=== PATIENT | male | born 1945 | race Caucasian/White ===

== ENCOUNTER 2024-05-20 16:01 | Emergency (ER) | payer MEDICARE, SELFPAY ==
[2024-05-20 16:02] VITALS: BP 116/69; PULSE 63; RESP 18; TEMP 36.5; O2SAT 92; BMI 25.0
--- NOTE | 2024-05-20 16:18 | EKG12_ITS ---
Test Reason : CP Blood Pressure : / mmHG Vent. Rate : 062 BPM Atrial Rate : 062 BPM P-R Int : 182 ms QRS Dur : 086 ms QT Int : 418 ms P-R-T Axes : 011 -18 048 degrees QTc Int : 424 ms Normal sinus rhythm Inferior infarct , age undetermined Abnormal ECG Confirmed by TISHA HADDAD, IRINA ([id number]), editor dictionary LOTUS CLEMENT ([id number]) on 05/22/2024 2:27:55 PM Referred By: Confirmed By:KAYLYN GILES MD
--- NOTE | 2024-05-20 16:18 | CT_ITS ---
INDICATION: ams EXAMINATION: CT BRAIN - CT Head or Brain W/O Contrast Injection TECHNIQUE: Multiple axial images were obtained of the head without intravenous contrast. A radiation dose optimization technique was used for this scan. IV Contrast dosage and agent: None. RADIATION DOSAGE (If Supplied By Facility): CTDIvol = ( 44.99 ) mGy, DLP = ( 779.24 ) mGycm COMPARISON: No relevant prior examinations for comparison FINDINGS: HEMISPHERES: 1. The cerebral parenchyma, ventricular system, subarachnoid spaces have normal configuration and density. There is a normal gyral pattern. There is normal valentine/white differentiation. No midline shift.. 2. There are diffuse involutional changes and mild to moderate chronic microvascular deep white matter changes. 3. No intraparenchymal mass or hemorrhage. CEREBELLUM - BRAINSTEM: The cerebellum, brainstem, basilar and suprasellar cisterns have normal configuration. There however is asymmetric area of diminished density in the LEFT sosa suspicious of a area of encephalomalacic and infarct.. No Chiari malformation. PITUITARY: Infundibulum and pituitary have normal configuration. Midline structures appear normal. CSF SPACES: Appropriate for age. No hydrocephalus. Basal cisterns are patent. VESSELS: 1. Mild to moderate vascular calcifications throughout the cavernous carotid vessels. 2. No hyperdense vascular signs noted.. ORBITS AND PARANASAL SINUSES: 1. Normal appearance of the bony orbits. Normal appearance of the globes and retrobulbar soft tissues.. 2. Paranasal sinuses are clear. BONY ELEMENTS: Bony elements of the cranial vault, facial skeleton and skull base have normal appearance. SCALP AND SOFT TISSUES: Normal appearance of the soft tissues of the scalp and the visualized face OTHER: None ASPECTS Score for Acute Strokes: 10 CT/Brain/Head without Contrast IMPRESSION: 1. Diffuse involutional changes and chronic microvascular deep white matter disease. 2. LEFT paramedian pontine hypodensity may represent an area of brainstem infarct of indeterminate age. If corresponding acute symptoms are present, consider evaluation with MRI for further clarification of acuity. 3. No intracranial mass or hemorrhage. 4. No radiographically significant sinus disease.. Electronically Signed: Preston Gunderson MD at 17:50 EDT ,
--- NOTE | 2024-05-20 16:19 | EDS_ITS ---
HPI History of Present Illness Chief Complaint: Weakness Informant: patient and family Narrative Narrative: 79-year-old male who is new to the area and has been getting his care through [facility] presenting to the emergency room with altered mental status. Patient is moving to a new area got up earlier than normal today. He feels tired. Family states that there is been a lot of activity involved in the move. He had a donut for breakfast. He states that he did not have lunch. He was at [facility] getting some items that he needed when coming out of the store he suddenly stopped moving and difficulty in speaking (tried to get him to count to 10 and he said [id number] and then 10). He was noted to be diaphoretic and pale. He had difficulty moving. Patient states that during that episode he was feeling some chest discomfort. Family notes he was incontinent of urine. Patient does carry a history of dementia. 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 Family notes he seems to be angrier over the past couple weeks. [facility] Medical History Kidney disease Diabetes TIA (transient ischemic attack) Hypertension Home Medications ?Medication ?Instructions ?Recorded ?Last Taken ?Type amlodipine 5 mg tablet 5 mg PO DAILY 05/20/24 Unknown History aspirin 81 mg tablet,delayed 81 mg PO DAILY 05/20/24 Unknown History release (Adult Low Dose Aspirin) atorvastatin 80 mg tablet 80 mg PO DAILY 05/20/24 Unknown History calcium carbonate 600 mg-vitamin 1 cap PO DAILY 05/20/24 Unknown History D3 5 mcg (200 unit) capsule (Calcium 600 + D(3)) duloxetine 30 mg capsule,delayed 60 mg PO DAILY 05/20/24 Unknown History release insulin human U-100 NPH-regulr 22 unit subcut BREAKFAST 05/20/24 Unknown History 70-30 mix 100 unit/mL subcutaneous susp (Humulin 70/30 U-100 Insulin) isosorbide mononitrate 30 mg 30 mg PO DAILY 05/20/24 Unknown History tablet,extended release 24 hr losartan 50 mg tablet 50 mg PO DAILY 05/20/24 Unknown History metoprolol tartrate 100 mg tablet 100 mg PO BID 05/20/24 Unknown History mirtazapine 15 mg tablet 15 mg PO QHS 05/20/24 Unknown History solifenacin 10 mg tablet 10 mg PO DAILY 05/20/24 Unknown History tamsulosin 0.4 mg capsule 0.4 mg PO DAILY 05/20/24 Unknown History topiramate 50 mg tablet 50 mg PO QHS 05/20/24 Unknown History vitamin E 268 mg (400 unit) capsule 268 mg PO DAILY 05/20/24 Unknown History Allergy/AdvReac Type Severity Reaction Status Date / Time No Known Allergies Allergy Verified 05/20/24 17:10 Social History household members: family housing: house ROS ROS ED ROS Narrative Fatigue Constitutional Constitutional ED: Denies chills, fever(s) or weight loss Eyes Eyes: Denies change in vision or diplopia ENT ENT ED: Denies ear pain, rhinorrhea or sore throat Cardiovascular Cardiovascular: Reports chest pain; Denies orthopnea, palpitations or racing heartbeat Respiratory/Chest Respiratory/Chest: Denies cough, dyspnea or orthopnea Gastrointestinal Gastrointestinal: Denies abdominal pain, diarrhea, nausea or vomiting Genitourinary Genitourinary ED: Denies dysuria, hematuria or urinary frequency Musculoskeletal Musculoskeletal: Denies arthralgias or myalgias Integumentary Denies abscess or rash Neurologic Neurologic: Denies headache(s) or weakness Psychiatric Psychiatric: Denies anxiety, depression, suicidal ideation or suicidal thoughts Endocrine Endocrinology: Denies polydipsia, polyphagia or polyuria Allergic/Immunologic Allergic/Immunologic ED: Denies mouth swelling, tongue swelling or urticaria EXAM Physical Exam Const Vital Signs: 05/20/24 16:02 05/20/24 16:20 05/20/24 16:25 Temperature 97.7 F L Temperature Source Oral Pulse Rate 63 60 Respiratory Rate 18 12 Blood Pressure 116/69 118/75 Blood Pressure Mean 84 89 Pulse Ox 92 93 96 Oxygen Delivery Method Room Air Nasal Cannula Nasal Cannula Oxygen Flow Rate (L/min) 3 3 05/20/24 17:32 Temperature Temperature Source Pulse Rate 80 Respiratory Rate 18 Blood Pressure 121/64 H Blood Pressure Mean 83 Pulse Ox 91 Oxygen Delivery Method Room Air Oxygen Flow Rate (L/min) Positive well nourished and well developed General Appearance ED: well developed HEENT Reports normocephalic, head/scalp atraumatic and moist mucous membranes Eyes PERRL and EOMs intact bilaterally Neck no lymphadenopathy, supple and no JVD Resp normal respiratory effort and clear to auscultation bilaterally Cardio regular rate, regular rhythm and no murmurs GI normal to inspection, nondistended, normoactive bowel sounds and non-tender Palpation: soft Back/Spine no CVA tenderness and normal ROM Extremity normal to inspection General Extremety ED: Negative for edema General Extremity: Negative for edema Neuro oriented x3 and CN's II-XII intact bilaterally Sensorium / Orientation: alert Motor Exam: strength 5/5 throughout Psych mental status grossly normal Mood & Affect: Negative for depressed or tearful Skin no rashes or lesions noted and no wounds MDM MDM MDM Narrative Medical decision making narrative: Differential diagnosis includes but not limited to vasovagal near syncope dysrhythmia electrolyte disturbance ACS UTI/infection anemia hypotension NOS hypoglycemia intracranial hemorrhage mass Hemoglobin 14.1 with a white count of 7.1 platelet count of 197. BMP with a creatinine 1.86. 2 sets of cardiac enzymes are normal at 8 glucose 238. Urinalysis no acute findings my independent interpretation of the chest x-ray is no acute findings. CT of the brain was obtained. There is a left paramedian pontine hypodensity undetermined age. I do not believe that that fits with the patient's clinical symptoms. His blood sugars remained stable. When he sleeps he has oxygen levels around 89-90%. He has been able to ambulate. I reviewed the above findings with the patient and his daughter. Not seeing any cardiac dysrhythmias. He has been stable here in the department. At this point patient will be discharged home. Should he have return of symptoms would recommend returning to the emergency department. History & Record Review Discussion w/independent historian: Patient and Family Lab Data Attestation: I reviewed the patient's lab results. Labs: Laboratory Results - last 24 hr 05/20/24 05/20/24 05/20/24 16:17 17:17 17:22 WBC 7.1 RBC 4.91 Hgb 14.1 Hct 42.9 MCV 87.4 MCH 28.7 MCHC 32.9 RDW Std Deviation 43.8 RDW Coeff of Vimal 13.8 Plt Count 197 MPV 11.0 Immature Gran % (Auto) 0.300 Neut % (Auto) 42.9 L Lymph % (Auto) 41.3 H [place] % (Auto) 7.2 Eos % (Auto) 7.6 H Baso % (Auto) 0.7 Absolute Neuts (auto) 3.0 Absolute Lymphs (auto) 2.92 Nucleated RBC % 0 Sodium 138 Potassium 3.5 Chloride 111 H Carbon Dioxide 21.0 Anion Gap 6 BUN 10 Creatinine 1.86 H Estim Creat Clear Calc 31.16 Est GFR (MDRD) Af Amer 45 L Est GFR (MDRD) Non-Af 37 L BUN/Creatinine Ratio 5.4 L Glucose 238 H Calcium 9.5 Troponin I High Sens 8 8 Urine Color Yellow Urine Clarity Clear Urine pH 6.5 Ur Specific [place] 1.015 Urine Protein 30 H Urine Glucose (UA) 100 H Urine Ketones Negative Urine Occult Blood Negative Urine Nitrite Negative Urine Bilirubin Negative Urine Urobilinogen Normal Ur Leukocyte Esterase 25 H Urine RBC 0 SEEN Urine WBC 0 SEEN Ur Squamous Epith Cells 0 SEEN Urine Bacteria 0 SEEN Urine Mucus 0 SEEN POC Glucose 05/20/24 18:07 WBC RBC Hgb Hct MCV MCH MCHC RDW Std Deviation RDW Coeff of [place] Plt Count MPV Immature Gran % (Auto) Neut % (Auto) Lymph % (Auto) [place] % (Auto) Eos % (Auto) Baso % (Auto) Absolute Neuts (auto) Absolute Lymphs (auto) Nucleated RBC % Sodium Potassium Chloride Carbon Dioxide Anion Gap BUN Creatinine Estim Creat Clear Calc Est GFR (MDRD) Af Amer Est GFR (MDRD) Non-Af BUN/Creatinine Ratio Glucose Calcium Troponin I High Sens Urine Color Urine Clarity Urine pH Ur Specific [place] Urine Protein Urine Glucose (UA) Urine Ketones Urine Occult Blood Urine Nitrite Urine Bilirubin Urine Urobilinogen Ur Leukocyte Esterase Urine RBC Urine WBC Ur Squamous Epith Cells Urine Bacteria Urine Mucus POC Glucose 244 H Radiography Diagnostic Testing: Clinical Impression(s) from Imaging Studies Brain CT 05/20/24 16:18 IMPRESSION: 1. Diffuse involutional changes and chronic microvascular deep white matter disease. 2. LEFT paramedian pontine hypodensity may represent an area of brainstem infarct of indeterminate age. If corresponding acute symptoms are present, consider evaluation with MRI for further clarification of acuity. 3. No intracranial mass or hemorrhage. 4. No radiographically significant sinus disease.. Electronically Signed: Preston Gunderson MD at 17:50 EDT , Chest X-Ray 05/20/24 16:50 IMPRESSION: 1. No evidence of acute cardiopulmonary process. 2. Mild crowding of bronchovascular markings particularly at LEFT lung bases contributed by shallow inspiration. Electronically Signed: Preston Gunderson MD at 17:27 EDT , EKG Initial EKG: Attestation: I personally reviewed and interpreted this EKG as follows: Comments: Normal sinus rhythm ventricular rate of 62 bpm Discharge Plan Triage Chief Complaint: Weakness ED Provider: Dylan Weaver Dx/Rx/DC Orders Clinical Impression: AMS (altered mental status), Near syncope Instructions: ED ALOC Prescriptions: No Action vitamin E 268 mg (400 unit) capsule 268 mg PO DAILY amlodipine 5 mg tablet 5 mg PO DAILY aspirin [Adult Low Dose Aspirin] 81 mg tablet,delayed release (DR/EC) 81 mg PO DAILY atorvastatin 80 mg tablet 80 mg PO DAILY Calcium 600 + D(3) 600 mg-5 mcg (200 unit) capsule 1 cap PO DAILY duloxetine 30 mg capsule,delayed release(DR/EC) 60 mg PO DAILY Humulin 70/30 U-100 Insulin 100 unit/mL (70-30) suspension 22 unit subcut BREAKFAST Patient Comments: 26 units prior to dinner losartan 50 mg tablet 50 mg PO DAILY metoprolol tartrate 100 mg tablet 100 mg PO BID isosorbide mononitrate 30 mg tablet extended release 24 hr 30 mg PO DAILY tamsulosin 0.4 mg capsule 0.4 mg PO DAILY mirtazapine 15 mg tablet 15 mg PO QHS topiramate 50 mg tablet 50 mg PO QHS solifenacin 10 mg tablet 10 mg PO DAILY Primary Care Provider: Efren Rios Referrals: Efren Rios MD [Primary Care Provider] - As Needed Print Language: Gabonese Disposition Disposition: Home, Self Care
[2024-05-20 16:20] VITALS: O2SAT 93
[2024-05-20] MEDS: 0.9% Normal Saline (1000mL) 1,000 ML 1000 ML IV (16:24)
[2024-05-20 16:25] VITALS: BP 118/75; PULSE 60; RESP 12; O2SAT 96
[2024-05-20 16:37] LABS: Absolute Lymphocyte Count 2.92 X10^3/uL (0.83-4.51); Basophil# 0.05 X10^3/uL; Basophil% 0.7 % (0-1); Eosinophil# 0.54 X10^3/uL; Eosinophils% 7.6 % (0-5); Hematocrit 42.9 % (40-54); Hemoglobin 14.1 g/dL (13.0-16.5); Lymphocyte # 2.92 X10^3/ul (0.83-4.51); Lymphocyte % 41.3 % (19-41); Mean Corp Hgb Conc 32.9 g/dL (32-36); Mean Corpuscular Hgb 28.7 pg (27.0-32.0); Mean Corpuscular Volume 87.4 fL (80-94); Monocyte# 0.51 X10^3/uL; Monocyte% 7.2 % (0-10); NRBC Flagged by Analyzer 0 % (0-5); Neutrophil # 3.03 X10^3/uL (2.7-7.7); Neutrophil % 42.9 % (47-70); Platelet Count 197 K/mm3 (150-450); RBC Distribution Width CV 13.8 % (11.6-14.6); RBC Distribution Width SD 43.8 fl (35.1-43.9); Red Blood Count 4.91 M/mm3 (4.6-6.2); White Blood Count 7.1 K/mm3 (4.4-11.0)
--- NOTE | 2024-05-20 16:50 | RAD_ITS ---
INDICATION: near syncope EXAMINATION/TECHNIQUE: X-RAY - XR Chest 1 View COMPARISON: No previous relevant examinations available for comparison.. FINDINGS: LIFE-SUPPORT AND LINES: 1. None HEART AND VESSELS: The cardiac silhouette, pulmonary vasculature have normal appearance. No evidence of congestive failure. LUNGS AND PLEURAL SPACES: Lungs are clear. No focal infiltrate, consolidation or effusions. No evidence of pneumothorax. There is mild crowding of bronchovascular markings particularly at the LEFT lung base contributed by shallow inspiration. MEDIASTINUM AND HILAR REGIONS: No masses adenopathy noted. No areas of calcification. Visualized upper airway is normal in position. BONY ELEMENTS: No acute bony changes noted. RAD/Chest 1 View (Portable) IMPRESSION: 1. No evidence of acute cardiopulmonary process. 2. Mild crowding of bronchovascular markings particularly at LEFT lung bases contributed by shallow inspiration. Electronically Signed: Preston Gunderson MD at 17:27 EDT ,
[2024-05-20 17:00] LABS: Anion Gap 6 (5-15); BUN 10 mg/dL (7-18); BUN/Creat Ratio 5.4 RATIO (10-20); Calcium,Total 9.5 mg/dL (8.5-10.1); Chloride 111 mmol/L (98-107); Creatinine, Serum 1.86 mg/dL (0.70-1.30); EST Glomerular Filtration Rate 37 mL/min (>60); Est Glom Filt Rate - Afr Amer 45 mL/min (>60); Estimated Creatinine Clearance 31.16 ml/min; Glucose 238 mg/dL (74-106); Potassium 3.5 mmol/L (3.5-5.1); Sodium Level 138 mmol/L (136-145); Troponin-I HS 8 pg/mL (3.0-78.0)
[2024-05-20 17:30] LABS: Bacteria 0 SEEN /hpf (None Seen); Mucous, Urine 0 SEEN /hpf (<or=2+); Red Blood Cells-Urine 0 SEEN /hpf (0-5); Squamous Epithelial Cells - UA 0 SEEN /hpf (0-5); White Blood Cells 0 SEEN /hpf (0-5)
[2024-05-20 17:32] VITALS: BP 121/64; PULSE 80; RESP 18; O2SAT 91
[2024-05-20 17:35] LABS: Color, Urine Yellow (Yellow); Glucose, Dipstick 100 mg/dl (Normal); Ketone-Dipstick Negative (Negative); Leukocyte Esterase-Dipstick 25 /ul (Negative); Nitrite-Dipstick Negative (Negative); Occult Blood-Urine Negative /ul (Negative); Protein-Dipstick 30 mg/dl (Negative); Specific Gravity, Urine 1.015 (1.002-1.030); Urine Bilirubin Dipstick Negative (Negative); Urine Clarity Clear (Clear); Urine Urobilinogen Normal (Normal); Urine pH 6.5 (5.0 - 8.0)
[2024-05-20 17:58] LABS: Troponin-I HS 8 pg/mL (3.0-78.0)
[2024-05-20 18:25] LABS: Bedside Glucose 244 mg/dL (74-106)
[2024-05-20 19:10] VITALS: BP 116/78; PULSE 78; RESP 16; TEMP 36.6; O2SAT 94
[2024-05-20 20:03] LABS: Bedside Glucose 231 mg/dL (74-106)
== END 2024-05-20 19:12 | disposition home or self-care (01) ==
PROVIDERS: Emergency Provider Emergency Medicine; PCP Family Medicine; Visit Provider Emergency Medicine
DX: R55 Syncope and collapse (principal); E11.9 Type 2 diabetes mellitus without complications; R41.82 Altered mental status, unspecified; I10 Essential (primary) hypertension; R53.1 Weakness; R47.9 Unspecified speech disturbances; Z79.82 Long term (current) use of aspirin; Z86.73 Personal history of transient ischemic attack (TIA), and cerebral infarction without residual deficits
CPT/HCPCS: 70450; 71045; 80048; 81001; 82962; 84484; 85025; 93005; 96360; 99283; J7030; A4216

== ENCOUNTER → 2025-04-17 | Outpatient (CLI) | payer MEDICARE, SELFPAY ==
[2025-04-17 14:27] LABS: ALB/GLOB Ratio 1.6 RATIO (0.9-2.4); AST(SGOT) 31 U/L (<=37); Alanine Aminotransfer ALT/SGPT 33 U/L (<=46); Albumin, Serum 3.8 g/dL (3.4-4.8); Alkaline Phosphatase 108 U/L (40-129); Anion Gap 7 (5-15); BUN 11 mg/dL (4-19); BUN/Creat Ratio 6.8 RATIO (10-20); Calcium,Total 9.4 mg/dL (7.6-11.0); Carbon Dioxide 28.8 mmol/L (21.0-32.0); Chloride 103 mmol/L (98-108); Cholesterol 122 mg/dL (<=200); Creatinine, Serum 1.62 mg/dL (0.70-1.20); EST Glomerular Filtration Rate 43 (>60); Globulin 2.4 g/dL (2.2-4.2); Glucose 179 mg/dL (70-99); High Density Lipoprotein 27 mg/dL; Low Density Lipoprotein Calc. 57 mg/dL; Potassium 3.9 mmol/L (3.3-5.1); Protein, Total 6.2 g/dL (5.9-8.4); Sodium Level 139 mmol/L (133-145); Total Bilirubin 0.52 mg/dL (0.00-1.30); Triglycerides 188 mg/dL; Very Low Density Lipoprotein 38 mg/dL (5-40); cholesterol:hdl ratio screen 4.45
--- OUTSIDE RECORDS SUMMARY | 2025-04-17 21:58 | XMS RPT_ITS | CCD ---
Author Organization [facility] Care Team Providers Care Histopath Tech Name Role Phone KESHAWN MARSH Unavailable Unavailable Efren Tidwell Primary Care Provider [phone] Efren Tidwell Primary Care Provider Efren Tidwell MD Primary Care Provider Efren Tidwell MD Primary Care Provider Efren Tidwell MD Primary Care Provider Paola Wheeler MD Unavailable Paola Wheeler MD Unavailable Efren Tidwell MD Primary Care Provider Efren Tidwell MD Primary Care Provider Efren Tidwell MD Primary Care Provider EFREN TIDWELL MD Attending Unavailable EFREN TIDWELL MD Primary Care Unavailable ArmEfren victoria Primary Care Unavailable Dylan Weaver Attending Unavailable Efren Tidwell Primary Care Unavailable Efren Tidwell Referring Unavailable Kelley Weiss Attending Unavailable Paola Wheeler MD Unavailable [phone] SHARRI MOORE Attending Unavailable ARMEFREN VICTORIA Primary Care Unavailable DION GUTIERREZ Attending Unavailable ARMJULIEN, EFREN Primary Care Unavailable CAMILLA GUADARRAMA Attending Unavailable ARMJULIEN, EFREN Primary Care Unavailable EFREN TIDWELL Attending Unavailable ARMJULIEN, EFREN Primary Care Unavailable RACHELL HERRERA Referring Unavailable ARMJULIEN, EFREN Primary Care Unavailable EFREN TIDWELL Attending Unavailable ARMJULIEN, EFREN Primary Care Unavailable RACHELL HERRERA Attending Unavailable RACHELL HERRERA Referring Unavailable ARMAO, EFREN Primary Care Unavailable LYDIA MONIQUE Attending Unavailable LYDIA MONIQUE Referring Unavailable ARMAO, EFREN Primary Care Unavailable DION GUTIERREZ Attending Unavailable DION GUTIERREZ [facility] Unavailable SUSAN MATT Attending Unavailable EFREN TIDWELL Primary Care Unavailable CURT CROWELL Attending Unavailable ERIC CHRISTIAN Referring Unavailable [facility] Primary Care Unavailable ERIC CHRISTIAN Attending Unavailable [facility] Primary Care Unavailable RACHELL HERRERA Attending Unavailable EFREN TIDWELL Referring [facility]available [facility] Primary Care Unavailable ROCHELLE LANDEROS Attending Unavailable [facility] Primary Care Unavailable Diann HADDAD, Dr. Schwartz Primary Care Provider Dr. Efren Tidwell MD Referring Provider Abhishek BUSINESS CONTROL MANAGER-CKelley Attending Provider [phone] Allergies Allergy Classification Reported Allergen(s) Allergy Type Date of Onset Reaction(s) Facility (1 source) OTHER; Translations: [OTHER] Propensity to adverse reactions (disorder) 8 [facility] Other [place] [facility] Medications Current Medications Medication Drug Class(es) Dates Sig (Normalized) Sig (Original) acetaminophen 325 mg oral tablet (20 sources) Start: 01-08-2024 End: 01-18-2024 take 2 tablets by mouth every six hours as needed for pain and fever acetaminophen (Tylenol) 325 MG tablet Take 2 tablets (650 mg) by mouth every 6 hours as needed for mild pain (1-3) or fever (For temp greater than 100.4 F (38 C)) for up to 10 days. 0 01/08/2024 01/18/2024 Active Start: 01-08-2024 End: 01-08-2024 take 1 tablet by mouth every six hours as needed for pain and fever acetaminophen (Tylenol) tablet 650 mg Start: 03-08-2022 End: 03-08-2023 take 1 tablet by mouth four times daily as needed for pain acetaminophen (Tylenol) 500 MG tablet TAKE 1 TABLET BY MOUTH 4 TIMES DAILY NEEDED FOR PAIN 360 tablet 1 03/08/2022 03/08/2023 Active Start: 03-08-2022 acetaminophen (TYLENOL) tablet 1,000 mg Start: 10-24-2020 End: 10-24-2020 acetaminophen (TYLENOL) tabl et 1,000 mg acetaminophen 325 mg / HYDROcodone bitartrate 5 mg oral tablet (1 source) Opioid Agonist Start: 01-05-2021 take 0.5-1 tablets by mouth every twelve hours as needed HYDROcodone-acetaminophen (NORCO) 5-325 MG per tablet TAKE 1/2 TO 1 TABLET BY MOUTH EVERY 12 HOURS NEEDED 0 01/05/2021 Active ALPRAZolam 0.25 mg disintegrating oral tablet (1 source) Benzodiazepine Start: 03-08-2022 ALPRAZolam (NIRAVAM) dissolvable tablet 0.25 mg amoxicillin 875 mg oral tablet (1 source) Penicillin-class Antibacterial Start: 04-17-2020 End: 04-27-2020 take 1 tablet by mouth twice daily amoxicillin (AMOXIL) 875 MG tablet Indications: Acute cystitis without hematuria Take 1 tablet by mouth 2 times daily for 10 days 20 tablet 0 04/17/2020 04/27/2020 Active aspirin 81 mg delayed release oral tablet (20 sources) Platelet Aggregation Inhibitor, Nonsteroidal Anti-inflammatory Drug Start: 01-08-2024 End: 01-08-2025 Aspirin (Adult Low Dose Aspirin) 81 mg tablet,delayed release (DR/EC) Active 81 mg PO DAILY May 20, 2024 12:00am Start: 01-08-2024 End: 01-08-2024 aspirin EC tablet 325 mg atorvastatin 80 mg oral tablet (20 sources) HMG-CoA Reductase Inhibitor Start: 05-20-2024 take 1 tablet by mouth once daily atorvastatin (Lipitor) 80 MG tablet Indications: Mixed hyperlipidemia TAKE 1 TABLET BY MOUTH DAILY 90 tablet 3 10/03/2024 Active Start: 01-08-2024 End: 03-09-2024 take 1 tablet by mouth once daily atorvastatin (Lipitor) 80 MG tablet Indications: Mixed hyperlipidemia Take 1 tablet (80 mg) by mouth daily. 90 tablet 3 02/06/2024 Active Start: 10-28-2023 End: 01-08-2024 take 1 tablet by mouth at bedtime atorvastatin (Lipitor) 40 MG tablet 1 po at hs 90 tablet 3 10/28/2023 01/08/2024 Discontinued (Stop taking at discharge) Start: 09-08-2022 End: 10-26-2023 take 1 tablet by mouth at bedtime atorvastatin (Lipitor) 40 MG tablet 1 po at hs 90 tablet 3 03/08/2023 10/26/2023 Discontinued (Reorder) Start: 06-30-2021 take 1 tablet by chana th once daily atorvastatin (LIPITOR) 40 MG tablet Indications: Pure hypercholesterolemia Take 1 tablet by mouth daily 90 tablet 3 06/30/2021 Active Start: 03-16-2021 take 1 tablet by chana th once daily atorvastatin (LIPITOR) 40 MG tablet Indications: Pure hypercholesterolemia Take 1 tablet by mouth daily 90 tablet 2 03/16/2021 Active Start: 05-29-2020 take 1 tablet by chana th once daily atorvastatin (LIPITOR) 40 MG tablet Indications: Pure hypercholesterolemia Take 1 tablet by mouth daily 90 tablet 2 05/29/2020 Active Start: 03-09-2019 atorvastatin ( LIPITOR) 40 MG tablet Indications: Pure hypercholesterolemia Take 40 mg by mouth 0 03/09/2019 Active azithromycin 250 mg oral tablet (5 sources) Macrolide Antimicrobial Start: 10-26-2024 End: 10-31-2024 azithromycin (Zithromax) 250 MG tablet Indications: Bronchitis Take 2 tabs (500 mg) by mouth today, than 1 tab (250 mg) daily for 4 days. 6 tablet 10/26/2024 10/31/2024 Active benzonatate 200 mg oral capsule (20 sources) Non-narcotic Antitussive Start: 10-26-2024 End: 04-24-2025 take 1 capsule by mouth three times daily as needed for cough benzonatate (Tessalon) 200 MG capsule Indications: Bronchitis Take 1 capsule (200 mg) by mouth 3 times daily as needed for cough. Do not crush or chew. 42 capsule 3 10/26/2024 04/24/2025 Active Blood Glucose Monitoring Suppl KIT (5 sources) Start: 07-14-2021 Blood Glucose Monitoring Suppl KIT Indications: Type 2 diabetes mellitus with diabetic polyneuropathy, without long-term current use of insulin (HCC) Use as directed, One touch ultra 1 kit 0 07/14/2021 Active calcium carbonate 1500 mg / cholecalciferol 200 unt oral capsule (20 sources) Vitamin D Start: 05-20-2024 Calcium Carbonate-Vitamin D3 (Calcium 600 + D(3)) 600 mg-5 mcg (200 unit) capsule Active 1 NMA PO DAILY May 20, 2024 12:00am take 1 tablet by mouth once viraj y calcium carbonate-vitamin D 600-200 MG-UNIT tablet Take 1 tablet by mouth daily. Active calcium carbonat e-vitamin D 600-200 MG-UNIT tablet Take by mouth. Active Calcium Carb-Cho lecalciferol (CALCIUM 600+D3) 600-200 MG-UNIT TABS Take by mouth 0 Active calcium chloride 0.0014 meq/ml / potassium chloride 0.004 meq/ml / sodium chloride 0.103 meq/ml / sodium lactate 0.028 meq/ml injectable solution (2 sources) Start: 03-08-2022 lactated ringers infusion cefadroxil 500 mg oral capsule (11 sources) Cephalosporin Antibacterial Start: 03-08-2022 End: 03-08-2023 take 1 capsule by mouth twice daily cefadroxil (Duricef) 500 MG capsule TAKE 1 CAPSULE BY MOUTH 2 TIMES DAILY FOR 10 DAYS 20 capsule 0 03/08/2022 03/08/2023 Active ciclopirox 80 mg/ml topical solution (3 sources) Start: 02-04-2022 ciclopirox (PENLAC) 8 % solution Indications: Onychomycosis Apply topically nightly to effected nails. 12 mL 2 02/04/2022 Active Continuous Blood Gluc Spout Tender (FREESTYLE NITA 14 DAY READER) AZUL (6 sources) Start: 06-05-2021 Continuous Blood Gluc Spout Tender (FREESTYLE NITA 14 DAY READER) AZUL Indications: Type 2 diabetes mellitus with diabetic polyneuropathy, without long-term current use of insulin (HCC) Use as directed for blood sugar check 1 Device 0 06/05/2021 Active Continuous Blood Gluc Spout Tender (FreeStyle Nita 2 [place]) device (1 source) Start: 11-09-2022 End: 11-09-2022 Continuous Blood Gluc Spout Tender (FreeStyle Nita 2 [place]) device 1 Device Once for 1 dose. 1 each 0 11/09/2022 11/09/2022 Active Continuous Blood Gluc Sensor (FREESTYLE NITA 14 DAY SENSOR) MISC (6 sources) Start: 06-05-2021 Continuous Blood Gluc Sensor (FREESTYLE NITA 14 DAY SENSOR) MISC Indications: Type 2 diabetes mellitus with diabetic polyneuropathy, without long-term current use of insulin (HCC) Use as directed for blood sugar 6 each 3 06/05/2021 Active Continuous Blood Gluc Sensor (FREESTYLE NITA 2 SENSOR) MISC (4 sources) Start: 11-27-2021 Continuous Blood Gluc Sensor (FREESTYLE NITA 2 SENSOR) [facility] 1 device change every 14 days 6 each 3 11/27/2021 Active Continuous Glucose Spout Tender (FreeStyle Nita 3 [place]) device (11 sources) Start: 01-31-2025 Continuous Glucose Spout Tender (FreeStyle Nita 3 [place]) device Indications: Type 2 diabetes mellitus with hyperglycemia, with long-term current use of insulin ([facility]) Check blood sugar 4 times daily 1 each 01/31/2025 Active Continuous Glucose Sensor (FreeStyle Nita 3 Plus Sensor) misc (11 sources) Start: 01-31-2025 Continuous Glucose Sensor (FreeStyle Nita 3 Plus Sensor) [facility] [place] Indications: Type 2 diabetes mellitus with hyperglycemia, with long-term current use of insulin ([facility]) Check blood sugar 4 times daily 6 each 11 01/31/2025 Active diabetic shoes (20 sources) Start: 04-17-2024 diabetic shoes Diabetic Shoes and inserts. 1 each 04/17/2024 Active 1 ml diphenhydrAMINE hydrochloride 50 mg/ml cartridge (1 source) Histamine-1 Receptor Antagonist Start: 03-08-2022 End: 03-08-2022 diphenhydrAMINE (BENADRYL) injection 12.5 mg docosahexaenoic acid 120 mg / eicosapentaenoic acid 180 mg oral capsule (20 sources) take 1 capsule by mouth in the morning fish oil-omega-3 fatty acids 1000 MG capsule Take 1,000 mg by mouth in the morning. 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) Take 1 tablet by mouth daily 90 tablet 0 09/08/2020 Active Start: 04-21-2020 End: 05-21-2020 take 1 tablet by mouth once daily donepezil (ARICEPT) 10 MG tablet 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) Take 1 tablet by mouth daily 30 tablet 6 04/21/2020 Active Start: 04-21-2020 End: 05-21-2020 take 1 tablet by mouth once daily donepezil (ARICEPT) 5 MG tablet 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) Take 1 tablet by mouth daily Take for 30 days then increase to 10 mg daily (see other script) 30 tablet 0 04/21/2020 Active 0.5 ml dulaglutide 1.5 mg/ml auto-injector (13 sources) GLP-1 Receptor Agonist Start: 01-29-2025 Trulicity 0.75 MG/0.5ML 01/29/2025 Active Start: 01-23-2025 End: 01-23-2025 Dulaglutide (Trulicity) 0.75 mg/0.5 mL pen injector Active 0.75 mg SC EVERY WEEK 2 January 23, 2025 4:58pm DULoxetine 30 mg delayed release oral capsule (20 sources) Serotonin and Norepinephrine Reuptake Inhibitor Start: 01-08-2024 End: 01-08-2024 take 60 mg by mouth once daily 60 mg, Oral, Daily, First dose on 01/08/24 at 0900, Do not crush or chew. Start: 10-28-2023 End: 12-10-2024 take 2 capsules by mouth once daily Duloxetine 30 mg capsule,delayed release(DR/EC) Active 60 mg PO DAILY May 20, 2024 12:00am Start: 03-18-2023 End: 10-26-2023 take 2 capsules by mouth in the morning DULoxetine (Cymbalta) [address] capsule TAKE 2 CAPSULES BY MOUTH IN THE MORNING 180 capsule 3 03/18/2023 10/26/2023 Discontinued (Reorder) Start: 09-08-2022 End: 03-08-2023 take 2 capsules by mouth in the morning DULoxetine (Cymbalta) [address] capsule 2 po in AM Strength: 30 mg 180 capsule 3 03/08/2023 Active Start: 06-30-2021 take 2 capsules by m outh in the morning DULoxetine (CYMBALTA) 30 MG extended release capsule Indications: Type 2 diabetes mellitus with diabetic polyneuropathy, with long-term current use of insulin (HCC) 2 po in AM 180 capsule 3 06/30/2021 Active Start: 02-02-2021 take 2 capsules by m outh in the morning DULoxetine (CYMBALTA) 30 MG extended release capsule Indications: Type 2 diabetes mellitus with diabetic polyneuropathy, with long-term current use of insulin (HCC) 2 po in AM 180 capsule 2 02/02/2021 Active Start: 11-23-2019 take 2 capsules by m outh in the morning DULoxetine (CYMBALTA) 30 MG extended release capsule Indications: Type 2 diabetes mellitus with diabetic polyneuropathy, with long-term current use of insulin (HCC) 2 po in AM 180 capsule 2 04/22/2020 Active empagliflozin 25 mg oral tablet (20 sources) Sodium-Glucose Cotransporter 2 Inhibitor Start: 04-17-2024 End: 11-27-2025 take 1 tablet by mouth once daily in the morning Empagliflozin (Jardiance) 25 mg tablet Active 25 mg PO EVERY MORNING October 15, 2024 1:00am Flash Glucose Sensor (Freestyle Nita 2 Sensor) kit (1 source) Start: 10-15-2024 Flash Glucose Sensor (Freestyle Nita 2 Sensor) kit Active 0 .ROUTE October 15, 2024 1:00am As directed fluticasone propionate 0.05 mg/actuat metered dose nasal spray (13 sources) Corticosteroid Start: 10-05-2021 take 2 spray(s) nasal route once daily fluticasone (Flonase) 50 MCG/ACT nasal spray Administer 2 sprays into affected nostril(s) daily. 0 10/05/2021 Active furosemide 20 mg oral tablet (20 sources) Loop Diuretic Start: 10-15-2024 take 1 tablet by mouth every other day Furosemide 20 mg tablet Active 20 mg PO every other day October 15, 2024 1:00am Start: 10-28-2023 End: 07-23-2024 take 1 tablet by mouth every other day furosemide (Lasix) 20 MG tablet TAKE 1 TABLET BY MOUTH EVERY OTHER DAY 50 tablet 3 07/23/2024 Active Start: 03-08-2023 End: 10-26-2023 take 1 tablet by mouth every other day furosemide (Lasix) 20 MG tablet 1 po every other day 45 tablet 3 03/08/2023 10/26/2023 Discontinued (Reorder) Start: 10-24-2020 furosemide (LA SIX) injection 40 mg Start: 10-24-2020 End: 10-29-2020 take 1 tablet by mouth once daily furosemide (LASIX) 20 MG tablet Take 1 tablet by mouth daily for 5 days 5 tablet 0 10/24/2020 Active Start: 06-05-2020 take 1 tablet by chana once daily furosemide (LASIX) 40 MG tablet Indications: Bilateral lower extremity edema , Shortness of breath on exertion Take 1 tablet by mouth daily 7 tablet 0 06/05/2020 Active Start: 02-27-2020 End: 03-24-2021 take 1 tablet by mouth every twelve hours as needed furosemide (LASIX) 20 MG tablet Indications: Bilateral lower extremity edema Take 1 tablet by mouth every 12 hours as needed (lower extremity swelling) 10 tablet 0 02/27/2020 03/24/2021 Active furosemide (Lasi x) 20 MG tablet Take 20 mg by mouth. 0 Active glucagon (rdna) 1 mg injection (20 sources) Antihypoglycemic Agent Start: 10-15-2024 Glucago n 1 mg recon soln Active 1 mg SC Q20M as needed October 15, 2024 1:00am until target blood sugar attained Start: 04-24-2021 End: 04-17-2024 glucagon [address] 1 mL (1 mg) into the shoulder, thigh, or buttocks Once as needed for low blood sugar for up to 4 doses. 1 each 3 04/17/2024 Active glucosamine hydrochloride 1500 mg oral tablet (5 sources) Start: 10-15-2024 take 1 tablet by mouth once daily Glucosamine Hcl 1,500 mg tablet Active 1500 mg PO daily October 15, 2024 1:00am administer with a meal Glucosamine HCl 1500 MG TABS Take by mouth 0 Active Cozanrpjaqz-Zscxbfxte-Yhd C- Mn (Glucosamine 1500 Complex) capsule (20 sources) Glucosamine-Carroll droit-Vit C-Mn (Glucosamine 1500 Complex) capsule 1 capsule 1 (one) time each day. Active take 1 capsule by mo [facility] every twelve hours Xluqrbzwxkx-Dgiqrljtb-Hlu C-Mn (Glucosam ine 1500 Complex) capsule 1 capsule in the morning and 1 capsule in the evening. Active take 1 capsule by [facility] every twelve hours Zcszzwiyrxo-Xsjjifvgd-Kjw C-Mn (Glucosam ine 1500 Complex) capsule 1 capsule in the morning and 1 capsule in the evening. 0 Active hydroCHLOROthiazide 12.5 mg oral capsule (4 sources) Thiazide Diuretic Start: 11-10-2020 take 1 capsule by mouth once daily in the morning hydroCHLOROthiazide (MICROZIDE) 12.5 MG capsule Indications: Lower extremity edema Take 1 capsule by mouth every morning 90 capsule 1 11/10/2020 Active End: 10-04-2023 hydroCHLOROthiazide (Microzi de) 12.5 MG capsule Every 24 hours. 0 10/04/2023 Discontinued (Therapy completed) insulin isophane, human 70 unt/ml / insulin, regular, human 30 unt/ml injectable suspension (20 sources) Insulin Start: 05-20-2024 Insulin Nph An d Regular Human (Humulin 70/30 U-100 Insulin) 100 unit/mL (70-30) suspension Active 22 U SC WITH BREAKFAST May 20, 2024 12:00am Start: 04-17-2024 End: 10-30-2024 insulin NPH-insulin regular (HumuLIN,NovoLIN) (70-30) 100 UNIT/ML injection Indications: Type 2 diabetes mellitus with hyperglycemia, with long-term current use of insulin (HCC) Inject 18 units before breakfast and 28 units before dinner 40 mL 3 10/30/2024 Active Start: 01-16-2024 End: 04-17-2024 insulin NPH-insulin regular (HumuLIN,NovoLIN) (70-30) 100 UNIT/ML injection Indications: Type 2 diabetes mellitus with hyperglycemia, with long-term current use of insulin (HCC) Inject 22 units before breakfast and 26 units before dinner 40 mL 3 01/16/2024 04/17/2024 Discontinued (Reorder) Start: 01-08-2024 End: 01-08-2024 inject 15 [IU] by subcutaneous injection twice daily before mealtime 15 Units, SubCUTAneous, 2 times daily before meals, First dose on 01/08/24 at 0700 Start: 12-15-2023 End: 01-16-2024 insulin NPH-insulin regular (HumuLIN,NovoLIN) (70-30) 100 UNIT/ML injection Indications: Type 2 diabetes mellitus with hyperglycemia, with long-term current use of insulin (HCC) Inject 18 units before breakfast and 22 units before dinner 21 mL 3 12/15/2023 01/16/2024 Discontinued (Reorder) Start: 05-02-2023 End: 05-01-2024 inject 15 [IU] by subcutaneous injection in the morning insulin NPH-insulin regular (HumuLIN,NovoLIN) (70-30) 100 UNIT/ML injection Indications: Type 2 diabetes mellitus with hyperglycemia, with long-term current use of insulin (HCC) Inject 15 Units under the skin in the morning and 15 Units in the evening. Inject before meals. 21 mL 3 05/02/2023 05/01/2024 Active Start: 09-24-2022 End: 09-24-2023 inject 19 [IU] by subcutaneous injection in the morning insulin NPH-insulin regular (NovoLIN) (70-30) 100 UNIT/ML injection Inject 19 Units under the skin in the morning and 19 Units in the evening. Inject before meals. 30 mL 0 09/24/2022 11/09/2022 Discontinued (Therapy completed) insulin lispro 100 unt/ml injectable solution (1 source) Insulin Analog Start: 03-08-2022 insulin lispro (HUMALOG) injection vial 0-20 Units insulin isophane, human 100 unt/ml injectable suspension (15 sources) Start: 11-27-2021 insulin NPH (H UMULIN N;NOVOLIN N) 100 UNIT/ML injection vial Indications: Type 2 diabetes mellitus with diabetic polyneuropathy, with long-term current use of insulin (HCC) Inject 12 Units into the skin 2 times daily (before meals) 30 mL 3 11/27/2021 Active Start: 07-14-2021 insulin NPH (H UMULIN N;NOVOLIN N) 100 UNIT/ML injection vial Indications: Type 2 diabetes mellitus with diabetic polyneuropathy, with long-term current use of insulin (HCC) Inject 10 Units into the skin 2 times daily (before meals) 10 mL 3 07/14/2021 Active Start: 02-02-2021 insulin NPH (H UMULIN N;NOVOLIN N) 100 UNIT/ML injection vial Indications: Type 2 diabetes mellitus with diabetic polyneuropathy, with long-term current use of insulin (HCC) Inject 28 Units into the skin 2 times daily (before meals) 3 vial 3 02/02/2021 Active Start: 05-01-2020 insulin NPH (H UMULIN N;NOVOLIN N) 100 UNIT/ML injection vial Inject 28 Units into the skin 2 times daily (before meals) 3 vial 3 05/01/2020 Active Start: 12-27-2018 End: 10-22-2022 insulin NPH, Isophane, (Humu MILLA N,NovoLIN N) 100 UNIT/ML injection 12 units with breakfast and 15 units with dinner 0 12/27/2018 10/22/2022 Discontinued (Duplicate order) Start: 12-27-2018 insulin NPH (H UMULIN N;NOVOLIN N) 100 UNIT/ML injection vial Inject 28 Units before breakfast and 30 Units before dinner. 0 12/27/2018 Active isopropyl alcohol 0.7 ml/ml medicated pad (5 sources) Start: 11-27-2021 Alcohol Swabs 70 % PADS Check blood sugar twice daily 200 each 3 11/27/2021 Active Start: 07-14-2021 Alcohol Swabs 70 % PADS Indications: Type 2 diabetes mellitus with diabetic polyneuropathy, without long-term current use of insulin (HCC) Check blood sugar twice daily 200 each 3 07/14/2021 Active labetalol (NORMODYNE;TRANDATE) injection 5 mg (1 source) Start: 03-08-2022 labetalol (NORMODYNE;TRANDATE) injection 5 mg lidocaine 0.05 mg/mg medicated patch (7 sources) Antiarrhythmi c, Amide Local Anesthetic Start: 03-01-2025 apply 1 dose transdermal route once daily, then apply 1 dose transdermal route every twelve hours lidocaine (Lidoderm) 5 % patch Indications: Lumbar pain Apply 1 patch topically daily. Remove & discard patch within 12 hours or as directed by . 30 patch 2 03/01/2025 Active Start: 03-08-2022 End: 03-08-2022 lidocaine PF 1 % injection 1 mL losartan potassium 50 mg oral tablet (20 sources) Angiotensin 2 Receptor Huy Start: 10-28-2023 End: 07-23-2024 take 1 tablet by mouth once daily Losartan 50 mg tablet Active 50 mg PO DAILY May 20, 2024 12:00am Start: 07-14-2021 End: 10-26-2023 take 1 tablet by mouth once daily losartan (Cozaar) 50 MG tablet Take 1 tablet (50 mg) by mouth daily. 90 tablet 3 03/08/2023 10/26/2023 Discontinued (Reorder) Start: 04-29-2021 take 1 tablet by chana th once daily losartan (COZAAR) 50 MG tablet Indications: Essential hypertension Take 1 tablet by mouth daily 90 tablet 3 04/29/2021 Active Start: 02-24-2021 take 1 tablet by chana th once daily losartan (COZAAR) 100 MG tablet Indications: Essential hypertension Take 1 tablet by mouth daily 90 tablet 3 02/24/2021 Active Start: 01-23-2020 take 1 tablet by chana th once daily losartan (COZAAR) 100 MG tablet Indications: Essential hypertension Take 1 tablet by mouth daily 90 tablet 2 04/22/2020 Active metFORMIN hydrochloride 1000 mg oral tablet (10 sources) Biguanide Start: 02-02-2021 take 1 tablet by mouth twice daily at mealtime metFORMIN (GLUCOPHAGE) 1000 MG tablet Indications: Type 2 diabetes mellitus with diabetic polyneuropathy, with long-term current use of insulin (HCC) TAKE 1 TABLET BY MOUTH TWICE A DAY WITH MEALS 180 tablet 2 02/02/2021 Active Start: 11-17-2018 take 1 tablet by chana th twice daily at mealtime metFORMIN (GLUCOPHAGE) 1000 MG tablet Indications: Type 2 diabetes mellitus with diabetic polyneuropathy, with long-term current use of insulin (HCC) TAKE 1 TABLET BY MOUTH TWICE A DAY WITH MEALS 0 11/17/2018 Active End: 11-09-2022 metFORMIN (Glucophage) 1000 MG tablet every 12 hours. 0 11/09/2022 Discontinued (Therapy completed) metoprolol tartrate 100 mg oral tablet (20 sources) beta-Adrenergic Huy Start: 04-30-2024 5 mg, IntraVENous, Every 5 min PRN, CTA Coronary Procedure, Starting on 04/30/24 at 1438, For 3 doses, Up to 3, 5mg doses for a total of 15mg for CTA Coronary Test Start: 01-08-2024 End: 01-08-2024 take 100 mg by mouth twice daily 100 mg, Oral, 2 times daily, First dose on 01/08/24 at 0045 Start: 10-28-2023 End: 07-23-2024 take 1 tablet by mouth twice daily Metoprolol Tartrate 100 mg tablet Active 100 mg PO TWICE A DAY May 20, 2024 12:00am Start: 09-08-2022 End: 10-26-2023 take 1 tablet by mouth twice daily metoprolol tartrate (Lopressor) 100 MG tablet 1 po bid 180 tablet 3 03/08/2023 10/26/2023 Discontinued (Reorder) Start: 06-30-2021 take 1 tablet by chana th twice daily metoprolol (LOPRESSOR) 100 MG tablet Indications: Essential hypertension Take 1 tablet by mouth 2 times daily 180 tablet 3 06/30/2021 Active Start: 02-02-2021 take 1 tablet by chana th twice daily metoprolol (LOPRESSOR) 100 MG tablet Indications: Essential hypertension Take 1 tablet by mouth 2 times daily 180 tablet 2 02/02/2021 Active Start: 01-23-2020 take 1 tablet by chana th twice daily metoprolol (LOPRESSOR) 100 MG tablet Indications: Essential hypertension Take 1 tablet by mouth 2 times daily 180 tablet 2 04/22/2020 Active 24 hr mirabegron 50 mg extended release oral tablet (8 sources) beta3-Adrenergic Agonist Start: 01-23-2020 End: 08-18-2020 take 1 tablet by mouth once daily mirabegron (MYRBETRIQ) 50 MG TB24 Indications: Hypertrophy of prostate with urinary obstruction Take 50 mg by mouth daily 90 tablet 3 08/04/2020 Active mirtazapine 15 mg oral tablet (20 sources) Start: 05-20-2024 End: 03-20-2025 take 1 tablet by mouth once daily mirtazapine (Remeron) 15 MG tablet TAKE 1 TABLET BY MOUTH EVERY NIGHT 90 tablet 3 03/20/2025 Active Start: 10-28-2023 End: 01-08-2024 take 1 tablet by mouth once daily mirtazapine (Remeron) 15 MG tablet Take 1 tablet (15 mg) by mouth Nightly. 90 tablet 3 10/28/2023 Active Start: 09-08-2022 End: 10-26-2023 take 1 tablet by mouth once daily mirtazapine (Remeron) 15 MG tablet Take 1 tablet (15 mg) by mouth Nightly. 90 tablet 3 03/08/2023 10/26/2023 Discontinued (Reorder) Start: 06-30-2021 take 1 tablet by chana th once daily mirtazapine (REMERON) 15 MG tablet Indications: Moderate episode of recurrent major depressive disorder (HCC) Take 1 tablet by mouth nightly 90 tablet 3 06/30/2021 Active Start: 06-05-2021 take 1 tablet by chana th once daily mirtazapine (REMERON) 15 MG tablet Indications: Moderate episode of recurrent major depressive disorder (HCC) Take 1 tablet by mouth nightly 90 tablet 1 06/05/2021 Active Start: 02-02-2021 take 1 tablet by chana th once daily mirtazapine (REMERON) 7.5 MG tablet Indications: Moderate episode of recurrent major depressive disorder (HCC) Take 1 tablet by mouth nightly 90 tablet 2 02/02/2021 Active Start: 01-23-2020 take 1 tablet by chana th once daily mirtazapine (REMERON) 7.5 MG tablet Indications: Moderate episode of recurrent major depressive disorder (HCC) Take 1 tablet by mouth nightly 90 tablet 2 04/22/2020 Active End: 11-09-2022 mirtazapine (Remeron) 7.5 MG tablet Every 24 hours. 0 11/09/2022 Discontinued (Duplicate order) Multiple Vitamins-Minerals (THERAGRAN-M PO) (14 sources) Multiple Vitamin s-Minerals (THERAGRAN-M PO) Take by mouth 0 Active Multivitamin tablet (1 source) Start: 10-15-2024 Multivitamin tablet Active 1 {tbl} PO EVERY MORNING October 15, 2024 1:00am lrxszpxydehu-dpxo-slbuiaqf-f olic acid (Theragran-M) tablet (20 sources) multivitamin-iro l-yhdeiunn-ivliy acid (Theragran-M) tablet Every 24 hours. Active multivitamin-iro o-bboeecwr-mrncc acid (Theragran-M) tablet Every 24 hours. 0 Active naproxen 500 mg oral tablet (17 sources) Nonsteroidal Anti-inflammatory Drug Start: 10-27-2020 take 0.5 tablet by mouth twice daily at mealtime naproxen (NAPROSYN) 500 MG tablet Take 0.5 tablets by mouth 2 times daily (with meals) 60 tablet 0 10/27/2020 Active Start: 12-26-2019 take 1 tablet by chana th in the morning naproxen (Naprosyn) 500 MG tablet Take 1 tablet by mouth in the morning and 1 tablet in the evening. Take with meals. 0 12/26/2019 Active Start: 03-09-2019 naproxen (NAPR OSYN) 500 MG tablet Take 250 mg by mouth 2 times daily (with meals) 0 03/09/2019 Active OMEGA-3 FATTY ACIDS PO (14 sources) OMEGA-3 FATTY AC IDS PO Take 1,000 mg by mouth 0 Active omeprazole 40 mg delayed release oral capsule (20 sources) Proton Pump Inhibitor Start: 10-15-2024 take 1 capsule by mouth once daily Omeprazole 40 mg capsule,delayed release(DR/EC) Active 40 mg PO daily October 15, 2024 1:00am Start: 10-28-2023 End: 07-23-2024 take 1 capsule by mouth in the morning omeprazole (PriLOSEC) [address] capsule TAKE 1 CAPSULE BY MOUTH IN THE MORNING 100 capsule 3 07/23/2024 Active Start: 06-30-2021 End: 10-26-2023 take 1 capsule by mouth in the morning omeprazole (PriLOSEC) [address] capsule Take 1 capsule (40 mg) by mouth in the morning. 90 capsule 1 09/08/2022 Active Start: 09-03-2020 take 1 capsule by mo uth twice daily omeprazole (PRILOSEC) 40 MG delayed release capsule Indications: Gastroesophageal reflux disease with esophagitis Take 1 capsule by mouth 2 times daily 180 capsule 3 09/03/2020 Active Start: 06-05-2020 take 1 capsule by mo uth twice daily omeprazole (PRILOSEC) 40 MG delayed release capsule Indications: Gastroesophageal reflux disease with esophagitis Take 1 capsule by mouth 2 times daily 30 capsule 1 06/05/2020 Active Start: 03-09-2019 omeprazole (MA ILOSEC) 40 MG delayed release capsule Indications: Gastroesophageal reflux disease with esophagitis Take 40 mg by mouth 0 03/09/2019 Active 2 ml ondansetron 2 mg/ml injection (1 source) Serotonin-3 Receptor Antagonist Start: 03-08-2022 End: 03-08-2022 ondansetron (ZOFRAN) injection 4 mg microencapsulated potassium chloride 20 meq extended release oral tablet (3 sources) Start: 06-05-2020 take 1 tablet by mouth once daily potassium chloride (KLOR-CON M) 20 MEQ extended release tablet Indications: Bilateral lower extremity edema Take 1 tablet by mouth daily for 5 days Take once a day when using furosemide. 5 tablet 0 06/05/2020 Active Start: 02-27-2020 End: 03-24-2021 take 1 tablet by mouth every twelve hours as needed potassium chloride (KLOR-CON M) 20 MEQ extended release tablet Indications: Bilateral lower extremity edema Take 1 tablet by mouth every 12 hours as needed (when taking furosemide tablet) 10 tablet 0 02/27/2020 03/24/2021 Active Probiotic Product (PROBIOTIC PO) (14 sources) Probiotic Produc t (PROBIOTIC PO) Take by mouth 0 Active Probiotic tablet delayed-rel ease (20 sources) Probiotic tablet delayed-release daily. Active Probiotic tablet delayed-release as directed Active Probiotic tablet delayed-release as directed 0 Active solifenacin succinate 10 mg oral tablet (20 sources) Cholinergic Muscarinic Antagonist Start: 05-20-2024 End: 12-21-2024 take 1 tablet by mouth once daily solifenacin (VESIcare) 10 MG tablet TAKE 1 TABLET BY MOUTH DAILY 100 tablet 2 12/21/2024 Active Start: 03-08-2023 End: 10-28-2023 take 1 tablet by mouth once daily solifenacin (VESIcare) 10 MG tablet TAKE 1 TABLET BY MOUTH DAILY 100 tablet 3 10/28/2023 Active Start: 02-27-2021 End: 02-27-2022 take 1 tablet by mouth once daily solifenacin (VESICARE) 10 MG tablet Indications: Hypertrophy of prostate with urinary obstruction TAKE 1 TABLET BY MOUTH DAILY 90 tablet 3 02/27/2021 Active End: 03-08-2023 solifenacin (VESIcare) 10 MG tablet Every 24 hours. 0 03/08/2023 Discontinued (Reorder) tamsulosin hydrochloride 0.4 mg oral capsule (20 sources) alpha-Adrenergic Huy Start: 02-08-2024 End: 12-27-2024 take 1 capsule by mouth once daily Tamsulosin 0.4 mg capsule Active 0.4 mg PO DAILY May 20, 2024 12:00am Start: 03-08-2023 End: 01-08-2024 take 1 capsule by mouth once daily tamsulosin (Flomax) 0.4 MG 24 hr capsule 1 po qd 90 capsule 3 03/08/2023 Active Start: 08-17-2022 End: 03-08-2023 take 1 capsule by mouth every twenty-four hours tamsulosin (Flomax) 0.4 MG 24 hr capsule TK 1 C PO D 0 08/17/2022 03/08/2023 Discontinued (Reorder) Start: 08-03-2021 take 1 capsule by mo uth once daily tamsulosin (FLOMAX) 0.4 MG capsule Indications: Hypertrophy of prostate with urinary obstruction TAKE 1 CAPSULE BY MOUTH DAILY 90 capsule 3 08/03/2021 Active Start: 05-01-2020 take 1 capsule by mo uth once daily tamsulosin (FLOMAX) 0.4 MG capsule Indications: Hypertrophy of prostate with urinary obstruction Take 1 capsule by mouth daily 90 capsule 3 08/04/2020 Active topiramate 50 mg oral tablet (20 sources) Start: 01-08-2024 End: 01-08-2024 take 50 mg by mouth once daily 50 mg, Oral, Nightly, First dose on 01/08/24 at 0045, Do not crush, chew, or split. Start: 10-28-2023 End: 07-23-2024 take 1 tablet by mouth at bedtime Topiramate 50 mg tablet Active 50 mg PO AT BEDTIME May 20, 2024 12:00am Start: 07-16-2019 End: 10-26-2023 take 1 tablet by mouth once daily topiramate 50 MG tablet Take 1 tablet by mouth Nightly. 90 tablet 1 09/08/2022 Active End: 11-09-2022 topiramate 50 MG tablet Ever y 24 hours. 0 11/09/2022 Discontinued (Duplicate order) triamcinolone acetonide 0.001 mg/mg topical ointment (2 sources) Corticosteroid Start: 06-13-2020 triamcinolone (KENALOG) 0.1 % ointment Indications: Rash and other nonspecific skin eruption Apply topically 2 times daily. Apply thin layer to affected area. avoid face, arm pits and groin 30 g 06/13/2020 Active vitamin e 180 mg oral capsule (20 sources) Start: 05-20-2024 take 1 capsule by mouth once daily Vitamin E 268 mg (400 unit) capsule Active 268 mg PO DAILY May 20, 2024 12:00am take 1 capsule by mo uth once daily Vitamin E 450 MG (1000 UT) capsule Take 1 capsule by mouth daily. Active End: 03-01-2025 alpha tocopherol (Vitamin E) 400 units capsule 1 capsule Every 24 hours. 180 mg 03/01/2025 Discontinued alpha tocopherol (Vitamin E) 400 units capsule 1 capsule Every 24 hours. 0 Active take 1 tablet by chana th in the morning vitamin E 180 MG (400 UNIT) capsule Take 1 tablet by mouth in the morning. 0 Active End: 11-09-2022 take 1 capsule by mouth once daily alpha tocopherol (Vitamin E) 400 units capsule Take 400 Units by mouth daily. 0 11/09/2022 Discontinued (Duplicate order) Completed/Discontinued Medications Medication Drug Class(es) Dates Sig (Normalized) Sig (Original) amLODIPine 5 mg oral tablet (20 sources) Dihydropyridine Calcium Channel Huy Start: 10-04-2023 End: 01-17-2025 take 1 tablet by mouth once daily Amlodipine 5 mg tablet Discontinued 5 mg PO DAILY May 20, 2024 12:00am January 17, 2025 2:24pm Start: 03-18-2023 End: 10-04-2023 take 1 tablet by mouth once daily amLODIPine (Norvasc) 10 MG tablet TAKE 1 TABLET BY MOUTH DAILY 90 tablet 3 03/18/2023 10/04/2023 Discontinued (Dose adjustment) Start: 09-08-2022 End: 03-08-2023 take 1 tablet by mouth once daily amLODIPine (Norvasc) 10 MG tablet 1 po qd Strength: 10 mg 90 tablet 3 03/08/2023 Active Start: 06-30-2021 take 1 tablet by chana th once daily amLODIPine (NORVASC) 10 MG tablet Indications: Essential hypertension 1 po qd 90 tablet 3 06/30/2021 Active Start: 03-02-2021 take 1 tablet by chana th once daily amLODIPine (NORVASC) 10 MG tablet Indications: Essential hypertension 1 po qd 90 tablet 3 03/02/2021 Active Start: 01-01-2019 amLODIPine (NO RVASC) 10 MG tablet Indications: Essential hypertension Take 10 mg by mouth 0 01/01/2019 Active ascorbic acid 500 mg chewable tablet (20 sources) Vitamin C End: 10-04-2023 ascorbic acid (Vitamin C) 50 0 MG chewable tablet Every 24 hours. 0 10/04/2023 Discontinued (Therapy completed) End: 11-09-2022 ascorbic acid (Vitamin C) 50 0 mg chewable tablet Chew 500 mg daily. 0 11/09/2022 Discontinued (Duplicate order) take 1 tablet by chana th once daily vitamin C (ASCORBIC ACID) 500 MG tablet Take 500 mg by mouth daily 0 Active cholecalciferol 9.52 unt/ml / glucose 357 mg/ml oral gel (2 sources) Vitamin D Start: 01-08-2024 End: 01-08-2024 15 g, Oral, As needed, low blood sugar, Starting on 01/08/24 at 0035, If blood glucose less than 50 mg/dL and patient ALERT and NOT NPO, give 2 tubes glucose gel. If blood glucose less than 70 mg/dL and patient ALERT and NOT NPO, give 1 tube glucose gel. Repeat blood glucose in 15 minutes. If blood glucose is less than 70 mg/dL, repeat treatment and recheck blood glucose in 15 minutes x2 and notify provider. Continuous Blood Gluc Sensor (FreeStyle Nita 2 Sensor) [facility] [place] (20 sources) Start: 11-09-2022 End: 04-17-2024 Continuous Blood Gluc Sensor (FreeStyle Nita 2 Sensor) misc 1 Device every 14 (fourteen) days. 9 each 3 11/09/2022 04/17/2024 Discontinued (Reorder) Start: 11-09-2022 Continuous Blo od Gluc Sensor (FreeStyle Nita 2 Sensor) misc 1 Device every 14 (fourteen) days. 9 each 3 11/09/2022 Active Continuous Glucose Sensor (FreeStyle Nita 2 Sensor) [facility] [place] (20 sources) Start: 11-23-2024 End: 01-31-2025 Continuous Glucose Sensor (FreeStyle Nita 2 Sensor) [facility] [place] Indications: Type 2 diabetes mellitus with hyperglycemia, with long-term current use of insulin (HCC) 1 Device every 14 (fourteen) days. 6 each 3 11/23/2024 01/31/2025 Discontinued (Dose adjustment) Start: 11-23-2024 Continuous Glu cose Sensor (FreeStyle Nita 2 Sensor) [facility] [place] Indications: Type 2 diabetes mellitus with hyperglycemia, with long-term current use of insulin (HCC) 1 Device every 14 (fourteen) days. 6 each 3 11/23/2024 Active Start: 09-25-2024 End: 11-22-2024 Continuous Glucose Sensor (F reeStyle Nita 2 Sensor) [facility] [place] Indications: Type 2 diabetes mellitus with hyperglycemia, with long-term current use of insulin (HCC) 1 Device every 14 (fourteen) days. 6 each 5 09/25/2024 11/22/2024 Discontinued (Reorder) Start: 09-25-2024 Continuous Glu cose Sensor (FreeStyle Nita 2 Sensor) [facility] [place] Indications: Type 2 diabetes mellitus with hyperglycemia, with long-term current use of insulin (HCC) 1 Device every 14 (fourteen) days. 6 each 5 09/25/2024 Active Start: 04-17-2024 End: 09-25-2024 Continuous Glucose Sensor (F reeStyle Nita 2 Sensor) misc 1 Device every 14 (fourteen) days. 9 each 3 04/17/2024 09/25/2024 Discontinued (Reorder) Start: 04-17-2024 Continuous Glu cose Sensor (FreeStyle Nita 2 Sensor) misc 1 Device every 14 (fourteen) days. 9 each 3 04/17/2024 Active diclofenac sodium 0.01 mg/mg topical gel (11 sources) Nonsteroidal Anti-inflammatory Drug Start: 11-09-2022 End: 10-04-2023 Diclofenac Sodium (Voltaren) 1 % gel Indications: Acute pain of right knee , History of fall 4 gm to knee twice daily for 10 days, then bid prn pain 100 g 2 11/09/2022 10/04/2023 Discontinued (Therapy completed) 0.4 ml enoxaparin sodium 100 mg/ml prefilled syringe (2 sources) Low Molecular Weight Heparin Start: 01-08-2024 End: 01-08-2024 inject 40 mg by subcutaneous injection every twenty-four hours 40 mg, SubCUTAneous, Every 24 hours scheduled (Daily), First dose on 01/08/24 at 0900, Indication of Use: Prophylaxis-DVT/PE, Indications: Prophylaxis of Venous Thromboembolism ezetimibe 10 mg oral tablet (2 sources) Dietary Cholesterol Absorption Inhibitor Start: 01-08-2024 End: 01-08-2024 take 10 mg by mouth once daily 10 mg, Oral, Nightly, First dose on 01/08/24 at 0045 famotidine 20 mg oral tablet (5 sources) Histamine-2 Receptor Antagonist Start: 03-08-2022 End: 03-08-2022 famotidine (PEPCID) tablet 20 mg Start: 03-07-2020 End: 03-24-2021 take 1 tablet by mouth twice daily famotidine (PEPCID) 20 MG tablet Indications: Gastroesophageal reflux disease with esophagitis without hemorrhage Take 1 tablet by mouth 2 times daily 180 tablet 2 02/02/2021 Active 150 ml glucose 50 mg/ml injection (4 sources) Start: 01-08-2024 End: 01-08-2024 12.5 g, IntraVENous, PRN, lo w blood sugar, Blood glucose less than 70 mg/dL and patient NOT ALERT or NPO., Starting on 01/08/24 at 0035, If patient does not respond within 5 minutes, repeat dose x1. Start D5W at 100 mL/hour until ordering provider can be reached. Repeat blood glucose in 15 minutes. If blood glucose is less than 70 mg/dL, repeat treatment and recheck blood glucose in 15 minutes x2. If using Glucostabilizer, dose as instructed per system. Start: 01-08-2024 End: 01-08-2024 100 mL/hr, IntraVENous, PRN, Blood sugar less than 70mg/dL, Starting on 01/08/24 at 0035, Start infusion following administration of dextrose 50% or glucagon. Insulin Lispro (Humalog) injection 0-12 Units (2 sources) Start: 01-08-2024 End: 01-08-2024 Insulin Lispro (Humalog) injection 0-12 Units insulin, regular, human 100 unt/ml injectable solution (6 sources) Insulin Start: 07-20-2022 End: 11-09-2022 insulin regular (HumuLIN R,NovoLIN R) 100 UNIT/ML injection Inject 4 Units under the skin. 0 07/20/2022 11/09/2022 Discontinued (Therapy completed) Start: 11-27-2021 insulin regula r (HUMULIN R) 100 UNIT/ML injection Inject 4 Units into the skin 3 times daily (before meals) 30 mL 3 11/27/2021 Active iopamidol (Isovue-370) 76 % injection 75 mL (2 sources) Start: 04-30-2024 End: 04-30-2024 take 75 mL intravenously once as needed 75 mL, IntraVENous, IMG once PRN, contrast, Starting on Tue04/30/24 at 1355, For 1 dose 24 hr isosorbide mononitrate 30 mg extended release oral tablet (20 sources) Nitrate Vasodilator Start: 01-08-2024 End: 01-17-2025 take 1 tablet by mouth once daily, then take 1 tablet by mouth every twenty-four hours Isosorbide Mononitrate 30 mg tablet extended release 24 hr Discontinued 30 mg PO DAILY May 20, 2024 12:00am January 17, 2025 2:25pm nitroglycerin 0.4 mg sublingual tablet (2 sources) Nitrate Vasodilator Start: 04-30-2024 End: 04-30-2024 take 0.8 mg under the tongue once 0.8 mg, SubLINGual, Once, On Tue04/30/24 at 1445, For 1 dose, ONCE for CTA Coronary Procedure Start: 04-30-2024 End: 04-30-2024 take 0.8 mg under the tongue once 0.8 mg, SubLINGual, Once, On Tue04/30/24 at 1445, For 1 dose, ONCE for CTA Coronary Procedure ondansetron ODT (Zofran-ODT) disintegrating tablet 4 mg (2 sources) Start: 01-08-2024 End: 01-08-2024 take 1 tablet by mouth every eight hours as needed for nausea and vomiting ondansetron ODT (Zofran-ODT) disintegrating tablet 4 mg pantoprazole 40 mg delayed release oral tablet (2 sources) Proton Pump Inhibitor Start: 01-08-2024 End: 01-08-2024 take 40 mg by mouth once daily before breakfast 40 mg, Oral, Daily before breakfast, First dose on Tue01/08/24 at 0700, Substituted for omeprazole (Prilosec). Do not crush, chew, or split. polyethylene glycol 3350 23205 mg powder for oral solution (2 sources) Osmotic Laxative Start: 01-08-2024 End: 01-08-2024 take 17 g by mouth every twenty-four hours as needed for constipation 17 g, Oral, Daily PRN, constipation, Starting on Tue01/08/24 at 0035, 1st line for treatment of constipation - give scheduled if no bowel movement in past 24 hours. predniSONE 20 mg oral tablet (4 sources) Start: 10-26-2024 End: 10-31-2024 take 2 tablets by mouth once daily at breakfast predniSONE (Deltasone) 20 MG tablet Indications: Bronchitis Take 2 tablets (40 mg) by mouth daily for 5 days. With breakfast 10 tablet 10/26/2024 10/30/2024 Discontinued (Therapy completed) saccharomyces boulardii 250 mg oral capsule (2 sources) End: 10-04-2023 take 1 capsule by mouth every twelve hours saccharomyces boulardii (Florastor) 250 MG capsule 1 capsule in the morning and 1 capsule in the evening. 0 10/04/2023 Discontinued (Therapy completed) 50 ml sodium chloride 9 mg/ml injection (11 sources) Start: 01-07-2024 End: 01-08-2024 sodium chloride 0.9 % bolus 500 mL Start: 03-08-2022 0.9 % sodium c hloride bolus Start: 03-08-2022 0.9 % sodium c hloride infusion Start: 03-08-2022 sodium chlorid e flush 0.9 % injection 5-40 mL traMADol hydrochloride 50 mg oral tablet (1 source) Opioid Agonist Start: 10-24-2020 End: 10-24-2020 traMADol (ULTRAM) tablet 50 mg trospium chloride 20 mg oral tablet (3 sources) Cholinergic Muscarinic Antagonist Start: 01-08-2024 End: 01-08-2024 take 20 mg by mouth once daily 1 hour(s) before mealtime 20 mg, Oral, Daily, First dose on 01/08/24 at 0900, Substituted for oxybutynin (DITROPAN); fesoterodine (TOVIAZ); darifenacin (ENABLEX); solifenacin (VESICARE); tolterodine IR (DETROL); tolterodine ER (DETROL LA). Give one hour before meals. Start: 01-26-2021 take 1 capsule by mo uth once daily trospium (SANCTURA) 60 MG CP24 extended release capsule Take 1 capsule by mouth daily 90 capsule 1 01/26/2021 Active Problems Active Problems Problem Classification Problem Date Documented Date Episodic/Chronic Administrative/socia l admission (7 sources) Caregiver role strain; Translations: [Caregiver stress] Onset: 0 03-24-2020 Aortic; peripheral; and visceral artery aneurysms (20 sources) Ascending aorta dilatation; Translations: [Thoracic aortic ectasia] Onset: 0 07-11-2020 Chronic Chronic kidney disease (20 sources) Chronic kidney disease stage 3B ; Translations: [Stage 3b chronic kidney disease] Onset: 3 Chronic Chronic kidney disease (4 sources) Chronic kidney disease; Translations: [Chronic kidney disease, stage 3b (HCC)] Onset: 3 Coronary atherosclerosis and other heart disease (20 sources) Stable angina; Translations: [Stable angina] Onset: 4 01-08-2024 Chronic Deficiency and other anemia (3 sources) Anemia of chronic renal failure; Translations: [Anemia of chronic renal failure, stage 3b (HCC)] 10-30-2024 Chronic Deficiency and other anemia (2 sources) Anemia in chronic kidney disease; Translations: [Anemia in chronic kidney disease] Onset: 3 Chronic Deficiency and other anemia (1 source) Anemia; Translations: [Anemia, unspecified] 10-04-2023 Episodic Delirium dementia and amnestic and other cognitive disorders (20 sources) Mixed dementia ; Translations: [Vascular dementia without behavioral disturbance] Onset: 0 04-21-2020 Chronic Delirium dementia and amnestic and other cognitive disorders (7 sources) Vascular dementia without behavioral disturbance; Translations: [Vascular dementia without behavioral disturbance] Onset: 0 03-24-2020 Diabetes mellitus with complications (20 sources) Polyneuropathy due to type 2 diabetes mellitus; Translations: [Type 2 diabetes mellitus with diabetic polyneuropathy] Onset: 7 09-24-2022 Chronic Diabetes mellitus without complication (20 sources) Type 2 diabetes mellitus; Translations: [Type 2 diabetes mellitus with diabetic polyneuropathy] Onset: 0 04-18-2020 Chronic Disorders of lipid metabolism (20 sources) Mixed hyperlipidemia; Translations: [Mixed hyperlipidemia] Onset: 0 07-11-2020 Chronic E Codes: Fall (2 sources) Fall; Translations: [Fall] Onset: 4 Essential hypertension (20 sources) Essential hypertension; Translations: [Essential (primary) hypertension] Onset: 0 07-11-2020 Chronic Mood disorders (20 sources) Recurrent major depressive episodes, moderate ; Translations: [Major depressive disorder, recurrent, moderate] Onset: 0 04-21-2020 Chronic Osteoarthritis (2 sources) Osteoarthritis of right knee joint; Translations: [Unilateral primary osteoarthritis, right knee] Chronic Other acquired deformities (1 source) Unspecified acquired deformity of left lower leg; Translations: [Unspecified deformity of ankle and foot, acquired] 10-04-2023 Episodic Other acquired deformities (7 sources) Lumbar spondylolisthesis; Translations: [Spondylolisthesis, lumbar region] 02-05-2025 Episodic Other acquired deformities (2 sources) Spondylolisthesis, lumbar region; Translations: [Spondylolisthesis, lumbar region] Onset: 5 Episodic Other connective tissue disease (1 source) Weakness of face muscles; Translations: [Facial weakness] Episodic Other connective tissue disease (1 source) Recurrent falls ; Translations: [Repeated falls] 07-03-2024 Episodic Other diseases of bladder and urethra (20 sources) Disorder of bladder; Translations: [Overactive bladder] Onset: 9 09-24-2022 Chronic Other diseases of kidney and ureters (20 sources) Hyperparathyroidism due to renal insufficiency; Translations: [Secondary hyperparathyroidism of renal origin] Onset: 3 11-09-2022 Chronic Other ear and sense organ disorders (20 sources) Hearing loss; Translations: [Unspecified hearing loss, unspecified ear] Onset: 4 09-24-2022 Chronic Other ear and sense organ disorders (20 sources) Bilateral sensory hearing loss; Translations: [Sensorineural hearing loss, bilateral] Onset: 5 09-24-2022 Chronic Other ear and sense organ disorders (1 source) Impacted cerumen of bilateral ears; Translations: [Impacted cerumen, bilateral] 02-21-2024 Episodic Other fractures (7 sources) Compression fracture of lumbar spine; Translations: [Wedge compression fracture of first lumbar vertebra, sequela] 02-05-2025 Episodic Other fractures (2 sources) Wedge compression fracture of first lumbar vertebra, sequela; Translations: [Wedge compression fracture of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 chart; , 05/07/2020, 04/22/2020, 04/17/2020, OV 04/15/2020, and so forth. Normal [employer] [facility] 02-07-2025 36 Lvm for pt to call office Message can be released as written Secure line detailed message Normal [facility] 02-06-2025 36 Name of caller: Ruth Contact phone number: [phone] Relationship to Patient: [facility] Healthcare Provider: Dr. Tidwell Practice: [facility] Chief Complaint/Reason for Call: Ruth called after her visit today and stated she will see the patient for PT 2 times a week for 4 weeks. Daughter was asking about advanced directives, can Ruth add social work to plan of care for POA and community resources. Please call for a verbal. Thank you Best time of day caller can be reached: any Patient advised that office/PCP has 24-48 business hours to return their call: No [facility] 37on 02-05-2025 37 We will notify you once we have approval from your insurance. You will then call central scheduling at [phone] to schedule. Please call our office at [phone] once MRI is scheduled to schedule a follow up visit with Dr. Christian for review. Normal [facility] Office Visiton 02-05-2025 Follow-up visit [id number] Camilla Mcdermott 1945 M Date Provider Department Center 02/05/2025 RACHELL OKEEFE [facility] OR None Family History Problem Relation Age of Onset Cancer Mother Other Father Comments: heart murmur Alcohol abuse Father Hearing loss Father Alcohol abuse Son Arthritis Son Depression Son Arthritis Daughter Autoimmune disease Daughter Depression Daughter Diabetes Daughter Hyperlipidemia Daughter Hypertension Daughter Immunodeficiency Daughter Depression Daughter Diabetes Daughter Hearing loss Sister Family Status - Relation Status Age at Mother Father Son Daughter Daughter Sister Level of Service:91935 [place] OFFICE/OUTPATIENT NEW LOW MDM 30 MINUTES Reason for Visit and Comments: Back Pain [12] New Patient [542] Normal [facility] Progress Noteon 02-05-2025 Progress Note [facility] [place] [address] [place] [address] [place] [id number] Dept: [phone] Dept Camilla Mcdermott 1945 [id number] 02/05/2025 Problem List: Lumbar pain Lumbar radiculopathy-left Lumbar degenerative disc disease Lumbar spondylosis L1 compression fracture with vertebroplasty Spondylolisthesis L5-S1 HgbA1C= 11.8 10/30/2024 (M54.50) Lumbar pain (M54.16) Lumbar radiculopathy (M51.362) Degeneration of intervertebral disc of lumbar region with discogenic back pain and lower extremity pain (M47.816) Lumbar spondylosis (S32.010S) Compression fracture of L1 vertebra, sequela (M43.16) Spondylolisthesis of lumbar region Chief Complaint Patient presents with Back Pain New Patient HPI: Camilla is a 79 y.o. male who is here today for evaluation of his lumbar spine. Camilla is referred by Efren Tidwell MD Current symptoms: Pain is located in the left sided low back pain that is radiating into LLE. Numbness tingling: no Weakness: LLE CANDELARIA: no known injury Duration of symptoms/DOI: chronic Symptoms are severely affecting their quality of life. Associated neurologic complaints/Red flags: Gait/balance difficulty: admits to Use of ambulatory aid?: cane Able to walk a city block: No Bowel/bladder incontinence: admits to Urinary retention: No Saddle anesthesia: No Fine motor task difficulty/dropping things/handwriting changes: denies History of cancer: no Aggravating factors: Everything Alleviating Factors: nothing Do your symptoms improve with lying on your back or side: yes Previous Treatment: PT: Yes- Home PT Where: [facility] When: might start tomorrow Completed: yes NSAIDS: aleve Tylenol Spine/joint Injections: No Opioid medications: no Muscle relaxers: no Oral steroids: no Nerve medications (gabapentin/Lyrica): Gabapentin (Neurontin) Pain management: No Chiropractor: no Previous spine surgery: no History of DVT/PE or hypercoagulable state (including history of relative): no Blood thinning medications: no Work Status: Retired Is this a work related injury? No Review of Systems Tobacco Use: Low Risk (01/31/2025) Patient History Smoking Tobacco Use: Never Smokeless Tobacco Use: Never Passive Exposure: Not on file Lab Results Component Value Date HGBA1C 11.8 (H) 10/30/2024 No Known Allergies Current Outpatient Medications Medication Sig Dispense Refill alpha tocopherol (Vitamin E) 400 units capsule 1 capsule Every 24 hours. 180 mg atorvastatin (Lipitor) 80 MG tablet TAKE 1 TABLET BY MOUTH DAILY 90 tablet 3 benzonatate (Tessalon) 200 MG capsule Take 1 capsule (200 mg) by mouth 3 times daily as needed for cough. Do not crush or chew. 42 capsule 3 calcium carbonate-vitamin D 600-200 MG-UNIT tablet Take 1 tablet by mouth daily. Continuous Glucose Spout Tender (FreeStyle Nita 3 [place]) device Check blood sugar 4 times daily 1 each 0 Continuous Glucose Sensor (FreeStyle Nita 3 Plus Sensor) [facility] Check blood sugar 4 times daily 6 each 11 diabetic shoes Diabetic Shoes and inserts. 1 each 0 DULoxetine (Cymbalta) [address] capsule TAKE 2 CAPSULES BY MOUTH IN THE MORNING 200 capsule 3 fish oil-omega-3 fatty acids 1000 MG capsule Take 1,000 mg by mouth in the morning. furosemide (Lasix) 20 MG tablet TAKE 1 TABLET BY MOUTH EVERY OTHER DAY (Patient taking differently: TAKE 1 TABLET BY MOUTH EVERY OTHER DAY) 50 tablet 3 glucagon 1 MG injection Inject 1 mL (1 mg) into the shoulder, thigh, or buttocks Once as needed for low blood sugar for up to 4 doses. 1 each 3 Glucosamine-Chondroi t-Vit C-Mn (Glucosamine 1500 Complex) capsule 1 capsule 1 (one) time each day. glucose blood test strip 1 each by Other route 2 times daily. 60 each 11 insulin NPH-insulin regular (HumuLIN,NovoLIN) (70-30) 100 UNIT/ML injection Inject 18 units before breakfast and 28 units before dinner 40 mL 3 Lancets (OneTouch Delica Plus [id number]) misc losartan (Cozaar) 50 MG tablet TAKE 1 TABLET BY MOUTH DAILY 100 tablet 3 metoprolol tartrate (Lopressor) 100 MG tablet TAKE 1 TABLET BY MOUTH TWICE DAILY 200 tablet 3 mirtazapine (Remeron) 15 MG tablet Take 1 tablet (15 mg) by mouth Nightly. 100 tablet 3 ncbjsjniowji-alra-gy nerals-folic acid (Theragran-M) tablet Every 24 hours. omeprazole (PriLOSEC) [address] capsule TAKE 1 CAPSULE BY MOUTH IN THE MORNING 100 capsule 3 Probiotic tablet delayed-release daily. solifenacin (VESIcare) 10 MG tablet TAKE 1 TABLET BY MOUTH DAILY 100 tablet 2 tamsulosin (Flomax) 0.4 MG 24 hr capsule TAKE 1 CAPSULE BY MOUTH DAILY 100 capsule 3 topiramate 50 MG tablet TAKE 1 TABLET BY MOUTH EVERY NIGHT 100 tablet 3 Trulicity 0.75 MG/0.5ML No current facility-administere d medications for this visit. 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 (more content not included)... Normal [facility] XR LUMBAR SPINE 4-5 VIEWon 0 02-05-2025 XR LUMBAR SPINE 4-5 VIEW There is no aor tic calcification noted. The bilateral hip joint spaces are observed with mild degenerative changes noted. The bilateral SI joints are also observed with no significant degenerative changes noted. Levoscoliosis noted. There is no loss of lumbar lordosis. There are five non rib-bearing lumbar vertebrae. There is a compression fracture at L1 with cement augmentation. Severe degenerative disc disease. There are moderate spondylitic changes and facet arthropathy noted. There is an anterolisthesis noted at L5-S1 on flexion/extension radiographs. Multiple levels of anterior bone spurring that is bridging. [facility] 36on 02-01-2025 36 Ruth called back in, needs demographic and order refaxed, because she did not hear fro office in time pitched information, please advise [facility] 36on 01-31-2025 36 OV note from today (01/31) faxed to office. [facility] 37on 01-31-2025 37 Schedule with non surgical orthopedics. Follow up with endocrinology. Call if new, persistent or worsening symptoms. Schedule follow up with me in 6 months. Efren Tidwell MD [facility] Office Visiton 01-31-2025 Follow-up visit [id number] Camilla Mcdermott 1945 M Date Provider Department Center 01/31/2025 [id number] TIDWELL [facility] [place] [facility] Family History Problem Relation Age of Onset Cancer Mother Other Father Comments: heart murmur Alcohol abuse Father Hearing loss Father Alcohol abuse Son Arthritis Son Depression Son Arthritis Daughter Autoimmune disease Daughter Depression Daughter Diabetes Daughter Hyperlipidemia Daughter Hypertension Daughter Immunodeficiency Daughter Depression Daughter Diabetes Daughter Hearing loss Sister Family Status - Relation Status Age at Mother Father Son Daughter Daughter Sister Level of Service:75025 [place] OFFICE/OUTPATIENT ESTABLISHED MOD MDM 30 MIN Reason for Visit and Comments: Leg Pain [012291] - left [facility] Progress Noteon 01-31-2025 Progress Note Subjective Patient ID: Camilla Mcdermott is a 79 y.o. male who presents for Leg Pain (left). HPI Hx chronic low back pain and lumbar DDD, patient notes pain radiating from low back down the left leg, chronic. There are no reported falls. Patient has difficulty with ambulation, lives in mobile home with 4 steps into the home and a railing. Patient has just been approved for a wheelchair for use. Hx dementia, no new sx. Lives with daughter. Patient has poor recall. Patient has hx depression, mood is stable, tolerating duloxetine. Hx DM with hyperglycemia, last A1C 11.8, patient follows with an fur joiner in [place], continues insulin and just began Dulaglutide. Continues to eat ad cami. CGM reordered. Hx HTN, BP controlled with metoprolol, losartan and every other day furosemide Patient is hard of hearing. Review of Systems Constitutional: Negative for fatigue. Respiratory: Negative for shortness of breath. Cardiovascular: Negative for chest pain. Gastrointestinal: Negative for abdominal pain. Musculoskeletal: Positive for arthralgias, back pain and gait problem. All other systems reviewed and are negative. Objective Physical Exam Vitals and nursing note reviewed. Constitutional: General: He is not in acute distress. Appearance: Normal appearance. He is normal weight. He is not ill-appearing, toxic-appearing or diaphoretic. Neck: Vascular: No carotid bruit. Cardiovascular: Rate and Rhythm: Normal rate and regular rhythm. Heart sounds: Normal heart sounds. No murmur heard. Pulmonary: Effort: Pulmonary effort is normal. Breath sounds: Normal breath sounds. No wheezing, rhonchi or rales. Musculoskeletal: Lumbar back: No bony tenderness. Decreased range of motion. Neurological: Mental Status: He is alert. Assessment/Plan Diagnoses and all orders for this visit: Chronic left-sided low back pain with left-sided sciatica - [facility] Non-Surgical; Future Mixed Alzheimer's and vascular dementia (HCC) Stable, no new sx Moderate episode of recurrent major depressive disorder (HCC) Stable, no new sx Type 2 diabetes mellitus with hyperglycemia, with long-term current use of insulin (HCC) - Continuous Glucose Sensor (FreeStyle Nita 3 Plus Sensor) misc; Check blood sugar 4 times daily - Continuous Glucose Spout Tender (FreeStyle Nita 3 [place]) device; Check blood sugar 4 times daily Followed by endocrinology Essential hypertension Controlled with current medication Schedule with non surgical orthopedics. Follow up with endocrinology. Call if new, persistent or worsening symptoms. Schedule follow up with me in 6 months. Efren Tidwell MD [facility] 36on 01-22-2025 36 Noted. EFREN TIDWELL [facility] [address] Tidwell 01/29, please address in appt note. [facility] US RETROPERITONEALon 01-22-2 025 US RETROPERITONEAL Patient Name: CAMILLA [facility] 1945 [id number] Exam Date/Time: 01/21/2025 14:15 Procedure: US RETROPERITONEAL Ordering Provider: MONIQUE MICHAEL Reason For Exam: CKD stage 3b Examination: Renal Ultrasound Indication: CKD stage 3b Findings: Multiple static valentine scale and color Doppler sonographic images of the bilateral kidneys are submitted for interpretation. The right kidney measures 10 x 4.9 x 5.4 cm with suspected mild hydronephrosis. Probable 6 mm calculus present in the upper interpolar region of the right kidney.. The left kidney measures 10.6 x 5.2 x 5.7 cm and demonstrates a grossly normal sonographic appearance. The bladder is grossly unremarkable. Prostate is suboptimally assessed and measures approximately 5.9 x 4.8 cm. IMPRESSION: Impression: Suspect mild hydronephrosis of the right kidney and nonobstructing right-sided renal calculus. Report Dictated on Electronically Signed By: Arash Desir MD Electronically Signed Date/Time: 01/22/2025 8:[address] [facility] Retroperitoneumon 025 Impression: Suspect mild hydronephrosis of the right kidney and nonobstructing right-sided renal calculus. Report Dictated on Electronically Signed By: Arash Desir MD Electronically Signed Date/Time: 01/22/2025 8:12 AM EDT [facility] [employer] Patient Name: CAMILLA MCDERMOTT : 1945 [id number] Exam Date/Time: 01/21/2025 14:15 Procedure: US RETROPERITONEAL Ordering Provider: MONIQUE MICHAEL Reason For Exam: CKD stage 3b Examination: Renal Ultrasound Indication: CKD stage 3b Findings: Multiple static valentine scale and color Doppler sonographic images of the bilateral kidneys are submitted for interpretation. The right kidney measures 10 x 4.9 x 5.4 cm with suspected mild hydronephrosis. Probable 6 mm calculus present in the upper interpolar region of the right kidney.. The left kidney measures 10.6 x 5.2 x 5.7 cm and demonstrates a grossly normal sonographic appearance. The bladder is grossly unremarkable. Prostate is suboptimally assessed and measures approximately 5.9 x 4.8 cm. [facility] RADIOLOGY SYSTEM Arash Desir MD - 01/22/2025 Patient Name: CAMILLA MCDERMOTT : 1945 [id number] Exam Date/Time: 01/21/2025 14:15 Procedure: US RETROPERITONEAL Ordering Provider: MONIQUE MICHAEL Reason For Exam: CKD stage 3b Examination: Renal Ultrasound Indication: CKD stage 3b Findings: Multiple static valentine scale and color Doppler sonographic images of the bilateral kidneys are submitted for interpretation. The right kidney measures 10 x 4.9 x 5.4 cm with suspected mild hydronephrosis. Probable 6 mm calculus present in the upper interpolar region of the right kidney.. The left kidney measures 10.6 x 5.2 x 5.7 cm and demonstrates a grossly normal sonographic appearance. The bladder is grossly unremarkable. Prostate is suboptimally assessed and measures approximately 5.9 x 4.8 cm. IMPRESSION: Impression: Suspect mild hydronephrosis of the right kidney and nonobstructing right-sided renal calculus. Report Dictated on Electronically Signed By: Arash Desir MD Electronically Signed Date/Time: 01/22/2025 8:12 AM EDT [facility] RetroperitoneumOrdered By : Arash Desir on 01-22-2025 [employer] Work Phone: Retroperitoneumon 025 Radiology Study observation (narrative) [facility] 36on 01-17-2025 36 Name of caller: Ruth Contact phone number: [phone] Relationship to Patient: [facility] Provider: Dr Tidwell Practice: [facility] Chief Complaint/Reason for Call: Ruth is requesting a new face 2 face that explains why the patient is having weakness and needs PT. If caused by dementia as stated on the order it needs to be added to the last OV notes mentioning in the face 2 face that he has dementia causing his weakness. Thank you Best time of day caller can be reached: any Patient advised that office/PCP has 24-48 business hours to return their call: Yes [facility] Endocrinology Visit Reporton 01-17-2025 Endocrinology Visit Report [facility] [address] [place] [address] OFFICE VISIT Date of Service: 01/17/25 MR#: [id number] Acct: [id number] Name: CAMILLA MCDERMOTT II Rep #: [id number] : 1945 Provider: POONAM grossman Age/Sex: 79/M [place] [facility]: Signed Intake Vital Signs 05/20/24 16:02 01/17/25 14:19 Height 5 ft 8 in 5 ft 8 in Weight: 162 lb 2 oz BMI 24.6 BP 110/66 Blood Pressure Location Rt brachial Position Sitting Pulse 71 Pulse Source Monitor Pulse Oximetry (%) 97 Oxygen Delivery Method room air Intake Visit Reasons: Diabetes Chief Complaint: establish care- diabetes Is patient in pain?: Yes Allergies No Known Allergies Allergy (Verified 05/20/24 17:10) Medications ???Medication ???Instructions ???Recorded ???Confirmed ???Type aspirin 81 mg tablet,delayed 81 mg PO DAILY 05/20/24 10/15/24 H istory release (Adult Low Dose Aspirin) atorvastatin 80 mg tablet 80 mg PO DAILY 05/20/24 10/15/24 H istory calcium 600 mg (as 1 cap PO DAILY 05/20/24 10/15/24 H istory carbonate)-vitamin D3 5 mcg (200 unit) capsule (Calcium 600 + D(3)) duloxetine 30 mg capsule,delayed 60 mg PO DAILY 05/20/24 10/15/24 H istory release insulin human U-100 NPH-regulr 22 unit subcut BREAKFAST 05/20/24 10/15/24 History 70-30 mix 100 unit/mL subcutaneous susp (Humulin 70/30 U-100 Insulin) losartan 50 mg tablet 50 mg PO DAILY 05/20/24 10/15/24 H istory metoprolol tartrate 100 mg tablet 100 mg PO BID 05/20/24 10/15/24 H istory mirtazapine 15 mg tablet 15 mg PO QHS 05/20/24 10/15/24 His tory solifenacin 10 mg tablet 10 mg PO DAILY 07/28/24 12/23/24 H istory tamsulosin 0.4 mg capsule 0.4 mg PO DAILY 05/20/24 10/15/24 History topiramate 50 mg tablet 50 mg PO QHS 05/20/24 10/15/24 His tory vitamin E 268 mg (400 unit) capsule 268 mg PO DAILY 05/20/24 History empagliflozin 25 mg tablet 25 mg PO QAM 10/15/24 10/15/24 His tory (Jardiance) flash glucose sensor (FreeStyle 10/15/24 10/15/24 History Nita 2 Sensor kit) furosemide 20 mg tablet 20 mg PO Q OTHER DAY 10/15/2409/24 History glucagon 1 mg solution for 1 mg subcut Q20M PRN 10/15/2409/24 History injection glucosamine HCl 1,500 mg tablet 1,500 mg PO QDAY 10/15/24 10/15/24 History multivitamin 1 tab PO QAM 10/15/24 10/15/24 His tory omega 1-cmi-ilp-fish oil 300 1 cap PO QDAY 10/15/24 10/15/24 Hi story mg-1,000 mg capsule (Fish Oil) omeprazole 40 mg capsule,delayed 40 mg PO QDAY 10/15/24 10/15/24 Hi story release Have you fallen in the past year?: Yes PFSH Medical History (Updated 01/17/25 @ 18:04 by POONAM Hardy) Dementia Vision problems Skin cancer GERD (gastroesophageal reflux disease) Neuropathy Hyperlipidemia Heart disease Hearing problem Cataract Cancer Bone fracture Back problem Arthritis Kidney disease Diabetes TIA (transient ischemic attack) Hypertension Family History Father Alcoholism Mother Breast cancer Brother Stomach cancer Brain cancer Social History household members: family housing: house Smoking Status: Never smoker alcohol intake: never substance use type: does not use what type of physical activity do you participate in: none HPI HPI Chief Complaint: establish care- diabetes Details: CAMILLA MCDERMOTT, is a 79 M who presents to the office today for evaluation and management of diabetes. Referred by PCP for uncontrolled blood sugars. He is accompanied by daughter to today's appt, he has some degree of dementia and is CH[place]. He was diagnosed with diabetes in 1970's, + family history, complications include neuropathy to bilateral lower extremities, retinopathy, CKD, and TIA. He is currently using CGM; however, he did not bring reader with him to his appt. Currently taking 70/30 20 u breakfast and 30 u supper and Jardiance 25 mg once daily. Occasionally at breakfast time, he does not eat and only takes shot. He will occasionally have blood sugars in 80's prior to supper. He and daughter deny any significant episode of hypoglycemia that has required assistance from others. He was previously on metformin, this was discontinued d/t decline in kidney function. He drinks approximately 4 bottle of of 20 oz regular Pepsi/day. A1C today is 10.4%, improved slightly from 12/03/23 at 11.7%. BP controlled. Currently taking losartan 50 mg once daily, metoprolol 100 mg BID, and furosemide 20 mg qoday along with SGLT-2. He takes a daily statin. He is over due for labs. Denies any acute concerns. ROS Const Constitutional: No fatigue or weight nancy (more content not included)... Normal [facility] 01-15-2025 36 Right faxed 07/03/24 OV note to [facility] Attn Ruth [facility] 36 Message released to patient as written. Lotus Martinez MA Oracle Manager Signed 01/09/2025 Copy Right faxed 10/30/24 OV note to [facility] Attpavan Miranda Patient's further questions if applicable: Ruth states has the orders but needs the face to face addendum with it stating pt has alzheimer's and dementia for physical therapy. Please advise. Were all questions from office addressed or relayed to the patient from encounter: N/A ' [facility] 01-09-2025 36 Right faxed 10/30/24 OV note to [facility] Attn Ruth [facility] 01-08-2025 36 Name of caller: Ruth Contact phone number: [phone] Relationship to Patient: [facility] Provider: Dr Tidwell Practice: [facility] Chief Complaint/Reason for Call: Ruth is requesting face to face notes that mention the patients alhzeimer and dementia faxed to her at fax# [phone]. Thank you Best time of day caller can be reached: any Patient advised that office/PCP has 24-48 business hours to return their call: Yes [facility] 36 I placed another order-- dx given is all we have . Dx: alzheimers, generalized weakness, chronic pain syndrome and impaired gait. [place] [id number] 36 Name of caller: Ruth Contact phone number: [phone] Relationship to Patient: [facility] Provider: Diann Practice: [facility] Chief Complaint/Reason for Call: Ruth needs a written and signed order and diagnoses for this patient to receive physical therapy please fax to number [phone]. Please advise Ruth at [phone]. Best time of day caller can be reached: any Patient advised that office/PCP has 24-48 business hours to return their call: Yes [place] [id number] 36 Rx ordered Efren Tidwell MD [address] 11-26-2024 36 I called the patients daughter nicho to clarify if he needs a refill and where to send it. She stated that he is on a program with [employer] and would like the script sent there for her father. Please advise. [place] [address] Name of caller: Nicho Contact phone number: [phone] Relationship to Patient: family member patient and daughter Provider: Dell Practice: Endo Chief Complaint/Reason for Call: patient is asking about the medication empagliflozin (Jardiance) 25 MG Patient will need it before Tuesday . Please call daughter back to advise Best time of day caller can be reached: PM Patient advised that office/PCP has 24-48 business hours to return their call: Yes [place] [id number] 36 Name of caller: Cami Contact phone number: [phone] Relationship to Patient: Daughter Provider: CHITRA Whittington Practice: Endo Chief Complaint/Reason for Call: Patient will be going out of town 12/01. He will be out of sensors. Patient daughter is requesting a refill be sent to the [facility] pharmacy. Please advise. Best time of day caller can be reached: Any Patient advised that office/PCP has 24-48 business hours to return their call: Yes [facility] 36on 11-09-2024 36 Spoke to patient and they acknowledged understanding Called Patient to schedule appt with Rochelle Tracy . I spoke to his daughter Cami she Stated did not think an appt was necessary at this time . I spoke to her (Cami) earlier in past phone messages and she was concerned about her Father and his medicine , said her father could be experiencing dematia . Now she would like Physical therapy at home for her Father , that is the only concern she has and wanted to ask if that is something that can be ordered as this time . I offered to schedule an appt with you or Dr Tidwell to talk about her Father Camilla but she said not at this time that he is doing better I offered a VV visit as well . She replied no its ok . Carol also said she did not want to speak to the providers in front of her Father due to he gets upset with her . [facility] 36on 11-02-2024 36 Cami called in stating that she missed a call from Diya. I do not see anything in the encounter to release. Please advise and have Diya call Cami again with information if any. [facility] 36 Spoke to patient and they acknowledged understanding Spoke to Patient daughter , gave messages regarding insulin doses , would like to have a VV call with her Father , claims he may be going through dematia episodes , not taking his meds as directed ,concerned Also Physical therapy not able to come to house , please advise scheduled VV call on 11/05/2024 with Rochelle Tracy . [facility] 36 ----- Message from Rochelle Landeros PA-C sent at 10/31/2024 9:51 AM EST ----- Please reach out to patient -- I sent a [employer] message- abnormal labs Follows with endocrine - has appointment 12/24/24. Advised to adjust insulin- increase to 20 units before breakfast and 30 units before dinner. Must monitor glucose 3-4 times daily. If glucose is above 200-- then add 2 units of insulin to regimen. Also- kidney disease with stage 3 disease - due to uncontrolled diabetes. Referring him to supervisor [employer] as well. thanks [facility] 37on 10-30-2024 37 Patient wants to establish with [facility]-[phone], [address], [address], [place] [address] please provide information Personalized Preventative Plan for Camilla Mcdermott - 10/30/2024 Medicare offers a range of preventative health benefits. Some of the tests and screenings are paid in full while others may be subject to a deductible, co-insurance, and / or copay. Some of these benefits include a comprehensive review of your medical history including lifestyle, illnesses that may run in your family, and various assessments and screenings as appropriate. After reviewing your medical record and screening and assessments performed today, your provider may have ordered immunizations, labs, imaging, and / or referrals for you. A list of these orders (if applicable) as well as your Preventative Care list are included within your After Visit Summary for your review. Other Preventative Recommendations: A preventive eye exam by an eyelet punch operator is recommended every 1-2 years to screen for glaucoma, cataracts, macular degeneration, and other eye disorders. A preventive dental visit is recommended every 6 months. Try to get at least 150 minutes of exercise per week or 10,000 steps per day on a pedometer. You need 1200-1500mg of calcium and 3983-8665 international units of vitamin D per day. It is possible to meet your calcium requirement with diet alone, but a vitamin D supplement is usually necessary to meet this goal. When exposed to the sun, use a sunscreen that protects against both UVA and UVB radiation with an SPF of 30 or greater. Reapply every 2-3 hours or after sweating, drying off with a towel, or swimming. Always wear a seat belt when traveling in a car. Always wear a helmet when riding a bicycle or a motorcycle [facility] Office Visiton 10-30-2024 Follow-up visit [id number] Camilla Mcdermott 1945 M Date Provider Department Center 10/30/2024 [id number] BUCKLEY [facility] [place] Family History Problem Relation Age of Onset Cancer Mother Other Father Comments: heart murmur Alcohol abuse Father Hearing loss Father Alcohol abuse Son Arthritis Son Depression Son Arthritis Daughter Autoimmune disease Daughter Depression Daughter Diabetes Daughter Hyperlipidemia Daughter Hypertension Daughter Immunodeficiency Daughter Depression Daughter Diabetes Daughter Hearing loss Sister Family Status - Relation Status Age at Mother Father Son Daughter Daughter Sister Level of Service:G0439 [place] PPPS, SUBSEQ VISIT Reason for Visit and Comments: Medicare Annual Wellness Visit Subsequent [677] Normal [facility] Progress Noteon 10-30-2024 Progress Note [facility] - [address] [facility] [address] Dept: [phone] Dept Chief Complaint: Camilla Mcdermott is an 79 y.o. male here for an annual wellness visit. 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 ~ given information sheet on well visit, preventative care and guidelines for healthy living ~ medications reviewed and refills given if requested or required ~ updated medication list and medical history with patient ~ follow up in 1 year, sooner if needed Note: patient seen for URI last week- given zpak. Never took steroid. Much improved. Relevant Orders Hemoglobin A1c Comprehensive metabolic panel CBC Type 2 diabetes mellitus with hyperglycemia, with long-term current use of insulin (HCC) Relevant Medications insulin NPH-insulin regular (HumuLIN,NovoLIN) (70-30) 100 UNIT/ML injection Generalized weakness - family member states patient is in the process of getting a scooter. Has an appointment for evaluation soon - referral to PT- patient not moving much. Generalized weakness. - in wheelchair for visit and distance walking. No wheelchair at home. Relevant Orders [facility] I have reviewed and reconciled the medication list with the patient today. Current Outpatient Medications Medication Sig Dispense Refill alpha tocopherol (Vitamin E) 400 units capsule 1 capsule Every 24 hours. 180 mg aspirin 81 MG EC tablet Take 1 tablet (81 mg) by mouth daily. atorvastatin (Lipitor) 80 MG tablet TAKE 1 TABLET BY MOUTH DAILY 90 tablet 3 azithromycin (Zithromax) 250 MG tablet Take 2 tabs (500 mg) by mouth today, than 1 tab (250 mg) daily for 4 days. 6 tablet 0 benzonatate (Tessalon) 200 MG capsule Take 1 capsule (200 mg) by mouth 3 times daily as needed for cough. Do not crush or chew. 42 capsule 3 calcium carbonate-vitamin D 600-200 MG-UNIT tablet Take 1 tablet by mouth daily. Continuous Glucose Sensor (FreeStyle Nita 2 Sensor) mis 1 Device every 14 (fourteen) days. 6 each 5 diabetic shoes Diabetic Shoes and inserts. 1 each 0 DULoxetine (Cymbalta) [address] capsule TAKE 2 CAPSULES BY MOUTH IN THE MORNING 180 capsule 0 empagliflozin (Jardiance) 25 MG Take 1 tablet (25 mg) by mouth daily. 90 tablet 3 fish oil-omega-3 fatty acids 1000 MG capsule Take 1,000 mg by mouth in the morning. furosemide (Lasix) 20 MG tablet TAKE 1 TABLET BY MOUTH EVERY OTHER DAY (Patient taking differently: TAKE 1 TABLET BY MOUTH EVERY OTHER DAY) 50 tablet 3 glucagon 1 MG injection Inject 1 mL (1 mg) into the shoulder, thigh, or buttocks Once as needed for low blood sugar for up to 4 doses. 1 each 3 Glucosamine-Chondroi t-Vit C-Mn (Glucosamine 1500 Complex) capsule 1 capsule 1 (one) time each day. glucose blood test strip 1 each by Other route 2 times daily. 60 each 11 Lancets (OneTouch Delica Plus [id number]) misc losartan (Cozaar) 50 MG tablet TAKE 1 TABLET BY MOUTH DAILY 100 tablet 3 metoprolol tartrate (Lopressor) 100 MG tablet TAKE 1 TABLET BY MOUTH TWICE DAILY 200 tablet 3 mirtazapine (Remeron) 15 MG tablet TAKE 1 TABLET BY MOUTH EVERY NIGHT 90 tablet 0 miiveeuohfqs-dlyc-dy nerals-folic acid (Theragran-M) tablet Every 24 hours. omeprazole (PriLOSEC) [address] capsule TAKE 1 CAPSULE BY MOUTH IN THE MORNING 100 capsule 3 Probiotic tablet delayed-release daily. solifenacin (VESIcare) 10 MG tablet TAKE 1 TABLET BY MOUTH DAILY 100 tablet 0 tamsulosin (Flomax) 0.4 MG 24 hr capsule TAKE 1 CAPSULE BY MOUTH DAILY 100 capsule 3 topiramate 50 MG tablet TAKE 1 TABLET BY MOUTH EVERY NIGHT 100 tablet 3 insulin NPH-insulin regular (HumuLIN,NovoLIN) (70-30) 100 UNIT/ML injection Inject 18 units before breakfast and 28 units before dinner 40 mL 3 No current facility-administere d medications for this visit. Also reviewed during this visit: ~ patient is here for his AWV. Follows with PCP Dr Tidwell with last visit 4 months ago. ~ also following with cardiology and endocrine who monitor his labs. Last documented A1c was 11.1 in March with endocrine. The following health maintenance schedule was reviewed with the patient and provided in printed form in the after visit summary: Health Maintenance Topic Date Due RSV Immunization for Adults (1 - 1-dose 75 (more content not included)... [facility] 36on 10-26-2024 36 Noted. EFREN TIDWELL [facility] Progress Noteon 10-26-2024 Progress Note Camilla Mcdermott is a 79 y.o. male who presents today for the following: Chief Complaint Patient presents with Cough Patient was identified and seen today via Telehealth by agreement and consent. I used the following Telehealth technology: Audio and video capabilities. Patient location: Patient Location: Home. This patient encounter is appropriate and reasonable under the circumstances: transportation issues . The patient has been advised of the potential risks and limitations of this mode of treatment (including but not limited to the absence of in-person examination) and has agreed to be treated in a remote fashion in spite of them. Any and all of the patient's/patient's family's questions on this issue have been answered and I have made no promises or guarantees to the patient. The patient has also been advised to contact this office for worsening conditions or problems, and seek emergency medical treatment and/or call 911 if the patient deems either necessary. The patient stated that they are currently in the [facility]. If the patient is a minor, permission has been obtained by the parent or guardian for the patient to receive medical care at this visit. Assessment and Plan: Diagnosis Plan 1. Bronchitis azithromycin (Zithromax) 250 MG tablet predniSONE (Deltasone) 20 MG tablet XR chest 2 views benzonatate (Tessalon) 200 MG capsule New Medications Ordered This Visit Medications azithromycin (Zithromax) 250 MG tablet Sig: Take 2 tabs (500 mg) by mouth today, than 1 tab (250 mg) daily for 4 days. Dispense: 6 tablet Refill: 0 predniSONE (Deltasone) 20 MG tablet Sig: Take 2 tablets (40 mg) by mouth daily for 5 days. With breakfast Dispense: 10 tablet Refill: 0 benzonatate (Tessalon) 200 MG capsule Sig: Take 1 capsule (200 mg) by mouth 3 times daily as needed for cough. Do not crush or chew. Dispense: 42 capsule Refill: 3 Symptoms are uncontrolled. Will treat him for bronchitis with meds per above. Side effect profile reviewed. Of note, his last hemoglobin A1c in March was 11%. Therefore, advised to only start steroids if his cough is debilitating. Should his symptoms fail to improve/worsen, chest x-ray per above which will be faxed to [facility] locally, to rule out pneumonia. All patient questions answered. Pt voiced understanding. Patient agreed with treatment plan. Red flag signs were also reviewed in detail with patient, and they verbalized understanding of seeking immediate medical attention if need arises. HPI: This is a 79-year-old male with a past medical history significant for dementia, CAD, type 2 diabetes, CKD, hypertension, hyperlipidemia, history of TIA, presents today for chief complaint mentioned above. He is very hard of hearing. History is mainly provided by his daughter who is relating the information. Symptoms started 5 days ago. No fevers or chills. He has a dry cough which is debilitating. No shortness of breath. No sinus pressure. He has a sore throat from coughing excessively. No ear pain. No medication allergies. 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, with long-term current use of insulin, unspecified laterality, unspecified retinopathy severity (HCC) Moderate episode of recurrent major depressive disorder (HCC) Impaired gait Mixed Alzheimer's and vascular dementia (HCC) Caregiver stress Vascular dementia without behavioral disturbance (HCC) Financial difficulties Sarkra's palsy Bunion Chronic pain Diabetic polyneuropathy associated with type 2 diabetes mellitus (CMS/HCC) (HCC) Disturbance of skin sensation Hearing loss Lung nodule Neuropathy Oropharyngeal dysphagia Pain in both feet Sciatica associated with disorder of lumbar spine Sensory hearing loss, bilateral Urgency-frequency syndrome Anemia of chronic renal failure Hyperparathyroidism due to renal insufficiency ([facility]) Stage 3a chronic kidney disease (HCC) Acute chest pain Stable angina (HCC) Chest pain, unspecified Past Surgical History: Procedure Laterality Date COLONOSCOPY EYE SURGERY Bilateral cataract FRACTURE SURGERY back LIPOMA RESECTION 03/08/2022 Family History Problem Relation Name Age of Onset Cancer Mother Francie Stander Other ([id number]) Father (more content not included)... [place] [id number] 10-25-2024 36 S: [facility] B: Onset of symptoms/concern 4 days A: Productive cough of green phlegm, denies exposure to Covid and has not tested. Also has nasal congestion and post nasal drip. Taking Nyquil with no relief and also not sleeping well due to cough. Denies constant chest pain, shortness of breath, fever/chills, R: Patient understands care advice. No further needs at this time. Patient instructed to call back with new or worsening symptoms. Reason for Disposition ? Continuous (nonstop) coughing interferes with work or school and no improvement using cough treatment per Care Advice Protocols used: [id number] [facility] 36on 10-03-2024 36 AWV scheduled for 10/30/2024. There aren't any further needs at this time. [facility] 36 Please schedule in office AWV with me. Efren Tidwell MD [facility] 36 Recent Visits Date Type Provider Dept 02/21/24 Office Visit MD Prateek Jimenez 10/04/23 Office Visit MD Prateek Jimenez Showing recent visits within past 365 days and meeting all other requirements Future Appointments Date Type Provider Dept 10/30/24 Appointment Rochelle Landeros PA-C [facility] Showing future appointments within next 90 days and meeting all other requirements Requested Prescriptions Pending Prescriptions Disp Refills solifenacin (VESIcare) 10 MG tablet [Pharmacy Med Name: Solifenacin Succinate 10 MG Oral Tablet] 100 tablet 2 Sig: TAKE 1 TABLET BY MOUTH DAILY Provider: Efren Tidwell MD Overdue for visit: Yes If yes - patient scheduled? Yes Most recent labs completed in chart? N/A Verified pharmacy: yes Verified day(s) supplied: yes Verified refill(s) needed (previous prescription showing no refills in chart): Yes [facility] [address] Gutierrez on 09/14/24 Lipid 12/03/23 [facility] 36on 09-26-2024 36 Already power 10/30/24 [facility] 36 Please schedule patient an in office visit with me. MARIEE after 10/04/24. Efren Tidwell MD [facility] 36 Recent Visits Date Type Provider Dept 02/21/24 Office Visit Efren Tidwell [place] [facility] [place] [place] 10/04/23 Office Visit Efren Tidwell [place] [facility] [address] [address] Showing recent visits within past 365 days and meeting all other requirements Future Appointments Date Type Provider Dept 10/30/24 Appointment Rochelle Landeros PA-C [facility] Showing future appointments within next 90 days and meeting all other requirements Requested Prescriptions Pending Prescriptions Disp Refills mirtazapine (Remeron) 15 MG tablet [Pharmacy Med Name: Mirtazapine 15 MG Oral Tablet] 90 tablet 3 Sig: TAKE 1 TABLET BY MOUTH EVERY NIGHT DULoxetine (Cymbalta) [address] capsule [Pharmacy Med Name: DULoxetine HCl 30 MG Oral Capsule Delayed Release Particles] 180 capsule 3 Sig: TAKE 2 CAPSULES BY MOUTH IN THE MORNING Provider: Efren Tidwell MD Overdue for visit: No If yes - patient scheduled? Yes Most recent labs completed in chart? N/A Verified pharmacy: yes Verified day(s) supplied: yes Verified refill(s) needed (previous prescription showing no refills in chart): Yes [facility] 36on 09-25-2024 36 Sent rx [facility]quest to [facility] 36 Sent rx request to [facility] Office Visiton 09-14-2024 Follow-up visit [id number] Camilla Mcdermott 1945 M Date Provider Department Center 09/14/2024 [id number], WISELADIO [facility] Family History Problem Relation Age of Onset Cancer Mother Other Father Comments: heart murmur Alcohol abuse Father Hearing loss Father Alcohol abuse Son Arthritis Son Depression Son Arthritis Daughter Autoimmune disease Daughter Depression Daughter Diabetes Daughter Hyperlipidemia Daughter Hypertension Daughter Immunodeficiency Daughter Depression Daughter Diabetes Daughter Hearing loss Sister Family Status - Relation Status Age at Mother Father Son Daughter Daughter Sister Level of Service:11904 MA OFFICE/OUTPATIENT ESTABLISHED MOD MDM 30 MIN Reason for Visit and Comments: Coronary Artery Disease [187] Normal [facility] Progress Noteon 09-14-2024 Progress Note [facility] [place] [address] [facility] [address] Dept: [phone] Dept Visit type: Established : 1945 Reason for Visit: Coronary Artery Disease Assessment and Plan CAD: mild, nonobstructive, no angina -continue aspirin 81 mg daily -continue atorvastatin 80 mg daily -continue metoprolol 100 mg bid -stop IMDUR -risk factor control Dilated aorta: mild asymptomatic -BP and risk factor control HTN: elevated BP today/reports that he did not take BP meds today yet, but report intermittent orthostatic symptoms with low diastolic BP. No edema, TTE had hyperdynamic LVEF, avoid dehydration. -instructed to use lasix 20 gm PRN for weight gain >=4 pounds in 1-3 days -continue losartan 50 mg daily Follow up in about 1 year (around 09/14/2025). Subjective HPI Camilla Mcdermott is a 79 year old male presents for follow up. Mr. Mcdermott is known to have mild nonobstructive CAD by coronary CTA, mildly dilated aortic root 4.2 cm, HTN, DM and DL as well as dementia and CKD IIIa, TTE had hyperdynamic LVEF 12/2023 without significant valve disease. Mr. Mcdermott reports no chest pain, no orthopnea or leg edema. He has been losing his balance and intermittently falling, currently he is using wheel chair. Repeat BP 140/90 mmHg. Review of Systems Respiratory: Positive for shortness of breath. Negative for wheezing. Cardiovascular: Negative for chest pain, palpitations and leg swelling. Musculoskeletal: Positive for gait problem. Neurological: Positive for weakness. Negative for dizziness and syncope. No Known Allergies Outpatient Medications Prior to Visit Medication Sig Dispense Refill alpha tocopherol (Vitamin E) 400 units capsule 1 capsule Every 24 hours. 180 mg aspirin 81 MG EC tablet Take 1 tablet (81 mg) by mouth daily. atorvastatin (Lipitor) 80 MG tablet Take 1 tablet (80 mg) by mouth daily. 90 tablet 3 calcium carbonate-vitamin D 600-200 MG-UNIT tablet Take 1 tablet by mouth daily. Continuous Glucose Sensor (FreeStyle Nita 2 Sensor) mis 1 Device every 14 (fourteen) days. 9 each 3 diabetic shoes Diabetic Shoes and inserts. 1 each 0 DULoxetine (Cymbalta) [address] capsule TAKE 2 CAPSULES BY MOUTH IN THE MORNING 180 capsule 3 empagliflozin (Jardiance) 25 MG Take 1 tablet (25 mg) by mouth daily. 90 tablet 3 fish oil-omega-3 fatty acids 1000 MG capsule Take 1,000 mg by mouth in the morning. furosemide (Lasix) 20 MG tablet TAKE 1 TABLET BY MOUTH EVERY OTHER DAY (Patient taking differently: Take 20 mg by mouth Daily as needed. Take 1 tablet as needed for weight gain >= 4 pounds in 1-3 days) 50 tablet 3 glucagon 1 MG injection Inject 1 mL (1 mg) into the shoulder, thigh, or buttocks Once as needed for low blood sugar for up to 4 doses. 1 each 3 Glucosamine-Chondroi t-Vit C-Mn (Glucosamine 1500 Complex) capsule 1 capsule 1 (one) time each day. glucose blood test strip 1 each by Other route 2 times daily. 60 each 11 insulin NPH-insulin regular (HumuLIN,NovoLIN) (70-30) 100 UNIT/ML injection Inject 18 units before breakfast and 28 units before dinner 40 mL 3 Lancets (OneTouch Delica Plus [id number]) misc losartan (Cozaar) 50 MG tablet TAKE 1 TABLET BY MOUTH DAILY 100 tablet 3 metoprolol tartrate (Lopressor) 100 MG tablet TAKE 1 TABLET BY MOUTH TWICE DAILY 200 tablet 3 mirtazapine (Remeron) 15 MG tablet Take 1 tablet (15 mg) by mouth Nightly. 90 tablet 3 yapkaoctghgk-xqcl-wc nerals-folic acid (Theragran-M) tablet Every 24 hours. omeprazole (PriLOSEC) [address] capsule TAKE 1 CAPSULE BY MOUTH IN THE MORNING 100 capsule 3 Probiotic tablet delayed-release daily. solifenacin (VESIcare) 10 MG tablet TAKE 1 TABLET BY MOUTH DAILY 100 tablet 3 tamsulosin (Flomax) 0.4 MG 24 hr capsule TAKE 1 CAPSULE BY MOUTH DAILY 100 capsule 3 topiramate 50 MG tablet TAKE 1 TABLET BY MOUTH EVERY NIGHT 100 tablet 3 isosorbide mononitrate ER (Imdur) 30 MG 24 hr tablet Take 1 tablet (30 mg) by mouth daily. Do not crush or chew. 90 tablet 3 amLODIPine (Norvasc) 5 MG tablet TAKE 1 TABLET BY MOUTH DAILY 100 tablet 3 No facility-administere d medications prior to visit. 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 -02nd hand smoke Substance Use Topics Alcohol use: Not Currently Past Surgical History: Procedure Laterality Date (more content not included)... [place] [id number] 36 Called [facility] and was told this form was taken care of. Thank you! [address] 09-03-2024 36 Name of caller: Pau Contact phone number: [phone] Relationship to Patient: [facility] Provider: Dr Guadarrama Practice: Endocrinology Chief Complaint/Reason for Call: Pau with [facility] called in advising that standard written order they received 08/21/24 they can not accept because Dr Nolan's name was crossed out and Dr Guadarrama's name was put in it's place. States sending another SWO form via fax with Dr Guadarrama's name typed on it to be completed again. Please advise. Best time of day caller can be reached: any Patient advised that office/PCP has 24-48 business hours to return their call: N/A [facility] 36 08-30-2024 [address] 08-24-2024 36 Spoke with daughter. Patient is not feeling well. Scheduled for VV on 08/[address] Guadarrama [facility] 36on 08-23-2024 36 Name of caller: Cami Contact phone number: [phone] Relationship to Patient: Daughter Provider: JEFF Minor CNP Practice: [facility] Chief Complaint/Reason for Call: Cami states Camilla is not feeling well and will be unable to make it to his 08/23/24 1:30 PM follow up and would like a call back to reschedule for an appointment prior to his next visit with Dr. Guadarrama on 12/24/24 if available. Please advise. Best time of day caller can be reached: Any Patient advised that office/PCP has 24-48 business hours to return their call: Yes [address] 08-09-2024 36 Returned carrys call and let her know that he did use reader before, even though it is not on his med list currently ( she just needed to know for medicare guidelines. She understood and got the info that she needed to complete the PA for the pt. [address] 08-08-2024 36 [place] states she has a 24 hour deadline. Name of caller: Alfie Rene Contact phone number: [phone] Relationship to Patient: [facility] Prior Authorization dept. Provider: Michelle Courtney CNP Practice: [facility] Chief Complaint/Reason for Call: Alfie Rene is requesting a return call to see if pt has a neuropsychiatrist Re: freestyle nita 2 sensor, per Medicare guidelines. Anju states if pt does not, she add the code to this PA request. [phone] Best time of day caller can be reached: any Patient advised that office/PCP has 24-48 business hours to return their call: Yes [facility] [id number] [id number] Called [facility] medicare s/w Surjit, explained that we have been dealing with this for over a month. WE need this PA expedited. PA was done over the phone can take up to 24 hrs. Patient can call in 6 hours to check states. Called Gabby (daughter) explained the above, she stated that she will call. [facility] 36on 07-26-2024 36 Name of caller: Cami Contact phone number: [phone] Relationship to Patient: family member patient and daughter Provider: Michelle Whittington Practice: Endocrinology Chief Complaint/Reason for Call: Cami states that the patient's insurance would like to receive a call so they can take verbal information to initiate a PA for the patient's CGM. Cami states that once this is taken care of she would like to receive a Yhat message to confirm. Please advise. Best time of day caller can be reached: any Patient advised that office/PCP has 24-48 business hours to return their call: Yes [facility] 36on 07-23-2024 36 Recent Visits Date Type Provider Dept 02/21/24 Office Visit Efren Tidwell [place] [facility] 10/04/23 Office Visit Efren Tidwell [place] [facility] Showing recent visits within past 365 days and meeting all other requirements Future Appointments Date Type Provider Dept 10/05/24 Appointment Efren Tidwell [place] [facility] Showing future appointments within next 90 days and meeting all other requirements Requested Prescriptions Pending Prescriptions Disp Refills furosemide (Lasix) 20 MG tablet [Pharmacy Med Name: Furosemide 20 MG Oral Tablet] 50 tablet 2 Sig: TAKE 1 TABLET BY MOUTH EVERY OTHER DAY topiramate 50 MG tablet [Pharmacy Med Name: Topiramate 50 MG Oral Tablet] 100 tablet 2 Sig: TAKE 1 TABLET BY MOUTH EVERY NIGHT metoprolol tartrate (Lopressor) 100 MG tablet [Pharmacy Med Name: Metoprolol Tartrate 100 MG Oral Tablet] 200 tablet 2 Sig: TAKE 1 TABLET BY MOUTH TWICE DAILY losartan (Cozaar) 50 MG tablet [Pharmacy Med Name: Losartan Potassium 50 MG Oral Tablet] 100 tablet 2 Sig: TAKE 1 TABLET BY MOUTH DAILY omeprazole (PriLOSEC) [address] capsule [Pharmacy Med Name: Omeprazole 40 MG Oral Capsule Delayed Release] 100 capsule 2 Sig: TAKE 1 CAPSULE BY MOUTH IN THE MORNING amLODIPine (Norvasc) 5 MG tablet [Pharmacy Med Name: amLODIPine Besylate 5 MG Oral Tablet] 100 tablet 2 Sig: TAKE 1 TABLET BY MOUTH DAILY Provider: Efren Tidwell MD Overdue for visit: No If yes - patient scheduled? Yes Most recent labs completed in chart? Yes Verified pharmacy: yes Verified day(s) supplied: yes Verified refill(s) needed (previous prescription showing no refills in chart): Yes [facility] 36on 07-18-2024 36 Name of caller: Cami Contact phone number: [phone] Relationship to Patient: family member patient and daughter Provider: Michelle Whittington Practice: Endocrinology Chief Complaint/Reason for Call: Cami called in regarding Camilla's CGM supplies ordered through [employer] States that [employer] has told her that the CGM and supplies require a prior authorization. Please advise. Best time of day caller can be reached: any Patient advised that office/PCP has 24-48 business hours to return their call: Yes [facility] 36 Name of caller: Cami Contact phone number: [phone] Relationship to Patient: family member daughter Provider: Michelle Whittington Practice: Endocrinology Chief Complaint/Reason for Call: Cami called requesting to speak to Taniya. Stated that patient has gone without medication due to cgm order being canceled. Please call Cami back to advise. Best time of day caller can be reached: Any Patient advised that office/PCP has 24-48 business hours to return their call: N/A [facility] 36on 07-16-2024 36 Patient uses [employer] [facility] 36 Name of Caller: Meir Contact Reason for Call: [employer] is calling back to say, they are no longer filling patients supplies Office Name: gayla [facility] 36on 07-03-2024 36 Noted. EFREN TIDWELL [facility] Progress Noteon 07-03-2024 Progress Note Subjective Patient ID: Camilla Mcdermott is a 79 y.o. male who presents for Fall (Frequent past 6 weeks). Fall Pertinent negatives include no fever. Hx DM with hyperglycemia and peripheral neuropathy. Patient recently moved to [place], living with his daughter in a mobile home. Patient had a change in mental status with unresponsive spell and urinary incontinence 05/20/24, seen in [facility] ER. CT brain with left paramedial pontine density, no acute CVA noted. Patient has hx vascular mixed dementia, there are frequent falls past 6 weeks. No head injury noted. Patient has a walker, he has not been using it. Blood sugars have been in the 250-400 range chronically, began Jardiance 25 mg 10 days ago (prescribed 04/17/24 by endocrinology) and blood sugar 190 today. There is urinary incontinence and patient has difficulty ambulating from his bed to commode. Patient has a urinal, does not use it regularly. Review of Systems Constitutional: Negative for chills and fever. Genitourinary: Positive for frequency. Negative for difficulty urinating and dysuria. All other systems reviewed and are negative. Objective Physical Exam Patient was identified and seen today via Telehealth by agreement and consent. I used the following Telehealth technology: Audio and video capabilities. Patient location: Patient Location: Home. This patient encounter is appropriate and reasonable under the circumstances: patient and family request . The patient has been advised of the potential risks and limitations of this mode of treatment (including but not limited to the absence of in-person examination) and has agreed to be treated in a remote fashion in spite of them. Any and all of the patient's/patient's family's questions on this issue have been answered and I have made no promises or guarantees to the patient. The patient has also been advised to contact this office for worsening conditions or problems, and seek emergency medical treatment and/or call 911 if the patient deems either necessary. The patient stated that they are currently in the [facility]. If the patient is a minor, permission has been obtained by the parent or guardian for the patient to receive medical care at this visit. Patient alert, conversant, mental status is at baseline. Labs, CT report, ER note from 05/20/24 reviewed, in Media. 30 minutes spent this day with chart review, history, exam and follow up plan. 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 Patient will begin using his walker and bedside urinal regularly. Call if new, persistent or worsening symptoms. Efren Tidwell MD [facility] 36on 07-02-2024 36 Name of caller: Cami Contact phone number: [phone] Relationship to Patient: daughter Provider: Efren Tidwell MD Practice: [facility] Chief Complaint/Reason for Call: Daughter calling and her dad was seen at the [facility] 3 weeks ago. Said she thinks he had a stroke but after running tests they couldn't find anything. Says had had urinated himself, loss muscle control, slurred speech. Is battling dementia and was placed on Jardiance a few weeks ago and is not sure if that is contributing. Would like to only have him see Dr Tidwell. And would like to get him in bong. No openings for Dr Tidwell available. Daughter would like pt added to the schedule. Please call daughter and advise Best time of day caller can be reached: any Patient advised that office/PCP has 24-48 business hours to return their call: No Normal [facility] 12 Lead EKGon 05-20-2024 12 Lead EKG [facility] Cardiovascular Services [address] [place] [address] 12 Lead EKG 05/20/24 1611 MR#: [id number] Acct: [id number] Name: CAMILLA MCDERMOTT II Rep #: [id number] : 1945 79 From: Giorgio Sanchez MD Attending Dr: Status: DEP ER Ordering Dr: Dylan Weaver DO Date: 05/20/24 Location: ED Sex: M C Admitted: Test Reason : CP Blood Pressure : / mmHG Vent. Rate : 062 BPM Atrial Rate : 062 BPM P-R Int : 182 ms QRS Dur : 086 ms QT Int : 418 ms P-R-T Axes : 011 -18 048 degrees QTc Int : 424 ms Normal sinus rhythm Inferior infarct , age undetermined Abnormal ECG Confirmed by TISHA HADDAD, IRINA ([id number]), mapping editor LOTUS CLEMENT ([id number]) on 05/22/2024 2:27:55 PM Referred By: Confirmed By:KAYLYN SANCHEZ MD 05/22/24 1427 Date Giorgio Sanchez MD CC: Dr. Dylan Weaver DO; Dr. Efren Tidwell MD Signed Normal [facility] Basic Metabolic Profile (BMP )on 05-20-2024 BUN/CRE 5.4 RATIO Low 10-20 [facility] Comment on above: Order Comment: 'TROP ' Serial specimen #1, #2 or #3: 1 Performed By: #### L 501.4020, L500.2500, L100.0100 #### [facility] [address] [place], [address] CA,Total 9.5 mg/dL Normal 8.5-10.1 [facility] Comment on above: Order Comment: 'TROP ' Serial specimen #1, #2 or #3: 1 Performed By: #### L 501.4020, L500.2500, L100.0100 #### [facility] [address] [place], [address] Chloride [Moles/Vol] 111 mmol/L High 98-107 [facility] Comment on above: Order Comment: 'TROP ' Serial specimen #1, #2 or #3: 1 Performed By: #### L 501.4020, L500.2500, L100.0100 #### [facility] [address] [place], [address] CO2 [Moles/Vol] 21.0 mmol/L Normal 21.0-32.0 [facility] Comment on above: Order Comment: 'TROP ' Serial specimen #1, #2 or #3: 1 Performed By: #### L 501.4020, L500.2500, L100.0100 #### [facility] [address] [place], [address] Creatinine [Mass/Vol] 1.86 mg/dL High 0.70-1.30 [facility] Comment on above: Order Comment: 'TROP ' Serial specimen #1, #2 or #3: 1 Result Comment: The validity of the calculated GFR GFRAA in patients over 70 years has not been determined. Clinical correlation is essential. Performed By: #### L 501.4020, L500.2500, L100.0100 #### [facility] [address] [place], [address] ECRCL 31.16 ml/min Normal [facility] Comment on above: Order Comment: 'TROP ' Serial specimen #1, #2 or #3: 1 Performed By: #### L 501.4020, L500.2500, L100.0100 #### [facility] [address] [place], [address] EST GFR - AA 45 mL/min Low >60 [facility] Comment on above: Order Comment: 'TROP ' Serial specimen #1, #2 or #3: 1 Result Comment: Afri can [place] GFR Calc Performed By: #### L 501.4020, L500.2500, L100.0100 #### [facility] [address] [place], [address] GAP 6 Normal 5-15 [facility] Comment on above: Order Comment: 'TROP ' Serial specimen #1, #2 or #3: 1 Performed By: #### L 501.4020, L500.2500, L100.0100 #### [facility] [address] [place], [address] GFR/1.73 sq M.predicted among non-blacks MDRD (S/P/Bld) [Vol rate/Area] 37 mL/min/{1.73_m2} Low >60 [facility] Comment on above: Order Comment: 'TROP ' Serial specimen #1, #2 or #3: 1 Result Comment: Non- GFR Calc Performed By: #### L 501.4020, L500.2500, L100.0100 #### [facility] [address] [place], [address] Glucose [Mass/Vol] 238 mg/dL High 74-106 [facility] Comment on above: Order Comment: 'TROP ' Serial specimen #1, #2 or #3: 1 Result Comment: Gluc ose result greater than or equal to 200 mg/dL suggests DIABETES MELLITUS per A.D.A. criteria. Performed By: #### L 501.4020, L500.2500, L100.0100 #### [facility] [address] [place], [address] Potassium [Moles/Vol] 3.5 mmol/L Normal 3.5-5.1 [facility] Comment on above: Order Comment: 'TROP ' Serial specimen #1, #2 or #3: 1 Result Comment: Slig ht Hemolysis, Result may be falsely increased. Performed By: #### L 501.4020, L500.2500, L100.0100 #### [facility] [address] [place], [address] Sodium [Moles/Vol] 138 mmol/L Normal 136-145 [facility] Comment on above: Order Comment: 'TROP ' Serial specimen #1, #2 or #3: 1 Performed By: #### L 501.4020, L500.2500, L100.0100 #### [facility] [address] [place], [address] Urea nitrogen [Mass/Vol] 10 mg/dL Normal 7-18 [facility] Comment on above: Order Comment: 'TROP ' Serial specimen #1, #2 or #3: 1 Performed By: #### L 501.4020, L500.2500, L100.0100 #### [facility] [address] [place], [address] Bedside Glucoseon 05-20-2024 FINGERSTICK GLU 231 mg/dL High 74-106 [facility] Comment on above: Result Comment: RODERICK GEMENT OF PATIENT CARE PER NURSING PROTOCOL Performed By: #### L 501.080 ####[facility] [address] [place], [address] FINGERSTICK GLU 244 mg/dL High 74-106 [facility] Comment on above: Result Comment: RODERICK GEMENT OF PATIENT CARE PER NURSING PROTOCOL Performed By: #### L 501.080 #### [facility] [address] [place], [address] Brain/Head without Contrasto n 05-20-2024 Brain/Head without Contrast [facility] Imaging Services [address] [place] [address] Brain/Head without Contrast MR#: [id number] Acct: [id number] Name: CAMILLA MCDERMOTT II Rep #: [id number] : 1945 M 79 From: Jesus Arredondo PCP: Dr. Efren Tidwell MD Status: REG ER Study: Brain/Head without Contrast Date of Exam: 04/24 06/16 Exam# [id number] Ordering Dr: Dylan Weaver DO [id number] INDICATION: ams EXAMINATION: CT BRAIN - CT Head or Brain W/O Contrast Injection TECHNIQUE: Multiple axial images were obtained of the head without intravenous contrast. A radiation dose optimization technique was used for this scan. IV Contrast dosage and agent: None. RADIATION DOSAGE (If Supplied By Facility): CTDIvol = ( 44.99 ) mGy, DLP = ( 779.24 ) mGycm COMPARISON: No relevant prior examinations for comparison ____ FINDINGS: HEMISPHERES: 1. The cerebral parenchyma, ventricular system, subarachnoid spaces have normal configuration and density. There is a normal gyral pattern. There is normal valentine/white differentiation. No midline shift.. 2. There are diffuse involutional changes and mild to moderate chronic microvascular deep white matter changes. 3. No intraparenchymal mass or hemorrhage. CEREBELLUM - BRAINSTEM: The cerebellum, brainstem, basilar and suprasellar cisterns have normal configuration. There however is asymmetric area of diminished density in the LEFT sosa suspicious of a area of encephalomalacic and infarct.. No Chiari malformation. PITUITARY: Infundibulum and pituitary have normal configuration. Midline structures appear normal. CSF SPACES: Appropriate for age. No hydrocephalus. Basal cisterns are patent. VESSELS: 1. Mild to moderate vascular calcifications throughout the cavernous carotid vessels. 2. No hyperdense vascular signs noted.. ORBITS AND PARANASAL SINUSES: 1. Normal appearance of the bony orbits. Normal appearance of the globes and retrobulbar soft tissues.. 2. Paranasal sinuses are clear. BONY ELEMENTS: Bony elements of the cranial vault, facial skeleton and skull base have normal appearance. SCALP AND SOFT TISSUES: Normal appearance of the soft tissues of the scalp and the visualized face OTHER: None ASPECTS Score for Acute Strokes: 10 CT/Brain/Head without Contrast IMPRESSION: 1. Diffuse involutional changes and chronic microvascular deep white matter disease. 2. LEFT paramedian pontine hypodensity may represent an area of brainstem infarct of indeterminate age. If corresponding acute symptoms are present, consider evaluation with MRI for further clarification of acuity. 3. No intracranial mass or hemorrhage. 4. No radiographically significant sinus disease.. Electronically Signed: Jesus Gunderson MD at 17:50 EDT , CC: Dr. Dylan Weaver DO; Dr. Efren Tidwell MD Process Control Manager: Signed Normal [facility] CBC W/Diff, Automatedon - Absolute Lymph 2.92 X10 3/uL Normal 0.83-4.51 [facility] Comment on above: Performed By: #### L 501.4020, L500.2500, L100.0100 #### [facility] [address] [place], [address] Absolute Neut 3.0 X10 3/uL Normal 2.0-7.7 [facility] Comment on above: Performed By: #### L 501.4020, L500.2500, L100.0100 #### [facility] [address] [place], [address] Basophils/100 WBC (Bld) 0.7 % Normal 0-1 [facility] Comment on above: Performed By: #### L 501.4020, L500.2500, L100.0100 #### [facility] [address] [place], [address] Eosinophils/100 WBC (Bld) 7.6 % High 0-5 [facility] Comment on above: Performed By: #### L 501.4020, L500.2500, L100.0100 #### [facility] [address] [place], [address] Erythrocyte distribution width (RBC) [Ratio] 13.8 % Normal 11.6-14.6 [facility] Comment on above: Performed By: #### L 501.4020, L500.2500, L100.0100 #### [facility] [address] [place], [address] Hematocrit (Bld) [Volume fraction] 42.9 % Normal 40-54 [facility] Comment on above: Performed By: #### L 501.4020, L500.2500, L100.0100 #### [facility] [address] [place], [address] Hemoglobin (Bld) [Mass/Vol] 14.1 g/dL Normal 13.0-16.5 [facility] Comment on above: Performed By: #### L 501.4020, L500.2500, L100.0100 #### [facility] [address] [place], [address] IG% 0.300 Normal 0.0-0.9 [facility] Comment on above: Result Comment: IG% - Immature Granulocytes (promyelocytes, myelocytes and metamyelocytes) > 1% indicates that a LEFT SHIFT is Present. Performed By: #### L 501.4020, L500.2500, L100.0100 #### [facility] [address] [place], [address] Lymphocytes/100 WBC (Bld) 41.3 % High 19-41 [facility] Comment on above: Performed By: #### L 501.4020, L500.2500, L100.0100 #### [facility] [address] [place], [address] MCH (RBC) [Entitic mass] 28.7 pg Normal 27.0-32.0 [facility] Comment on above: Performed By: #### L 501.4020, L500.2500, L100.0100 #### [facility] [address] [place], [address] MCHC (RBC) [Mass/Vol] 32.9 g/dL Normal 32-36 [facility] Comment on above: Performed By: #### L 501.4020, L500.2500, L100.0100 #### [facility] [address] [place], [address] MCV (RBC) [Entitic vol] 87.4 fL Normal 80-94 [facility] Comment on above: Performed By: #### L 501.4020, L500.2500, L100.0100 #### [facility] [address] [place], [address] Monocytes/100 WBC (Bld) 7.2 % Normal 0-10 [facility] Comment on above: Performed By: #### L 501.4020, L500.2500, L100.0100 #### [facility] [address] [place], [place], [address] Neutrophils/100 WBC (Bld) 42.9 % Low 47-70 [facility] Comment on above: Performed By: #### L 501.4020, L500.2500, L100.0100 #### [facility] [address] [place], [address] Nucleated RBC (Bld) [#/Vol] 0 10*3/uL Normal 0-5 [facility] Comment on above: Performed By: #### L 501.4020, L500.2500, L100.0100 #### [facility] [address] [place], [address] Platelet mean volume (Bld) [Entitic vol] 11.0 fL Normal 6.2-12.0 [facility] Comment on above: Performed By: #### L 501.4020, L500.2500, L100.0100 #### [facility] [address] [place], [address] Platelets (Bld) [#/Vol] 197 10*3/uL Normal 150-450 [facility] Comment on above: Performed By: #### L 501.4020, L500.2500, L100.0100 #### [facility] [address] [place], [address] RBC (Bld) [#/Vol] 4.91 10*6/uL Normal 4.6-6.2 [facility] Comment on above: Performed By: #### L 501.4020, L500.2500, L100.0100 #### [facility] [address] [place], [address] RDW SD 43.8 fl Normal 35.1-43.9 [facility] Comment on above: Performed By: #### L 501.4020, L500.2500, L100.0100 #### [facility] [address] [place], [address] WBC (Bld) [#/Vol] 7.1 10*3/uL Normal 4.4-11.0 [facility] Comment on above: Performed By: #### L 501.4020, L500.2500, L100.0100 #### [facility] [address] [place], [address] Chest 1 View (Portable)on Chest 1 View (Portable) [facility] Imaging Services [address] [place] [address] Chest 1 View (Portable) MR#: [id number] Acct: [id number] Name: CAMILLA MCDERMOTT II Rep #: [id number] : 1945 M 79 From: Jesus Arredondo PCP: Dr. Efren Tidwell MD Status: REG ER Study: Chest 1 View (Portable) Date of Exam: 05/20/24 Exam# [id number] Ordering Dr: Dylan Weaver DO [id number] INDICATION: near syncope EXAMINATION/TECHNIQU E: X-RAY - XR Chest 1 View COMPARISON: No previous relevant examinations available for comparison.. ____ FINDINGS: LIFE-SUPPORT AND LINES: 1. None HEART AND VESSELS: The cardiac silhouette, pulmonary vasculature have normal appearance. No evidence of congestive failure. LUNGS AND PLEURAL SPACES: Lungs are clear. No focal infiltrate, consolidation or effusions. No evidence of pneumothorax. There is mild crowding of bronchovascular markings particularly at the LEFT lung base contributed by shallow inspiration. MEDIASTINUM AND HILAR REGIONS: No masses adenopathy noted. No areas of calcification. Visualized upper airway is normal in position. BONY ELEMENTS: No acute bony changes noted. RAD/Chest 1 View (Portable) IMPRESSION: 1. No evidence of acute cardiopulmonary process. 2. Mild crowding of bronchovascular markings particularly at LEFT lung bases contributed by shallow inspiration. Electronically Signed: Jesus Gunderson MD at 17:27 EDT , CC: Dr. Dylan Weaver DO; Dr. Efren Tidwell MD Process Control Manager: Signed Normal [facility] Emergency Department Summary on 05-20-2024 Emergency Department Summary [facility] Medical Records Department [address] [place] [address] Emergency Department Summary 05/20/24 MR#: [id number] Acct: [id number] Name: CAMILLA MCDERMOTT II Rep #: [id number] : 1945 79 From: Dylan Weaver DO PCP: Dr. Efren Tidwell MD Status:DEP ER Location: ED HPI History of Present Illness Chief Complaint: Weakness Informant: patient and family Narrative Narrative: 79-year-old male who is new to the area and has been getting his care through [facility] presenting to the emergency room with altered mental status. Patient is moving to a new area got up earlier than normal today. He feels tired. Family states that there is been a lot of activity involved in the move. He had a donut for breakfast. He states that he did not have lunch. He was at [facility] getting some items that he needed when coming out of the store he suddenly stopped moving and difficulty in speaking (tried to get him to count to 10 and he said [phone] and then 10). He was noted to be diaphoretic and pale. He had difficulty moving. Patient states that during that episode he was feeling some chest discomfort. Family notes he was incontinent of urine. Patient does carry a history of dementia. 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 Family notes he seems to be angrier over the past couple weeks. [facility] Medical History Kidney disease Diabetes TIA (transient ischemic attack) Hypertension Home Medications ???Medication ???Instructions ???Recorded ???Last Taken ???Type amlodipine 5 mg tablet 5 mg PO DAILY 05/20/24 Unknown History aspirin 81 mg tablet,delayed 81 mg PO DAILY 05/20/24 Unknown History release (Adult Low Dose Aspirin) atorvastatin 80 mg tablet 80 mg PO DAILY 05/20/24 Unknown History calcium carbonate 600 mg-vitamin 1 cap PO DAILY 05/20/24 Unknown History D3 5 mcg (200 unit) capsule (Calcium 600 + D(3)) duloxetine 30 mg capsule,delayed 60 mg PO DAILY 05/20/24 Unknown History release insulin human U-100 NPH-regulr 22 unit subcut BREAKFAST 05/20/24 Unknown History 70-30 mix 100 unit/mL subcutaneous susp (Humulin 70/30 U-100 Insulin) isosorbide mononitrate 30 mg 30 mg PO DAILY 05/20/24 Unknown History tablet,extended release 24 hr losartan 50 mg tablet 50 mg PO DAILY 05/20/24 Unknown History metoprolol tartrate 100 mg tablet 100 mg PO BID 05/20/24 Unknown History mirtazapine 15 mg tablet 15 mg PO QHS 05/20/24 Unknown History solifenacin 10 mg tablet 10 mg PO DAILY 05/20/24 Unknown History tamsulosin 0.4 mg capsule 0.4 mg PO DAILY 05/20/24 Unknown History topiramate 50 mg tablet 50 mg PO QHS 05/20/24 Unknown History vitamin E 268 mg (400 unit) capsule 268 mg PO DAILY 05/20/24 Unknown History Allergy/AdvReac Type Severity Reaction Status Date / Time No Known Allergies Allergy Verified 05/20/24 17:10 Social History household members: family housing: house ROS ROS ED ROS Narrative Fatigue Constitutional Constitutional ED: Denies chills, fever(s) or weight loss Eyes Eyes: Denies change in vision or diplopia ENT ENT ED: Denies ear pain, rhinorrhea or sore throat Cardiovascular Cardiovascular: Reports chest pain; Denies orthopnea, palpitations or racing heartbeat Respiratory/Chest Respiratory/Chest: Denies cough, dyspnea or orthopnea Gastrointestinal Gastrointestinal: Denies abdominal pain, diarrhea, nausea or vomiting Genitourinary Genitourinary ED: Denies dysuria, hematuria or urinary frequency Musculoskeletal Musculoskeletal: Denies arthralgias or myalgias Integumentary Denies abscess or rash Neurologic Neurologic: Denies headache(s) or weakness Psychiatric Psychiatric: Denies anxiety, depression, suicidal ideation or suicidal thoughts Endocrine Endocrinology: Denies polydipsia, polyphagia or polyuria Allergic/Immunologic Allergic/Immunologic ED: Denies mouth swelling, tongue swelling or urticaria EXAM Physical Exam Const Vital Signs: 05/20/24 16:02 05/20/24 16:20 05/20/24 16:25 Temperature 97.7 F L Temperature Source Oral Pulse Rate 63 60 Respiratory Rate 18 12 Blood Pressure 116/69 118/75 Blood Pressure Mean 84 89 Pulse Ox 92 93 96 Oxygen Delivery Method Room Air Nasal Cannula Nasal Cannula Oxygen Flow Rate (L/min) 3 3 05/20/24 17:32 Temperature Temperature Source Pulse Rate 80 Respiratory Rate 18 Blood Pressure 121/64 H Blood Pressure Mean 83 Pulse Ox 91 Oxygen Delivery Method Room Air Oxygen Flow Rate (L/min) Positive well nourished and well developed General Appearance ED: well developed HEENT Reports normocephalic, head/scalp atraumatic an (more content not included)... Normal [facility] L501.4020on 05-20-2024 TROPONIN-I HS 8 pg/mL Normal 3.0-78.0 [facility] Comment on above: Order Comment: 'TROP ' Serial specimen #1, #2 or #3: 2 Result Comment: Verónica vasquez Note: New Test Units and Gender Specific Reference Ranges. For more information see Policy Stat Procedure [place] High Sensitivity Troponin (TNIH) and attachments. Performed By: #### L 501.4020 #### [facility] [address] [facility] [id number] Order Comment: 'TROP ' Serial specimen #1, #2 or #3: 1 Performed By: #### L 501.4020, L500.2500, L100.0100 #### [facility] [address] [facility] [place], [address] Urinalysis, Completeon 05-20 BACTERIA 0 SEEN Normal None Seen [facility] Comment on above: Order Comment: CLEAN CATCH Performed By: #### L 400.0001 ####[facility] [address] [place], [address] EPI,SQUAMOUS 0 SEEN Normal 0-5 [facility] Comment on above: Order Comment: CLEAN CATCH Performed By: #### L 400.0001 ####[facility] [address] [place], [address] Mucus Ql (Urine sed) 0 SEEN Normal [facility] Comment on above: Order Comment: CLEAN CATCH Performed By: #### L 400.0001 ####[facility] [address] [place], [address] RBC 0 SEEN Normal 0-5 [facility] Comment on above: Order Comment: CLEAN CATCH Performed By: #### L 400.0001 ####[facility] [address] [place], [address] WBC 0 SEEN Normal 0-5 [facility] Comment on above: Order Comment: CLEAN CATCH Performed By: #### L 400.0001 ####[facility] [address] [place], [place], [address] CT CORONARY CTA WITH PROV FF R-CTon 05-02-2024 CT CORONARY CTA WITH PROV FFR-CT [facility] Name[facility] CAMILL[facility] 1945 [id number] Exam Date/Time: 04/30/2024 14:37 Procedure: CT CORONARY CTA WITH PROV FFR-CT Ordering Provider: GUTIERREZ WISSAM Reason For Exam: Chest pain/anginal equiv, high CAD risk, not treadmill candidate --------ADDENDUM #1 -------- Radiologist addendum. Extracardiac read: 4 mm right upper lobe calcified granuloma. Right hilar calcified granulomata. No mediastinal or hilar adenopathy. Thoracic degenerative spondylosis. IMPRESSION: Remote calcified granulomatous disease. Report Dictated on Electronically Signed By: Samantha Mar DO Electronically Signed Date/Time: 05/02/2024 9:29 PM EDT --------ORIGINAL REPORT -------- Coronary CTA Indication: 78 year-old man with chest discomfort. Study performed to evaluate for coronary artery disease. Technique: Computed tomography of the heart and surrounding structures was performed using a [place] multidetector scanner with cardiac gating and dose reduction techniques. Images were reconstructed and analyzed on an advanced post-processing 3D workstation. Sublingual nitroglycerin was administered for coronary dilation and oral metoprolol was taken in advance for heart rate optimization. See nursing notes for additional details of medications given in the CT department. Contrast: 75 mL Total DLP = 795 mGy-cm Study Quality: excellent. Extracardiac Findings: The visualized portions of the chest wall, lungs, and mediastinum are unremarkable. For a complete description of extracardiac structures, please refer to the accompanying radiology addendum. Cardiac Chambers and Valves: The pericardium is unremarkable. The left and right ventricles are normal in size. The left and right atria are normal in size. The left atrial appendage is normal in appearance. The mitral valve is unremarkable by CT appearance. The aortic valve is trileaflet. Great Vessels: The ascending aorta is mildly dilated, the mid ascending aorta measures 3.8 cm in diameter, the sinuses of valsalva are mildly dilated and measure 4.1 cm in diameter. The aortic arch is not included in the present study. The included portions of the descending thoracic aorta are normal in size. There is mild to moderate diffuse non-protruding calcifications in the descending thoracic aorta. Coronary Anatomy: The coronaries have normal origins. There is a pattern of right coronary dominance. Left Main Trunk: This is a large vessel that bifurcates normally into the LAD and LCx. There is no atherosclerotic plaque and no luminal stenosis in the left main trunk. Left Anterior Descending Artery: This is a large vessel that falls short of the apex after providing 2 diagonal branches. There is a partially calcified plaque in the proximal LAD with 30% stenosis. There is a partially calcified plaque in the mid LAD with 20% stenosis. There is mild smooth myocardial bridging in the mid LAD without significant stenosis. Left Circumflex Artery: This is a medium-sized non-dominant vessel that gives rise to 2 obtuse marginal branches. There is no atherosclerotic plaque and no luminal stenosis in the LCx or its branches. Right Coronary Artery: This is a large dominant vessel. It gives rise to a large PDA and several posterior ventricular branches. There is a small calcified plaque in the proximal RCA without significant stenosis and small calcified plaque in the distal RCA without significant stenosis. CONCLUSIONS: 1. Trivial nonobstructive coronary atherosclerosis. 2. The coronary calcium score is 365 (Agatston method). 3. Normal cardiac chambers. CAD-RADS 1 Recommendation: Preventive pharmacotherapy and risk factor modification. Consider non-atherosclerotic causes of symptoms. Dion Gutierrez MD Report Dictated on Electronically Signed By: Dion Gutierrez Electronically Signed Date/Time: 04/30/2024 3:15 PM EDT Patient Name: CAMILLA MCDERMOTT : 1945 Exam Date/Time: 04/30/2024 14:37 Procedure: CT CORONARY CTA WITH PROV FFR-CT Ordering Provider: GUTIERREZ WISSAM Reason For Exam: Chest pain/anginal equiv, high CAD risk, not treadmill candidate Coronary CTA Indication: 78 year-old man with chest discomfort. Study performed to evaluate for coronary artery disease. Technique: Computed tomography of the heart and surrounding structures was performed using a [place] multidetector scanner with cardiac gating and dose reduction techniques. Images were reconstructed and analyzed on an advanced post-processing 3D workstation. Sublingual nitroglycerin was administered for coronary dilation and oral metoprolol was taken in advance for heart rate optimization. See nursing notes for additional details of medications given in the CT department. Contrast: 75 mL Total DLP = 795 mGy-cm Study Quality: excellent. Extracardiac Findings: The visualized portion (more content not included)... Normal [facility] CTA Heart and Coronary arter ies WO and W contrast Kenneth 04-30-2024 Patient Name: CAMILLA MCDERMOTT : 1945 Exam Date/Time: 04/30/2024 14:37 Procedure: CT CORONARY CTA WITH PROV FFR-CT Ordering Provider: GUTIERREZ WISSAM Reason For Exam: Chest pain/anginal equiv, high CAD risk, not treadmill candidate Coronary CTA Indication: 78 year-old man with chest discomfort. Study performed to evaluate for coronary artery disease. Technique: Computed tomography of the heart and surrounding structures was performed using a [place] multidetector scanner with cardiac gating and dose reduction techniques. Images were reconstructed and analyzed on an advanced post-processing 3D workstation. Sublingual nitroglycerin was administered for coronary dilation and oral metoprolol was taken in advance for heart rate optimization. See nursing notes for additional details of medications given in the CT department. Contrast: 75 mL Total DLP = 795 mGy-cm Study Quality: excellent. Extracardiac Findings: The visualized portions of the chest wall, lungs, and mediastinum are unremarkable. For a complete description of extracardiac structures, please refer to the accompanying radiology addendum. Cardiac Chambers and Valves: The pericardium is unremarkable. The left and right ventricles are normal in size. The left and right atria are normal in size. The left atrial appendage is normal in appearance. The mitral valve is unremarkable by CT appearance. The aortic valve is trileaflet. Great Vessels: The ascending aorta is mildly dilated, the mid ascending aorta measures 3.8 cm in diameter, the sinuses of valsalva are mildly dilated and measure 4.1 cm in diameter. The aortic arch is not included in the present study. The included portions of the descending thoracic aorta are normal in size. There is mild to moderate diffuse non-protruding calcifications in the descending thoracic aorta. Coronary Anatomy: The coronaries have normal origins. There is a pattern of right coronary dominance. Left Main Trunk: This is a large vessel that bifurcates normally into the LAD and LCx. There is no atherosclerotic plaque and no luminal stenosis in the left main trunk. Left Anterior Descending Artery: This is a large vessel that falls short of the apex after providing 2 diagonal branches. There is a partially calcified plaque in the proximal LAD with 30% stenosis. There is a partially calcified plaque in the mid LAD with 20% stenosis. There is mild smooth myocardial bridging in the mid LAD without significant stenosis. Left Circumflex Artery: This is a medium-sized non-dominant vessel that gives rise to 2 obtuse marginal branches. There is no atherosclerotic plaque and no luminal stenosis in the LCx or its branches. Right Coronary Artery: This is a large dominant vessel. It gives rise to a large PDA and several posterior ventricular branches. There is a small calcified plaque in the proximal RCA without significant stenosis and small calcified plaque in the distal RCA without significant stenosis. CONCLUSIONS: 1. Trivial nonobstructive coronary atherosclerosis. 2. The coronary calcium score is 365 (Agatston method). 3. Normal cardiac chambers. CAD-RADS 1 Recommendation: Preventive pharmacotherapy and risk factor modification. Consider non-atherosclerotic causes of symptoms. Dion Gutierrez MD Report Dictated on Electronically Signed By: Doin Gutierrez Electronically Signed Date/Time: 04/30/2024 3:15 PM T [facility] RADIOLOGY [facility] Dion Gutierrez MD - 04/30/2024 Patient Name: CAMILLA MCDERMOTT : 1945 Exam Date/Time: 04/30/2024 14:37 Procedure: CT CORONARY CTA WITH PROV FFR-CT Ordering Provider: GUTIERREZ WISSAM Reason For Exam: Chest pain/anginal equiv, high CAD risk, not treadmill candidate Coronary CTA Indication: 78 year-old man with chest discomfort. Study performed to evaluate for coronary artery disease. Technique: Computed tomography of the heart and surrounding structures was performed using a [employer] multidetector scanner with cardiac gating and dose reduction techniques. Images were reconstructed and analyzed on an advanced post-processing 3D workstation. Sublingual nitroglycerin was administered for coronary dilation and oral metoprolol was taken in advance for heart rate optimization. See nursing notes for additional details of medications given in the CT department. Contrast: 75 mL Total DLP = 795 mGy-cm Study Quality: excellent. Extracardiac Findings: The visualized portions of the chest wall, lungs, and mediastinum are unremarkable. For a complete description of extracardiac structures, please refer to the accompanying radiology addendum. Cardiac Chambers and Valves: The pericardium is unremarkable. The left and right ventricles are normal in size. The left and right atria are normal in size. The left atrial appendage is normal in appearance. The mitral valve is unremarkable by CT appearance. The aortic valve is trileaflet. Great Vessels: The ascending aorta is mildly dilated, the mid ascending aorta measures 3.8 cm in diameter, the sinuses of valsalva are mildly dilated and measure 4.1 cm in diameter. The aortic arch is not included in the present study. The included portions of the descending thoracic aorta are normal in size. There is mild to moderate diffuse non-protruding calcifications in the descending thoracic aorta. Coronary Anatomy: The coronaries have normal origins. There is a pattern of right coronary dominance. Left Main Trunk: This is a large vessel that bifurcates normally into the LAD and LCx. There is no atherosclerotic plaque and no luminal stenosis in the left main trunk. Left Anterior Descending Artery: This is a large vessel that falls short of the apex after providing 2 diagonal branches. There is a partially calcified plaque in the proximal LAD with 30% stenosis. There is a partially calcified plaque in the mid LAD with 20% stenosis. There is mild smooth myocardial bridging in the mid LAD without significant stenosis. Left Circumflex Artery: This is a medium-sized non-dominant vessel that gives rise to 2 obtuse marginal branches. There is no atherosclerotic plaque and no luminal stenosis in the LCx or its branches. Right Coronary Artery: This is a large dominant vessel. It gives rise to a large PDA and several posterior ventricular branches. There is a small calcified plaque in the proximal RCA without significant stenosis and small calcified plaque in the distal RCA without significant stenosis. CONCLUSIONS: 1. Trivial nonobstructive coronary atherosclerosis. 2. The coronary calcium score is 365 (Agatston method). 3. Normal cardiac chambers. CAD-RADS 1 Recommendation: Preventive pharmacotherapy and risk factor modification. Consider non-atherosclerotic causes of symptoms. Dion Gutierrez MD Report Dictated on Electronically Signed By: Dion Gutierrez Electronically Signed Date/Time: 04/30/2024 3:15 PM EDT [facility] Radiology Study observation (narrative) [facility] Nursing Noteon 04-30-2024 Nursing Note Patient arrived to CT for CTA of coronary arteries. CT imaging and nitroglycerin administration explained. Patient conveys understanding and agrees to proceed. Baseline HR , BP . 15mg Metoprolol given prior to procedure, per Dr. Gutierrez's orders via secure chat. Nitroglycerin administered per protocol. CT imaging completed. Repeat BP , HR . Denies dizziness or lightheadedness. Patient assisted to sitting position, denies dizziness or lightheadedness. Discharge instructions provided. Patient conveys understanding. 1 bottle of water given. Ambulated from CT with steady gait. Discharged home. Normal [facility] 36on 04-25-2024 36 Faxed 2 chart notes (from last 6 months) to [facility] for diabetic supplies for pt. Normal [facility] 36on 04-20-2024 36 Name of caller: nikole Contact phone number: [phone] Relationship to Patient: [employer] [facility] Provider: Dr. Tidwell Practice: [facility] Chief Complaint/Reason for Call: nikole called in to report they are requesting any and all office notes within last 6 for patient diabetic medical supplies, please advise and fax to [phone] Best time of day caller can be reached: AM Patient advised that office/PCP has 24-48 business hours to return their call: Yes Normal [facility] 36on 04-17-2024 36 Can we see if patient qualifies for [facility] for Jardiance. Please speak with Cami (daughter) [phone] Normal [facility] AMB POC HEMOGLOBIN [id number] d By: Tavon Pace on 04-17-2024 HbA1c (Bld) [Mass fraction] 11.1 % Abnormal - 5.7 % [facility] HbA1c (Bld) [Mass fraction]O rdered By: Tavon Pace on 04-17-2024 Interpretation and review of laboratory results Abnormal [facility] Radiology Study observation (narrative) [facility] Office Visiton 04-17-2024 Follow-up visit [id number] Camilla Mcdermott 1945 M Date Provider Department Center 04/17/2024 [facility] None Family History Problem Relation Age of Onset Cancer Mother Other Father Comments: heart murmur Alcohol abuse Father Hearing loss Father Alcohol abuse Son Arthritis Son Depression Son Arthritis Daughter Autoimmune disease Daughter Depression Daughter Diabetes Daughter Hyperlipidemia Daughter Hypertension Daughter Immunodeficiency Daughter Depression Daughter Diabetes Daughter Hearing loss Sister Family Status - Relation Status Age at Mother Father Son Daughter Daughter Sister Level of Service:29644 [place] OFFICE/OUTPATIENT ESTABLISHED MOD MDM 30 MIN Reason for Visit and Comments: Diabetes [34] Hyperglycemia [599475] Follow-up [136889] Normal [facility] Progress Noteon 04-17-2024 Progress Note [facility] [place] [address] [place] [address] Dept: [phone] Dept Loc: [phone] Visit type: Established patient Reason for Visit: Diabetes, Hyperglycemia, and Follow-up Assessment and Plan 1. Type 2 diabetes mellitus with hyperglycemia, with long-term current use of insulin ([facility]) 2. Hyperlipidemia associated with type 2 diabetes mellitus (HCC) ([facility]) 3. Type 2 diabetes mellitus with both eyes affected by severe nonproliferative retinopathy and macular edema, with long-term current use of insulin ([facility]) 4. Type 2 diabetes mellitus with stage 3b chronic kidney disease, with long-term current use of insulin ([facility]) 5. Type 2 diabetes mellitus with diabetic polyneuropathy, with long-term current use of insulin ([facility]) A1C is Lab Results Component Value Date HGBA1C 11.1 (A) 04/17/2024 Patient will make the following changes to their antihyperglycemic regimen: Adjust Nph to 70/30-18/0/28/0 Jardiance 25 mg po daily at 6 pm since patient sleeps during day and awake at night. Type 2 diabetes mellitus with hyperglycemia, with long-term current use of insulin Diabetes is not stable Goal A1C = 7-5-8.0. Glucose goal range: 150-20 Insulin is necessary for ongoing mgmt. Recommend FSBS to occur 4 times daily, be recorded, and send to office in 3 weeks for review. 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 Type 2 diabetes mellitus with diabetic polyneuropathy, with long-term current use of insulin -stable continue daily foot checks, wear soled shoes Patient would benefit from DM shoes and inserts. Polyneuropathy is significant and may not feel if injury would occur on foot. Health maintenance Foot exam up to date as of 2023 Eye exam up to date as of 09/2024 Microalbumin up to date as of 01/19/24 Pt was counseled that diet and exercise are the foundation of DM treatment. If these 2 areas are not optimized then the pt will likely require more medications or higher doses to achieve control. Pt was asked to limit CHO consumption at each meal. Pt was advised to perform regular regimented brisk aerobic activity (ie walking, biking, swimming, etc) 30 min/d, 5d/wk (total of 150min weekly). Discussed A1C and BG goals Encouraged lifestyle modifications of diet and exercise Encouraged optimal foot care- follow with podiatry if needed Encouraged following with ophthalmology Patient counseled on the importance of taking medication as prescribed Patient counseled on the effects of uncontrolled DM on other organ systems Patient counseled on risk factors assoicated with diabetes Patient counseled on detection and treatment of hypoglycemia Patient instructed to call office if BG >250 or <70 consistently Pt counseled about these recommendations. Pt voiced understanding. These recommendations made based on interpretation of available data (which may include FSBS, A1C, venous sampling, or data from pt recall). Records from outside facility/PCP office to be requested: Scripts sent to pharmacy of pt choice: Yes laboratory Results I REVIEWED: CMP LIPID TESTING URINE MA/CREAT LEVEL EYE EXAM FOOT EXAM radiographic reports reviewed: No I reviewed the radiographic images personally at the time of today's visit: No Pt was advised of the results. No follow-ups on file. Subjective Diabetes Pertinent negatives for diabetes include no chest pain, no fatigue, no polydipsia, no polyphagia, no polyuria and no weakness. Hyperglycemia Pertinent negatives include no abdominal pain, chest pain, chills, fatigue, fever, nausea, rash, vomiting or weakness. PCP is Efren Tidwell MD Referring is pcp Last office visit: 01/16/2024 Daughter [employer] to day DM Onset: about 40 years ago Type of DM: 2 Complications: Cardiovascular -- Yes several TIA's Statin Use -- Yes lipitor 40 Retinopathy -- Yes, injections every 8 weeks [facility] in [facility] from [facility] Nephropathy -- Yes CDK 3b/ CHARLES/ARB Use -- Yes Cozaar Polyneuropathy -- Yes- Foot Exam: pcp (more content not included)... Normal [facility] ECG 12 lead - CLINIC PERFORM EDon 01-27-2024 Sinus Rhythm [facility] Laboratory - Chemistry and C hemistry - challengeon 01-08-2024 Glucose [Mass/Vol] 286 mg/dL High 70 - 100 mg/dL [facility] Glucose [Mass/Vol] 130 mg/dL High 70 - 100 mg/dL [facility] Troponin I.cardiac [Mass/Vol] 0.023 ng/mL [facility] - 0.034 ng/mL [facility] Troponin I.cardiac [Mass/Vol] 0.026 ng/mL [facility] - 0.[facility] ng/mL [facility] Glucose [Mass/Vol] 187 mg/dL High 70 - 100 mg/dL [facility] Natriuretic peptide B [Mass/ Vol]on 01-08-2024 Interpretation and review of laboratory results Normal [facility] Natriuretic peptide B (Bld) [Mass/Vol] 163 pg/mL <20 - 300 [facility] No Panel Informationon 01-07 Interpretation and review of laboratory results Abnormal [facility] Performed by: [facility], [address] [place] [id number] CLIA ID: [id number] [facility] Interpretation and review of laboratory results Abnormal [facility] Performed by: [facility], [address] [place] [id number] CLIA ID: [id number] [facility] P [place] 13 degrees [facility] MA Interval 211 ms [facility] QRS [place] 5 degrees [facility] QRSD Interval 88 ms [facility] h QT Interval 359 ms [facility] QTC Interval 443 ms [facility] T Wave [place] 41 degrees [facility] Sinus rhythm Borderline prolonged MA interval Anterior infarct, old Electronically Signed On 01-08-2024 05:32:17 EDT by Jeff Miramontes MD - 01/08/2024 IMPRESSION: Sinus rhythm Borderline prolonged MA interval Anterior infarct, old Electronically Signed On 01-08-2024 05:32:17 EDT by Jeff See [facility] P [place] 57 degrees [facility] MA Interval 178 ms [facility] QRS [place] 7 degrees [facility] QRSD Interval 89 ms [facility] h QT Interval 330 ms [facility] QTC Interval 436 ms [facility] T Wave [place] 53 degrees [facility] Sinus tachycardia Anterior infarct, old Electronically Signed On 01-08-2024 05:31:35 EDT by Jeff Miramontes MD - 01/08/2024 IMPRESSION: Sinus tachycardia Anterior infarct, old Electronically Signed On 01-08-2024 05:31:35 EDT by Jeff See [facility] Interpretation and review of laboratory results Abnormal [facility] Performed by: Janae Tsang [facility], [address] [place], [place] [id number] CLIA ID: [id number] [facility] Radiology Study observation (narrative) [facility] Radiology Study observation (narrative) [facility] Troponin I.cardiac [Mass/Vol ]on 01-08-2024 Interpretation and review of laboratory results Normal [facility] Patients with high levels of Biotin oral intake (ie >5 mg/day) may have falsely decreased Troponin levels. [facility] Interpretation and review of laboratory results Normal [facility] Patients with high levels of Biotin oral intake (ie >5 mg/day) may have falsely decreased Troponin levels. [facility] US Heart Transthoracicon Ao Root Index 2.26 cm/m2 [facility] h Aortic Root 4.2 cm [facility] Aortic Sinus Valsalva 4.2 cm Sum [facility] Aortic Sinus Valsalva Index 2.26 cm/m2 [facility] AR Max Velocity PISA 3.4 m/s [facility] AR PHT 406.3 ms [facility] Ascending Aorta 3.9 cm [facility] Ascending Aorta Index 2.10 cm/m2 [facility] AV Area by Peak Velocity 2.7 cm2 [facility] AV Area by VTI 3.2 cm2 [facility] AV Mean Gradient 2 mmHg [facility] alth AV Mean Velocity 0.7 m/s [facility] AV Peak Gradient 4 mmHg [facility] alth AV Peak Velocity 1.0 m/s [facility] alth AV Velocity Ratio 1.10 [place] [facility] AV VTI 19.1 cm [facility] ANY/BSA Peak Velocity 1.5 cm2/m2 [facility] ANY/BSA VTI 1.7 cm2/m2 [facility] E/E' Lateral 6.00 [facility] E/E' Ratio (Averaged) 6.43 [facility] E/E' Septal 6.86 [facility] EF BP 66 % 55 - 100 % [facility] Fractional Shortening 2D 34 % 28 - 44 % [facility] Interpretation and review of laboratory results Abnormal [facility] th IVC Diameter 1.2 cm [facility] IVSd 1.5 cm Abnormal 0.6 - 1.0 cm [facility] LA Volume 2C 25 mL 18 - 58 mL [facility] LA Volume 4C 37 mL 18 - 58 mL [facility] LA Volume A/L 32 mL [facility] h LA Volume BP 30 mL 18 - 58 mL [facility] LA Volume Index 2C 13 mL/m2 Abnormal 16 - 34 mL/m2 [facility] LA Volume Index 4C 20 mL/m2 16 - 34 mL/m2 [facility] LA Volume Index A/L 17 mL/m2 16 - 34 mL/m2 [facility] LA Volume Index BP 16 ml/m2 16 - 34 ml/m2 [facility] LV E' Lateral Velocity 8 cm/s [facility] LV E' Septal Velocity 7 cm/s [facility] LV EDV A2C 44 mL [facility] LV EDV A4C 42 mL [facility] LV EDV BP 43 mL Abnormal 67 - 155 mL [facility] LV EDV Index A2C 24 mL/m2 [facility] alth LV EDV Index A4C 23 mL/m2 [facility] alth LV EDV Index BP 23 mL/m2 [facility] lth LV Ejection Fraction A2C 68 % [facility] LV Ejection Fraction A4C 70 % [facility] LV ESV A2C 14 mL [facility] LV ESV A4C 13 mL [facility] LV ESV BP 14 mL Abnormal 22 - 58 mL [facility] LV ESV Index A2C 8 mL/m2 [facility] alth LV ESV Index A4C 7 mL/m2 [facility] LV ESV Index BP 8 mL/m2 [facility] lt LV Mass 2D 111.3 g 88 - 224 g [facility] LV Mass 2D Index 59.8 g/m2 49 - 115 g/m2 [facility] LV RWT Ratio 0.69 [facility] LVIDd 2.9 cm Abnormal 4.2 - 5.9 cm [facility] LVIDd Index 1.56 cm/m2 [facility] LVIDs 1.9 cm [facility] LVIDs Index 1.02 cm/m2 [facility] LVOT Area 2.5 cm2 [facility] LVOT Cardiac Output 4.0 liter/minute [facility] LVOT Diameter 1.8 cm [facility] LVOT Mean Gradient 3 mmHg [facility] LVOT Peak Gradient 4 mmHg [facility] LVOT Peak Velocity 1.1 m/s [facility] LVOT Stroke Volume Index 33.8 mL/m2 [facility] LVOT SV 62.8 ml [facility] LVOT VTI 24.7 cm [facility] LVOT:AV VTI Index 1.29 [place] [facility] LVPWd 1.0 cm 0.6 - 1.0 cm [facility] MV A Velocity 0.68 m/s [facility] MV E Velocity 0.48 m/s [facility] MV E Wave Deceleration Time 323.4 ms [facility] MV E/A 0.71 [facility] Pulmonary Artery EDP 2 mmHg [facility] RV Free Wall Peak S' 12 cm/s [facility] Sinotubular Junction 3.1 cm [facility] TAPSE 0.9 cm Abnormal 1.7 cm [facility] TR Max Velocity 1.95 m/s [facility] lt TR Peak Gradient 15 mmHg [facility] Left Ventricle: Left ventricle size is normal. Normal wall thickness. Normal left ventricular systolic function. EF by 2D Simpsons Biplane is 66%. Normal wall motion. Grade I diastolic dysfunction with normal LAP. Right Ventricle: Right ventricle size is normal. Normal systolic function. Aorta: Normal sized ascending aorta. Dilated sinuses of Valsalva. Sinuses of Valsalva diameter is 4.2 cm. Pericardium: Trivial pericardial effusion present. IVC/SVC: IVC diameter is normal and decreases greater than 50% during inspiration; therefore the estimated right atrial pressure is normal (~3 mmHg). No significant valvular abnormalities. Left Ventricle Left ventricle size is normal. Normal wall thickness. Normal left ventricular systolic function. EF by 2D Simpsons Biplane is 66%. Normal wall motion. Grade I diastolic dysfunction with normal LAP. Right Ventricle Right ventricle size is normal. Normal systolic function. Left Atrium Left atrium is mildly dilated. Right Atrium Right atrium size is normal. IVC/SVC IVC diameter is normal and decreases greater than 50% during inspiration; therefore the estimated right atrial pressure is normal (~3 mmHg). Mitral Valve Mild annular calcification. No regurgitation. No stenosis noted. Tricuspid Valve Valve structure is normal. Trace regurgitation. Aortic Valve Trileaflet. Cusp sclerosis. Trace regurgitation. No stenosis. Pulmonic Valve Valve structure is normal. Mild (1+) regurgitation. Ascending Aorta Normal sized ascending aorta. Dilated sinuses of Valsalva. Sinuses of Valsalva diameter is 4.2 cm. Pericardium Trivial pericardial effusion present. Septum No interatrial shunt visualized on color Doppler. Study Details Image quality: fair. Blood pressure: 148/90 mmHg. No contrast was given. Echo Additional Conclusions No significant valvular abnormalities. CV CPACS [facility] Vital signson 01-08-2024 Heart rate 92 /min bpm [facility] Heart rate 105 /min bpm [facility] Basic metabolic 1998 panelon 01-07-2024 Anion gap [Moles/Vol] 7 mmol/L 3 - 13 mmol/L [facility] Calcium [Mass/Vol] 9.4 mg/dL 8.4 - 10. 4 mg/dL [facility] Chloride [Moles/Vol] 102 mmol/L 98 - 10 7 mmol/L [facility] CO2 [Moles/Vol] 26 mmol/L 22 - 30 mmol/L [facility] Creatinine [Mass/Vol] 1.54 mg/dL High 0.66 - 1.25 mg/dL [facility] GFR/1.73 sq M.predicted MDRD (S/P/Bld) [Vol rate/Area] 45.9 mL/min/{1.73_m2} Low - PINF [facility] Comment on above: Calculation based on the Chronic Kidney Disease Epidemiology Collaboration (CKD-EPI) equation refit without adjustment for race Glucose [Mass/Vol] 314 mg/dL High 70 - 100 mg/dL [facility] Interpretation and review of laboratory results Abnormal [facility] Potassium [Moles/Vol] 3.8 mmol/L 3.5 - 5.1 mmol/L [facility] Sodium [Moles/Vol] 135 mmol/L 135 - 145 mmol/L [facility] Urea nitrogen [Mass/Vol] 9 mg/dL 9 - 20 mg/d L [facility] Slightly Hemolyzed [facility] CBC W Auto Differential pane l (Bld)on 01-07-2024 Basophils (Bld) [#/Vol] 0.1 10*3/uL 0.0 - 0.2 10*3/uL [facility] Basophils/100 WBC (Bld) 0.7 % 0.0 - 2.0 % [facility] Eosinophils (Bld) [#/Vol] 0.2 10*3/uL 0. 0 - 0.5 10*3/uL [facility] Eosinophils/100 WBC (Bld) 2.3 % 0.0 - 6.0 % [facility] Erythrocyte distribution width (RBC) [Ratio] 13.2 % 11.5 - 15.0 % [facility] Hematocrit (Bld) [Volume fraction] 40.3 % 40.0 - 52.0 % [facility] Hemoglobin (Bld) [Mass/Vol] 13.4 g/dL 13.0 - 18.0 g/dL [facility] Immature granulocytes (Bld) [#/Vol] 0.0 10*3/uL NINF - 0.1 10*3/uL [facility] Immature granulocytes/100 WBC (Bld) 0.2 % 0.0 - 2.0 % [facility] Interpretation and review of laboratory results Normal [facility] th Lymphocytes (Bld) [#/Vol] 2.6 10*3/uL 1. 0 - 4.3 10*3/uL [facility] Lymphocytes/100 WBC (Bld) 29.3 % 15 .0 - 45.0 % [facility] MCH (RBC) [Entitic mass] 28.3 pg 26. 0 - 34.0 pg [facility] MCHC (RBC) [Mass/Vol] 33.3 % 30.5 - 36.0 % [facility] MCV (RBC) [Entitic vol] 85.0 fL 77.0 - 99.0 fL [facility] Monocytes (Bld) [#/Vol] 0.5 10*3/uL 0.0 - 0.9 10*3/uL [facility] Monocytes/100 WBC (Bld) 5.8 % 5.0 - 13.0 % [facility] Neutrophils (Bld) [#/Vol] 5.4 10*3/uL 1. 8 - 7.5 10*3/uL [facility] Neutrophils/100 WBC (Bld) 61.7 % 38 .0 - 82.0 % [facility] Nucleated RBC/100 WBC (Bld) [Ratio] 0.0 % [facility] Platelet mean volume (Bld) [Entitic vol] 10.5 fL 9.0 - 12.7 fL [facility] Platelets (Bld) [#/Vol] 173 10*3/uL 140 - 440 10*3/uL [facility] RBC (Bld) [#/Vol] 4.74 10*6/uL 4.40 - 5.9 0 10*6/uL [facility] WBC (Bld) [#/Vol] 8.8 10*3/uL 3.6 - 10.7 10*3/uL [facility] Fibrin D-dimer FEU (PPP) [Ma ss/Vol]on 01-07-2024 Interpretation and review of laboratory results Abnormal [facility] values of <0.50 mg/L FEU can be used in combination with a pre-test probability model (e.g. Well's) to exclude pulmonary embolism (PE) disease, as well as an aid in the diagnosis of deep vein thrombosis (DVT). [facility] - Chemistry and C hemistry - challengeon 01-07-2024 Troponin I.cardiac [Mass/Vol] 0.020 ng/mL NINF - 0.034 ng/mL [facility] Laboratory - Coagulationon 0 01-07-2024 Fibrin D-dimer FEU (PPP) [Mass/Vol] 0.56 mg/L High NINF - 0.50 mg/L [facility] No Panel Informationon 01-06 Radiology Study observation (narrative) [facility] Troponin I.cardiac [Mass/Vol ]on 01-07-2024 Interpretation and review of laboratory results Normal [facility] Slightly Hemolyzed Patients with high levels of Biotin oral intake (ie >5 mg/day) may have falsely decreased Troponin levels. [facility] XR Chest Single viewon 01-06 1. No acute findings. Report Dictated on Electronically Signed By: Tae Allred MD Electronically Signed Date/Time: 01/07/2024 11:31 PM EDT [facility] Patient Name: CAMILLA MCDERMOTT : 1945 Exam Date/Time: 01/07/2024 23:10 Procedure: XR CHEST 1 VIEW Ordering Provider: SEE JAY Reason For Exam: chest pain CHEST PORTABLE CLINICAL INDICATION: chest pain TECHNIQUE: Portable chest x-ray(s). COMPARISON: October,. FINDINGS: Cardiac and mediastinal silhouette within normal limits. Lungs are grossly clear. No significant vascular congestion. No apparent pneumothorax. Degenerative change again noted in the thoracic spine. [facility] Tae Allred MD - 01/07/2024 Patient Name: CAMILLA MCDERMOTT : 1945 Exam Date/Time: 01/07/2024 23:10 Procedure: XR CHEST 1 VIEW Ordering Provider: SEE JAY Reason For Exam: chest pain CHEST PORTABLE CLINICAL INDICATION: chest pain TECHNIQUE: Portable chest x-ray(s). COMPARISON: October,. FINDINGS: Cardiac and mediastinal silhouette within normal limits. Lungs are grossly clear. No significant vascular congestion. No apparent pneumothorax. Degenerative change again noted in the thoracic spine. IMPRESSION: 1. No acute findings. Report Dictated on Electronically Signed By: Tae Allred MD Electronically Signed Date/Time: 01/07/2024 11:31 PM EDT [facility] XR Chest Single viewOrdered By: Tae Allred on 01-07-2024 [employer] Work Phone: CBC panel Auto (Bld)on 10-05 Erythrocyte distribution width (RBC) [Ratio] 13.0 % 11.0 - 15.0 % [facility] Hematocrit (Bld) [Volume fraction] 43.3 % 38.5 - 50.0 % [facility] Hemoglobin (Bld) [Mass/Vol] 14.2 g/dL 13.2 - 17.1 g/dL [facility] MCH (RBC) [Entitic mass] 28.7 pg 27. 0 - 33.0 pg [facility] MCHC (RBC) [Mass/Vol] 32.8 g/dL 32.0 - 36.0 g/dL [facility] MCV (RBC) [Entitic vol] 87.7 fL 80.0 - 100.0 fL [facility] Platelet mean volume (Bld) [Entitic vol] 11.5 fL 7.5 - 12.5 fL [facility] Platelets (Bld) [#/Vol] 189 10*3/uL [facility] RBC (Bld) [#/Vol] 4.94 10*6/uL [facility] WBC (Bld) [#/Vol] 8.3 10*3/uL [facility] Microalbumin/Creatinine rati o panel (U)on 10-05-2023 Albumin DL <= 20 mg/L (U) [Mass/Vol] 1.0 mg/dL See Note: [facility] Comment on above: Reference Range: Reference Range Not established Albumin/Creatinine (U) [Mass ratio] 10 NINF [facility] Comment on above: The ADA defines abnormalities in albumin excretion as follows: Albuminuria Category Result (mcg/mg creatinine) Normal to Mildly increased <30 Moderately increased 30-299 Severely increased > OR = 300 The ADA recommends that at least two of three specimens collected within a 3-6 month period be abnormal before considering a patient to be within a diagnostic category. Creatinine (U) [Mass/Vol] 102 mg/dL 20 - 320 mg/dL [facility] Glucose,Bedsideon 03-08-2022 Glucose [Mass/Vol] 164 mg/dL High 70-100 [facility] Comment on above: Result Comment: Test performed by glucose meter. Results may be 10%-15% lower than serum/plasma values. (CLIA ID [id number]) Performed By: #### B GLU #### [facility] [address] [place] [address] Glucose [Mass/Vol] 176 mg/dL High 70-100 [facility] Comment on above: Result Comment: Test performed by glucose meter. Results may be 10%-15% lower than serum/plasma values. (CLIA ID [id number]) Performed By: #### B GLU #### [facility] [address] [address] OPERATIVE REPORTon 2 Ordered by an unspecified provider. [facility] Op Noteon 03-08-2022 Op Note PATIENT: CAMILLA MCDERMOTT ADMISSION DATE: 03/08/2022 SURGERY DATE: 03/08/2022 DATE OF : 1945 AGE: 76 ADMITTING PHYSICIAN: Day Womack MD ATTENDING PHYSICIAN: Day Womack MD DICTATING PHYSICIAN: Day Womack MD OPERATIVE RECORD Procedure: EXCISION OF SOFT TISSUE MASS, LOWER ABDOMINAL WALL. Preoperative Diagnosis: Soft tissue mass of left lower quadrant abdominal wall. Postoperative Diagnoses: Soft tissue mass of left lower quadrant abdominal wall, probable cystic lesions, size is 4 x 4 cm. Anesthesia: General. Indications: The patient noticed a mass developing over last year to two years. Because of increase in size, shape and pain, he wished it to be removed. He was explained the surgery and the risks of infection, bleeding, hematoma, recurrence, wound dehiscence. Description of Procedure: He was brought to surgery, given general anesthetic. We elliptically excised the mass, carried it down to the fascia, cauterized all bleeding sites and then removed it in toto. We closed the wound with 3-0 Vicryl subcuticular. Sterile dressings were applied. Surgery was tolerated well. cc: Dr. Diann Diaz Job ID: [id number] Day Womack MD DOD:03/08/2022 11:15 A BRYNN/pallavi DOT:03/08/2022 11:43 A Job Number: [id number] Document Number: [id number] cc: Day Womack MD [address] [place] [address] [address] [facility] [address] Normal [facility] POCT Glucoseon 03-08-2022 Glucose [Mass/Vol] 164 mg/dL High 70 - 100 mg/dL [facility] Comment on above: Test performed by ucose meter. Results may be 10%-15% lower than serum/plasma values. (CLIA ID [id number]) Interpretation and review of laboratory results Abnormal [facility] Test Performed by [facility], [address] [place] [address] [facility] Test Performed by [facility], [address] [place] [address] [facility] POCT GlucoseOrdered By: Angel Pearce on 03-08-2022 Glucose [Mass/Vol] 176 mg/dL High 70 - 100 mg/dL [facility] Work Phone: Comment on above: Test performed by gl ucose meter. Results may be 10%-15% lower than serum/plasma values. (CLIA ID [id number]) Interpretation and review of laboratory results Abnormal [facility] Work Phone: [facility] Work Phone: Surgical Pathologyon 022 Surgical Pathology [id number] [facility] PATHOLOGY AND LABORATORY MEDICINE [address] [place] [id number] FINAL SURGICAL PATHOLOGY REPORT NAME: CAMILLA MCDERMOTT : 1945 76 Y M [facility] NO.: [id number] LOCATION: [address] [address] PROCEDURE 03/08/2022 DATE: SURGEON: DAY WOMACK M.D. RECEIVED 03/08/2022 DATE: ATTENDING: DAY OWMACK M.D. REPORT DATE: 03/09/2022 COPIES TO: DIAGNOSIS: SKIN, ABDOMINAL WALL, EXCISION - EPIDERMAL INCLUSION CYST JAW/JAW Signature> TAVON ANG M.D. CLINICAL INFORMATION: Left abdominal wall mass SPECIMEN: SOFT TISSUE, NOS, BIOPSY GROSS DESCRIPTION: Received in formalin labeled soft tissue mass of abdominal wall is an ellipse of skin and subcutaneous tissue that measures 3 x 1.5 x 1 cm. The skin surface is wrinkled pink-colón and free of lesions. The underlying tissue is somewhat indurated and nodular. The specimen is not oriented. Upon transection, cut surfaces demonstrate a smooth-walled cyst filled with whitish-valentine sebaceous-like material. Random sections are submitted in a single cassette. JCK/0RW Disclaimer: The following statement applies to all immunohistochemistry , in situ hybridization, molecular studies, and immunofluorescence testing. The use of one or more reagents in the above tests is regulated as an analyte specific reagent (ASR). These tests were developed and their performance characteristics determined by the clinical laboratories of [facility]. They have not been cleared by the US Food and Drug Administration (FDA). The FDA has determined that such clearance or approval is not necessary. All the above immunostains were performed on paraffin embedded tissue. Appropriate positive and negative controls (where applicable) were run in parallel with the patient's specimen; these controls showed expected staining pattern, with acceptable intensity of staining. Immunohistochemical assays have not been validated on decalcified tissues. Results should be interpreted with caution given the raised possibility of false negativity on decalcified specimens. Professional Performing Location: [address] [address]. DEPARTMENT OF PATHOLOGY AND LABORATORY MEDICINE [place], [place] [address] [email or web address] [facility] Potassiumon 03-01-2022 Potassium [Moles/Vol] 4.3 mmol/L Normal 3.5-5.1 [facility] Comment on above: Performed By: #### K 3 #### [address] [address] Potassium [Moles/Vol] 4.3 mmol/L 3.5 - 5.1 mmol/L [facility] Test Performed by [facility], [address] [place] [id number] [place] [address] LAB [facility] CBC Auto Differentialon 12-24 Absolute Baso # 0.1 10*3/uL 0.0 - 0.2 10*3/uL [facility] Absolute Neut # 3.0 10*3/uL 1.8 - 7.0 10*3/uL [facility] Basophils/100 WBC (Bld) 0.9 % 0.0 - 2.0 % [facility] Eosinophils (Bld) [#/Vol] 0.5 10*3/uL 0. 0 - 0.5 10*3/uL [facility] Eosinophils/100 WBC (Bld) 7.4 % High 1.0 - 6.0 % [facility] Granulocytes/100 WBC (Bld) 43.7 % 40.0 - 80.0 % [facility] Hematocrit (Bld) [Volume fraction] 37.7 % Low 40.0 - 52.0 % [facility] Hemoglobin.gastrointestin al spec 1 Ql (Stl) 12.3 g/dL Low 13.0 - 18.0 g/dL [facility] Interpretation and review of laboratory results Abnormal [facility] Lymphocytes (Bld) [#/Vol] 2.7 10*3/uL 1. 0 - 4.3 10*3/uL [facility] Lymphocytes/100 WBC (Bld) 40.2 % High 20 .0 - 40.0 % [facility] Comment on above: RERAN/RECHECKED MCH (RBC) [Entitic mass] 28.0 pg 26. 0 - 34.0 pg [facility] MCHC (RBC) [Mass/Vol] 32.6 % 32.0 - 36.0 % [facility] MCV (RBC) [Entitic vol] 85.8 fL 80.0 - 98.0 fL [facility] Monocytes (Bld) [#/Vol] 0.5 10*3/uL 0.0 - 0.8 10*3/uL [facility] Monocytes/100 WBC (Bld) 7.8 % 2.0 - 10.0 % [facility] Platelet distribution width (Bld) [Ratio] 14.1 % 11.5 - 14.5 % [facility] Platelet mean volume (Bld) [Entitic vol] 9.0 fL 7.4 - 10.4 fL [facility] Platelets (Bld) [#/Vol] 190 10*3/uL 140 - 440 10*3/uL [facility] RBC (Bld) [#/Vol] 4.39 10*6/uL Low 4.40 - 5.9 0 10*6/uL [facility] WBC (Bld) [#/Vol] 6.8 10*3/uL 3.6 - 10.7 10*3/uL [facility] Test Performed by [facility], [address] [place] [address]. [address] LAB [facility] CT HEAD WO CONTRASTon 2021 Patient Name: CAMILLA MCDERMOTT Computed Tomography ACCESSION EXAM DATE/TIME PROCEDURE ORDERING PROVIDER [id number] 01/21/2022 14:[address] Head or Brain w/o JES YOUSSEF Contrast CPT code 02071 Reason For Exam (CT Head or Brain w/o Contrast) stroke symptoms Report CT HEAD: CLINICAL INDICATION: Stroke symptoms, facial droop TECHNIQUE: Transaxial CT sequence performed through the head with 3 mm reconstruction. Sagittal and Coronal reconstruction images included. COMPARISON: MRI from 04/10/2020 FINDINGS: Ventricles and Extra-axial spaces: Normal in size and morphology for the patient's age. No abnormal extracerebral collection identified. Cerebral and cerebellar parenchyma: No intracranial hemorrhage or definite acute cortical infarct. No mass or edema. Small hypodensity in the left basal ganglia could corresponding to a lacunar infarct on the prior MRI. 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 Brainstem: Hypodensity is present in the left sosa corresponding to an abnormality on the prior MRI, likely representing a remote lacunar infarct. Visualized Paranasal sinuses: Normal. Mastoid air cells: Normal. Visualized Orbits: Normal Calvarium and skull base: Normal IMPRESSION: No intracranial hemorrhage or definite acute cortical infarct. Note that if there is persistent concern for an acute infarct, MRI is a more sensitive means of evaluation. 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 Unchanged hypodensities in the left sosa and basal ganglia related to remote lacunar infarcts. CRITICAL TEST RESULT COMMUNICATION: Notification of these findings was made to Computed Tomography Report JES YOUSSEF via phone call on 01/21/2022 2:58 PM EDT. Report Dictated on --- Final --- Dictating Physician: MD FELTON NICHOLAS Signed Date and Time: 01/21/2022 3:02 pm Signed by: MD FELTON NICHOLAS Transcribed Date and Time: 01/21/2022 3:03 [facility] RAD Hima Felton MD - 01/21/2022 [id number] Tomography ACCESSION EXAM DATE/TIME PROCEDURE ORDERING PROVIDER [id number] 01/21/2022 14:[address] Head or Brain w/o JES YOUSSEF Contrast CPT code 79299 Reason For Exam (CT Head or Brain w/o Contrast) stroke symptoms Report CT HEAD: CLINICAL INDICATION: Stroke symptoms, facial droop TECHNIQUE: Transaxial CT sequence performed through the head with 3 mm reconstruction. Sagittal and Coronal reconstruction images included. COMPARISON: MRI from 04/10/2020 FINDINGS: Ventricles and Extra-axial spaces: Normal in size and morphology for the patient's age. No abnormal extracerebral collection identified. Cerebral and cerebellar parenchyma: No intracranial hemorrhage or definite acute cortical infarct. No mass or edema. Small hypodensity in the left basal ganglia could corresponding to a lacunar infarct on the prior MRI. 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 Brainstem: Hypodensity is present in the left sosa corresponding to an abnormality on the prior MRI, likely representing a remote lacunar infarct. Visualized Paranasal sinuses: Normal. Mastoid air cells: Normal. Visualized Orbits: Normal Calvarium and skull base: Normal IMPRESSION: No intracranial hemorrhage or definite acute cortical infarct. Note that if there is persistent concern for an acute infarct, MRI is a more sensitive means of evaluation. 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 Unchanged hypodensities in the left sosa and basal ganglia related to remote lacunar infarcts. CRITICAL TEST RESULT COMMUNICATION: Notification of these findings was made to Computed Tomography Report JES YOUSSEF via phone call on 01/21/2022 2:58 PM EDT. Report Dictated on --- Final --- Dictating Physician: MD FELTON NICHOLAS Signed Date and Time: 01/21/2022 3:02 pm Signed by: MD FELTON NICHOLAS Transcribed Date and Time: 01/21/2022 3:03 [facility] Work Phone: Radiology Study observation (narrative) [facility] Work Phone: CT HEAD WO CONTRASTOrdered B y: Hima Felton on 01-21-2022 [facility] Work Phone: CT Head or Brain w/o Contras ton 01-21-2022 CT Head or Brain w/o Contrast Patient Name: CAMILLA MCDERMOTT Computed Tomography ACCESSION EXAM DATE/TIME PROCEDURE ORDERING PROVIDER [id number] 01/21/2022 14:[address] Head or Brain w/o MIKAEL, JES Michelle Contrast CPT code 81937 Reason For Exam (CT Head or Brain w/o Contrast) stroke symptoms Report CT HEAD: CLINICAL INDICATION: Stroke symptoms, facial droop TECHNIQUE: Transaxial CT sequence performed through the head with 3 mm reconstruction. Sagittal and Coronal reconstruction images included. COMPARISON: MRI from 04/10/2020 FINDINGS: Ventricles and Extra-axial spaces: Normal in size and morphology for the patient's age. No abnormal extracerebral collection identified. Cerebral and cerebellar parenchyma: No intracranial hemorrhage or definite acute cortical infarct. No mass or edema. Small hypodensity in the left basal ganglia could corresponding to a lacunar infarct on the prior MRI. 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 Brainstem: Hypodensity is present in the left sosa corresponding to an abnormality on the prior MRI, likely representing a remote lacunar infarct. Visualized Paranasal sinuses: Normal. Mastoid air cells: Normal. Visualized Orbits: Normal Calvarium and skull base: Normal IMPRESSION: No intracranial hemorrhage or definite acute cortical infarct. Note that if there is persistent concern for an acute infarct, MRI is a more sensitive means of evaluation. 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 Unchanged hypodensities in the left sosa and basal ganglia related to remote lacunar infarcts. CRITICAL TEST RESULT COMMUNICATION: Notification of these findings was made to Computed Tomography Report JES YOUSSEF via phone call on 01/21/2022 2:58 PM EDT. Report Dictated on Final Dictating Physician: MD FELTON NICHOLAS Signed Date and Time: 01/21/2022 3:02 pm Signed by: MD FELTON NICHOLAS Transcribed Date and Time: 01/21/2022 3:03 Normal [facility] Comp Panel with Mg Reflexon 01-21-2022 Calcium [Mass/Vol] 9.6 mg/dL Normal 8.4-10.4 [facility] Comment on above: Performed By: #### M G3, CMP3M, TROPN, HEMDF #### [facility] [address] [place] [address] ALP [Catalytic activity/Vol] 98 U/L Normal 38-126 [facility] Comment on above: Performed By: #### M G3, CMP3M, TROPN, HEMDF #### [facility] [address] [place] [address] ALT [Catalytic activity/Vol] 49 U/L Normal 0-49 [facility] Comment on above: Result Comment: The ALT test is performed by an updated assay method. Please note that the reference intervals have been changed and are now sex specific. Performed By: #### M G3, CMP3M, TROPN, HEMDF #### [facility] [address] [place] [address] Anion gap [Moles/Vol] 6 mmol/L Normal 3-13 [facility] Comment on above: Performed By: #### M G3, CMP3M, TROPN, HEMDF #### [facility] [address] [place] [address] AST [Catalytic activity/Vol] 59 U/L High 15-46 [facility] Comment on above: Performed By: #### M G3, CMP3M, TROPN, HEMDF #### [facility] [address] [place] [address] Bilirubin [Mass/Vol] 0.4 mg/dL Normal 0.2-1.3 [facility] Comment on above: Performed By: #### M G3, CMP3M, TROPN, HEMDF #### [facility] [address] [place] [address] CO2 [Moles/Vol] 31 mmol/L High 22-30 [facility] Comment on above: Performed By: #### M G3, CMP3M, TROPN, HEMDF #### [facility] [address] [place] [address] Creatinine [Mass/Vol] 1.80 mg/dL High 0.52-1.25 [facility] Comment on above: Performed By: #### M G3, CMP3M, TROPN, HEMDF #### [facility] [address] [place] [address] GFR/1.73 sq M.predicted among blacks MDRD (S/P/Bld) [Vol rate/Area] 41.2 mL/min/{1.73_m2} Abnormal >60 [facility] Comment on above: Performed By: #### M G3, CMP3M, TROPN, HEMDF #### [facility] [address] [place] [address] GFR/1.73 sq M.predicted among non-blacks MDRD (S/P/Bld) [Vol rate/Area] 35.6 mL/min/{1.73_m2} Abnormal >60 [facility] Comment on above: Result Comment: KDIG O guidelines provide the following GFR categories: Stage GFR(ml/min/1.73 m2) Terms G1 >=90 Normal or high G2 60-89 Mildly decreased* G3a 45-59 Mildly to moderately decreased G3b 30-44 Moderately to severely decreased G4 15-29 Severely decreased G5 <15 Kidney failure *Relative to young adult level. In the absence of evidence of kidney damage, neither GFR category G1 nor G2 fulfill the criteria for CKD. The CKD-EPI equation is validated in individuals 18 years of age and older. Currently the best equation for estimating glomerular filtration rate (GFR) from serum creatinine in children is the Bedside Das equation. It is less accurate in patients with extremes of muscle mass, restriction of dietary protein, ingestion of creatine, extra-renal metabolism of creatinine, or treatment with medications that affect renal tubular creatinine secretion. Performed By: #### M G3, CMP3M, TROPN, HEMDF #### [facility] [address] [place] [address] Glucose [Mass/Vol] 133 mg/dL High 70-100 [facility] Comment on above: Performed By: #### M G3, CMP3M, TROPN, HEMDF #### [facility] [address] [place] [address] Protein [Mass/Vol] 6.6 g/dL Normal 6.3-8.2 [facility] Comment on above: Performed By: #### M G3, CMP3M, TROPN, HEMDF #### [facility] [address] [place] [address] Urea nitrogen [Mass/Vol] 16 mg/dL Normal 7-17 [facility] Comment on above: Performed By: #### M G3, CMP3M, TROPN, HEMDF #### [facility] [address] [place] [address] Potassium [Moles/Vol] 3.2 mmol/L Low 3.5-5.1 [facility] Comment on above: Performed By: #### M G3, CMP3M, TROPN, HEMDF #### [facility] [address] [place] [address] Albumin [Mass/Vol] 4.0 g/dL Normal 3.5-5.0 [facility] Comment on above: Performed By: #### M G3, CMP3M, TROPN, HEMDF #### [facility] [address] [place] [address] Chloride [Moles/Vol] 105 mmol/L Normal 98-107 [facility] Comment on above: Performed By: #### M G3, CMP3M, TROPN, HEMDF #### [facility] [address] [place] [address] Sodium [Moles/Vol] 142 mmol/L Normal 135-145 [facility] Comment on above: Performed By: #### M G3, CMP3M, TROPN, HEMDF #### [facility] [address] [place] [address] Comprehensive Metabolic Pane l w/ Reflex to MGon 01-21-2022 Albumin [Mass/Vol] 4.0 g/dL 3.5 - 5.0 g/dL [facility] ALP (Bld) [Catalytic activity/Vol] 98 U/L 38 - 126 U/L [facility] ALT [Catalytic activity/Vol] 49 U/L 0 - 49 U/L [facility] Comment on above: The ALT test is perf ormed by an updated assay method. Please note that the reference intervals have been changed and are now sex specific. Anion gap [Moles/Vol] 6 mmol/L 3 - 13 mmol/L [facility] AST [Catalytic activity/Vol] 59 U/L High 15 - 46 U/L [facility] Bilirubin [Mass/Vol] 0.4 mg/dL 0.2 - 1 .3 mg/dL [facility] Calcium [Mass/Vol] 9.6 mg/dL 8.4 - 10. 4 mg/dL [facility] Chloride [Moles/Vol] 105 mmol/L 98 - 10 7 mmol/L [facility] CO2 [Moles/Vol] 31 mmol/L High 22 - 30 mmol/L [facility] Creatinine [Mass/Vol] 1.8 mg/dL High 0.52 - 1.25 mg/dL [facility] EGFR IF NonAfrican [place] 35.6 mL/min Abnormal >60 [facility] Comment on above: KDIGO guidelines pro vide the following GFR categories: Stage GFR(ml/min/1.73 m2) Terms G1 >=90 Normal or high G2 60-89 Mildly decreased* G3a 45-59 Mildly to moderately decreased G3b 30-44 Moderately to severely decreased G4 15-29 Severely decreased G5 <15 Kidney failure *Relative to young adult level. In the absence of evidence of kidney damage, neither GFR category G1 nor G2 fulfill the criteria for CKD. The CKD-EPI equation is validated in individuals 18 years of age and older. Currently the best equation for estimating glomerular filtration rate (GFR) from serum creatinine in children is the Bedside Das equation. It is less accurate in patients with extremes of muscle mass, restriction of dietary protein, ingestion of creatine, extra-renal metabolism of creatinine, or treatment with medications that affect renal tubular creatinine secretion. Free PSA/Total PSA [Mass fraction] 6.6 g/dL 6.3 - 8.2 g/dL [facility] GFR/1.73 sq M.predicted among blacks MDRD (S/P/Bld) [Vol rate/Area] 41.2 mL/min/{1.73_m2} Abnormal >60 [facility] Glucose [Mass/Vol] 133 mg/dL High 70 - 100 mg/dL [facility] Interpretation and review of laboratory results Abnormal [facility] Potassium [Moles/Vol] 3.2 mmol/L Low 3.5 - 5.1 mmol/L [facility] Sodium [Moles/Vol] 142 mmol/L 135 - 145 mmol/L [facility] Urea nitrogen (BldV) [Mass/Vol] 16 mg/dL 7 - 17 mg/dL [facility] Test Performed by [facility], [address] [place] [address] LAB [facility] EKG 12 Leadon 01-21-2022 [facility] Test Date: 2022-01-21 [facility] 2[facility] Room: Gender: M [employer]: CHINTAN : 1945 Requested By: JES YOUSSEF Order Number: [id number] Reading MD: Jes Youssef Measurements Intervals [place] Rate: 61 P: 54 MA: 212 QRS: 11 QRSD: 92 T: 27 QT: 377 QTc: 380 Interpretive Statements Sinus rhythm Borderline prolonged MA interval Compared to ECG 10/24/2020 21:58:34 No significant changes Electronically Signed On 01-21-2022 14:48:12 EDT by Jes Youssef [facility] CARDIOLOGY Jes Youssef MD - 01/21/2022 [facility] Test Date: 2022-01-21 Pat Name: CAMILLA [facility] Department: 2BED Room: Gender: M [employer] Associate: CHINTAN : 1945 Requested By: JES YOUSSEF Order Number: [id number] Reading MD: Jes Youssef Measurements Intervals [place] Rate: 61 P: 54 MA: 212 QRS: 11 QRSD: 92 T: 27 QT: 377 QTc: 380 Interpretive Statements Sinus rhythm Borderline prolonged MA interval Compared to ECG 10/24/2020 21:58:34 No significant changes Electronically Signed On 01-21-2022 14:48:12 EDT by Jes Youssef [facility] Work Phone: [facility] Work Phone: Glucose,Bedsideon 01-21-2022 Glucose [Mass/Vol] 146 mg/dL High 70-100 [facility] Comment on above: Result Comment: Test performed by glucose meter. Results may be 10%-15% lower than serum/plasma values. (CLIA ID [id number]) Performed By: #### B GLU #### [facility] [address] [place] [place] [address] Hemogram w/ Autodiffon 01-21 Abs Baso Cnt 0.1 10*3/uL Normal 0.0-0.2 [facility] Comment on above: Performed By: #### M G3, CMP3M, TROPN, HEMDF #### [facility] [address] [place] [address] Abs Neutrophile Cnt 3.0 10*3/uL Normal 1.8-7.0 [facility] Comment on above: Performed By: #### M G3, CMP3M, TROPN, HEMDF #### [facility] [address] [place] [address] Basophils/100 WBC (Bld) 0.9 % Normal 0.0-2.0 [facility] Comment on above: Performed By: #### M G3, CMP3M, TROPN, HEMDF #### [facility] [address] [place] [address] Eosinophils (Bld) [#/Vol] 0.5 10*3/uL Normal 0.0-0.5 [facility] Comment on above: Performed By: #### M G3, CMP3M, TROPN, HEMDF #### [facility] [address] [place] [address] Eosinophils/100 WBC (Bld) 7.4 % High 1.0-6.0 [facility] Comment on above: Performed By: #### M G3, CMP3M, TROPN, HEMDF #### [facility] [address] [place] [address] Erythrocyte distribution width (RBC) [Ratio] 14.1 % Normal 11.5-14.5 [facility] Comment on above: Performed By: #### M G3, CMP3M, TROPN, HEMDF #### [facility] [address] [place] [address] Granulocytes/100 WBC (Bld) 43.7 % Normal 40.0-80.0 [facility] Comment on above: Performed By: #### M G3, CMP3M, TROPN, HEMDF #### [facility] [address] [place] [address] Hematocrit (Bld) [Volume fraction] 37.7 % Low 40.0-52.0 [facility] Comment on above: Performed By: #### M G3, CMP3M, TROPN, HEMDF #### [facility] [address] [place] [address] Hemoglobin (Bld) [Mass/Vol] 12.3 g/dL Low 13.0-18.0 [facility] Comment on above: Performed By: #### M G3, CMP3M, TROPN, HEMDF #### [facility] [address] [place] [address] Lymphocytes (Bld) [#/Vol] 2.7 10*3/uL Normal 1.0-4.3 [facility] Comment on above: Performed By: #### M G3, CMP3M, TROPN, HEMDF #### [facility] [address] [place] [address] Lymphocytes/100 WBC (Bld) 40.2 % High 20.0-40.0 [facility] Comment on above: Result Comment: RERA N/RECHECKED Performed By: #### M G3, CMP3M, TROPN, HEMDF #### [facility] [address] [place] [address] MCH (RBC) [Entitic mass] 28.0 pg Normal 26.0-34.0 [facility] Comment on above: Performed By: #### M G3, CMP3M, TROPN, HEMDF #### [facility] [address] [place] [address] MCHC 32.6 % Normal 32.0-36.0 [facility] Comment on above: Performed By: #### M G3, CMP3M, TROPN, HEMDF #### [facility] [address] [place] [address] MCV (RBC) [Entitic vol] 85.8 fL Normal 80.0-98.0 [facility] Comment on above: Performed By: #### M G3, CMP3M, TROPN, HEMDF #### [facility] [address] [place] [address] Monocytes (Bld) [#/Vol] 0.5 10*3/uL Normal 0.0-0.8 [facility] Comment on above: Performed By: #### M G3, CMP3M, TROPN, HEMDF #### [facility] [address] [place] [address] Monocytes/100 WBC (Bld) 7.8 % Normal 2.0-10.0 [facility] Comment on above: Performed By: #### M G3, CMP3M, TROPN, HEMDF #### [facility] [address] [place] [address] Platelet mean volume (Bld) [Entitic vol] 9.0 fL Normal 7.4-10.4 [facility] Comment on above: Performed By: #### M G3, CMP3M, TROPN, HEMDF #### [facility] [address] [place] [address] Platelets (Bld) [#/Vol] 190 10*3/uL Normal 140-440 [facility] Comment on above: Performed By: #### M G3, CMP3M, TROPN, HEMDF #### [facility] [address] [place] [address] RBC (Bld) [#/Vol] 4.39 10*6/uL Low 4.40-5.90 [facility] Comment on above: Performed By: #### M G3, CMP3M, TROPN, HEMDF #### [facility] [address] [place] [address] WBC (Bld) [#/Vol] 6.8 10*3/uL Normal 3.6-10.7 [facility] Comment on above: Performed By: #### M G3, CMP3M, TROPN, HEMDF #### [facility] [address] [place] [address] Magnesiumon 01-21-2022 Magnesium [Mass/Vol] 2.0 mg/dL Normal 1.6-2.3 [facility] Comment on above: Performed By: #### M G3, CMP3M, TROPN, HEMDF #### [facility] [address] [place] [address] Magnesium [Mass/Vol] 2.0 mg/dL 1.6 - 2 .3 mg/dL [facility] Test Performed by [facility], [facility] [address] , [address] LAB [facility] POCT GlucoseOrdered By: Mila Finch on 01-21-2022 Glucose [Mass/Vol] 146 mg/dL High 70 - 100 mg/dL [facility] Work Phone: Comment on above: Test performed by ucose meter. Results may be 10%-15% lower than serum/plasma values. (CLIA ID [id number]) Interpretation and review of laboratory results Abnormal [facility] Work Phone: [facility] Work Phone: POCT Glucoseon 01-21-2022 Test Performed by [facility], [address] LAB Glucose [Mass/Vol] 146 mg/dL [facility] Work Phone: Interpretation and review of laboratory results Normal [facility] Work Phone: [facility] Work Phone: Troponinon 01-21-2022 Troponin I.cardiac [Mass/Vol] ng/mL 0.000 - 0.034 ng/mL [facility] Comment on above: . Test Performed by [facility], [address] , [address] LAB [facility] Troponin Ion 01-21-2022 Troponin I.cardiac [Mass/Vol] ng/mL Normal 0.000-0.034 [facility] Comment on above: Result Comment: . Performed By: #### M G3, CMP3M, TROPN, HEMDF #### [facility] [address] [place] [address] CR Spine Lumbosacral 2 or 3 Viewson 07-22-2021 CR Spine Lumbosacral 2 or 3 Views Patient Name: CAMILLA MCDERMOTT Diagnostic Radiology ACCESSION EXAM DATE/TIME PROCEDURE ORDERING PROVIDER [id number] 07/22/2021 11:25 EDT CR Spine Lumbosacral 2 MD CHRISTIAN BRADLEY or 3 Views MERARI CPT code 53610 Reason For Exam (CR Spine Lumbosacral 2 or 3 Views) Lumbar pain Report LUMBAR SPINE: CLINICAL INDICATION: Back pain. TECHNIQUE: lateral flexion and extension. COMPARISON: 06/08/2021 FINDINGS: The lowest vertebral body is enumerated as L5. There has been vertebroplasty at the L1 level. There is concavity of the superior endplate of L1 without change. No other wedge fracture or compression deformity is noted. There is spurring about the endplates with generalized disc space narrowing. Anterolisthesis is noted at L5-S1 of 0.5 cm. No instability with flexion or extension is identified. No abnormal soft tissue calcifications are noted. IMPRESSION: Anterolisthesis L5-S1 without instability. Compression of the superior endplate at L1 with vertebroplasty without instability as well. Report Dictated on Final Dictated: 07/26/2021 7:27 am Dictating Physician: MD GUILLEN JEFFREY Signed Date and Time: 07/26/2021 7:29 am Signed by: MD MINDY, ADAM Transcribed Date and Time: 07/26/2021 7:27 Normal [facility] OBSOLETEon 06-27-2021 OBSOLETE Refill (FAMPST) CAMILLA MCDERMOTT II ([id number]) 1945 M Date Time Provider Department 06/27/21 JESUS LINDSAY FAMPST During your visit today, we recorded the following information about you: Allergies As of Date: 06/27/2021 (No Known Allergies) Date Reviewed: 10/26/2019 Reviewed by: Christine Oseguera Ma - Fully Assessed Reason for Visit: Refill Request [94] Refill Request [94] Visit Diagnosis:Essential hypertension [I10] Prescriptions as of 06/30/2021 - omeprazole 40 mg capsule TAKE 1 CAPSULE BY MOUTH ONCE DAILY - amLODIPine (NORVASC) 10 mg tablet TAKE 1 TABLET BY MOUTH ONCE DAILY - DULoxetine (CYMBALTA) 30 mg capsule TAKE 2 CAPSULES BY MOUTH IN THE MORNING AND 1 CAPSULE IN THE AFTERNOON - naproxen (NAPROSYN) 500 mg tablet TAKE 1 TABLET BY MOUTH TWICE A DAY WITH MEALS - metFORMIN (GLUCOPHAGE) 1,000 mg tablet TAKE 1 TABLET BY MOUTH TWICE A DAY WITH MEALS - polyethylene glycol 3350 (MIRALAX) 17 gram/dose powder 17 g dissolved in 8 oz water once daily x 7 days then as needed for constipation - lancets (ONETOUCH DELICA PLUS LANCET) 33 gauge misc USE 3 TIMES DAILY DIRECTED, on insulin, E11.9. - blood sugar diagnostic (ONETOUCH ULTRA BLUE TEST STRIP) test strip TEST 3 TIMES DAILY DIRECTED, on insulin, E11.9. - lamoTRIgine (LAMICTAL) 25 mg tablet TAKE 2 TABLETS DAILY - mirabegron (MYRBETRIQ) 50 mg Tb24 Take 1 tablet by mouth once daily. - topiramate (TOPAMAX) 50 mg tablet Take 1 tablet by mouth at bedtime. - metoprolol tartrate, short acting, (LOPRESSOR) 100 mg tablet TAKE 1 TABLET BY MOUTH TWICE A DAY - atorvastatin (LIPITOR) 40 mg tablet TAKE 1 TABLET BY MOUTH ONCE DAILY - losartan (COZAAR) 100 mg tablet Take 1 tablet by mouth once daily. - insulin NPH human (HUMULIN N NPH U-100 INSULIN) injection Inject 28 Units before breakfast and 30 Units before dinner. - glipiZIDE (GLUCOTROL) 5 mg tablet Take 2 tablets by mouth twice daily before meals. - ipratropium bromide (ATROVENT) 42 mcg (0.06 %) nasal spray Use 2 Sprays in the nose three times daily. - L. acidophilus/Bifid. animalis (DAILY PROBIOTIC ORAL) Take 1 tablet by mouth once daily. - glucosamine sulfate (GLUCOSAMINE ORAL) Take 1 tablet by mouth as needed. - Blood-Glucose Meter (seedtag ULTRA2) monitoring kit Use to test glucose as directed. DX: E11.9 - Alpha Lipoic Acid 600 mg cap Take by mouth once daily. - Insulin Colp, Disposable, (BD ULTRAFINE III MINI PEN) 31 gauge x 3/16 ndle USE WITH INSULIN PENS/ BYETTA PENS 3 TIMES DAILY - needle, disp, 31 gauge 31 gauge x 5/16 ndle Use as directed with Lantus - ascorbic acid, vitamin C, (VITAMIN C) 500 mg tablet Take 500 mg by mouth once daily. - calcium carbonate-vitamin D3 600 mg(1,500mg) -800 unit tab Take 1 tablet by mouth twice daily. - Merlin-3 Fatty Acids (FISH OIL) 500 mg cap Take 1,000 mg by mouth once daily. - MV-MN/FA/COQ10/LYCOP URIAH/LUTEIN (THERAGRAN-M PREMIER 50 PLUS ORAL) Take 1 tablet by mouth once daily. - VITAMIN E ACETATE (E-400 ORAL) Take 1 tablet by mouth once daily. - aspirin, enteric coated (ASPIRIN, ENTERIC COATED) 81 mg EC tablet Take 81 mg by mouth once daily. Meds Comments as of 03/29/2018: [id number]-Patient will start nortriptyline when finished with duloxetine on 03-19. Waiting for nortriptyline from [facility] 03/23/2018: Pt has med list in home. 03/29/[address] Clement request use Tylenol as directed for reducing L hip pain-spoke w/Mary Jo RN~med Ok'd no contraindications. 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] 04/28/2004 HEARING LOSS [389] 04/28/2004 Diabetes mellitus [250] 04/28/2004 05/09/2017 SENSORY HEARING LOSS [H90.3] 06/25/2005 Uncontrolled type 2 diabetes with neuropathy (H*01/19/2017 Bunion [M21.619] 01/23/2017 Type 2 diabetes mellitus without complication, *05/09/2017 HTN (hypertension) [I10] 08/11/2017 08/12/2017 Diabetic polyneuropathy associated with type 2 *09/09/2017 Gait difficulty [R26.9] 09/09/2017 Disturbance of skin sensation [R20.9] 09/09/2017 Pain in both feet [M79.671, M79.672] 09/09/2017 Concern about neurological disease without diag*09/09/2017 Mixed hyperlipidemia [E78.2] 10/12/2017 Neuropathy (HCC) [G62.9] 02/13/2018 Stroke syndrome (HCC) [YUP6298] 03/13/2018 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] 03/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 Encounter Status:Closed by LAVERNE HAMMER on 06/30/21 Normal [facility] MRI Spine Lumbar w/o Contras ton 06-26-2021 MRI Spine Lumbar w/o Contrast Patient Name: CAMILLA MCDERMOTT Magnetic Resonance Imaging ACCESSION EXAM DATE/TIME PROCEDURE ORDERING PROVIDER [id number] 06/26/2021 14:49 EDT MRI Spine Lumbar w/o JOVANY MEHTA Contrast CPT code 37699 Reason For Exam (MRI Spine Lumbar w/o Contrast) see diagnosis Report Examination: MRI lumbar spine Clinical Indication: Pain Comparison: Correlation with radiographs June 08, 2021 Findings: Multiplanar multisequence high field strength MRI images were obtained through the lumbar spine without administration of intravenous gadolinium contrast. Five lumbar type vertebra are assumed for purposes of numbering on this examination. Approximately 17 degrees levoscoliosis centered at the L2 vertebral body level. 4 to 5 mm L5-S1 anterolisthesis. L1 Kyphoplasty changes. No evidence of an acute compression fracture deformity on the STIR sequence. Multilevel intervertebral disc space narrowing with reactive vertebral body endplate changes,, including at L2-L3 and L3-L4 as well as L5-S1. Otherwise the spine demonstrates grossly normal signal intensity. The conus terminates at a normal L1 level. No abnormal signal is appreciated within the distal cord. Shortening of the pedicles resulting in relative congenital central canal stenosis with superimposed degenerative change. T12-L1: No disc bulge or disc protrusion. No central spinal canal stenosis. No neural foraminal narrowing. L1-L2: Trace disc bulge and marginal osteophytosis. Bilateral facet arthropathy and ligamentum flavum hypertrophy, right greater than left contributes to mild left and moderate right neural foraminal narrowing. No central canal stenosis. L2-L3: 4-5 mm broad-based disc osteophyte complex extending laterally. Bilateral facet arthropathy and ligamentum flavum hypertrophy contribute to moderate central canal stenosis. Mild right neural foraminal narrowing. No left neural foraminal narrowing. Magnetic Resonance Imaging Report L3-L4: 5-6 mm broad-based disc osteophyte complex extending into the neural foramina. Bilateral facet arthropathy and ligament of flavum hypertrophy contribute to severe central canal stenosis. Moderate bilateral neural foraminal narrowing. L4-L5: Disc osteophyte complex, asymmetric to the left where it measures 5 mm in extends into the neural foramina and abuts the undersurface of the exiting nerve root. Facet arthropathy and ligamentum flavum hypertrophy contribute to moderate to severe central canal stenosis. Moderate-severe left neural foraminal narrowing. No significant right neural foraminal narrowing. L5-S1: 4-5 mm anterolisthesis, uncovering the posterior disc. Superimposed 3 mm disc osteophyte complex. Advanced bilateral facet arthropathy with tiny joint effusions. 6 x 8 mm pericanalicular cyst on the left.. Significant narrowing of the lateral recesses. Moderate to severe central canal stenosis. Severe bilateral neural foraminal narrowing. Impression: Advanced-severe multilevel degenerative change including levoscoliosis and 4-5 mm L5-S1 anterolisthesis. No acute compression deformity. Report Dictated on Final Dictated: 06/28/2021 2:38 pm Dictating Physician: MD CARLIN JASON Signed Date and Time: 06/28/2021 2:46 pm Signed by: MD CARLIN JASON Transcribed Date and Time: 06/28/2021 2:38 Normal [facility] CR Hip w/ Pelvis Bilateral 2 Viewson 06-08-2021 CR Hip w/ Pelvis Bilateral 2 Views Patient Name: CAMILLA MCDERMOTT Diagnostic Radiology ACCESSION EXAM DATE/TIME PROCEDURE ORDERING PROVIDER [id number] 06/08/2021 15:01 EDT CR Hip w/ Pelvis MD DIANN, EFREN Perez Bilateral 2 Views n CPT code 17847 Reason For Exam (CR Hip w/ Pelvis Bilateral 2 Views n) bilateral hip pain Report Indication: Bilateral hip pain. AP view the pelvis and AP and frog-leg views of the right and left hips Moderate joint space narrowing bilaterally. Marginal osteophytes of the acetabular rims and femoral heads bilaterally. Subchondral cyst formation. No acute fracture or dislocation. Mild arthritic changes of the sacroiliac joints noted. There is deformity of the proximal left femur related to a prior fracture. IMPRESSION: Moderate osteoarthritic degenerative changes. No acute bony abnormality. Report Dictated on Final Dictated: 06/08/2021 3:43 pm Dictating Physician: MD DELATORRE LAURA Signed Date and Time: 06/08/2021 3:44 pm Signed by: MD DELATORRE LAURA Transcribed Date and Time: 06/08/2021 3:43 Normal [facility] CR Spine Lumbosacral 4+ View son 06-08-2021 CR Spine Lumbosacral 4+ Views Patient Name: CAMILLA MCDERMOTT Diagnostic Radiology ACCESSION EXAM DATE/TIME PROCEDURE ORDERING PROVIDER [id number] 06/08/2021 15:01 EDT CR Spine Lumbosacral 4+ MD DIANN, EFREN Perez Views CPT code 20195 Reason For Exam (CR Spine Lumbosacral 4+ Views) Low back pain Report CLINICAL INFORMATION: Low back pain. Frontal, bilateral oblique , L5/S1 spot view and lateral views of the lumbar spine were obtained. There are 5 lumbar type vertebrae. Bone density appears decreased. Evidence of prior kyphoplasty of L1. Mild loss of height of L1. Other lumbar vertebral bodies are normal in height. Lateral view shows 4 mm of anterolisthesis of L5 in reference to S1. 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 AP view shows scoliotic curvature, convex to the left. Mild to moderate disc space narrowing at the L2-S1 levels, most pronounced at L3-L4. No fracture is noted. Atherosclerotic calcifications of the abdominal aorta and iliac vessels noted. IMPRESSION: Multilevel degenerative disc, facet and endplate changes. Mild scoliotic curvature. Mild loss of height of L1. Evidence of prior kyphoplasty of L1. No acute bony abnormality. Mild anterolisthesis of L5 in reference to S1. 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 Report Dictated on Final Dictated: 06/08/2021 3:27 pm Dictating Physician: MD DELATORRE LAURA Signed Date and Time: 06/08/2021 3:31 pm Signed by: MD DELATORRE LAURA Transcribed Date and Time: 06/08/2021 3:27 Normal [facility] XR HIP BILATERAL W AP PELVIS (2 VIEWS)Ordered By: Efren Tidwell on 06-08-2021 [id number] ACCESSION EXAM DATE/TIME PROCEDURE ORDERING PROVIDER [id number] 06/08/2021 15:01 EDT CR Hip w/ Pelvis MD DIANN, EFREN Perez Bilateral 2 Views n CPT code 46286 Reason For Exam (CR Hip w/ Pelvis Bilateral 2 Views n) bilateral hip pain Report Indication: Bilateral hip pain. AP view the pelvis and AP and frog-leg views of the right and left hips Moderate joint space narrowing bilaterally. Marginal osteophytes of the acetabular rims and femoral heads bilaterally. Subchondral cyst formation. No acute fracture or dislocation. Mild arthritic changes of the sacroiliac joints noted. There is deformity of the proximal left femur related to a prior fracture. IMPRESSION: Moderate osteoarthritic degenerative changes. No acute bony abnormality. Report Dictated on --- Final --- Dictated: 06/08/2021 3:43 pm Dictating Physician: MD DELATORRE LAURA Signed Date and Time: 06/08/2021 3:44 pm Signed by: MD DELATORRE LAURA Transcribed Date and Time: 06/08/2021 3:43 [facility] Work Phone: [facility] Incoming Radiology Results From [facility] - 06/08/2021 3:45 PM EDT Patient Name: CAMILLA MCDERMOTT Diagnostic Radiology ACCESSION EXAM DATE/TIME PROCEDURE ORDERING PROVIDER [id number] 06/08/2021 15:01 EDT CR Hip w/ Pelvis MD DIANN, EFREN Perez Bilateral 2 Views n CPT code 88383 Reason For Exam (CR Hip w/ Pelvis Bilateral 2 Views n) bilateral hip pain Report Indication: Bilateral hip pain. AP view the pelvis and AP and frog-leg views of the right and left hips Moderate joint space narrowing bilaterally. Marginal osteophytes of the acetabular rims and femoral heads bilaterally. Subchondral cyst formation. No acute fracture or dislocation. Mild arthritic changes of the sacroiliac joints noted. There is deformity of the proximal left femur related to a prior fracture. IMPRESSION: Moderate osteoarthritic degenerative changes. No acute bony abnormality. Report Dictated on --- Final --- Dictated: 06/08/2021 3:43 pm Dictating Physician: MD DELATORRE LAURA Signed Date and Time: 06/08/2021 3:44 pm Signed by: MD DELATORRE LAURA Transcribed Date and Time: 06/08/2021 3:43 [facility] Work Phone: [facility] Work Phone: XR LUMBAR SPINE (MIN 4 VIEWS )Ordered By: Efren Tidwell on 06-08-2021 Patient Name: CAMILLA MCDERMOTT Diagnostic Radiology ACCESSION EXAM DATE/TIME PROCEDURE ORDERING PROVIDER [id number] 06/08/2021 15:01 EDT CR Spine Lumbosacral 4+ MD DIANN, EFREN Taylor CPT code 10701 Reason For Exam (CR Spine Lumbosacral 4+ Views) Low back pain Report CLINICAL INFORMATION: Low back pain. Frontal, bilateral oblique , L5/S1 spot view and lateral views of the lumbar spine were obtained. There are 5 lumbar type vertebrae. Bone density appears decreased. Evidence of prior kyphoplasty of L1. Mild loss of height of L1. Other lumbar vertebral bodies are normal in height. Lateral view shows 4 mm of anterolisthesis of L5 in reference to S1. 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 AP view shows scoliotic curvature, convex to the left. Mild to moderate disc space narrowing at the L2-S1 levels, most pronounced at L3-L4. No fracture is noted. Atherosclerotic calcifications of the abdominal aorta and iliac vessels noted. IMPRESSION: Multilevel degenerative disc, facet and endplate changes. Mild scoliotic curvature. Mild loss of height of L1. Evidence of prior kyphoplasty of L1. No acute bony abnormality. Mild anterolisthesis of L5 in reference to S1. 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 Report Dictated on --- Final --- Dictated: 06/08/2021 3:27 pm Dictating Physician: MD DELATORRE LAURA Signed Date and Time: 06/08/2021 3:31 pm Signed by: MD DELATORRE LAURA Transcribed Date and Time: 06/08/2021 3:27 [facility] Work Phone: [facility] Incoming Radiology Results From [facility] - 06/08/2021 3:32 PM EDT Patient Name: CAMILLA MCDERMOTT Diagnostic Radiology ACCESSION EXAM DATE/TIME PROCEDURE ORDERING PROVIDER [id number] 06/08/2021 15:01 EDT CR Spine Lumbosacral 4+ MD DIANN, EFREN Matos. Views CPT code 23552 Reason For Exam (CR Spine Lumbosacral 4+ Views) Low back pain Report CLINICAL INFORMATION: Low back pain. Frontal, bilateral oblique , L5/S1 spot view and lateral views of the lumbar spine were obtained. There are 5 lumbar type vertebrae. Bone density appears decreased. Evidence of prior kyphoplasty of L1. Mild loss of height of L1. Other lumbar vertebral bodies are normal in height. Lateral view shows 4 mm of anterolisthesis of L5 in reference to S1. 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 AP view shows scoliotic curvature, convex to the left. Mild to moderate disc space narrowing at the L2-S1 levels, most pronounced at L3-L4. No fracture is noted. Atherosclerotic calcifications of the abdominal aorta and iliac vessels noted. IMPRESSION: Multilevel degenerative disc, facet and endplate changes. Mild scoliotic curvature. Mild loss of height of L1. Evidence of prior kyphoplasty of L1. No acute bony abnormality. Mild anterolisthesis of L5 in reference to S1. 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 Report Dictated on --- Final --- Dictated: 06/08/2021 3:27 pm Dictating Physician: MD DELATORRE LAURA Signed Date and Time: 06/08/2021 3:31 pm Signed by: MD DELATORRE LAURA Transcribed Date and Time: 06/08/2021 3:27 [facility] Work Phone: [facility] Work Phone: ED Discharge Educationon ED Discharge Education Diabetes and Endocrinology Hypoglycemia: Care Instructions Your Care Instructions Hypoglycemia means that your blood sugar is low and your body is not getting enough fuel. Some people get low blood sugar from not eating often enough. Some medicines to treat diabetes can cause low blood sugar. People who have had surgery on their stomachs or intestines may get hypoglycemia. Problems with the pancreas, kidneys, or liver also can cause low blood sugar. A snack or drink with sugar in it will raise your blood sugar and should ease your symptoms right away. Your doctor may recommend that you change or stop your medicines until you can get your blood sugar levels under control. In the long run, you may need to change your diet and eating habits so that you get enough fuel for your body throughout the day. Follow-up care is a hollins part of your treatment and safety. Be sure to make and go to all appointments, and call your doctor if you are having problems. It's also a good idea to know your test results and keep a list of the medicines you take. How can you care for yourself at home? ? Know the early signs of low blood sugar. Signs include: ? Nausea. ? Hunger. ? Feeling nervous, irritable, or shaky. ? Cold, clammy skin. ? Sweating (when you're not exercising). ? A fast heartbeat. ? Numbness or tingling in fingertips or lips. ? If you have early signs of low blood sugar, eat or drink a quick-sugar food. Examples are glucose tablets, table sugar, hard candy (such as Life Savers), fruit juice, and regular (not diet) soda. ? Eat small, frequent meals so you don't get too hungry between meals. ? Balance extra exercise with eating more. ? Keep a written record of your low blood sugar episodes, including what and when you last ate. This helps you know what causes your blood sugar to drop. ? Make sure family, friends, and coworkers know the symptoms of low blood sugar and know how to get your sugar level up. ? Wear medical alert jewelry that lists your condition. You can buy this at most drugstores. When should you call for help? Call 911 anytime you think you may need emergency care. For example, call if: ? You passed out (lost consciousness). ? You are confused or cannot think clearly. ? Your blood sugar is very high or very low. Watch closely for changes in your health, and be sure to contact your doctor if: ? Your blood sugar stays outside the level your doctor set for you. ? You have any problems. Where can you learn more? Go to https://[email or web address].net/patientEd Enter R955 in the search box to learn more about Hypoglycemia: Care Instructions. Current as of: June 23, 2020 Content Version: 12.7 ? [employer]. Care instructions adapted under license by your healthcare professional. If you have questions about a medical condition or this instruction, always ask your healthcare professional. [employer] disclaims any warranty or liability for your use of this information. 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 br\ Hypoglycemia - symptomatic ([id number])\. br\\.br\\.br\ \.br\ Visit Date: 04/20/2021 18:09:20 \.br\ Current Date Time: 04/20/2021 20:13:35 \.br\Address: [address] [place] [address] \.br\ \.br\ \.br\Primary Care Provider: \.br\ Name: NO FAMILY PHYSICIAN, 837\.br\ Phone: \.br\ \.br\Emergency Department Care Providers: \.br\ Primary Physician: ELIZABETH MACIEL DO \.br\ \.br\ \.br\\.br\Thank you for choosing [facility] for your emergency care. You are very important to us. Our goal is to demonstrate our high quality medical care, and provide you with a very good patient experience.\.br\\.br \You may receive a survey about our service. Please take the time to complete the survey and return it so we can continue to enhance our service.\.br\\.br\Th ank you again for allowing the [facility] Emergency Department to care for your medical needs. If you have questions about your care or follow up information please contact us at [phone].\.br\\. br\ Follow-Up Instructions\.br\___ \.br\CAMILLA MCDERMOTT has been given these follow-up instructions:\.br\\. br\\.br\With: Address: When: \.br\[facility], Family Practice [address], [address] [place] [address]\.br\ Business (1) Within 3 to 5 days \.br\\.br\\.br\\.br\ \.br\ Patient Education Materials\.br\ __\.br\CAMILLA MCDERMOTT has been given the following patient education materials:\.br\\.br\ Hypoglycemia: Care Instructions\.br\You r Care Instructions\.br\\.b r\Hypoglycemia means that your blood sugar is low and your body is not getting enough fuel. Some people get low blood sugar from not eating often enough. Some medicines to treat diabetes can cause low blood sugar. People who have had surgery on their stomachs or intestines may get hypoglycemia. Problems with the pancreas, kidneys, or liver also can cause low blood sugar.\.br\A snack or drink with sugar in it will raise your blood sugar and should ease your symptoms right away.\.br\Your doctor may recommend that you change or stop your medicines until you can get your blood sugar levels under control. In the long run, you may need to change your diet and eating habits so that you get enough fuel for your body throughout the day.\.br\Follow-up care is a hollins part of your treatment and safety. Be sure to make and go to all appointments, and call your doctor if you are having problems. It's also a good idea to know your test results and keep a list of the medicines you take.\.br\How can you care for yourself at home?\.br\? Know the early signs of low blood sugar. Signs include: \.br\? Nausea.\.br\? Hunger.\.br\? Feeling nervous, irritable, or shaky.\.br\? Cold, clammy skin.\.br\? Sweating (when you're not exercising).\.br\? A fast heartbeat.\.br\? Numbness or tingling in fingertips or lips.\.br\? If you have early signs of low blood sugar, eat or drink a quick-sugar food. Examples are glucose tablets, table sugar, hard candy (such as Life Savers), fruit juice, and regular (not diet) soda.\.br\? Eat small, frequent meals so you don't get too hungry between meals.\.br\? Balance extra exercise with eating more.\.br\? Keep a written record of your low blood sugar episodes, including what and when you last ate. This helps you know what causes your blood sugar to drop.\.br\? Make sure family, friends, and coworkers know the symptoms of low blood sugar and know how to get your sugar level up.\.br\? Wear medical alert jewelry that lists your condition. You can buy this at most [employer].\.br\When should you call for help?\.br\ Call 911 anytime you think you may need emergency care. For example, call if: \.br\ ? You passed out (lost consciousness). \.br\ ? You are confused or cannot think clearly. \.br\ ? Your blood sugar is very high or very low. \.br\Watch closely for changes in your health, and be sure to contact your doctor if:\.br\ ? Your blood sugar stays outside the level your doctor set for you. \.br\ ? You have any problems. \.br\Where can you learn more?\.br\Go to [email or web address]/[email or web address] \Enter R955 in the search box to learn more about Hypoglycemia: Care Instructions.\.br\Cu rrent as of: June 23, 2020 Content Version: 12.7\.br\? [employer]. \.br\Care instructions adapted under license by your healthcare professional. If you have questions about a medical condition or this instruction, always ask your healthcare pr (more content not included)... Normal [facility] ED Physician Reporton 2020 ED Physician Report Patient: CAMILLA MCDERMOTT Age: 75 years Sex: Male : 1945 Associated Diagnoses: Diabetes mellitus with hypoglycemia Author: ELIZABETH MACIEL DO Basic Information Time seen: Date & time 04/20/2021 18:15:00. History source: Patient, daughter, EMS. Arrival mode: Ambulance. History limitation: None, Hard of hearing. History of Present Illness The patient presents with hypoglycemia. The onset was just prior to arrival and 30s blood sugar at home today. Patient took his insulin, but did not eat anything all day.. The course/duration of symptoms is fluctuating in intensity. Prior episodes: rare. Therapy today: Half an amp of D50 per EMS squad. Associated symptoms: denies chest pain, denies abdominal pain, denies nausea and denies vomiting. Review of Systems Constitutional symptoms: No fever, no chills, no sweats, no weakness. Skin symptoms: No abrasions, Eye symptoms: Vision unchanged. ENMT symptoms: No ear pain, no sore throat. Respiratory symptoms: No shortness of breath, no cough. Cardiovascular symptoms: No chest pain, no palpitations. Gastrointestinal symptoms: No abdominal pain, no nausea, no vomiting. Genitourinary symptoms: No dysuria, Musculoskeletal symptoms: Negative except as documented in HPI, No back pain, Hematologic/Lymphati c symptoms: Bleeding tendency negative, Neurologic symptoms No headache, no dizziness, no altered level of consciousness. Additional review of systems information: All other systems reviewed and otherwise negative. Health Status Allergies: Allergic Reactions (Selected) No Known Medication Allergies. Medications: (Selected) Documented Medications Documented DULoxetine: ORAL, 0 Refill(s) amLODIPine: ORAL, DAILY, 0 Refill(s) atorvastatin: ORAL, DAILY, 0 Refill(s) hydrochlorothiazide = HydroDIURIL: ORAL, DAILY, 0 Refill(s) lisinopril: ORAL, DAILY, 0 Refill(s) losartan: ORAL, DAILY, 0 Refill(s) metFORMIN = Glucophage: ORAL, 0 Refill(s) metoprolol: See Instructions, 0 Refill(s) mirtazapine: ORAL, QHS, 0 Refill(s) omeprazole: ORAL, DAILY, 0 Refill(s) topiramate: ORAL, 0 Refill(s). Past Medical/ Family/ Social History Medical history: No active or resolved past medical history items have been selected or recorded.. Surgical history: No active procedure history items have been selected or recorded.. Family history: No family history items have been selected or recorded.. Social history: Alcohol use: Denies, Tobacco use: Denies, Drug use: Denies. Physical Examination Vital Signs Vital Signs 04/20/2021 19:00 EDT Peripheral Pulse Rate 73 bpm NORMAL Respiratory Rate 16 br/min NORMAL Systolic Blood Pressure 128 mmHg NORMAL Diastolic Blood Pressure 65 mmHg NORMAL Mean Arterial Pressure, Cuff 85 mmHg 04/20/2021 18:46 EDT Peripheral Pulse Rate 77 bpm NORMAL Respiratory Rate 16 br/min NORMAL Systolic Blood Pressure 115 mmHg NORMAL Diastolic Blood Pressure 72 mmHg NORMAL Mean Arterial Pressure, Cuff 88 mmHg 04/20/2021 18:30 EDT Heart Rate Monitored 74 bpm NORMAL Peripheral Pulse Rate 76 bpm NORMAL Systolic Blood Pressure 131 mmHg NORMAL Diastolic Blood Pressure 72 mmHg NORMAL Mean Arterial Pressure, Cuff 85 mmHg SpO2 96 % NORMAL 04/20/2021 18:10 EDT Temperature Oral 36.8 degC NORMAL Peripheral Pulse Rate 74 bpm NORMAL Respiratory Rate 16 br/min NORMAL Systolic Blood Pressure 129 mmHg NORMAL Diastolic Blood Pressure 73 mmHg NORMAL SpO2 97 % NORMAL Oxygen Therapy Room air Weight Measured Type of Scale Patient Stated Weight Height/Length Dosing 172.7 cm Patient Stated Weight 77.3 kg . General: Alert, no acute distress, Well developed, well nourished. Skin: Warm, dry, no rash. Head: Normocephalic, atraumatic. Neck: Supple, trachea midline. Eye: Pupils are equal, round and reactive to light, extraocular movements are intact. Ears, nose, mouth and throat: Oral mucosa moist. Cardiovascular: Regular rate and rhythm, No murmur, Normal peripheral perfusion, No edema. Respiratory: Lungs are clear to auscultation, respirations are non-labored, breath sounds are equal. Gastrointestinal: Soft, Nontender, Non distended, Normal bowel sounds. Back: Normal range of motion. Musculoskeletal: Normal ROM, normal strength, no swelling. Psychiatric: Cooperative. Neurological Alert and oriented to person, place, time, and situation, No focal neurological deficit observed, normal sensory observed, normal motor observed, normal speech observed. Medical Decision Making Differential Diagnosis:: Hypoglycemia, insulin dependent diabetes. Differential Diagnosis: Documents reviewed: Emergency department nurses' notes, emergency department records, prior records. Reexamination/ Reevaluation After eating, blood sugar stabilized. Patient looking well. Plan to discharge to home. Instructed to eat a meal when he gets home and to stay on his regular insulin regimen. Impression and Pl (more content not included)... Normal [facility] ED Progress Noteon ED Progress Note 1810 brought in through triage from home for low blood sugar levels. paramedics state that they checked his blood sugar at home and was 38. cloth tearer states that he received half an amp of d50 and they checked his blood sugar and was 310. paramedics state that patient was not oriented. upon arrival, patient alert and oriented x 3. patient very hard of hearing. checked blood sugar in room, 76. dr. maciel aware. perrl. hand grisps and push/pulls strong and equal. no facial droop. no arm drift. 1835 family brought back to bedside. daughter states that she is concerned about patient's right eye and possible tia. dr. maciel made aware. reassessed patient. perrl. hand grisps strong and equal bilaterally. push/pulls strong and equal bilaterally. no arm drift. no facial droop. patient alert and oriented x 3. no slurred speech. patient's right eyelid looks slightly swollen. dr. maciel at bedside speaking with daughter and family members. 1905 report given to elif kent rn. 1906 - Care from Rosangela MITCHELL. Pt resting comfortably in bed eating a snack with no complaints at this time. Pt denies headache, dizziness, CP/'SOB, abd pain, numbness/tingling to extremities, and any other complaints POC glucose completed and results to Dr. Maciel 2000 - IV removed and pt and daughter given and verbalize understanding of discharge instructions with no further questions at this time Normal [facility] POC Glucoseon 04-20-2021 Glucose [Mass/Vol] 109 mg/dL High 72-100 [facility] Comment on above: Performed By: #### 1 [id number] #### [facility] [address] [place] [address] Retail Sales Associate: Adair Huang MD Glucose [Mass/Vol] 76 mg/dL Normal 72-100 [facility] Comment on above: Performed By: #### 1 [id number] #### [facility] [id number] [place] [address] Retail Sales Associate: Adair Huang MD US RETROPERITONEAL LIMITEDOr dered By: Efren Tidwell on 03-04-2021 [id number] ACCESSION EXAM DATE/TIME PROCEDURE ORDERING PROVIDER [id number] 03/04/2021 10:36 EDT US Jaky TIDWELL MD, EFREN Coates CPT code 86988 Reason For Exam (US Retroperitoneal Limited) Chronic kidney disease, stage 3b Report Indication: Chronic kidney disease. Detailed ultrasound of the kidneys was performed. There are no prior studies available for comparison. The right kidney measures 10.5 x 4.4 x 4.5 cm and the left kidney measures 11 x 4 x 4.8 cm. The kidneys are grossly normal in echotexture. There are no cystic or solid masses identified in either kidney. There is no evidence of stone or hydronephrosis. Limited images of the urinary bladder are grossly unremarkable. Prevoid urinary bladder volume was 386 mL. No post void images were performed. Impression: 1. Unremarkable renal ultrasound. Report Dictated on --- Final --- Dictated: 03/04/2021 11:59 am Dictating Physician: DO COHEN ANTHONY Signed Date and Time: 03/04/2021 12:06 pm Signed by: DO COHEN ANTHONY Transcribed Date and Time: 03/04/2021 11:59 [facility] From [facility] - 03/04/2021 12:07 PM EDT Patient Name: [id number] Ultrasound ACCESSION EXAM DATE/TIME PROCEDURE ORDERING PROVIDER [id number] 03/04/2021 10:36 EDT US Retroperitoneal MD DIANN, EFREN Coates CPT code 74976 Reason For Exam (US Retroperitoneal Limited) Chronic kidney disease, stage 3b Report Indication: Chronic kidney disease. Detailed ultrasound of the kidneys was performed. There are no prior studies available for comparison. The right kidney measures 10.5 x 4.4 x 4.5 cm and the left kidney measures 11 x 4 x 4.8 cm. The kidneys are grossly normal in echotexture. There are no cystic or solid masses identified in either kidney. There is no evidence of stone or hydronephrosis. Limited images of the urinary bladder are grossly unremarkable. Prevoid urinary bladder volume was 386 mL. No post void images were performed. Impression: 1. Unremarkable renal ultrasound. Report Dictated on --- Final --- Dictated: 03/04/2021 11:59 am Dictating Physician: DO COHEN ANTHONY Signed Date and Time: 03/04/2021 12:06 pm Signed by: DO COHEN ANTHONY Transcribed Date and Time: 03/04/2021 11:59 [facility] Work Phone: OBSOLETEon 01-12-2021 OBSOLETE Refill (FAMPST) STANDER,CAMILLA Jones II ([id number]) 1945 M Date Time Provider Department 01/12/21 JESUS LINDSAY During your visit today, we recorded the following information about you: Eugenia Ko 01/13/2021 11:16 AM S[address] Not a Dr. Lindsay patient here Allergies As of Date: 01/12/2021 (No Known Allergies) Date Reviewed: 10/26/2019 Reviewed by: Christine Oseguera Ma - Fully Assessed Reason for Visit: Refill Request [94] Prescriptions as of 01/12/2021 Sig: OMEPRAZOLE 40 MG CAPSULE,TUCKER* TAKE 1 CAPSULE BY MOUTH ONCE* AMLODIPINE 10 MG TABLET TAKE 1 TABLET BY MOUTH ONCE D* DULOXETINE 30 MG CAPSULE,TUCKER* TAKE 2 CAPSULES BY MOUTH IN T* NAPROXEN 500 MG TABLET TAKE 1 TABLET BY MOUTH TWICE* METFORMIN 1,000 MG TABLET TAKE 1 TABLET BY MOUTH TWICE* POLYETHYLENE GLYCOL 3350 17 G* 17 g dissolved in 8 oz water * LANCETS 33 GAUGE USE 3 TIMES DAILY DIRECTE* ONETOUCH ULTRA BLUE TEST STRIP TEST 3 TIMES DAILY DIRECT* LAMOTRIGINE 25 MG TABLET TAKE 2 TABLETS DAILY MIRABEGRON ER 50 MG TABLET,EX* Take 1 tablet by mouth once d* METOPROLOL TARTRATE 100 MG TA* TAKE 1 TABLET BY MOUTH TWICE* ATORVASTATIN 40 MG TABLET TAKE 1 TABLET BY MOUTH ONCE D* LOSARTAN 100 MG TABLET Take 1 tablet by mouth once d* INSULIN NPH ISOPHANE U-100 HU* Inject 28 Units before breakf* GLIPIZIDE 5 MG TABLET Take 2 tablets by mouth twice* IPRATROPIUM BROMIDE 42 MCG (0* Use 2 Sprays in the nose thre* DAILY PROBIOTIC ORAL Take 1 tablet by mouth once d* GLUCOSAMINE ORAL Take 1 tablet by mouth as nee* BLOOD-GLUCOSE METER KIT Use to test glucose as direct* ALPHA LIPOIC ACID 600 MG CAPS* Take by mouth once daily. PEN NEEDLE, DIABETIC 31 GAUGE* USE WITH INSULIN PENS/ BYETTA* NEEDLE (DISP) 31 GAUGE X 16 Use as directed with Lantus ASCORBIC ACID (VITAMIN C) 500* Take 500 mg by mouth once daniel* CALCIUM CARBONATE-VITAMIN D3 * Take 1 tablet by mouth twice * OMEGA-3 FATTY ACIDS 500 MG CA* Take 1,000 mg by mouth once d* THERAGRAN-M PREMIER 50 PLUS O* Take 1 tablet by mouth once d* E-400 ORAL Take 1 tablet by mouth once d* ASPIRIN 81 MG TABLET,DELAYED * Take 81 mg by mouth once viraj* Problem List As Of Date 01/12/2021 Noted Resolved Chest pain [786.5] 08/16/1998 07/27/2016 Class: Chronic Essential hypertension [I10] 04/28/2004 HYPERLIPIDEMIA NEC/NOS [E78.5] 04/28/2004 SARKAR'S 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] 04/28/2004 HEARING LOSS [389] 04/28/2004 Diabetes mellitus [250] 04/28/2004 05/09/2017 SENSORY HEARING LOSS [H90.3] 06/25/2005 Uncontrolled type 2 diabetes with neuropathy (H*01/19/2017 Bunion [M21.619] 01/23/2017 Type 2 diabetes mellitus without complication, *05/09/2017 HTN (hypertension) [I10] 08/11/2017 08/12/2017 Diabetic polyneuropathy associated with type 2 *09/09/2017 Gait difficulty [R26.9] 09/09/2017 Disturbance of skin sensation [R20.9] 09/09/2017 Pain in both feet [M79.671, M79.672] 09/09/2017 Concern about neurological disease without diag*09/09/2017 Mixed hyperlipidemia [E78.2] 10/12/2017 Neuropathy (HCC) [G62.9] 02/13/2018 Stroke syndrome (HCC) [FIL5822] 03/13/2018 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 Edema right ankle. Edema right foot. Edema left calf. Edema left ankle. Edema left foot. Preliminary result was reported to Ordering DR. Ghotra, and also Dr. Kelsey Tidwell , by office via fax , on 10/28/2020 , at 02:33 PM. Conclusions 1. There is no evidence of acute deep or superficial venous thrombosis noted in the right lower extremity. 2. There is no evidence of acute deep or superficial venous thrombosis noted in the left lower extremity. History: Risk factors: Lifelong nonsmoker. Study data: Complete lower extremity venous duplex evaluation. Grayscale 2D imaging, color Doppler imaging, and spectral Doppler analysis. Location: Vascular laboratory. Procedure: A vascular evaluation was performed with the patient in the supine position. Images were obtained using a Rockport i700 Aplio vascular ultrasound machine. Venous flow and imaging: + ------+-------+----- + +Location +Overall+Properties + + ------+-------+----- + +R CFV +Patent +Normal phasicity; spontaneous; + + + +normal augmentation; compressible + + ------+-------+----- + +R saphenofemoral junction+Patent +Compressible + + ------+-------+----- + +R profunda femoral +Patent +Normal phasicity; spontaneous; + + + +normal augmentation + + ------+-------+----- + +R FV - prox. +Patent +Compressible + + ------+-------+----- + +R FV - mid +Patent +Normal phasicity; spontaneous; + + + +normal augmentation; compressible + + ------+-------+----- + +R FV - distal +Patent +Compressible + + ------+-------+----- + +R popliteal +Patent +Normal phasicity; spontaneous; + + + +normal augmentation; compressible + + ------+-------+----- + +R gastrocnemius +Patent +Compressible + + ------+-------+----- + +R PTV +Patent +Compressible + + ------+-------+----- + +R peroneal +Patent +Compressible + + ------+-------+----- + +R soleal +Patent +Compressible + + ------+-------+----- + +R GSV +Patent +Compressible + + ------+-------+----- + +R SSV +Patent +Compressible + + ------+-------+----- + +L CFV +Patent +Normal phasicity; spontaneous; + + + +normal augmentation; compressible + + ------+-------+----- + +L saphenofemoral junction+Patent +Compressible + + ------+-------+----- + +L profunda femoral +Patent +Normal phasicity; spontaneous; + + + +normal augmentation + + ------+-------+----- + +L FV - prox. +Patent +Compressible + + ------+-------+----- + +L FV - mid +Patent +Normal phasicity; spontaneous; + + + +normal augmentation; compressible + + ------+-------+----- + +L FV - distal +Patent +Compressible + + ------+-------+----- + +L popliteal +Patent +Normal phasicity; spontaneous; + + + +normal augmentation; compressible + + ------+-------+----- + +L gastrocnemius +Patent +Compressible + + ------+-------+----- + +L PTV +Patent +Compressible + + ------+-------+----- + +L peroneal +Patent +Compressible + + ------+-------+----- + +L soleal +Patent +Compressible + + ------+-------+----- + +L GSV +Patent +Compressible + + ------+-------+----- + +L SSV +Patent +Compressible + + ------+-------+----- + Prepared and electronically signed by Efren Moreno MD 10/28/2020 14:40 [facility] Incoming Cardiology Results From [facility] - 10/28/2020 2:40 PM EST [facility] Lower Extremity Venous Duplex Report Patient Zaraer, : 1945 Study 10/28/2020 Name: Camilla (75yrs) Date: Age: 75 Account: [id number] Gender: M Loc: BP: Ordering Physician: Letitia Ghotra Manager Of Security: Lotus Solo RDMS, RVT Interpreting Physician: Efren Moreno MD Location: [facility] Indications: Edema right calf. Edema right ankle. Edema right foot. Edema left calf. Edema left ankle. Edema left foot. Preliminary result was reported to Ordering DR. Ghotra, and also Dr. Kelsey Tidwell , by office via fax , on 10/28/2020 , at 02:33 PM. Conclusions 1. There is no evidence of acute deep or superficial venous thrombosis noted in the right lower extremity. 2. There is no evidence of acute deep or superficial venous thrombosis noted in the left lower extremity. History: Risk factors: Lifelong nonsmoker. Study data: Complete lower extremity venous duplex evaluation. Grayscale 2D imaging, color Doppler imaging, and spectral Doppler analysis. Location: Vascular laboratory. Procedure: A vascular evaluation was performed with the patient in the supine position. Images were obtained using a Rockport i700 [employer] vascular ultrasound machine. Venous flow and imaging: + ------+-------+----- + +Location +Overall+Properties + + ------+-------+----- + +R CFV +Patent +Normal phasicity; spontaneous; + + + +normal augmentation; compressible + + ------+-------+----- + +R saphenofemoral junction+Patent +Compressible + + ------+-------+----- + +R profunda femoral +Patent +Normal phasicity; spontaneous; + + + +normal augmentation + + ------+-------+----- + +R FV - prox. +Patent +Compressible + + ------+-------+----- + +R FV - mid +Patent +Normal phasicity; spontaneous; + + + +normal augmentation; compressible + + ------+-------+----- + +R FV - distal +Patent +Compressible + + ------+-------+----- + +R popliteal +Patent +Normal phasicity; spontaneous; + + + +normal augmentation; compressible + + ------+-------+----- + +R gastrocnemius +Patent +Compressible + + ------+-------+----- + +R PTV +Patent +Compressible + + ------+-------+----- + +R peroneal +Patent +Compressible + + ------+-------+----- + +R soleal +Patent +Compressible + + ------+-------+----- + +R GSV +Patent +Compressible + + ------+-------+----- + +R SSV +Patent +Compressible + + ------+-------+----- + +L CFV +Patent +Normal phasicity; spontaneous; + + + +normal augmentation; compressible + + ------+-------+----- + +L saphenofemoral junction+Patent +Compressible + + ------+-------+----- + +L profunda femoral +Patent +Normal phasicity; spontaneous; + + + +normal augmentation + + ------+-------+----- + +L FV - prox. +Patent +Compressible + + ------+-------+----- + +L FV - mid +Patent +Normal phasicity; spontaneous; + + + +normal augmentation; compressible + + ------+-------+----- + +L FV - distal +Patent +Compressible + + ------+-------+----- + +L popliteal +Patent +Normal phasicity; spontaneous; + + + +normal augmentation; compressible + + ------+-------+----- + +L gastrocnemius +Patent +Compressible + + ------+-------+----- + +L PTV +Patent +Compressible + + ------+-------+----- + +L peroneal +Patent +Compressible + + ------+-------+----- + +L soleal +Patent +Compressible + + ------+-------+----- + +L GSV +Patent +Compressible + + ------+-------+----- + +L SSV +Patent +Compressible + + ------+-------+----- + Prepared and electronically signed by Efren Moreno MD 10/28/2020 14:40 [facility] [place] Brain Natriuretic Peptideon 10-24-2020 Natriuretic peptide B (Bld) [Mass/Vol] 84 pg/mL 0 - 450 pg/mL [place], [place] Comprehensive Metabolic Pane jazmín 10-24-2020 Albumin [Mass/Vol] 4.1 g/dL 3.5 - 5 g/dL [place], [place] ALP [Catalytic activity/Vol] 96 U/L 38 - 126 U/L [place] ALT [Catalytic activity/Vol] 16 U/L 0 - 49 U/L [place] Comment on above: The ALT test is perf ormed by an updated assay method. Please note that the reference intervals have been changed and are now sex specific. Anion gap [Moles/Vol] 7 mmol/L [place], [place] AST [Catalytic activity/Vol] 30 U/L 15 - 46 U/L [place] Bilirubin Ql (U) 0.4 mg/dL 0.2 - 1.3 mg/dL [place] Calcium [Mass/Vol] 9.2 mg/dL 8.4 - 10. 4 mg/dL [place] Chloride [Moles/Vol] 107 mmol/L 98 - 10 7 mmol/L [place] CO2 [Moles/Vol] 25 mmol/L 22 - 30 mmol/L [place] Creatinine [Mass/Vol] 1.45 mg/dL High 0.52 - 1.25 mg/dL [place] EGFR IF NonAfrican [place] 46.6 mL/min Abnormal >60 [place] Comment on above: KDIGO guidelines pro vide the following GFR categories: Stage GFR(ml/min/1.73 m2) Terms G1 >=90 Normal or high G2 60-89 Mildly decreased* G3a 45-59 Mildly to moderately decreased G3b 30-44 Moderately to severely decreased G4 15-29 Severely decreased G5 <15 Kidney failure *Relative to young adult level. In the absence of evidence of kidney damage, neither GFR category G1 nor G2 fulfill the criteria for CKD. The CKD-EPI equation is validated in individuals 18 years of age and older. Currently the best equation for estimating glomerular filtration rate (GFR) from serum creatinine in children is the Bedside Das equation. It is less accurate in patients with extremes of muscle mass, restriction of dietary protein, ingestion of creatine, extra-renal metabolism of creatinine, or treatment with medications that affect renal tubular creatinine secretion. GFR/1.73 sq M predicted among blacks MDRD (S/P/Bld) [Vol rate/Area] 54.0 mL/min/{1.73_m2} Abnormal >60 [place] Glucose [Mass/Vol] 195 mg/dL High 70 - 100 mg/dL [place] Interpretation and review of laboratory results Abnormal [place], [place] Potassium [Moles/Vol] 3.3 mmol/L Low 3.5 - 5.1 mmol/L [place] Protein [Mass/Vol] 6.4 g/dL 6.3 - 8.2 g/dL [place] Sodium [Moles/Vol] 140 mmol/L 135 - 145 mmol/L [place] Urea nitrogen [Mass/Vol] 10 mg/dL 7 - 20 mg/d L [place] Test Performed by [facility], [address] [place], [place] [address] Hemogram (CBC) w/Auto Diffon 10-24-2020 Absolute Baso # 0.1 10*3/uL 0 - 0.2 10*3/uL [place] Absolute Neut # 3.3 10*3/uL 1.8 - 7 10*3/uL [place] Basophils/100 WBC (Bld) 1.0 % 0 - 2 % [place] Eosinophils (Bld) [#/Vol] 0.4 10*3/uL 0 - 0.5 10*3/uL [place] Eosinophils/100 WBC (Bld) 5.6 % 1 - 6 % [place] Erythrocyte distribution width (RBC) [Ratio] 14.9 % High 11.5 - 14.5 % [place] Granulocytes/100 WBC (Bld) 48.5 % 40 - 80 % [place] Hematocrit (Bld) [Volume fraction] 34.4 % Low 40 - 52 % [place] Hemoglobin (Bld) [Mass/Vol] 11.4 g/dL Low 13 - 18 g/dL [place] Interpretation and review of laboratory results Abnormal [place] Lymphocytes (Bld) [#/Vol] 2.6 10*3/uL 1 - 4.3 10*3/uL [place] Lymphocytes/100 WBC (Bld) 38.3 % 20 - 40 % [place] MCH (RBC) [Entitic mass] 28.5 pg 26 - 34 pg [place] MCHC (RBC) [Mass/Vol] 33.2 % 32 - 36 % [place], [place] MCV (RBC) [Entitic vol] 85.8 fL 80 - 98 fL [place], [place] Monocytes (Bld) [#/Vol] 0.5 10*3/uL 0 - 0.8 10*3/uL [place] Monocytes/100 WBC (Bld) 6.6 % 2 - 10 % [place] Platelet mean volume (Bld) [Entitic vol] 8.5 fL 7.4 - 10.4 fL [place] Platelets (Bld) [#/Vol] 214 10*3/uL 140 - 440 10*3/uL [place] RBC (Bld) [#/Vol] 4.01 10*6/uL Low 4.4 - 5.9 10*6/uL [place] WBC (Bld) [#/Vol] 6.8 10*3/uL 3.6 - 10.7 10*3/uL [place] Test Performed by [facility], [address] , [address] Otheron 10-24-2020 Test Performed by [facility], [address] , [address] TSH without Reflexon 021 TSH Qn 3.067 u[IU]/mL 0.465 - 4.68 u[IU]/mL [place] Test Performed by [facility], [address] , [address] [place] Troponin x1on 10-24-2020 Troponin I.cardiac [Mass/Vol] ng/mL 0 - 0.034 ng/mL [place] Comment on above: . XR ANKLE LEFT (MIN 3 VIEWS)o n 10-24-2020 Patient Name: CAMILLA MCDERMOTT Diagnostic Radiology ACCESSION EXAM DATE/TIME PROCEDURE ORDERING PROVIDER [id number] 10/24/2020 22:27 EST CR Ankle 3+ Views Left LETITIA MILES CPT code 72592 Reason For Exam (CR Ankle 3+ Views Left) left ankle pain, hx neuropathy Report LEFT ANKLE 3 VIEWS CLINICAL INDICATION: left ankle pain, hx neuropathy TECHNIQUE: 3 views of the left ankle. COMPARISON: None. FINDINGS: No acute fracture or dislocation. Ankle mortise maintained. Mild posterior calcaneal spurring. Anterolateral soft tissue edema. IMPRESSION: 1. No acute osseous abnormality. 2. Soft tissue edema. Report Dictated on Workstation: [id number] --- Final --- Dictating Physician: MD ALLRED WENDELL Signed Date and Time: 10/24/2020 10:50 pm Signed by: MD ALLRED WENDELL Transcribed Date and Time: 10/24/2020 10:51 [place] Janae Schwarz Incoming Radiology Results From [facility] - 10/24/2020 10:51 PM EST Patient Name: CAMILLA MCDERMOTT Diagnostic Radiology ACCESSION EXAM DATE/TIME PROCEDURE ORDERING PROVIDER [id number] 10/24/2020 22:27 EST CR Ankle 3+ Views Left Belinda GOVEALETITIA CPT code 00986 Reason For Exam (CR Ankle 3+ Views Left) left ankle pain, hx neuropathy Report LEFT ANKLE 3 VIEWS CLINICAL INDICATION: left ankle pain, hx neuropathy TECHNIQUE: 3 views of the left ankle. COMPARISON: None. FINDINGS: No acute fracture or dislocation. Ankle mortise maintained. Mild posterior calcaneal spurring. Anterolateral soft tissue edema. IMPRESSION: 1. No acute osseous abnormality. 2. Soft tissue edema. Report Dictated on Workstation: [id number] --- Final --- Dictating Physician: MD ALLRED WENDELL Signed Date and Time: 10/24/2020 10:50 pm Signed by: MD ALLRED WENDELL Transcribed Date and Time: 10/24/2020 10:51 [place] XR CHEST PORTABLEon 10-24-19 Patient Name: CAMILLA MCDERMOTT Diagnostic Radiology ACCESSION EXAM DATE/TIME PROCEDURE ORDERING PROVIDER [id number] 10/24/2020 22:27 EST CR Chest Portable 4275 -PARADISELETITIA CPT code 62398 Reason For Exam (CR Chest Portable) SOB Report CHEST PORTABLE CLINICAL INDICATION: SOB TECHNIQUE: Single, portable chest x-ray. COMPARISON: None. FINDINGS: Cardiac and mediastinal silhouette within normal limits. Lungs are grossly clear. No significant vascular congestion. No apparent pleural effusion or pneumothorax. Degenerative change in the thoracic spine. IMPRESSION: 1. No acute findings. Report Dictated on Workstation: [email or web address] --- Final --- Dictating Physician: MD ALLRED WENDELL Signed Date and Time: 10/24/2020 10:48 pm Signed by: MD ALLRED WENDELL Transcribed Date and Time: 10/24/2020 10:49 [place] Incoming Radiology Results From [facility] - 10/24/2020 10:49 PM EST Patient Name: CAMILLA MCDERMOTT Diagnostic Radiology ACCESSION EXAM DATE/TIME PROCEDURE ORDERING PROVIDER [id number] 10/24/2020 22:27 EST CR Chest Portable 4275 -LETITIA GHOTRA CPT code 09952 Reason For Exam (CR Chest Portable) SOB Report CHEST PORTABLE CLINICAL INDICATION: SOB TECHNIQUE: Single, portable chest x-ray. COMPARISON: None. FINDINGS: Cardiac and mediastinal silhouette within normal limits. Lungs are grossly clear. No significant vascular congestion. No apparent pleural effusion or pneumothorax. Degenerative change in the thoracic spine. IMPRESSION: 1. No acute findings. Report Dictated on Workstation: [email or web address] --- Final --- Dictating Physician: MD ALLRED WENDELL Signed Date and Time: 10/24/2020 10:48 pm Signed by: MD ALLRED WENDELL Transcribed Date and Time: 10/24/2020 10:49 [place] SARS CoV 2 RNA(COVID 19), JUAN Rodriguez 09-05-2020 SARS CoV 2 RNA NOT DETECTED Normal NOT DETECTED [facility] Comment on above: Result Comment: A Not Detected (negative) test result for this test means that SARS- CoV-2 RNA was not present in the specimen above the limit of detection. A negative result does not rule out the possibility of COVID-19 and should not be used as the sole basis for treatment or patient management decisions. If COVID-19 is still suspected, based on exposure history together with other clinical findings, re-testing should be considered in consultation with public health authorities. Laboratory test results should always be considered in the context of clinical observations and epidemiological data in making a final diagnosis and patient management decisions. Please review the Fact Sheets and FDA authorized labeling available for health care providers and patients using the following websites: [email or web address]/fact -sheet2 [email or web address]/home/Covid-19/Patients/NAAT / fact-sheet2 This test has been authorized by the FDA under an Emergency Use Authorization (EUA) for use by authorized laboratories. Due to the current public health emergency, [facility] is receiving a high volume of samples from a wide variety of swabs and media for COVID-19 testing. In order to serve patients during this public health crisis, samples from appropriate clinical sources are being tested. Negative test results derived from specimens received in non-commercially manufactured viral collection and transport media, or in media and sample collection kits not yet authorized by FDA for COVID-19 testing should be cautiously evaluated and the patient potentially subjected to extra precautions such as additional clinical monitoring, including collection of an additional specimen. Methodology: Nucleic Acid Amplification Test (NAAT) includes RT-PCR or TMA Additional information about COVID-19 can be found at the [facility] website: [email or web address]. Performed By: #### [id number] #### [facility], [address] [place] [id number] Retail Sales Associate: Dev Billy MD XR CHEST 2V FRONTAL/LATon XR CHEST 2V FRONTAL/LAT Final Report DATE OF EXAM: Jun 20 2020 1:25PM AWX 5291 - XR CHEST 2V FRONTAL/LAT / PROCEDURE REASON: r06.02 Physician Interpretation XR CHEST 2V FRONTAL/LAT INDICATION: r06.02 75 years/Male RESULT: The heart size is normal. Calcified atheromatous changes noted in the thoracic aorta. Bilateral apical pleural thickening. The lung rose are clear of infiltrate. No mediastinal or hilar adenopathy. The costophrenic angles are clear. Degenerative spine changes. Vertebroplasty noted at the thoracoabdominal junction. IMPRESSION: no active cardiopulmonary disease Process Control Manager: PSCPatricia Transcribe Date/Time: Jun 20 2020 5:34P Dictated by : LYDIA JAIME MD This examination was interpreted and the report reviewed and electronically signed by: LYDIA JAIME MD on Jun 20 2020 5:35PM EST Normal [facility] VL LOWER EXTREMITY BILATERAL VENOUS DUPLEXon 06-13-2020 [facility] Lower Extremity Venous Duplex Report Ordering Physician: Thong Moore Manager Of Security: Rabia Martinez RDMS, T Interpreting Physician: Rashawn Nicholson MD Location: [facility] Indications: Bilateral lower extremity edema R60.0 Conclusions 1. There is no evidence of acute deep or superficial venous thrombosis noted in the right lower extremity. 2. There is no evidence of acute deep or superficial venous thrombosis noted in the left lower extremity. History: Shortness of breath x couple months. Bilateral lower extremity edema in feet and ankles x 2 months Risk factors: Patient history of bilateral varicose veins. Patient history of renal disease. Hypertension. Study data: Complete lower extremity venous duplex evaluation. Grayscale 2D imaging, color Doppler imaging, and spectral Doppler analysis. Location: Vascular laboratory. Procedure: A vascular evaluation was performed with the patient in the supine position. Images were obtained using a Flori i700 Aplio vascular ultrasound machine. Findings Systemic veins: Patient on daily 81mg aspirin. Venous flow and imaging: + ------+-------+----- + +Location +Overall+Properties + + ------+-------+----- + +R CFV +Patent +Normal phasicity; spontaneous; + + + +normal augmentation; compressible + + ------+-------+----- + +R saphenofemoral junction+Patent +Compressible + + ------+-------+----- + +R profunda femoral +Patent +Normal phasicity; spontaneous; + + + +normal augmentation + + ------+-------+----- + +R FV - prox. +Patent +Compressible + + ------+-------+----- + +R FV - mid +Patent +Normal phasicity; spontaneous; + + + +normal augmentation; compressible + + ------+-------+----- + +R FV - distal +Patent +Compressible + + ------+-------+----- + +R popliteal +Patent +Normal phasicity; spontaneous; + + + +normal augmentation; compressible + + ------+-------+----- + +R gastrocnemius +Patent +Compressible + + ------+-------+----- + +R PTV +Patent +Compressible + + ------+-------+----- + +R peroneal +Patent +Compressible + + ------+-------+----- + +R soleal +Patent +Compressible + + ------+-------+----- + +R GSV +Patent +Compressible + + ------+-------+----- + +R SSV +Patent +Compressible + + ------+-------+----- + +L CFV +Patent +Normal phasicity; spontaneous; + + + +normal augmentation; compressible + + ------+-------+----- + +L saphenofemoral junction+Patent +Compressible + + ------+-------+----- + +L profunda femoral +Patent +Normal phasicity; spontaneous; + + + +normal augmentation + + ------+-------+----- + +L FV - prox. +Patent +Compressible + + ------+-------+----- + +L FV - mid +Patent +Normal phasicity; spontaneous; + + + +normal augmentation; compressible + + ------+-------+----- + +L FV - distal +Patent +Compressible + + ------+-------+----- + +L popliteal +Patent +Normal phasicity; spontaneous; + + + +normal augmentation; compressible + + ------+-------+----- + +L gastrocnemius +Patent +Compressible + + ------+-------+----- + +L PTV +Patent +Compressible + + ------+-------+----- + +L peroneal +Patent +Compressible + + ------+-------+----- + +L soleal +Patent +Compressible + + ------+-------+----- + +L GSV +Patent +Compressible + + ------+-------+----- + +L SSV +Patent +Compressible + + ------+-------+----- + Prepared and electronically signed by Rashawn Nicholson MD 06/13/2020 14:06 [facility] [place], [place] Janae Schwarz Incoming Cardiology Results From [facility] - 06/13/2020 2:07 PM EDT [facility] Lower Extremity Venous Duplex Report Ordering Physician: Thong Moore Manager Of Security: Rabia Martinez RDMS, RVT Interpreting Physician: Rashawn Nicholson MD Location: [facility] Indications: Bilateral lower extremity edema R60.0 Conclusions 1. There is no evidence of acute deep or superficial venous thrombosis noted in the right lower extremity. 2. There is no evidence of acute deep or superficial venous thrombosis noted in the left lower extremity. History: Shortness of breath x couple months. Bilateral lower extremity edema in feet and ankles x 2 months Risk factors: Patient history of bilateral varicose veins. Patient history of renal disease. Hypertension. Study data: Complete lower extremity venous duplex evaluation. Grayscale 2D imaging, color Doppler imaging, and spectral Doppler analysis. Location: Vascular laboratory. Procedure: A vascular evaluation was performed with the patient in the supine position. Images were obtained using a [place] i700 Ability Dynamicsio vascular ultrasound machine. Findings Systemic veins: Patient on daily 81mg aspirin. Venous flow and imaging: + ------+-------+----- + +Location +Overall+Properties + + ------+-------+----- + +R CFV +Patent +Normal phasicity; spontaneous; + + + +normal augmentation; compressible + + ------+-------+----- + +R saphenofemoral junction+Patent +Compressible + + ------+-------+----- + +R profunda femoral +Patent +Normal phasicity; spontaneous; + + + +normal augmentation + + ------+-------+----- + +R FV - prox. +Patent +Compressible + + ------+-------+----- + +R FV - mid +Patent +Normal phasicity; spontaneous; + + + +normal augmentation; compressible + + ------+-------+----- + +R FV - distal +Patent +Compressible + + ------+-------+----- + +R popliteal +Patent +Normal phasicity; spontaneous; + + + +normal augmentation; compressible + + ------+-------+----- + +R gastrocnemius +Patent +Compressible + + ------+-------+----- + +R PTV +Patent +Compressible + + ------+-------+----- + +R peroneal +Patent +Compressible + + ------+-------+----- + +R soleal +Patent +Compressible + + ------+-------+----- + +R GSV +Patent +Compressible + + ------+-------+----- + +R SSV +Patent +Compressible + + ------+-------+----- + +L CFV +Patent +Normal phasicity; spontaneous; + + + +normal augmentation; compressible + + ------+-------+----- + +L saphenofemoral junction+Patent +Compressible + + ------+-------+----- + +L profunda femoral +Patent +Normal phasicity; spontaneous; + + + +normal augmentation + + ------+-------+----- + +L FV - prox. +Patent +Compressible + + ------+-------+----- + +L FV - mid +Patent +Normal phasicity; spontaneous; + + + +normal augmentation; compressible + + ------+-------+----- + +L FV - distal +Patent +Compressible + + ------+-------+----- + +L popliteal +Patent +Normal phasicity; spontaneous; + + + +normal augmentation; compressible + + ------+-------+----- + +L gastrocnemius +Patent +Compressible + + ------+-------+----- + +L PTV +Patent +Compressible + + ------+-------+----- + +L peroneal +Patent +Compressible + + ------+-------+----- + +L soleal +Patent +Compressible + + ------+-------+----- + +L GSV +Patent +Compressible + + ------+-------+----- + +L SSV +Patent +Compressible + + ------+-------+----- + Prepared and electronically signed by Rashawn Nicholson MD 06/13/2020 14:06 [facility] GEMMA DENIS 09-26-2019 CNPN Telephone (MEPRAD) SHARRONCAMILLA Jones JOSE ([id number]) 1945 M Date Time Provider Department 09/26/19 RUFUS GEE During your visit today, we recorded the following information about you: Rufus Gee MD 09/26/2019 5:30 PM Signed Please call the patient to schedule a CT scan chest in 6 months Thank you Hafsa Canseco 09/27/2019 9:48 AM Signed Patient scheduled to see Dr. Gee on 10/08. Put apt message to schedule CT in 6 months. Allergies As of Date: 09/26/2019 Noted Allergy Reaction Codeine [Other] 08/16/1998 14 - Other: See Comments Comments: 08/11/17: Sometimes makes patient jittery, but patient is not allergic. Patient requested for medication to be removed from allergy list. Darvon [Other] 08/16/1998 14 - Other: See Comments Comments: 08/11/17: Sometimes makes patient jittery, but patient is not allergic. Patient requested for medication to be removed from allergy list. Date Reviewed: 08/22/2019 Reviewed by: Tyree Rose - Fully Assessed Reason for Visit: Orders [681] Visit Diagnosis:Lung nodules [R91.8] Order(s):CT CHEST WO IVCON [[id number]] Order #: [id number]: 1 FUTURE Prescriptions as of 09/26/2019 Sig: DULOXETINE 30 MG CAPSULE,TUCKER* TAKE 2 CAPSULES BY MOUTH IN T* LANCETS 33 GAUGE USE 3 TIMES DAILY DIRECTE* ONETOUCH ULTRA BLUE TEST STRIP TEST 3 TIMES DAILY DIRECT* LAMOTRIGINE 25 MG TABLET TAKE 2 TABLETS DAILY MIRABEGRON ER 50 MG TABLET,EX* Take 1 tablet by mouth once d* TOPIRAMATE 50 MG TABLET Take 1 tablet by mouth at bed* METOPROLOL TARTRATE 100 MG TA* TAKE 1 TABLET BY MOUTH TWICE* TOPIRAMATE 50 MG TABLET Take 1 tablet by mouth daily * Patient not taking: Reported on 08/22/2019 BENZONATATE 100 MG CAPSULE Take 1 capsule by mouth three* Patient not taking: Reported on 05/31/2019 TROSPIUM 20 MG TABLET Take 20 mg by mouth once viraj* NAPROXEN 500 MG TABLET TAKE 1 TABLET BY MOUTH TWICE* ATORVASTATIN 40 MG TABLET TAKE 1 TABLET BY MOUTH ONCE D* OMEPRAZOLE 40 MG CAPSULE,TUCKER* TAKE 1 CAPSULE BY MOUTH ONCE* OXYBUTYNIN CHLORIDE ER 10 MG * Take 1 tablet by mouth once d* Patient not taking: Reported on 05/31/2019 TAMSULOSIN 0.4 MG CAPSULE Take 1 capsule by mouth daily* Patient not taking: Reported on 05/31/2019 AMLODIPINE 10 MG TABLET Take 1 tablet by mouth once d* LOSARTAN 100 MG TABLET Take 1 tablet by mouth once d* INSULIN NPH ISOPHANE U-100 HU* Inject 28 Units before breakf* GLIPIZIDE 5 MG TABLET Take 2 tablets by mouth twice* Patient not taking: Reported on 08/22/2019 IPRATROPIUM BROMIDE 42 MCG (0* Use 2 Sprays in the nose thre* Patient not taking: Reported on 05/31/2019 METFORMIN 1,000 MG TABLET TAKE 1 TABLET BY MOUTH TWICE* DAILY PROBIOTIC ORAL Take 1 tablet by mouth once d* GLUCOSAMINE ORAL Take 1 tablet by mouth as nee* BLOOD-GLUCOSE METER KIT Use to test glucose as direct* ALPHA LIPOIC ACID 600 MG CAPS* Take by mouth once daily. PEN NEEDLE, DIABETIC 31 GAUGE* USE WITH INSULIN PENS/ BYETTA* NEEDLE (DISP) 31 GAUGE X 03/08 Use as directed with Lantus ASCORBIC ACID (VITAMIN C) 500* Take 500 mg by mouth once daniel* CALCIUM CARBONATE-VITAMIN D3 * Take 1 tablet by mouth twice * OMEGA-3 FATTY ACIDS 500 MG CA* Take 1,000 mg by mouth once d* THERAGRAN-M PREMIER 50 PLUS O* Take 1 tablet by mouth once d* E-400 ORAL Take 1 tablet by mouth once d* ASPIRIN 81 MG TABLET,DELAYED * Take 81 mg by mouth once viraj* Problem List As Of Date 09/26/2019 Noted Resolved Chest pain [786.5] 08/16/1998 07/27/2016 Class: Chronic Essential hypertension [I10] 04/28/2004 More... 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 Bunion [M21.619] 01/23/2017 Type 2 diabetes mellitus without complication, *05/09/2017 HTN (hypertension) [I10] 08/11/2017 08/12/2017 Diabetic polyneuropathy associated with type 2 *09/09/2017 Gait difficulty [R26.9] 09/09/2017 Disturbance of skin sensation [R20.9] 09/09/2017 Pain in both feet [M79.671, M79.672] 09/09/2017 Concern about neurological disease without diag*09/09/2017 Mixed hyperlipidemia [E78.2] 10/12/2017 More... Neuropathy (HCC) [G62.9] 02/13/2018 Stroke syndrome (HCC) [GNZ4965] 03/13/2018 More... 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 PATIENT GENDER DATA: Male PATIENT RELEVANT IMPLANT DATA REVIEWED: Not Applicable RADIOLOGY DEPARTMENT: CT; Exam(s) Completed: Chest PERIPHERAL IV DATA: Not applicable SIGNED BY: DARINEL Taylor September 21, 2019 4:10 PM [facility] CT CHEST WO IVCONon 09-21-[address] CHEST WO IVCON * * *Final Report* * * DATE OF EXAM: Sep 21 2019 4:12PM [place] [id number] - CT CHEST WO IVCON / PROCEDURE REASON: R91.8-Lung nodules * * * * Physician Interpretation * * * * EXAMINATION: CHEST CT WITHOUT CONTRAST CLINICAL HISTORY: Lung nodules Technique: Spiral CT acquisition of the chest from the thoracic inlet to the upper abdomen without contrast. MQ: [id number] CT Dose-Length Product: 183 mGy*cm CT Dose Reduction Employed: mAs-kVp adjusted based on patient size-age Comparison: 03/21/2019 RESULT: Limitations: None. Lines, tubes, and devices: None. Lung parenchyma and pleura: There is a pleural-based noncalcified 8 mm nodule RIGHT lung base posteriorly image 146. In retrospect it is unchanged. There is a 2 mm noncalcified nodule in the RIGHT upper lobe anteriorly 99. Calcified nodule noted RIGHT upper lobe anteriorly image 111 Thoracic inlet, heart, and mediastinum: Calcified nodules in the RIGHT hilar region are noted No lymphadenopathy in the axillary, mediastinal, or hilar regions. Small pericardial effusion is again noted. Ascending aorta measures 4.4 cm similar to the previous study descending aorta measures 3.0 cm. This is also similar to the previous study Bones and soft tissues: No destructive bone lesion. Chest wall is unremarkable. Upper abdomen: No abnormality in the imaged upper abdomen. IMPRESSION: 1. There are 2 noncalcified nodules in the RIGHT lung the largest 8 mm are unchanged.Additional follow-up in one year recommended 2. Calcified nodule in the RIGHT lung and calcified RIGHT hilar lymph nodes. Probably due to previous granulomatous disease 3. Small pericardial effusion similar to the previous study Process Control Manager: RENEA Transcribe Date/Time: Sep 21 2019 4:24P Dictated by : IGOR NUNEZ DO This examination was interpreted and the report reviewed and electronically signed by: IGOR NUNEZ DO on Sep 21 2019 4:31PM EST [id number] CN [facility] OBSOLETEon 04-22-2019 OBSOLETE Refill (AKURFL) CAMILLA MCDERMOTT II ([id number]) 1945 M Date Time Provider Department 04/22/19 ROCHELLE STEIN During your visit today, we recorded the following information about you: Allergies As of Date: 04/22/2019 Noted Allergy Reaction Codeine [Other] 08/16/1998 14 - Other: See Comments Comments: 08/11/17: Sometimes makes patient jittery, but patient is not allergic. Patient requested for medication to be removed from allergy list. Darvon [Other] 08/16/1998 14 - Other: See Comments Comments: 08/11/17: Sometimes makes patient jittery, but patient is not allergic. Patient requested for medication to be removed from allergy list. Date Reviewed: 04/19/2019 Reviewed by: Tyree Rose - Fully Assessed Reason for Visit: Refill Request [94] Order(s):MYRBETRIQ 50 mg [id number] 1 TABLET BY MOUTH EVERY DAYDisp: 30 tabletRfl: 11 Prescriptions as of 04/22/2019 Sig: MYRBETRIQ 50 MG TABLET,EXTEND* TAKE 1 TABLET BY MOUTH EVERY * TOPIRAMATE 50 MG TABLET Take 1 tablet by mouth daily * TROSPIUM 20 MG TABLET Take 20 mg by mouth once viraj* DULOXETINE 30 MG CAPSULE,TUCKER* 2 capsules in the morning and* LAMOTRIGINE 25 MG TABLET Initiate Lamictal titration: * NAPROXEN 500 MG TABLET TAKE 1 TABLET BY MOUTH TWICE* ATORVASTATIN 40 MG TABLET TAKE 1 TABLET BY MOUTH ONCE D* OMEPRAZOLE 40 MG CAPSULE,TUCKER* TAKE 1 CAPSULE BY MOUTH ONCE* OXYBUTYNIN CHLORIDE ER 10 MG * Take 1 tablet by mouth once d* TAMSULOSIN 0.4 MG CAPSULE Take 1 capsule by mouth daily* AMLODIPINE 10 MG TABLET Take 1 tablet by mouth once d* METOPROLOL TARTRATE 100 MG TA* Take 1 tablet by mouth twice * INSULIN NPH ISOPHANE U-100 HU* Inject 28 Units before breakf* BLOOD SUGAR DIAGNOSTIC STRIPS USE INSTRUCTED TO TEST 3 T* LANCETS 33 GAUGE USE INSTRUCTED 3 TIMES DA* GLIPIZIDE 5 MG TABLET Take 2 tablets by mouth twice* IPRATROPIUM BROMIDE 42 MCG (0* Use 2 Sprays in the nose thre* METFORMIN 1,000 MG TABLET TAKE 1 TABLET BY MOUTH TWICE* DAILY PROBIOTIC ORAL Take 1 tablet by mouth once d* GLUCOSAMINE ORAL Take 1 tablet by mouth once d* BLOOD-GLUCOSE METER KIT Use to test glucose as direct* ALPHA LIPOIC ACID 600 MG CAPS* Take by mouth once daily. Jovan* PEN NEEDLE, DIABETIC 31 GAUGE* USE WITH INSULIN PENS/ BYETTA* NEEDLE (DISP) 31 GAUGE X 5/16 Use as directed with Lantus ASCORBIC ACID (VITAMIN C) 500* Take 500 mg by mouth once daniel* CALCIUM CARBONATE-VITAMIN D3 * Take 1 tablet by mouth twice * OMEGA-3 FATTY ACIDS 500 MG CA* Take 1,000 mg by mouth once d* THERAGRAN-M PREMIER 50 PLUS O* Take 1 tablet by mouth once d* E-400 ORAL Take 1 tablet by mouth once d* ASPIRIN 81 MG TABLET,DELAYED * Take 81 mg by mouth once viraj* Problem List As Of Date 04/22/2019 Noted Resolved Chest pain [786.5] INVALID FOR*07/27/2016 Class: Chronic Essential hypertension [I10] INVALID FOR* More... HYPERLIPIDEMIA NEC/NOS [E78.5] INVALID FOR* SARKAR'S 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] INVALID FOR* HEARING LOSS [389] INVALID FOR* Diabetes mellitus [250] INVALID FOR*05/09/2017 SENSORY HEARING LOSS [H90.3] INVALID FOR* Uncontrolled type 2 diabetes with neuropathy (H*INVALID FOR* More... Bunion [M21.619] INVALID FOR* Type 2 diabetes mellitus without complication, *INVALID FOR* HTN (hypertension) [I10] INVALID FOR*08/12/2017 Diabetic polyneuropathy associated with type 2 *INVALID FOR* Gait difficulty [R26.9] INVALID FOR* Disturbance of skin sensation [R20.9] INVALID FOR* Pain in both feet [M79.671, M79.672] INVALID FOR* Concern about neurological disease without diag*INVALID FOR* Mixed hyperlipidemia [E78.2] INVALID FOR* More... Neuropathy (HCC) [G62.9] INVALID FOR* Stroke syndrome (HCC) [XYQ5069] INVALID FOR* More... 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 Disc: Reason for discontinue is not on file. Encounter Status:Closed by ROCHELLE STEIN on 04/23/19 [facility] Lauren 04-16-2019 [facility] Office Visit ([place]) ZARACAMILLA DEY II ([id number]) 1945 M Date Time Provider Department 04/16/19 11:15 AM ROCHELLE STEIN During your visit today, we recorded the following information about you: Rochelle Stein PA-C 04/16/2019 12:24 PM Signed ESTABLISHED PATIENT OFFICE VISIT HISTORY OF PRESENT ILLNESS: Camilla Mcdermott II is a 73 year old male, There were no vitals taken for this visit. with a PMH significant for urgency, frequency. Pt has been on myrbetriq, tolerating it well and less urgency, frequency. Pt reports no side effects from the myrbetriq. pvr has improved. . LAB: Creatinine Date Value Ref Range Status 09/26/2018 1.35 (H) 0.73 - 1.22 mg/dL Final PSA Screening (ng/mL) Date Value 12/14/2016 0.97 Glucose, Urine (mg/dL) Date Value 01/21/2017 Negative Bilirubin, Urine (no units) Date Value 01/21/2017 Negative Ketones, Urine (no units) Date Value 01/21/2017 Negative Specific [place], Ur (no units) Date Value 01/21/2017 1.013 Hemoglobin/Blood,Ur ( ) Date Value 01/21/2017 Negative pH, Urine (no units) Date Value 01/21/2017 6.0 Protein, Urine (mg/dL) Date Value 01/21/2017 Negative Nitrites (no units) Date Value 01/21/2017 Negative WBC, Urine (/HPF) Date Value 01/21/2017 0-5 MEDICATIONS: topiramate (TOPAMAX) 50 mg tablet Take 1 tablet by mouth daily at bedtime. mirabegron (MYRBETRIQ) 50 mg Tb24 Take 1 tablet by mouth once daily. trospium (SANCTURA) 20 mg tablet Take 20 mg by mouth once daily. DULoxetine (CYMBALTA) 30 mg capsule 2 capsules in the morning and one capsule in the afternoon lamoTRIgine (LAMICTAL) 25 mg tablet Initiate Lamictal titration: take one 25mg tablet daily at bedtime for 2 weeks then take two 25mg tablets at bedtime and continue naproxen (NAPROSYN) 500 mg tablet TAKE 1 TABLET BY MOUTH TWICE A DAY WITH MEALS atorvastatin (LIPITOR) 40 mg tablet TAKE 1 TABLET BY MOUTH ONCE DAILY Omeprazole 40 mg capsule TAKE 1 CAPSULE BY MOUTH ONCE DAILY oxybutynin ER (DITROPAN XL) 10 mg 24 hr tablet Take 1 tablet by mouth once daily. tamsulosin ER (FLOMAX) 0.4 mg cap Take 1 capsule by mouth daily at bedtime. amLODIPine (NORVASC) 10 mg tablet Take 1 tablet by mouth once daily. metoprolol tartrate, short acting, (LOPRESSOR) 100 mg tablet Take 1 tablet by mouth twice daily. losartan (COZAAR) 100 mg tablet Take 1 tablet by mouth once daily. insulin NPH human (HUMULIN N NPH U-100 INSULIN) injection Inject 28 Units before breakfast and 30 Units before dinner. blood sugar diagnostic (C$ [employer] ULTRA BLUE TEST STRIP) test strip USE INSTRUCTED TO TEST 3 TIMES DAILY lancets (ONE TOUCH DELICA) 33 gauge misc USE INSTRUCTED 3 TIMES DAILY glipiZIDE (GLUCOTROL) 5 mg tablet Take 2 tablets by mouth twice daily before meals. ipratropium bromide (ATROVENT) 42 mcg (0.06 %) nasal spray Use 2 Sprays in the nose three times daily. metFORMIN (GLUCOPHAGE) 1,000 mg tablet TAKE 1 TABLET BY MOUTH TWICE A DAY WITH MEALS L. acidophilus/Bifid. animalis (DAILY PROBIOTIC ORAL) Take 1 tablet by mouth once daily. glucosamine sulfate (GLUCOSAMINE ORAL) Take 1 tablet by mouth once daily. Blood-Glucose Meter (C$ [employer]CH ULTRA2) monitoring kit Use to test glucose as directed. DX: E11.9 Alpha Lipoic Acid 600 mg cap Take by mouth once daily. Taking twice a day Insulin Colp, Disposable, (BD ULTRAFINE III MINI PEN) 31 gauge x 3/16 ndle USE WITH INSULIN PENS/ BYETTA PENS 3 TIMES DAILY needle, disp, 31 gauge 31 gauge x 5/16 ndle Use as directed with Lantus ascorbic acid, vitamin C, (VITAMIN C) 500 mg tablet Take 500 mg by mouth once daily. calcium carbonate-vitamin D3 600 mg(1,500mg) -800 unit tab Take 1 tablet by mouth twice daily. Merlin-3 Fatty Acids (FISH OIL) 500 mg cap Take 1,000 mg by mouth once daily. MV-MN/FA/COQ10/LYCOP URIAH/LUTEIN (THERAGRAN-M PREMIER 50 PLUS ORAL) Take 1 tablet by mouth once daily. VITAMIN E ACETATE (E-400 ORAL) Take 1 tablet by mouth once daily. aspirin, enteric coated (ASPIRIN, ENTERIC COATED) 81 mg EC tablet Take 81 mg by mouth once daily. Review of Systems HISTORIES PAST MEDICAL HISTORY Diagnosis Date - Cataracts, both eyes - Diabetes (HCC) 1984 - Diabetic neuropathy (HCC) - Dyslipidemia - High cholesterol - HTN (hypertension) - Moderate episode of recurrent major depressive disorder ([facility]) 12/13/2018 - Severe non-proliferative diabetic retinopathy (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 FAMILY HISTORY Problem Relation Age of Onset - Breast Cancer Mother Mother at age 62 - breast and brain CA - Glaucoma Mother I think so - Emphysema Father Father at age 78 - Heart disease, renal failure - Cancer Brother brain cancer - Cancer Maternal Grandmother - Glaucoma Maternal Grandmother I think so - Blindness Maternal Uncle - Diabetes Maternal Uncle - Amblyopia Grandchild - Strabismus Grandchild - Cataract No Family History - Detached Retina No Family History - Macular Degen No Family History Social History Tobacco Use - Smoking status: Never Smoker - Smokeless tobacco: Never Used Substance Use Topics - Alcohol use: No Comment: none - Drug use: No PHYSICAL EXAMINATION GENERAL APPEARANCE: Well appearing, alert, in no acute distress, well-hydrated, well nourished. ASSESSMENT/PLAN: 1. 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 Patient requested for medication to be removed from allergy list. Darvon [Other] 08/16/1998 14 - Other: See Comments Comments: 08/11/17: Sometimes makes patient jittery, but patient is not allergic. Patient requested for medication to be removed from allergy list. Date Reviewed: 04/16/2019 Reviewed by: Rochelle Stein - Fully Assessed Reason for Visit: Urinary Retention [228] Primary Visit Diagnosis:Benign prostatic hyperplasia with urinary retention [N40.1, R33.8] Other Visit Diagnosis:Urgency-fr equency syndrome [N32.81] Order(s):US MSR POST-VOID RESID URINE [[id number]] Order #: [id number] UA DIP, URINE (POC) [[id number]] Order #: [id number]. #:[id number] Prescriptions as of 04/16/2019 Sig: TOPIRAMATE 50 MG TABLET Take 1 tablet by mouth daily * MIRABEGRON ER 50 MG TABLET,EX* Take 1 tablet by mouth once d* TROSPIUM 20 MG TABLET Take 20 mg by mouth once viraj* DULOXETINE 30 MG CAPSULE,TUCKER* 2 capsules in the morning and* LAMOTRIGINE 25 MG TABLET Initiate Lamictal titration: * NAPROXEN 500 MG TABLET TAKE 1 TABLET BY MOUTH TWICE* ATORVASTATIN 40 MG TABLET TAKE 1 TABLET BY MOUTH ONCE D* OMEPRAZOLE 40 MG CAPSULE,TUCKER* TAKE 1 CAPSULE BY MOUTH ONCE* OXYBUTYNIN CHLORIDE ER 10 MG * Take 1 tablet by mouth once d* TAMSULOSIN 0.4 MG CAPSULE Take 1 capsule by mouth daily* AMLODIPINE 10 MG TABLET Take 1 tablet by mouth once d* METOPROLOL TARTRATE 100 MG TA* Take 1 tablet by mouth twice * LOSARTAN 100 MG TABLET Take 1 tablet by mouth once d* INSULIN NPH ISOPHANE U-100 HU* Inject 28 Units before breakf* BLOOD SUGAR DIAGNOSTIC STRIPS USE INSTRUCTED TO TEST 3 T* LANCETS 33 GAUGE USE INSTRUCTED 3 TIMES DA* GLIPIZIDE 5 MG TABLET Take 2 tablets by mouth twice* IPRATROPIUM BROMIDE 42 MCG (0* Use 2 Sprays in the nose thre* METFORMIN 1,000 MG TABLET TAKE 1 TABLET BY MOUTH TWICE* DAILY PROBIOTIC ORAL Take 1 tablet by mouth once d* GLUCOSAMINE ORAL Take 1 tablet by mouth once d* BLOOD-GLUCOSE METER KIT Use to test glucose as direct* ALPHA LIPOIC ACID 600 MG CAPS* Take by mouth once daily. Jovan* PEN NEEDLE, DIABETIC 31 GAUGE* USE WITH INSULIN PENS/ BYETTA* NEEDLE (DISP) 31 GAUGE X 5/16 Use as directed with Lantus ASCORBIC ACID (VITAMIN C) 500* Take 500 mg by mouth once daniel* CALCIUM CARBONATE-VITAMIN D3 * Take 1 tablet by mouth twice * OMEGA-3 FATTY ACIDS 500 MG CA* Take 1,000 mg by mouth once d* THERAGRAN-M PREMIER 50 PLUS O* Take 1 tablet by mouth once d* E-400 ORAL Take 1 tablet by mouth once d* ASPIRIN 81 MG TABLET,DELAYED * Take 81 mg by mouth once viraj* Problem List As Of Date 04/16/2019 Noted Resolved Chest pain [786.5] INVALID FOR*07/27/2016 Class: Chronic Essential hypertension [I10] INVALID FOR* More... HYPERLIPIDEMIA NEC/NOS [E78.5] INVALID FOR* SARKAR'S 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] INVALID FOR* HEARING LOSS [389] INVALID FOR* Diabetes mellitus [250] INVALID FOR*05/09/2017 SENSORY HEARING LOSS [H90.3] INVALID FOR* Uncontrolled type 2 diabetes with neuropathy (H*INVALID FOR* More... Bunion [M21.619] INVALID FOR* Type 2 diabetes mellitus without complication, *INVALID FOR* HTN (hypertension) [I10] INVALID FOR*08/12/2017 Diabetic polyneuropathy associated with type 2 *INVALID FOR* Gait difficulty [R26.9] INVALID FOR* Disturbance of skin sensation [R20.9] INVALID FOR* Pain in both feet [M79.671, M79.672] INVALID FOR* Concern about neurological disease without diag*INVALID FOR* Mixed hyperlipidemia [E78.2] INVALID FOR* More... Neuropathy (HCC) [G62.9] INVALID FOR* Stroke syndrome (HCC) [VSB9794] INVALID FOR* More... 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 Follow-up and Disposition History Recorded Encounter Status:Closed by ROCHELLE STEIN on 04/16/19 [facility] PROGRESSon 04-16-2019 PROGRESS HNO ID: [id number] Author: Rochelle Stein Service: ? Author Type: Physician Residential Collections Type: Progress Notes Filed: 04/16/2019 12:24 PM Note Text: ESTABLISHED PATIENT OFFICE VISIT HISTORY OF PRESENT ILLNESS: Camilla Mcdermott II is a 73 year old male, There were no vitals taken for this visit. with a PMH significant for urgency, frequency. Pt has been on myrbetriq, tolerating it well and less urgency, frequency. Pt reports no side effects from the myrbetriq. pvr has improved. . LAB: Creatinine Date Value Ref Range Status 09/26/2018 1.35 (H) 0.73 - 1.22 mg/dL Final PSA Screening (ng/mL) Date Value 12/14/2016 0.97 Glucose, Urine (mg/dL) Date Value 01/21/2017 Negative Bilirubin, Urine (no units) Date Value 01/21/2017 Negative Ketones, Urine (no units) Date Value 01/21/2017 Negative Specific [place], Ur (no units) Date Value 01/21/2017 1.013 Hemoglobin/Blood,Ur ( ) Date Value 01/21/2017 Negative pH, Urine (no units) Date Value 01/21/2017 6.0 Protein, Urine (mg/dL) Date Value 01/21/2017 Negative Nitrites (no units) Date Value 01/21/2017 Negative WBC, Urine (/HPF) Date Value 01/21/2017 0-5 MEDICATIONS: topiramate (TOPAMAX) 50 mg tablet Take 1 tablet by mouth daily at bedtime. mirabegron (MYRBETRIQ) 50 mg Tb24 Take 1 tablet by mouth once daily. trospium (SANCTURA) 20 mg tablet Take 20 mg by mouth once daily. DULoxetine (CYMBALTA) 30 mg capsule 2 capsules in the morning and one capsule in the afternoon lamoTRIgine (LAMICTAL) 25 mg tablet Initiate Lamictal titration: take one 25mg tablet daily at bedtime for 2 weeks then take two 25mg tablets at bedtime and continue naproxen (NAPROSYN) 500 mg tablet TAKE 1 TABLET BY MOUTH TWICE A DAY WITH MEALS atorvastatin (LIPITOR) 40 mg tablet TAKE 1 TABLET BY MOUTH ONCE DAILY Omeprazole 40 mg capsule TAKE 1 CAPSULE BY MOUTH ONCE DAILY oxybutynin ER (DITROPAN XL) 10 mg 24 hr tablet Take 1 tablet by mouth once daily. tamsulosin ER (FLOMAX) 0.4 mg cap Take 1 capsule by mouth daily at bedtime. amLODIPine (NORVASC) 10 mg tablet Take 1 tablet by mouth once daily. metoprolol tartrate, short acting, (LOPRESSOR) 100 mg tablet Take 1 tablet by mouth twice daily. losartan (COZAAR) 100 mg tablet Take 1 tablet by mouth once daily. insulin NPH human (HUMULIN N NPH U-100 INSULIN) injection Inject 28 Units before breakfast and 30 Units before dinner. blood sugar diagnostic (C$ cMoneyTOUCH ULTRA BLUE TEST STRIP) test strip USE INSTRUCTED TO TEST 3 TIMES DAILY lancets (ONE TOUCH DELICA) 33 gauge misc USE INSTRUCTED 3 TIMES DAILY glipiZIDE (GLUCOTROL) 5 mg tablet Take 2 tablets by mouth twice daily before meals. ipratropium bromide (ATROVENT) 42 mcg (0.06 %) nasal spray Use 2 Sprays in the nose three times daily. metFORMIN (GLUCOPHAGE) 1,000 mg tablet TAKE 1 TABLET BY MOUTH TWICE A DAY WITH MEALS L. acidophilus/Bifid. animalis (DAILY PROBIOTIC ORAL) Take 1 tablet by mouth once daily. glucosamine sulfate (GLUCOSAMINE ORAL) Take 1 tablet by mouth once daily. Blood-Glucose Meter (C$ cMoneyTOUCH ULTRA2) monitoring kit Use to test glucose as directed. DX: E11.9 Alpha Lipoic Acid 600 mg cap Take by mouth once daily. Taking twice a day Insulin Colp, Disposable, (BD ULTRAFINE III MINI PEN) 31 gauge x 3/16 ndle USE WITH INSULIN PENS/ BYETTA PENS 3 TIMES DAILY needle, disp, 31 gauge 31 gauge x 5/16 ndle Use as directed with Lantus ascorbic acid, vitamin C, (VITAMIN C) 500 mg tablet Take 500 mg by mouth once daily. calcium carbonate-vitamin D3 600 mg(1,500mg) -800 unit tab Take 1 tablet by mouth twice daily. Merlin-3 Fatty Acids (FISH OIL) 500 mg cap Take 1,000 mg by mouth once daily. MV-MN/FA/COQ10/LYCOP URIAH/LUTEIN (THERAGRAN-M PREMIER 50 PLUS ORAL) Take 1 tablet by mouth once daily. VITAMIN E ACETATE (E-400 ORAL) Take 1 tablet by mouth once daily. aspirin, enteric coated (ASPIRIN, ENTERIC COATED) 81 mg EC tablet Take 81 mg by mouth once daily. Review of Systems HISTORIES PAST MEDICAL HISTORY Diagnosis Date - Cataracts, both eyes - Diabetes (HCC) 1984 - Diabetic neuropathy (HCC) - Dyslipidemia - High cholesterol - HTN (hypertension) - Moderate episode of recurrent major depressive disorder (HCC) 12/13/2018 - Severe non-proliferative diabetic retinopathy (HCC) - Stroke (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 FAMILY HISTORY Problem Relation Age of Onset - Breast Cancer Mother Mother at age 62 - breast and brain CA - Glaucoma Mother I think so - Emphysema Father Father at age 78 - Heart disease, renal failure - Cancer Brother brain cancer - Cancer Maternal Grandmother - Glaucoma Maternal Grandmother I think so - Blindness Maternal Uncle - Diabetes Maternal Uncle - Amblyopia Grandchild - Strabismus Grandchild - Cataract No Family History - Detached Retina No Family History - Macular Degen No Family History Social History Tobacco Use - Smoking status: Never Smoker - Smokeless tobacco: Never Used Substance Use Topics - Alcohol use: No Comment: none - Drug use: No PHYSICAL EXAMINATION GENERAL APPEARANCE: Well appearing, alert, in no acute distress, well-hydrated, well nourished. ASSESSMENT/PLAN: 1. 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 Author Type: Physician Residential Collections Type: Progress Notes Filed: 03/27/2019 8:16 AM Note Text: ESTABLISHED PATIENT OFFICE VISIT HISTORY OF PRESENT ILLNESS: Camilla Mcdermott II is a 73 year old male, Ht 172.7 cm (5' 8) BMI 25.39 kg/m2 with a PMH significant for urgency, frequency. Pt has been on trospium 20mg twice daily for past month, now with elevated pvr. Pt was on tamsulosin and oxybutynin before the trospium, no improvement. Pt .voids urgently during the day and gets up every 2 hours at night to void. Today, pt has burning on voiding and straining to empty, slow stream. LAB: Creatinine Date Value Ref Range Status 09/26/2018 1.35 (H) 0.73 - 1.22 mg/dL Final PSA Screening (ng/mL) Date Value 12/14/2016 0.97 Glucose, Urine (mg/dL) Date Value 01/21/2017 Negative Bilirubin, Urine (no units) Date Value 01/21/2017 Negative Ketones, Urine (no units) Date Value 01/21/2017 Negative Specific [place], Ur (no units) Date Value 01/21/2017 1.013 Hemoglobin/Blood,Ur ( ) Date Value 01/21/2017 Negative pH, Urine (no units) Date Value 01/21/2017 6.0 Protein, Urine (mg/dL) Date Value 01/21/2017 Negative Nitrites (no units) Date Value 01/21/2017 Negative WBC, Urine (/HPF) Date Value 01/21/2017 0-5 MEDICATIONS: mirabegron (MYRBETRIQ) 50 mg Tb24 Take 1 tablet by mouth once daily. sulfamethoxazole-tri methoprim (BACTRIM DS) 800-160 mg per tablet Take 1 tablet by mouth twice daily for 7 days. trospium (SANCTURA) 20 mg tablet Take 20 mg by mouth once daily. DULoxetine (CYMBALTA) 30 mg capsule 2 capsules in the morning and one capsule in the afternoon lamoTRIgine (LAMICTAL) 25 mg tablet Initiate Lamictal titration: take one 25mg tablet daily at bedtime for 2 weeks then take two 25mg tablets at bedtime and continue naproxen (NAPROSYN) 500 mg tablet TAKE 1 TABLET BY MOUTH TWICE A DAY WITH MEALS atorvastatin (LIPITOR) 40 mg tablet TAKE 1 TABLET BY MOUTH ONCE DAILY Omeprazole 40 mg capsule TAKE 1 CAPSULE BY MOUTH ONCE DAILY oxybutynin ER (DITROPAN XL) 10 mg 24 hr tablet Take 1 tablet by mouth once daily. topiramate (TOPAMAX) 50 mg tablet Take 1 tablet by mouth daily at bedtime. tamsulosin ER (FLOMAX) 0.4 mg cap Take 1 capsule by mouth daily at bedtime. amLODIPine (NORVASC) 10 mg tablet Take 1 tablet by mouth once daily. metoprolol tartrate, short acting, (LOPRESSOR) 100 mg tablet Take 1 tablet by mouth twice daily. losartan (COZAAR) 100 mg tablet Take 1 tablet by mouth once daily. insulin NPH human (HUMULIN N NPH U-100 INSULIN) injection Inject 28 Units before breakfast and 30 Units before dinner. blood sugar diagnostic ([employer] ULTRA BLUE TEST STRIP) test strip USE INSTRUCTED TO TEST 3 TIMES DAILY lancets (ONE TOUCH DELICA) 33 gauge misc USE INSTRUCTED 3 TIMES DAILY glipiZIDE (GLUCOTROL) 5 mg tablet Take 2 tablets by mouth twice daily before meals. ipratropium bromide (ATROVENT) 42 mcg (0.06 %) nasal spray Use 2 Sprays in the nose three times daily. metFORMIN (GLUCOPHAGE) 1,000 mg tablet TAKE 1 TABLET BY MOUTH TWICE A DAY WITH MEALS L. acidophilus/Bifid. animalis (DAILY PROBIOTIC ORAL) Take 1 tablet by mouth once daily. glucosamine sulfate (GLUCOSAMINE ORAL) Take 1 tablet by mouth once daily. Blood-Glucose Meter (C$ [employer]MoneyTOUCH ULTRA2) monitoring kit Use to test glucose as directed. DX: E11.9 Alpha Lipoic Acid 600 mg cap Take by mouth once daily. Taking twice a day Insulin Colp, Disposable, (BD ULTRAFINE III MINI PEN) 31 gauge x 3/16 ndle USE WITH INSULIN PENS/ BYETTA PENS 3 TIMES DAILY needle, disp, 31 gauge 31 gauge x 5/16 ndle Use as directed with Lantus ascorbic acid, vitamin C, (VITAMIN C) 500 mg tablet Take 500 mg by mouth once daily. calcium carbonate-vitamin D3 600 mg(1,500mg) -800 unit tab Take 1 tablet by mouth twice daily. Merlin-3 Fatty Acids (FISH OIL) 500 mg cap Take 1,000 mg by mouth once daily. MV-MN/FA/COQ10/LYCOP URIAH/LUTEIN (THERAGRAN-M PREMIER 50 PLUS ORAL) Take 1 tablet by mouth once daily. VITAMIN E ACETATE (E-400 ORAL) Take 1 tablet by mouth once daily. aspirin, enteric coated (ASPIRIN, ENTERIC COATED) 81 mg EC tablet Take 81 mg by mouth once daily. Review of Systems Constitutional: Negative for chills, fatigue and fever. Respiratory: Negative for shortness of breath and wheezing. Gastrointestinal: Negative for abdominal pain, constipation, diarrhea and nausea. Genitourinary: See HPI Neurological: Negative for dizziness, light-headedness and headaches. Psychiatric/Behavior al: Negative for behavioral problems. The patient is not nervous/anxious. HISTORIES PAST MEDICAL HISTORY Diagnosis Date - Cataracts, both eyes - Diabetes (HCC) 1984 - Diabetic neuropathy (HCC) - Dyslipidemia - High cholesterol - HTN (hypertension) - Moderate episode of recurrent major depressive disorder ([facility]) 12/13/2018 - Severe non-proliferative diabetic retinopathy (HCC) - Stroke (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 FAMILY HISTORY Problem Relation Age of Onset - Breast Cancer Mother Mother at age 62 - breast and brain CA - Glaucoma Mother I think so - Emphysema Father Father at age 78 - Heart disease, renal failure - Cancer Brother brain cancer - Cancer Maternal Grandmother - Glaucoma Maternal Grandmother I think so - Blindness Maternal Uncle - Diabetes Maternal Uncle - Amblyopia Grandchild - Strabismus Grandchild - Cataract No Family History - Detached Retina No Family History - Macular Degen No Family History Social History Tobacco Use - Smoking status: Never Smoker - Smokeless tobacco: Never Used Substance Use Topics - Alcohol use: No Comment: none - Drug use: No PHYSICAL EXAMINATION GENERAL APPEARANCE: Well appearing, alert, in no acute distress, well-hydrated, well nourished. ASSESSMENT/PLAN: 1. Urinary tract infection without hematuria, site unspecified - ICD9: 599.0, ICD10: N39.0 (primary diagnosis) acute - US MSR POST-VOID RESID URINE - URINE CULTURE Bactrim 2. 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, ICD10: N32.81 myrbetriq D/c trospium causing elevated pvr Rochelle Stein PA-C [facility] CNOVon 03-26-2019 CNOV Office Visit (AKURFL) CAMILLA MCDERMOTT II ([id number]) 1945 M Date Time Provider Department 03/26/19 11:00 AM ROCHELLE STEIN) JORDEN During your visit today, we recorded the following information about you: Blood pressure Weight Height 134/80 75.8 kg 1.727 m Rochelle Stein PA-C 03/27/2019 8:16 AM Signed ESTABLISHED PATIENT OFFICE VISIT HISTORY OF PRESENT ILLNESS: Camilla Mcdermott II is a 73 year old male, Ht 172.7 cm (5' 8) BMI 25.39 kg/m2 with a PMH significant for urgency, frequency. Pt has been on trospium 20mg twice daily for past month, now with elevated pvr. Pt was on tamsulosin and oxybutynin before the trospium, no improvement. Pt .voids urgently during the day and gets up every 2 hours at night to void. Today, pt has burning on voiding and straining to empty, slow stream. LAB: Creatinine Date Value Ref Range Status 09/26/2018 1.35 (H) 0.73 - 1.22 mg/dL Final PSA Screening (ng/mL) Date Value 12/14/2016 0.97 Glucose, Urine (mg/dL) Date Value 01/21/2017 Negative Bilirubin, Urine (no units) Date Value 01/21/2017 Negative Ketones, Urine (no units) Date Value 01/21/2017 Negative Specific [place], Ur (no units) Date Value 01/21/2017 1.013 Hemoglobin/Blood,Ur ( ) Date Value 01/21/2017 Negative pH, Urine (no units) Date Value 01/21/2017 6.0 Protein, Urine (mg/dL) Date Value 01/21/2017 Negative Nitrites (no units) Date Value 01/21/2017 Negative WBC, Urine (/HPF) Date Value 01/21/2017 0-5 MEDICATIONS: mirabegron (MYRBETRIQ) 50 mg Tb24 Take 1 tablet by mouth once daily. sulfamethoxazole-tri methoprim (BACTRIM DS) 800-160 mg per tablet Take 1 tablet by mouth twice daily for 7 days. trospium (SANCTURA) 20 mg tablet Take 20 mg by mouth once daily. DULoxetine (CYMBALTA) 30 mg capsule 2 capsules in the morning and one capsule in the afternoon lamoTRIgine (LAMICTAL) 25 mg tablet Initiate Lamictal titration: take one 25mg tablet daily at bedtime for 2 weeks then take two 25mg tablets at bedtime and continue naproxen (NAPROSYN) 500 mg tablet TAKE 1 TABLET BY MOUTH TWICE A DAY WITH MEALS atorvastatin (LIPITOR) 40 mg tablet TAKE 1 TABLET BY MOUTH ONCE DAILY Omeprazole 40 mg capsule TAKE 1 CAPSULE BY MOUTH ONCE DAILY oxybutynin ER (DITROPAN XL) 10 mg 24 hr tablet Take 1 tablet by mouth once daily. topiramate (TOPAMAX) 50 mg tablet Take 1 tablet by mouth daily at bedtime. tamsulosin ER (FLOMAX) 0.4 mg cap Take 1 capsule by mouth daily at bedtime. amLODIPine (NORVASC) 10 mg tablet Take 1 tablet by mouth once daily. metoprolol tartrate, short acting, (LOPRESSOR) 100 mg tablet Take 1 tablet by mouth twice daily. losartan (COZAAR) 100 mg tablet Take 1 tablet by mouth once daily. insulin NPH human (HUMULIN N NPH U-100 INSULIN) injection Inject 28 Units before breakfast and 30 Units before dinner. blood sugar diagnostic ([employer] ULTRA BLUE TEST STRIP) test strip USE INSTRUCTED TO TEST 3 TIMES DAILY lancets (ONE TOUCH DELICA) 33 gauge misc USE INSTRUCTED 3 TIMES DAILY glipiZIDE (GLUCOTROL) 5 mg tablet Take 2 tablets by mouth twice daily before meals. ipratropium bromide (ATROVENT) 42 mcg (0.06 %) nasal spray Use 2 Sprays in the nose three times daily. metFORMIN (GLUCOPHAGE) 1,000 mg tablet TAKE 1 TABLET BY MOUTH TWICE A DAY WITH MEALS L. acidophilus/Bifid. animalis (DAILY PROBIOTIC ORAL) Take 1 tablet by mouth once daily. glucosamine sulfate (GLUCOSAMINE ORAL) Take 1 tablet by mouth once daily. Blood-Glucose Meter ([employer] ULTRA2) monitoring kit Use to test glucose as directed. DX: E11.9 Alpha Lipoic Acid 600 mg cap Take by mouth once daily. Taking twice a day Insulin Colp, Disposable, (BD ULTRAFINE III MINI PEN) 31 gauge x 3/16 ndle USE WITH INSULIN PENS/ BYETTA PENS 3 TIMES DAILY needle, disp, 31 gauge 31 gauge x 5/16 ndle Use as directed with Lantus ascorbic acid, vitamin C, (VITAMIN C) 500 mg tablet Take 500 mg by mouth once daily. calcium carbonate-vitamin D3 600 mg(1,500mg) -800 unit tab Take 1 tablet by mouth twice daily. Merlin-3 Fatty Acids (FISH OIL) 500 mg cap Take 1,000 mg by mouth once daily. MV-MN/FA/COQ10/LYCOP URIAH/LUTEIN (THERAGRAN-M PREMIER 50 PLUS ORAL) Take 1 tablet by mouth once daily. VITAMIN E ACETATE (E-400 ORAL) Take 1 tablet by mouth once daily. aspirin, enteric coated (ASPIRIN, ENTERIC COATED) 81 mg EC tablet Take 81 mg by mouth once daily. Review of Systems Constitutional: Negative for chills, fatigue and fever. Respiratory: Negative for shortness of breath and wheezing. Gastrointestinal: Negative for abdominal pain, constipation, diarrhea and nausea. Genitourinary: See HPI Neurological: Negative for dizziness, light-headedness and headaches. Psychiatric/Behavior al: Negative for behavioral problems. The patient is not nervous/anxious. HISTORIES PAST MEDICAL HISTORY Diagnosis Date - Cataracts, both eyes - Diabetes (HCC) 1984 - Diabetic neuropathy (HCC) - Dyslipidemia - High cholesterol - HTN (hypertension) - Moderate episode of recurrent major depressive disorder ([facility]) 12/13/2018 - Severe non-proliferative diabetic retinopathy (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 FAMILY HISTORY Problem Relation Age of Onset - Breast Cancer Mother Mother at age 62 - breast and brain CA - Glaucoma Mother I think so - Emphysema Father Father at age 78 - Heart disease, renal failure - Cancer Brother brain cancer - Cancer Maternal Grandmother - Glaucoma Maternal Grandmother I think so - Blindness Maternal Uncle - Diabetes Maternal Uncle - Amblyopia Grandchild - Strabismus Grandchild - Cataract No Family History - Detached Retina No Family History - Macular Degen No Family History Social History Tobacco Use - Smoking status: Never Smoker - Smokeless tobacco: Never Used Substance Use Topics - Alcohol use: No Comment: none - Drug use: No PHYSICAL EXAMINATION GENERAL APPEARANCE: Well appearing, alert, in no acute distress, well-hydrated, well nourished. ASSESSMENT/PLAN: 1. Urinary tract infection without hematuria, site unspecified - ICD9: 599.0, ICD10: N39.0 (primary diagnosis) acute - US MSR POST-VOID RESID URINE - URINE CULTURE Bactrim 2. 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 Patient requested for medication to be removed from allergy list. Darvon [Other] 08/16/1998 14 - Other: See Comments Comments: 08/11/17: Sometimes makes patient jittery, but patient is not allergic. Patient requested for medication to be removed from allergy list. Date Reviewed: 03/26/2019 Reviewed by: Rochelle Stein - Fully Assessed Reason for Visit: Urinary Incontinence [606] Dysuria [1085] Reason For Visit History Recorded Primary Visit Diagnosis:Urinary tract infection without hematuria, site unspecified [N39.0] Other Visit Diagnosis:Urgency-fr equency syndrome [N32.81] Order(s):US MSR POST-VOID RESID URINE [[id number]] Order #: [id number] UA DIP, URINE (POC) [[id number]] Order #: [id number]. #:[id number] URINE CULTURE [[facility]] Order #: [id number] mirabegron (MYRBETRIQ) 50 mg [id number] 1 tablet by mouth once daily.Disp: 30 tabletRfl: 0 sulfamethoxazole-tri methoprim (BACTRIM DS) 800-160 mg per tabletTake 1 tablet by mouth twice daily for 7 days.Disp: 14 tabletRfl: 0 Prescriptions as of 03/26/2019 Sig: MIRABEGRON ER 50 MG TABLET,EX* Take 1 tablet by mouth once d* SULFAMETHOXAZOLE 800 MG-TRIME* Take 1 tablet by mouth twice * TROSPIUM 20 MG TABLET Take 20 mg by mouth once viraj* DULOXETINE 30 MG CAPSULE,TUCKER* 2 capsules in the morning and* LAMOTRIGINE 25 MG TABLET Initiate Lamictal titration: * NAPROXEN 500 MG TABLET TAKE 1 TABLET BY MOUTH TWICE* ATORVASTATIN 40 MG TABLET TAKE 1 TABLET BY MOUTH ONCE D* OMEPRAZOLE 40 MG CAPSULE,TUCKER* TAKE 1 CAPSULE BY MOUTH ONCE* OXYBUTYNIN CHLORIDE ER 10 MG * Take 1 tablet by mouth once d* TOPIRAMATE 50 MG TABLET Take 1 tablet by mouth daily * TAMSULOSIN 0.4 MG CAPSULE Take 1 capsule by mouth daily* AMLODIPINE 10 MG TABLET Take 1 tablet by mouth once d* METOPROLOL TARTRATE 100 MG TA* Take 1 tablet by mouth twice * LOSARTAN 100 MG TABLET Take 1 tablet by mouth once d* INSULIN NPH ISOPHANE U-100 HU* Inject 28 Units before breakf* BLOOD SUGAR DIAGNOSTIC STRIPS USE INSTRUCTED TO TEST 3 T* LANCETS 33 GAUGE USE INSTRUCTED 3 TIMES DA* GLIPIZIDE 5 MG TABLET Take 2 tablets by mouth twice* IPRATROPIUM BROMIDE 42 MCG (0* Use 2 Sprays in the nose thre* METFORMIN 1,000 MG TABLET TAKE 1 TABLET BY MOUTH TWICE* DAILY PROBIOTIC ORAL Take 1 tablet by mouth once d* GLUCOSAMINE ORAL Take 1 tablet by mouth once d* BLOOD-GLUCOSE METER KIT Use to test glucose as direct* ALPHA LIPOIC ACID 600 MG CAPS* Take by mouth once daily. Jovan* PEN NEEDLE, DIABETIC 31 GAUGE* USE WITH INSULIN PENS/ BYETTA* NEEDLE (DISP) 31 GAUGE X 5/16 Use as directed with Lantus ASCORBIC ACID (VITAMIN C) 500* Take 500 mg by mouth once daniel* CALCIUM CARBONATE-VITAMIN D3 * Take 1 tablet by mouth twice * OMEGA-3 FATTY ACIDS 500 MG CA* Take 1,000 mg by mouth once d* THERAGRAN-M PREMIER 50 PLUS O* Take 1 tablet by mouth once d* E-400 ORAL Take 1 tablet by mouth once d* ASPIRIN 81 MG TABLET,DELAYED * Take 81 mg by mouth once viraj* Medication notes this encounter GLUCOSAMINE ORAL >> Rochelle Steni PA-C 03/27/2019 8:13 AM >> ROCHELLE STEIN TueMar 27, 2019 8:13 AM PEN NEEDLE, DIABETIC 31 GAUGE X 01/06 >> Rochelle Stein PA-C 03/27/2019 8:13 AM >> ROCHELLE STEIN Mar 27, 2019 8:13 AM ASCORBIC ACID (VITAMIN C) 500 MG TABLET >> Rochelle Stein PA-C 03/26/2019 11:16 AM >> ROCHELLE STEIN TueMar 26, 2019 11:16 AM E-400 ORAL >> Rochelle Stein PA-C 03/26/2019 11:16 AM >> ROCHELLE STEIN TueMar 26, 2019 11:16 AM Problem List As Of Date 03/26/2019 Noted Resolved Chest pain [786.5] INVALID FOR*07/27/2016 Class: Chronic Essential hypertension [I10] INVALID FOR* More... HYPERLIPIDEMIA NEC/NOS [E78.5] INVALID FOR* SARKAR'S 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] INVALID FOR* HEARING LOSS [389] INVALID FOR* Diabetes mellitus [250] INVALID FOR*05/09/2017 SENSORY HEARING LOSS [H90.3] INVALID FOR* Uncontrolled type 2 diabetes with neuropathy (H*INVALID FOR* More... Bunion [M21.619] INVALID FOR* Type 2 diabetes mellitus without complication, *INVALID FOR* HTN (hypertension) [I10] INVALID FOR*08/12/2017 Diabetic polyneuropathy associated with type 2 *INVALID FOR* Gait difficulty [R26.9] INVALID FOR* Disturbance of skin sensation [R20.9] INVALID FOR* Pain in both feet [M79.671, M79.672] INVALID FOR* Concern about neurological disease without diag*INVALID FOR* Mixed hyperlipidemia [E78.2] INVALID FOR* More... Neuropathy (HCC) [G62.9] INVALID FOR* Stroke syndrome (HCC) [RXB2332] INVALID FOR* More... Sciatica associated with disorder of lumbar spi*INVALID FOR* Lung nodule; 12/12; 1 cm; RLL; followed by pulmo*INVALID FOR* Moderate episode of recurrent major depressive *INVALID FOR* Oropharyngeal dysphagia; on barium swallow; see*INVALID FOR* 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] INVALID FOR* Prescriptions ordered this encounter Disp Refills Start End MIRABEGRON ER 50 MG TABLET,EXTENDED * 30 t* 0 03/26/2019 04/25/2019 Route: ORAL Sig: Take 1 tablet by mouth once daily. SULFAMETHOXAZOLE 800 MG-TRIMETHOPRIM* 14 t* 0 03/26/2019 04/02/2019 Route: ORAL Sig: Take 1 tablet by mouth twice daily for 7 days. Disposition: Return in about 3 weeks (around 04/16/2019) for pvr check. Follow-up and Disposition History Recorded Encounter Status:Closed by ROCHELLE STEIN on 03/27/19 [facility] ALLIED HEALTHon 03-21-2019 ALLIED HEALTH HNO ID: [id number] Author: DARINEL Hester (Ct) Service: ? Author Type: Clinical [employer] Program Associate Type: Allied Health Filed: 03/21/2019 1:46 PM Note Text: Radiology Service Progress Note PATIENT NAME: Camilla Mcdermott II DATE OF SERVICE: March 21, 2019 TIME: 1:46 PM PATIENT IDENTITY VERIFICATION COMPLETED USING TWO (2) METHODS: Patient confirmed name verbally and ID band matches.. PATIENT GENDER DATA: Male PATIENT RELEVANT IMPLANT DATA REVIEWED: Not Applicable RADIOLOGY DEPARTMENT: CT; Exam(s) Completed: Chest PERIPHERAL IV DATA: Not applicable SIGNED BY: DARINEL Hester March 21, 2019 1:46 PM [facility] CT CHEST WO IVCONon 03-21-[address] CHEST WO IVCON * * *Final Report* * * DATE OF EXAM: Mar 21 2019 1:49PM [place] 0541 - CT CHEST WO IVCON / PROCEDURE REASON: R91.8-Lung nodules * * * * Physician Interpretation * * * * EXAMINATION: CHEST CT WITHOUT CONTRAST CLINICAL HISTORY: Lung nodules Technique: Spiral CT acquisition of the chest from the thoracic inlet to the upper abdomen without contrast. MQ: [id number]_4 CT Dose-Length Product: 235 mGy*cm CT Dose Reduction Employed: mAs-kVp adjusted based on patient size-age Comparison: 11/27/2018 RESULT: Limitations: None. Lines, tubes, and devices: None. Lung parenchyma and pleura: There is a pleural-based noncalcified 8 mm nodule RIGHT lung base posteriorly image 161. In retrospect it is unchanged. There is a 2 mm noncalcified nodule in the RIGHT upper lobe anteriorly 105. Calcified nodule noted RIGHT upper lobe anteriorly image 116 Thoracic inlet, heart, and mediastinum: Calcified nodules in the RIGHT hilar region are noted No lymphadenopathy in the axillary, mediastinal, or hilar regions. Small pericardial effusion is again noted. Ascending aorta measures 4.4 cm similar to the previous study descending aorta measures 3.0 cm. This is also similar to the previous study Bones and soft tissues: No destructive bone lesion. Chest wall is unremarkable. Upper abdomen: No abnormality in the imaged upper abdomen. IMPRESSION: 1. There are 2 noncalcified nodules in the RIGHT lung the largest 8 mm are unchanged.Additional follow-up in one year recommended 2. Calcified nodule in the RIGHT lung and calcified RIGHT hilar lymph nodes. Probably due to previous granulomatous disease 3. Small pericardial effusion similar to the previous study Process Control Manager: RENEA Transcribe Date/Time: Mar 21 2019 4:02P Dictated by : IGOR NUNEZ DO This examination was interpreted and the report reviewed and electronically signed by: IGOR NUNEZ DO on Mar 21 2019 4:25PM EST [id number] [facility] CNTHERAPYon 01-17-2019 CNTHERAPY OT/PT/Speech Visit (SPEMDR) CAMILLA MCDERMOTT II ([id number]) 1945 M Date Time Provider Department 01/17/19 1:30 PM SPEECH MBS [facility] SPEMDR Date Time Provider Department Center 01/17/2019 1:30 PM [id number]*SPEMDR [facility] Reason for Visit: Speech Instrumental Swallow Eval [3660] Speech Discharge [3488] Primary Visit Diagnosis:Dysphagia, oropharyngeal phase [R13.12] Allergies As of Date: 01/17/2019 Noted Allergy Reaction Codeine [Other] 08/16/1998 14 - Other: See Comments Comments: 08/11/17: Sometimes makes patient jittery, but patient is not allergic. Patient requested for medication to be removed from allergy list. Darvon [Other] 08/16/1998 14 - Other: See Comments Comments: 08/11/17: Sometimes makes patient jittery, but patient is not allergic. Patient requested for medication to be removed from allergy list. Date Reviewed: 01/09/2019 Reviewed by: Isac [facility] Hospital[facility] Mokn - Fully Assessed Prescriptions as of 01/17/2019 Sig: TROSPIUM 20 MG TABLET Take 1 tablet by mouth twice * ARIPIPRAZOLE 2 MG TABLET Take 1 tablet by mouth once d* DULOXETINE 30 MG CAPSULE,TUCKER* 2 capsules in the morning and* TOPIRAMATE 50 MG TABLET Take 1 tablet by mouth daily * TAMSULOSIN 0.4 MG CAPSULE Take 1 capsule by mouth daily* AMLODIPINE 10 MG TABLET Take 1 tablet by mouth once d* ATORVASTATIN 40 MG TABLET Take 1 tablet by mouth once d* OMEPRAZOLE 40 MG CAPSULE,TUCKER* Take 1 capsule by mouth once * NAPROXEN 500 MG TABLET Take 1 tablet by mouth twice * METOPROLOL TARTRATE 100 MG TA* Take 1 tablet by mouth twice * LOSARTAN 100 MG TABLET Take 1 tablet by mouth once d* BUDESONIDE 180 MCG/ACTUATION * Inhale 2 Puffs as instructed * INSULIN NPH ISOPHANE U-100 HU* Inject 28 Units before breakf* BLOOD SUGAR DIAGNOSTIC STRIPS USE INSTRUCTED TO TEST 3 T* LANCETS 33 GAUGE USE INSTRUCTED 3 TIMES DA* GLIPIZIDE 5 MG TABLET Take 2 tablets by mouth twice* IPRATROPIUM BROMIDE 42 MCG (0* Use 2 Sprays in the nose thre* METFORMIN 1,000 MG TABLET TAKE 1 TABLET BY MOUTH TWICE* DAILY PROBIOTIC ORAL Take 1 tablet by mouth once d* GLUCOSAMINE ORAL Take 1 tablet by mouth once d* METRONIDAZOLE ORAL Take 1 tablet by mouth every * BLOOD-GLUCOSE METER KIT Use to test glucose as direct* ALPHA LIPOIC ACID 600 MG CAPS* Take by mouth once daily. Jovan* PEN NEEDLE, DIABETIC 31 GAUGE* USE WITH INSULIN PENS/ BYETTA* NEEDLE (DISP) 31 GAUGE X 5/16 Use as directed with Lantus ASCORBIC ACID (VITAMIN C) 500* Take 500 mg by mouth once daniel* CALCIUM CARBONATE-VITAMIN D3 * Take 1 tablet by mouth twice * OMEGA-3 FATTY ACIDS 500 MG CA* Take 1,000 mg by mouth once d* THERAGRAN-M PREMIER 50 PLUS O* Take 1 tablet by mouth once d* E-400 ORAL Take 1 tablet by mouth once d* ASPIRIN 81 MG TABLET,DELAYED * Take 81 mg by mouth once viraj* Progress Notes: Malou Mendoza CCC-MOTION STUDY ANALYST 01/17/2019 3:21 PM Signed Episode Visit Count: Visit count could not be calculated. Make sure you are using a visit which is associated with an episode. Start of Care Date: 01/17/19 Onset Date: 10/24/18 Patient Identified by Name and Date of : Yes [facility] MODIFIED BARIUM SWALLOW PLAN OF CARE: Impression / Recommendation: Based on MBS assessment performed on 01/17/2019, patient presents with min oropharyngeal phase dysphagia as characterized by findings below: - disorganized mastication with solid pieces of bolus un-chewed (edentulous) - intermittent flash penetration on thin liquids presentations; cleared upon completion of swallow - intermittent delayed hyolaryngeal excursion - narrowing within the pharyngeal-esophagea l segment which is inconsistently occurring AND does not appear to be impacting the movement of the bolus at this time - It is reasonable anticipated Patient will be able to tolerate Dysphagia level 3 - Mechanically Advanced with thin liquids without overt clinical sign or symptom of oral and/or pharyngeal difficulties and maintenance of hydration and nutrition Radiological Findings: RESULT: Findings: Moderate spurring along the anterior aspect of the mid and lower thoracic vertebral bodies No evidence of aspiration RECOMMENDATION: Diet Recommendations: Dysphagia Level 3 (Dysphagia Advanced);Thin liquids(MOIST ) Swallowing Precautions Recommendations: - Alternate bites and sips; -Anti-Reflux precautions; -Ensure heightened awareness to completion of the swallow; -Extended time between presentations; -Feed / Eat at a slow rate; -Limit Distractions; -Maintain an upright position 20-30 minutes following all oral intake; -Self-monitoring; -Sit upright 90 degrees for all PO; -Small Bite/Sip; -Use extra moistening agents MOTION STUDY ANALYST Recommendations: Diet;Swallowing Precautions - no further Speech therapy services recommended at this time Recommended Consults: GI(- endoscope schedlued for 01/19/2019 ) Goals for Modified Barium Swallow: created for 01/17/2019 only. The patient and Daughter will be able to demonstrate adequate return of knowledge of today's fluoroscopic assessment and recommendations to maximize overall safety with oral intake. (baseline = no knowledge). GOAL MET Assessment per SANDY Functional Communication Measure and treatment recommendations: Swallowing Level: LEVEL 6: Swallowing is safe, and the individual eats and drinks independently and may rarely require minimal cueing. The individual usually self-cues when difficulty occurs. May need to avoid specific food items (e.g. popcorn and nuts), or require additional time (due to dysphagia). SUBJECTIVE: Camilla Mcdermott II is a 73 year old male seen today for a Modified Barium Swallow (MBS) Study. - accompanied to testing by Daughter - Wendie Reason for Consult: Pt and Daughter indicate chronic cough several years - Pt indicate food gets stuck - Daughter note cough then sneezes - current medication for reflux PMHx: CVA, dementia, hearing deficit OBJECTIVE: MEASURES WITH LEVEL OF FUNCTION: Instrumental Swallow Assessment Type: Modified Barium Swallow Study Modified Barium Swallow Views: Lateral position MBS Consistencies Tested: Thin Barium Liquids;Pudding Thick Barium Liquids;[place] Thick Barium Liquids;Puree With Barium Paste;Soft Solid With Barium Paste;Solid With Barium Paste Oral Phase: Lip Closure: No labial escape/anterior loss of bolus Tongue Control During Bolus Hold: Cohesive bolus between tongue to palatal seal Bolus Preparation/Masticat ion: Disorganized mastication with solid pieces of bolus unchewed Bolus Transport/Lingual Motion: Brisk tongue motion for A-P movement of the bolus Oral Residue: Trace residue lining oral structures Initiation Of Pharyngeal Swallow: Bolus head at vallecular pit Pharyngeal Phase: Soft Palate Elevation: No bolus between soft palate/pharyngeal wall Laryngeal Elevation: Partial superior movement of thyroid cartilage and/or partial approximation of arytenoids to epiglottic petiole Anterior Hyoid Excursion: Partial anterior movement(- intermittent ) Epiglottic Movement: Complete inversion Laryngeal Vestibular Closure/Height of the Swallow: Complete - no air/contrast in laryngeal vestibule Pharyngeal Stripping Wave: Complete Pharyngoesophageal Segment Opening: Partial distension/partial duration with partial obstruction of flow of bolus Tongue Base Retraction: No bolus between tongue base and posterior pharyngeal wall Pharyngeal Residue: Complete pharyngeal clearance Esophageal Clearance In An Upright Position: Complete clearance Penetration: During the swallow Penetration With: Thin Liquids(- intermittent) Penetration/Aspirati on Scale: 2-Material enters the airway, remains above the vocal folds, and is ejected from the airway Education: Education Learning Preferences: Demonstration;Explan ation;Printed Materials;Performanc e Barriers: Hearing Deficit Learning/Educational Needs: Compensatory Strategies;Diet Modification(s);Fami ly Education/Training;P recautions;Rehabilit ation Techniques and Procedures;Safety Education Provided: Yes, see treatment interventions for education provided Education Provided To: Patient;Other: See Comment(Daughter ) Education Mode/Type: Demonstration;Explan ation/Discussion;Lit erature/Printed Materials;Performanc e;Teach Back;Video Response to Education/Teach Back: States/Identifies;Re turn Demonstration TREATMENT: Performed Modified Barium Swallowing Study (75070). Evaluation: Modified Barium Swallow Evaluation (56874) Swallow / Dysphagia (73788): Skilled Intervention: - Provided education related to a typical swallowing mechanism in a compare and contrast manner compared to this patient's current skill set. - Educated and advised patient / caregiver on texture and liquid consistency recommendations; recall via Teach Back - Instructed patient / caregiver on recommended compensatory strategies to maximize safety with oral intake while maintaining nutrition, hydration and medication stability; recall via Teach Back - Demonstrated, instructed, modeled and provided educational handout(s) for dry mouth characteristics/educ ation, texture recommendations, safe swallow precautions - video review AND education regarding findings from today's MBSS study AND suggested plans for treatment were provided to the Patient/Daughter through verbal instructions, images AND demo, recall via Teach Back Education regarding findings from today's Modified Barium Swallowing study (fluoroscopic study) and suggested plans for treatment were provided to the Patient/Daughter through verbal / written instruction, images and/or demonstration. Patient/Daughter was able to demonstrate understanding of education provided this date. Billing: Modified Barium Swallow (68003) and Dysphagia Treatment (63197) Total time: 45 minutes Malou Mendoza CCC-MOTION STUDY ANALYST Letter Text [facility] PROGRESSon 01-17-2019 PROGRESS HNO ID: [id number] Author: Malou (Supervisor Bonding) Reji Service: ? Author Type: Speech Language Pathologist Type: Progress Notes Filed: 01/17/2019 3:21 PM Note Text: Episode Visit Count: Visit count could not be calculated. Make sure you are using a visit which is associated with an episode. Start of Care Date: 01/17/19 Onset Date: 10/24/18 Patient Identified by Name and Date of : Yes [facility] MODIFIED BARIUM SWALLOW PLAN OF CARE: Impression / Recommendation: Based on MBS assessment performed on 01/17/2019, patient presents with min oropharyngeal phase dysphagia as characterized by findings below: - disorganized mastication with solid pieces of bolus un-chewed (edentulous) - intermittent flash penetration on thin liquids presentations; cleared upon completion of swallow - intermittent delayed hyolaryngeal excursion - narrowing within the pharyngeal-esophagea l segment which is inconsistently occurring AND does not appear to be impacting the movement of the bolus at this time - It is reasonable anticipated Patient will be able to tolerate Dysphagia level 3 - Mechanically Advanced with thin liquids without overt clinical sign or symptom of oral and/or pharyngeal difficulties and maintenance of hydration and nutrition Radiological Findings: RESULT: Findings: Moderate spurring along the anterior aspect of the mid and lower thoracic vertebral bodies No evidence of aspiration RECOMMENDATION: Diet Recommendations: Dysphagia Level 3 (Dysphagia Advanced);Thin liquids(MOIST ) Swallowing Precautions Recommendations: - Alternate bites and sips; -Anti-Reflux precautions; -Ensure heightened awareness to completion of the swallow; -Extended time between presentations; -Feed / Eat at a slow rate; -Limit Distractions; -Maintain an upright position 20-30 minutes following all oral intake; -Self-monitoring; -Sit upright 90 degrees for all PO; -Small Bite/Sip; -Use extra moistening agents MOTION STUDY ANALYST Recommendations: Diet;Swallowing Precautions - no further Speech therapy services recommended at this time Recommended Consults: GI(- endoscope schedlued for 01/19/2019 ) Goals for Modified Barium Swallow: created for 01/17/2019 only. The patient and Daughter will be able to demonstrate adequate return of knowledge of today's fluoroscopic assessment and recommendations to maximize overall safety with oral intake. (baseline = no knowledge). GOAL MET Assessment per SANDY Functional Communication Measure and treatment recommendations: Swallowing Level: LEVEL 6: Swallowing is safe, and the individual eats and drinks independently and may rarely require minimal cueing. The individual usually self-cues when difficulty occurs. May need to avoid specific food items (e.g. popcorn and nuts), or require additional time (due to dysphagia). SUBJECTIVE: Camilla Mcdermott II is a 73 year old male seen today for a Modified Barium Swallow (MBS) Study. - accompanied to testing by Daughter - Wendie Reason for Consult: Pt and Daughter indicate chronic cough several years - Pt indicate food gets stuck - Daughter note cough then sneezes - current medication for reflux PMHx: CVA, dementia, hearing deficit OBJECTIVE: MEASURES WITH LEVEL OF FUNCTION: Instrumental Swallow Assessment Type: Modified Barium Swallow Study Modified Barium Swallow Views: Lateral position MBS Consistencies Tested: Thin Barium Liquids;Pudding Thick Barium Liquids;[place] Thick Barium Liquids;Puree With Barium Paste;Soft Solid With Barium Paste;Solid With Barium Paste Oral Phase: Lip Closure: No labial escape/anterior loss of bolus Tongue Control During Bolus Hold: Cohesive bolus between tongue to palatal seal Bolus Preparation/Masticat ion: Disorganized mastication with solid pieces of bolus unchewed Bolus Transport/Lingual Motion: Brisk tongue motion for A-P movement of the bolus Oral Residue: Trace residue lining oral structures Initiation Of Pharyngeal Swallow: Bolus head at vallecular pit Pharyngeal Phase: Soft Palate Elevation: No bolus between soft palate/pharyngeal wall Laryngeal Elevation: Partial superior movement of thyroid cartilage and/or partial approximation of arytenoids to epiglottic petiole Anterior Hyoid Excursion: Partial anterior movement(- intermittent ) Epiglottic Movement: Complete inversion Laryngeal Vestibular Closure/Height of the Swallow: Complete - no air/contrast in laryngeal vestibule Pharyngeal Stripping Wave: Complete Pharyngoesophageal Segment Opening: Partial distension/partial duration with partial obstruction of flow of bolus Tongue Base Retraction: No bolus between tongue base and posterior pharyngeal wall Pharyngeal Residue: Complete pharyngeal clearance Esophageal Clearance In An Upright Position: Complete clearance Penetration: During the swallow Penetration With: Thin Liquids(- intermittent) Penetration/Aspirati on Scale: 2-Material enters the airway, remains above the vocal folds, and is ejected from the airway Education: Education Learning Preferences: Demonstration;Explan ation;Printed Materials;Performanc e Barriers: Hearing Deficit Learning/Educational Needs: Compensatory Strategies;Diet Modification(s);Fami ly Education/Training;P recautions;Rehabilit ation Techniques and Procedures;Safety Education Provided: Yes, see treatment interventions for education provided Education Provided To: Patient;Other: See Comment(Daughter ) Education Mode/Type: Demonstration;Explan ation/Discussion;Lit erature/Printed Materials;Performanc e;Teach Back;Video Response to Education/Teach Back: States/Identifies;Re turn Demonstration TREATMENT: Performed Modified Barium Swallowing Study (09817). Evaluation: Modified Barium Swallow Evaluation (62179) Swallow / Dysphagia (77992): Skilled Intervention: - Provided education related to a typical swallowing mechanism in a compare and contrast manner compared to this patient's current skill set. - Educated and advised patient / caregiver on texture and liquid consistency recommendations; recall via Teach Back - Instructed patient / caregiver on recommended compensatory strategies to maximize safety with oral intake while maintaining nutrition, hydration and medication stability; recall via Teach Back - Demonstrated, instructed, modeled and provided educational handout(s) for dry mouth characteristics/educ ation, texture recommendations, safe swallow precautions - video review AND education regarding findings from today's MBSS study AND suggested plans for treatment were provided to the Patient/Daughter through verbal instructions, images AND demo, recall via Teach Back Education regarding findings from today's Modified Barium Swallowing study (fluoroscopic study) and suggested plans for treatment were provided to the Patient/Daughter through verbal / written instruction, images and/or demonstration. Patient/Daughter was able to demonstrate understanding of education provided this date. Billing: Modified Barium Swallow (40295) and Dysphagia Treatment (50517) Total time: 45 minutes Malou Mendoza CCC-MOTION STUDY ANALYST [facility] XR MOD BARIUM SWALLOW W JUAN ANTONIO Kincaid 01-17-2019 XR MOD BARIUM SWALLOW W SPEECH * * *Final Report* * * DATE OF EXAM: Jan 17 2019 2:08PM MDX 5377 - XR MOD BARIUM SWALLOW W SPEECH / PROCEDURE REASON: T17.908A-Aspiration into airway, initial encounter * * * * Physician Interpretation * * * * Videoesophagus HISTORY: Indication: Aspiration into airway, initial encounter TECHNIQUE: The examination was monitored by the speech pathologist. The patient was given different consistencies of barium and barium-coated foods to swallow. Fluoroscopic Radiation Summary: Plane A, Air Kerma: 3.0 mGy Dose Area Product (DAP): 673.0 mGy*cmS2 Fluoro time: 1:56 min:sec Images obtained: 10 Cineflouroscopy images under fluoroscopic guidance. Images were stored in a permanent archive Images obtained: Multiple spot film images under fluoroscopic guidance. Comparison: NONE. RESULT: Findings: Moderate spurring along the anterior aspect of the mid and lower thoracic vertebral bodies No evidence of aspiration Impression: 1. No evidence of aspiration 2. See Speech and Hearing therapist report for further evaluation Process Control Manager: RENEA Transcribe Date/Time: Jan 17 2019 2:31P Dictated by : IGOR NUNEZ DO This examination was interpreted and the report reviewed and electronically signed by: IGOR NUNEZ DO on Jan 17 2019 2:32PM EST [id number] [facility] PET/CT SKULL-THIGH INITon 12-19-2018 [place] PET/CT SKULL-THIGH INIT * * *Final Report* * * DATE OF EXAM: Dec 19 2018 1:25PM MDP 0060 - NM PET/CT SKULL-THIGH INIT / PROCEDURE REASON: R91.8-Lung nodules * * * * Physician Interpretation * * * * WHOLE (OR REGIONAL) BODY PET-CT SCAN CLINICAL HISTORY: Lymphoma. INDICATION: Initial treatment strategy. TECHNIQUE: PET-CT scan: Approximately 60 minutes following the IV administration of F-18 FDG (9.9 mCi of F-18 FDG), PET and non contrast CT images were acquired from the skull base through proximal thigh. PET images were reconstructed with and without attenuation correction using attenuation coefficients. The blood glucose level before FDG injection is 100 mg/dL CT Radiation dose: Integrated Dose-length product (DLP) for this visit = 256 mGy*cm. CT Dose Reduction Employed: Automatic exposure control used (AED) COMPARISON: FDG PET-CT: None CORRELATION: CT of the chest, 11/27/2018 RESULTS: Head and Neck: No evidence of focal uptake to suggest FDG avid neoplastic process. Subcentimeter cervical lymph nodes with minimal FDG uptake, likely benign. Chest: No evidence of focal uptake to suggest FDG avid neoplastic process. Small right hilar lymph nodes with mild FDG uptake of max SUV 3.2, probably reactive in nature or active granuloma disease. Calcified granuloma is noted in the right hilar, right lung. The right lower lobe nodule demonstrating no significant FDG uptake, probably benign. Follow-up is recommended. Abdomen and Pelvis: No evidence of focal uptake to suggest FDG avid neoplastic process. Colonic diverticulosis. Extremities/Skeleton : No evidence of focal uptake to suggest FDG avid neoplastic process. No significant anatomical abnormality to the limits of low dose noncontrast CT scan. IMPRESSION: 1. HEAD and NECK: No evidence of focal uptake to suggest FDG avid neoplastic process.. 2. CHEST: No evidence of focal uptake to suggest FDG avid neoplastic process. The lung nodule is not FDG avid, probably benign. Follow-up is recommended. 3. ABDOMEN/PELVIS: No evidence of focal uptake to suggest FDG avid neoplastic process.. 4. EXTREMITIES/SKELETON : No evidence of focal uptake to suggest FDG avid neoplastic process.. Process Control Manager: RENEA Transcribe Date/Time: Dec 19 2018 3:18P Dictated by : LENORE VENTURA MD This examination was interpreted and the report reviewed and electronically signed by: LENORE VENTURA MD on Dec 19 2018 3:41PM EST [id number] [facility] PROGRESSon 12-19-2018 PROGRESS HNO ID: [id number] Author: Yolanda Lay [facility] Service: (none) Author Type: (none) Type: Progress Notes Filed: 12/19/2018 12:16 PM Note Text: RADIOLOGY SERVICE PROGRESS NOTE SERVICE DATE: 12/19/2018 SERVICE TIME: 12:15 PM PATIENT IDENTITY VERIFICATION COMPLETED USING TWO (2) METHODS: Patient confirmed name and Date of verbally. PATIENT GENDER DATA: .male ALLERGIES: Reviewed and unchanged MEDICATIONS REVIEWED: Not applicable PATIENT RELEVANT IMPLANT DATA REVIEWED: Not Applicable CREATININE: Creatinine Date Value Ref Range Status 09/26/2018 1.35 (H) 0.73 - 1.22 mg/dL Final 05/24/2018 1.09 0.73 - 1.22 mg/dL Final 08/12/2017 1.03 0.70 - 1.40 mg/dL Final eGFR-All Other Races Date Value Ref Range Status 09/26/2018 52 . Final Comment: eGFR (Estimated GFR) Units of measure: mL/min/1.73 meters squared eGFR is derived from the reexpressed MDRD Study equation using the following parameters: serum creatinine, age, gender and race. The creatinine assay has been calibrated to be traceable to IDMS. An eGFR <60 mL/min/1.73m2 for >3 months is consistent with chronic kidney disease. Refer to KDOQI guidelines for clinical interpretation. In patients with unstable renal function, e.g. those with acute kidney injury, the eGFR may not accurately reflect actual GFR. eGFR- Date Value Ref Range Status 09/26/2018 >60 Final P.O.C.T. RESULTS: N/A December 19, [address] PERFORMED: No IV SITE: Ambulatory: A peripheral IV was started in the Right antecubital site with a Angio cath: 22 gauge. POST EXAM PIV STATUS: Discontinued PROCEDURE TYPE: NM INJECT: PET/CT BODY SCAN. 9.9 mCi F18 FDG. No other medications given.. ADMINISTRATION TIME: 1155 PATIENT DISCHARGED TO: Ambulatory patient, left NM department area. A Diagnostic radioactive procedure has taken place, with no further precautions necessary other than routine body substance precautions. More information regarding radiation safety can be found using this link: [email or web address] SIGNATURE: Yolanda Lay [facility] PATIENT NAME: Camilla Mcdermott II DATE: December 19, 2018 TIME: 12:15 PM PAGER/CONTACT #: Normal [facility] CT CHEST WO IVCONon 11-27-[address] CHEST WO IVCON * * *Final Report* * * DATE OF EXAM: Nov 27 2018 6:59PM [place] 0541 - CT CHEST WO IVCON / PROCEDURE REASON: R06.02-Shortness of breath * * * * Physician Interpretation * * * * EXAMINATION: CHEST CT WITHOUT CONTRAST Indication: Shortness of breath, chronic cough Technique: Spiral CT acquisition of the chest from the thoracic inlet to the upper abdomen without contrast. M: [id number] CT Dose-Length Product: 157 mGy*cm CT Dose Reduction Employed: mAs-kVp adjusted based on patient size-age Comparison: None RESULT: Lines, tubes, and devices: none Lung parenchyma and pleura: 1 cm subpleural nodule is seen in the right lower lobe image 153. No other lung masses are noted. Couple right lung calcified granulomas are noted. No infiltrate, pleural effusion, or pneumothorax. Central airways are grossly patent. Thoracic inlet, heart, and mediastinum: No axillary adenopathy. Calcified mediastinal and right hilar lymph nodes are seen. Atherosclerotic calcifications in the thoracic aorta which is normal in caliber. There are coronary artery calcifications. Heart is normal in size with small sliver of pericardial fluid. Bones and soft tissues: There are degenerative thoracic spine changes. Status post kyphoplasty at L1 where there is a compression deformity. Upper abdomen: Couple punctate stones at the visualized upper pole right kidney IMPRESSION: 1. Solitary 1 cm subpleural nodule right lower lobe is nonspecific. Neoplastic etiology is in the differential. At a minimum, [address] chest follow-up is recommended. ([employer] staff message sent to ordering physician). 2. Granulomatous calcifications. 3. Small sliver of pericardial fluid. 4. Right nephrolithiasis. Process Control Manager: PSCB Transcribe Date/Time: Nov 28 2018 8:44A Dictated by : YOBANY RIBERA MD This examination was interpreted and the report reviewed and electronically signed by: YOBANY RIBERA MD on Nov 28 2018 8:53AM EST [id number] [facility] HEALTH 09-18-2017 ALLIED HEALTH HNO ID: [id number]: Robert Umaña (Tech)Service: RadiologyAuthor Type: TechnicianType: Allied HealthFiled: 09/18/2017 10:35 AMNote Text: Radiology Service Progress NotePATIENT NAME: Camilla Mcdermott IIMRN: [id number] OF SERVICE: September 18, 2017TIME: 10:09 AMPATIENT IDENTITY VERIFICATION COMPLETED USING TWO (2) METHODS: Patientconfirmed name verbally, Date of and Family member confirmed nameverbally.PATIENT GENDER DATA: MalePATIENT RELEVANT IMPLANT DATA REVIEWED: YesRADIOLOGY DEPARTMENT: MR; Exam(s) Completed: Head: Routine Brain+ADNI / VolumesPERIPHERAL IV DATA: Not applicableSIGNED BY: Abhishek CERRATO(R)MRNovember 2016 10:09 AM [facility] MRI 3D POST PROCESSINGon MRI 3D POST PROCESSING * * *Final Report * * *DATE OF EXAM: Sep 18 2017 10:35AM [facility] 0280 - MRI 3D POST PROCESSING / REASON: Other amnesia * * * * Physician Interpretation * * * * MRI BRAIN WO IVCON, MRI 3D POST PROCESSINGHISTORY: Other amnesia, not otherwise specifiedCOMPARISON: Head CT 08/11/2017 for dizziness, unremarkable. Head CT 09/08/2016 for headache and trauma, unremarkable.TECHNIQ UE: Specialized brain MRI without contrast, using the ADNI dementia protocol and 3-D post-processing at an independent workstation under physician supervision using the [employer] software.RESULT:QUAL ITATIVE:Acute Intracranial Process: There is a small focus of restricted diffusion in the right aspect of the genu of the splenium, with concordant T2/FLAIR hyperintensity, no hemorrhage. The size of this focus has a cross-section of about 5-7 mm maximal..Chronic Ischemic Change: There are 2 definitive lacunae, are dominant in the white matter near the left caudate head, anterior external capsule, and in the posterior left lenticular nucleus. There is cortical encephalomalacia and gliosis involving the anterior right temporal lobe, with several small foci of susceptibility effect, could represent a remote traumatic injury. No other abnormality is identified to suggest other traumatic focus. These changes are superimposed on a mild-moderate burden for age of other nonspecific White matter change, possibly representing the sequela of chronic small vessel ischemia.Age related white matter changes ([facility]) rating:White matter lesions: 2Basal ganglia lesions: 1Prior parenchymal hemorrhage and location: 2 small chronic microhemorrhages associated with encephalomalacia of right anterior temporal lobe.Qualitative brain and hippocampal volume: There is mild cortical volume loss in view of the mild enlargement of the cortical sulci. There is mild central white matter volume loss in view of the mild enlargement of the ventricular system. There is mild hippocampal volume loss relative to the parenchymal volume loss elsewhere based on visual inspection. There is only mild volume loss of the midbrain and sosa, with minimal vermian volume loss.Ventricles: Proportionate to mild central volume lossBrain Parenchymal Signal and Morphology: The brain parenchyma is otherwise within normal limits of signal and morphology. There is no evidence of an intracranial mass or extraaxial fluid collection.Other: The paranasal sinuses are grossly clear. Remaining visualized extracranial soft tissues and osseus structures are unremarkable..QUANTI TATIVE:Exam Quality: Adequate for volumetric analysis of hippocampi. There are segmentation error is involving the right anterior temporal lobe in the region of encephalomalacia, and mild segmentation error is involving periventricular white matter signal abnormality.Hippocam pusTotal hippocampal volume (cc): 5.95 Percentile for similar age: 16thLateral ventricular volume (cc): 55.70 Percentile for similar age: 87thInferior lateral vent volume (cc): 4.71 Percentile for similar age: 99thDetailed Hippocampal VolumesLeft Hippocampal (cc): 3.07Left Hippocampal %ICV: 0.20Right Hippocampal (cc): 2.88Right Hippocampal %ICV: 0.18Hippocampal Asymmetry Index: 6.18Quantitative conclusions: Hippocampi: Trend for small volume Lateral Ventricle Volume: Trend for large volume Temporal Horn Volume: High Volume Conclusions: Pattern of volume loss suggest trend towards abnormal hippocampal volume loss, and could support early degenerative disease such as Alzheimer's. Quantitated imaging of other portions of the brain show only mild reduced whole brain volumes, without suspicious pattern.Cortical valentine matter volume:Left Cortical GM (cc): 224.53Left Cortical GM %ICV: 14.35Right Cortical GM (cc): 222.50Right Cortical GM%ICV: 14.22Cortical GM Asymmetry Index: 0.19Concordance between qualitative and quantitative hippocampal volume assessment: Concordant.Change in brain volumes: No previous volumetric study for comparisonMean hippocampal volume loss among normal elderly: 0.7% per year, (-0.3 to 1.7; Soumya 2008; also Gallo 2010).IMPRESSION:1. SMALL ACUTE INFARCTION INVOLVING RIGHT GENU OF THE CORPUS CALLOSUM2. SEVERAL OTHER WHITE MATTER LACUNAE, AND MILD-MODERATE NONSPECIFIC WHITE MATTER CHANGE3. REMOTE ENCEPHALOMALACIA AND GLIOSIS AT ANTERIOR RIGHT TEMPORAL LOBE, WITH 2 FOCI OF SUSCEPTIBILITY EFFECT, MAY REPRESENT REMOTE TRAUMATIC INJURY4. TREND TOWARDS ABNORMAL HIPPOCAMPAL VOLUME LOSS. OTHERWISE UNREMARKABLE BRAIN VOLUMESREFERENCES: White matter lesions0 No lesions (including symmetrical, well-defined caps or bands)1 Focal lesions2 Beginning of confluence3 Diffuse involvement of entire region Basal ganglia lesions0 No lesions1 1 focal lesion ( > 5 mm)2 >1 focal lesion3 Confluent lesionsGallo Gomez et al. The clinical use of structural MRI in Alzheimer disease. Nature Reviews Neurology 6;67 (2010).Soumya et al. Validation of a fully automated 3D hippocampal segmentation method using subjects with Alzheimer's disease mild cognitive impairment, and elderly controls. Neuroimage 43;59 (2008).Oneil et al. A New Rating Scale for Age-Related White Matter Changes Applicable to MRI and CT. Stroke. 32:1318 (2001).* Asymmetry index defined as difference between left and right volumes divided by mean (%). Age-matched reference charts measure total hippocampal volume (% of intracranial volume). See results from the analysis charts for details.Transcriptio nist: PSCB Transcribe Date/Time: Sep 18 2017 10:47ADictated by : KYAW MATA MDThis examination was interpreted and the report reviewed and electronically signed by: KYAW MATA MD on Sep 18 2017 11:33AM [id number] Normal [facility] MRI BRAIN WO IVCONon 017 MRI BRAIN WO IVCON * * *Final Report* * *DATE OF EXAM: Sep 18 2017 10:35AM [facility] 0294 - MRI BRAIN WO IVCON / REASON: Other amnesia * * * * Physician Interpretation * * * * MRI BRAIN WO IVCON, MRI 3D POST PROCESSINGHISTORY: Other amnesia, not otherwise specifiedCOMPARISON: Head CT 08/11/2017 for dizziness, unremarkable. Head CT 09/08/2016 for headache and trauma, unremarkable.TECHNIQ UE: Specialized brain MRI without contrast, using the ADNI dementia protocol and 3-D post-processing at an independent workstation under physician supervision using the [employer] software.RESULT:QUAL ITATIVE:Acute Intracranial Process: There is a small focus of restricted diffusion in the right aspect of the genu of the splenium, with concordant T2/FLAIR hyperintensity, no hemorrhage. The size of this focus has a cross-section of about 5-7 mm maximal..Chronic Ischemic Change: There are 2 definitive lacunae, are dominant in the white matter near the left caudate head, anterior external capsule, and in the posterior left lenticular nucleus. There is cortical encephalomalacia and gliosis involving the anterior right temporal lobe, with several small foci of susceptibility effect, could represent a remote traumatic injury. No other abnormality is identified to suggest other traumatic focus. These changes are superimposed on a mild-moderate burden for age of other nonspecific White matter change, possibly representing the sequela of chronic small vessel ischemia.Age related white matter changes (ARWMC) rating:White matter lesions: 2Basal ganglia lesions: 1Prior parenchymal hemorrhage and location: 2 small chronic microhemorrhages associated with encephalomalacia of right anterior temporal lobe.Qualitative brain and hippocampal volume: There is mild cortical volume loss in view of the mild enlargement of the cortical sulci. There is mild central white matter volume loss in view of the mild enlargement of the ventricular system. There is mild hippocampal volume loss relative to the parenchymal volume loss elsewhere based on visual inspection. There is only mild volume loss of the midbrain and sosa, with minimal vermian volume loss.Ventricles: Proportionate to mild central volume lossBrain Parenchymal Signal and Morphology: The brain parenchyma is otherwise within normal limits of signal and morphology. There is no evidence of an intracranial mass or extraaxial fluid collection.Other: The paranasal sinuses are grossly clear. Remaining visualized extracranial soft tissues and osseus structures are unremarkable..QUANTI TATIVE:Exam Quality: Adequate for volumetric analysis of hippocampi. There are segmentation error is involving the right anterior temporal lobe in the region of encephalomalacia, and mild segmentation error is involving periventricular white matter signal abnormality.[facility] pusTotal hippocampal volume (cc): 5.95 Percentile for similar age: 16thLateral ventricular volume (cc): 55.70 Percentile for similar age: 87thInferior lateral vent volume (cc): 4.71 Percentile for similar age: 99thDetailed Hippocampal VolumesLeft Hippocampal (cc): 3.07Left Hippocampal %ICV: 0.20Right Hippocampal (cc): 2.88Right Hippocampal %ICV: 0.18Hippocampal Asymmetry Index: 6.18Quantitative conclusions: Hippocampi: Trend for small volume Lateral Ventricle Volume: Trend for large volume Temporal Horn Volume: High Volume Conclusions: Pattern of volume loss suggest trend towards abnormal hippocampal volume loss, and could support early degenerative disease such as Alzheimer's. Quantitated imaging of other portions of the brain show only mild reduced whole brain volumes, without suspicious pattern.Cortical valentine matter volume:Left Cortical GM (cc): 224.53Left Cortical GM %ICV: 14.35Right Cortical GM (cc): 222.50Right Cortical GM%ICV: 14.22Cortical GM Asymmetry Index: 0.19Concordance between qualitative and quantitative hippocampal volume assessment: Concordant.Change in brain volumes: No previous volumetric study for comparisonMean hippocampal volume loss among normal elderly: 0.7% per year, (-0.3 to 1.7; Soumya 2008; also Gallo 2010).IMPRESSION:1. SMALL ACUTE INFARCTION INVOLVING RIGHT GENU OF THE CORPUS CALLOSUM2. SEVERAL OTHER WHITE MATTER LACUNAE, AND MILD-MODERATE NONSPECIFIC WHITE MATTER CHANGE3. REMOTE ENCEPHALOMALACIA AND GLIOSIS AT ANTERIOR RIGHT TEMPORAL LOBE, WITH 2 FOCI OF SUSCEPTIBILITY EFFECT, MAY REPRESENT REMOTE TRAUMATIC INJURY4. TREND TOWARDS ABNORMAL HIPPOCAMPAL VOLUME LOSS. OTHERWISE UNREMARKABLE BRAIN VOLUMESREFERENCES: White matter lesions0 No lesions (including symmetrical, well-defined caps or bands)1 Focal lesions2 Beginning of confluence3 Diffuse involvement of entire region Basal ganglia lesions0 No lesions1 1 focal lesion ( > 5 mm)2 >1 focal lesion3 Confluent lesionsGallo Gomez, et al. The clinical use of structural MRI in Alzheimer disease. Nature Reviews Neurology 6;67 (2010).Soumya et al. Validation of a fully automated 3D hippocampal segmentation method using subjects with Alzheimer's disease mild cognitive impairment, and elderly controls. Neuroimage 43;59 (2008).Oneil et al. A New Rating Scale for Age-Related White Matter Changes Applicable to MRI and CT. Stroke. 32:1318 (2001).* Asymmetry index defined as difference between left and right volumes divided by mean (%). Age-matched reference charts measure total hippocampal volume (% of intracranial volume). See results from the analysis charts for details.Transcriptio nist: PSCB Transcribe Date/Time: Sep 18 2017 10:47ADictated by : KYAW MATA MDThis examination was interpreted and the report reviewed and electronically signed by: KAYW MATA MD on Sep 18 2017 11:33AM [id number] Normal [facility] Vital Signs Date Time Vital Sign Value Performing Clinician Facility 03-01-2025 15:15-0400 Diastolic blood pressure 84 mm[Hg] Curt Crowell MD Work Phone: [facility] 03-01-2025 15:15-0400 Heart rate 72 /min Curt Crowell MD Work Phone: [facility] 03-01-2025 15:15-0400 Systolic blood pressure 142 mm[Hg] Curt Crowell MD Work Phone: [facility] 02-20-2025 14:47-0400 Body height 172.7 cm Eric Christian MD Work Phone: [facility] 02-20-2025 14:47-0400 Body mass index (BMI) [Ratio] 24.63 kg/m2 Eric Christian MD Work Phone: [facility] 02-20-2025 14:47-0400 Body weight 73.48 kg Eric Christian MD Work Phone: [facility] 02-05-2025 14:39-0400 Body height 172.7 cm Rachell Eliasheideshiam COMMERCIAL CLEANER - EXCEPTIONAL 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 Work Phone: [facility] 02-05-2025 14:39-0400 Body mass index (BMI) [Ratio] 24.63 kg/m2 Rachell Herrera COMMERCIAL CLEANER - EXCEPTIONAL 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 Work Phone: [facility] 02-05-2025 14:39-0400 Body weight 73.48 kg Rachell Freemangs COMMERCIAL CLEANER - EXCEPTIONAL 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 Work Phone: [facility] 02-05-2025 14:39-0400 Diastolic blood pressure 90 mm[Hg] Rachell Eliasheideshima COMMERCIAL CLEANER - EXCEPTIONAL 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 Work Phone: [facility] 02-05-2025 14:39-0400 Heart rate 72 /min Rachell Eliasheideshima COMMERCIAL CLEANER - EXCEPTIONAL 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 Work Phone: [facility] 02-05-2025 14:39-0400 Systolic blood pressure 144 mm[Hg] Rachell Curtopal COMMERCIAL CLEANER - EXCEPTIONAL 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 Work Phone: [facility] 01-31-2025 14:15-0400 Body height 172.7 cm Efren Tidwell MD Work Phone: [facility] 01-31-2025 14:15-0400 Body mass index (BMI) [Ratio] 24.75 kg/m2 Efren Tidwell MD Work Phone: [facility] 01-31-2025 14:15-0400 Body temperature 97.11 [degF] Efren Tidwell MD Work Phone: [facility] 01-31-2025 14:15-0400 Body weight 73.85 kg Efren Tidwell MD Work Phone: [facility] 01-31-2025 14:15-0400 Diastolic blood pressure 71 mm[Hg] Efren Tidwell MD Work Phone: [facility] 01-31-2025 14:15-0400 Heart rate 64 /min Efren Tidwell MD Work Phone: [facility] 01-31-2025 14:15-0400 SaO2% (BldA) [Mass fraction] 96 % Efren Tidwell MD Work Phone: [facility] 01-31-2025 14:15-0400 Systolic blood pressure 132 mm[Hg] Efren Tidwell MD Work Phone: [facility] 01-17-2025 14:19-0400 Body height 172.[address] Efren Tidwell MD Work Phone: [facility] 01-17-2025 14:19-0400 Body mass index (BMI) [Ratio] 24.6 kg/m2 Dr. Efren Tidwell MD Work Phone: [facility] 01-17-2025 14:19-0400 Body weight 73.[address] Efren Tidwell MD Work Phone: [facility] 01-17-2025 14:19-0400 Diastolic blood pressure 66 mm[Hg] Dr. Efren Tidwell MD Work Phone: [facility] 01-17-2025 14:19-0400 Heart rate 71 /min Dr. Efren Tidwell MD Work Phone: [facility] 01-17-2025 14:19-0400 SaO2% (BldA) [Mass fraction] 97 % Dr. Efren Tidwell MD Work Phone: [facility] 01-17-2025 14:19-0400 Systolic blood pressure 110 mm[Hg] Dr. Efren Tidwell MD Work Phone: [facility] 10-30-2024 08:16-0500 Body height 172.7 cm Rochelle Szalkowski PA-C Work Phone: [facility] 10-30-2024 08:16-0500 Body mass index (BMI) [Ratio] 23.99 kg/m2 Rochelle Szalkowski PA-C Work Phone: [facility] 10-30-2024 08:16-0500 Body temperature 97.81 [degF] Rochelle Szalkowski PA-C Work Phone: [facility] 10-30-2024 08:16-0500 Body weight 71.58 kg Rochelle Szalkowski PA-C Work Phone: [facility] 10-30-2024 08:16-0500 Diastolic blood pressure 78 mm[Hg] Rochelle Szalkowski PA-C Work Phone: [facility] 10-30-2024 08:16-0500 Heart rate 91 /min Rochelle Szalkowski PA-C Work Phone: [facility] 10-30-2024 08:16-0500 SaO2% (BldA) [Mass fraction] 98 % Rochelle Szalkowski PA-C Work Phone: [facility] 10-30-2024 08:16-0500 Systolic blood pressure 130 mm[Hg] Rochelle Szalkowski PA-C Work Phone: [facility] 09-14-2024 09:46-0500 Body height 172.7 cm Dion Gutierrez MD Work Phone: [facility] 09-14-2024 09:46-0500 Body mass index (BMI) [Ratio] 24.63 kg/m2 Dion Gutierrez MD Work Phone: [facility] 09-14-2024 09:46-0500 Body weight 73.48 kg Dion Gutierrez MD Work Phone: [facility] 09-14-2024 09:46-0500 Diastolic blood pressure 94 mm[Hg] Dion Gutierrez MD Work Phone: [facility] 09-14-2024 09:46-0500 Heart rate 80 /min Dion Gutierrez MD Work Phone: [facility] 09-14-2024 09:46-0500 SaO2% (BldA) [Mass fraction] 95 % Dion Gutierrez MD Work Phone: [facility] 09-14-2024 09:46-0500 Systolic blood pressure 140 mm[Hg] Dion Gutierrez MD Work Phone: [facility] 04-30-2024 14:38-0400 Diastolic blood pressure 79 mm[Hg] Dion Gutierrez MD Work Phone: [facility] 04-30-2024 14:38-0400 Heart rate 73 /min Dion Gutierrez MD Work Phone: [facility] 04-30-2024 14:38-0400 Respiratory rate 18 /min Dion Gutierrez MD Work Phone: [facility] 04-30-2024 14:38-0400 SaO2% (BldA) [Mass fraction] 95 % Dion Gutierrez MD Work Phone: [facility] 04-30-2024 14:38-0400 Systolic blood pressure 136 mm[Hg] Dion Gutierrez MD Work Phone: [facility] 04-17-2024 08:16-0400 Body height 172.7 cm Susan Courtney CNP Work Phone: [facility] 04-17-2024 08:16-0400 Body mass index (BMI) [Ratio] 25.54 kg/m2 Susan Matt COMMERCIAL CLEANER - EXCEPTIONAL 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 Work Phone: [facility] 04-17-2024 08:16-0400 Body weight 76.2 kg Susan Matt COMMERCIAL CLEANER - EXCEPTIONAL 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 Work Phone: [facility] 04-17-2024 08:16-0400 Diastolic blood pressure 70 mm[Hg] Susan Matt COMMERCIAL CLEANER - EXCEPTIONAL 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 Work Phone: [facility] 04-17-2024 08:16-0400 Heart rate 75 /min Susan Matt COMMERCIAL CLEANER - EXCEPTIONAL 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 Work Phone: [facility] 04-17-2024 08:16-0400 Systolic blood pressure 134 mm[Hg] Susan Matt COMMERCIAL CLEANER - EXCEPTIONAL 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 Work Phone: [facility] 02-21-2024 14:41-0400 Diastolic blood pressure 70 mm[Hg] Efren Tidwell MD Work Phone: [facility] 02-21-2024 14:41-0400 Systolic blood pressure 158 mm[Hg] Efren Tidwell MD Work Phone: [facility] 02-21-2024 14:01-0400 Body height 172.7 cm Efren Tidwell MD Work Phone: [facility] 02-21-2024 14:01-0400 Body mass index (BMI) [Ratio] 25.16 kg/m2 Efren Tidwell MD Work Phone: [facility] 02-21-2024 14:01-0400 Body temperature 96.8 [degF] Efren Tidwell MD Work Phone: [facility] 02-21-2024 14:01-0400 Body weight 75.07 kg Efren Tidwell MD Work Phone: [facility] 02-21-2024 14:01-0400 Heart rate 72 /min Efren Tidwell MD Work Phone: [facility] 02-21-2024 14:01-0400 SaO2% (BldA) [Mass fraction] 94 % Efren Tidwell MD Work Phone: [facility] 01-27-2024 12:20-0400 Diastolic blood pressure 80 mm[Hg] Dion Gutierrez MD Work Phone: [facility] 01-27-2024 12:20-0400 Heart rate 68 /min Dion Gutierrez MD Work Phone: [facility] 01-27-2024 12:20-0400 SaO2% (BldA) [Mass fraction] 96 % Dion Gutierrez MD Work Phone: [facility] 01-27-2024 12:20-0400 Systolic blood pressure 150 mm[Hg] Dion Gutierrez MD Work Phone: [facility] 01-27-2024 12:08-0400 Body height 172.7 cm Dion Gutierrez MD Work Phone: [facility] 01-27-2024 12:08-0400 Body mass index (BMI) [Ratio] 25.15 kg/m2 Dion Gutierrez MD Work Phone: [facility] 01-27-2024 12:08-0400 Body weight 75.03 kg Dion Gutierrez MD Work Phone: [facility] 01-27-2024 12:08-0400 Respiratory rate 16 /min Dion Gutierrez MD Work Phone: [facility] 01-16-2024 13:07-0400 Body height 172.7 cm Judy Whittington COMMERCIAL CLEANER - EXCEPTIONAL 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 Work Phone: [facility] 01-16-2024 13:07-0400 Body mass index (BMI) [Ratio] 24.78 kg/m2 Judy Whittington COMMERCIAL CLEANER - EXCEPTIONAL 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 Work Phone: [facility] 01-16-2024 13:07-0400 Body weight 73.94 kg Judy Whittington COMMERCIAL CLEANER - EXCEPTIONAL 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 Work Phone: [facility] 01-16-2024 13:07-0400 Diastolic blood pressure 80 mm[Hg] Judy Whittington COMMERCIAL CLEANER - EXCEPTIONAL 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 Work Phone: [facility] 01-16-2024 13:07-0400 Heart rate 70 /min Judy Whittington COMMERCIAL CLEANER - EXCEPTIONAL 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 Work Phone: [facility] 01-16-2024 13:07-0400 Systolic blood pressure 130 mm[Hg] Judy Whittington COMMERCIAL CLEANER - EXCEPTIONAL 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 Work Phone: [facility] 01-08-2024 12:10-0400 Body height 172.7 cm Jeff See MD Work Phone: [facility] 01-08-2024 12:10-0400 Body mass index (BMI) [Ratio] 24.33 kg/m2 Jeff See MD Work Phone: [facility] 01-08-2024 12:10-0400 Body weight 72.58 kg Jeff See MD Work Phone: [facility] 01-08-2024 08:47-0400 Body temperature 97.2 [degF] Jeff See MD Work Phone: [facility] 01-08-2024 08:47-0400 Diastolic blood pressure 76 mm[Hg] Jeff See MD Work Phone: [facility] 01-08-2024 08:47-0400 Heart rate 65 /min Jeff See MD Work Phone: [facility] 01-08-2024 08:47-0400 Respiratory rate 16 /min Jeff See MD Work Phone: [facility] 01-08-2024 08:47-0400 SaO2% (BldA) [Mass fraction] 93 % Jeff See MD Work Phone: [facility] 01-08-2024 08:47-0400 Systolic blood pressure 124 mm[Hg] Jeff See MD Work Phone: [facility] 10-04-2023 16:05-0500 Diastolic blood pressure 62 mm[Hg] Efren Tidwell MD Work Phone: [facility] 10-04-2023 16:05-0500 Systolic blood pressure 106 mm[Hg] Efren Tidwell MD Work Phone: [facility] 10-04-2023 15:56-0500 Body height 172.7 cm Efren Tidwell MD Work Phone: [facility] 10-04-2023 15:56-0500 Body mass index (BMI) [Ratio] 24.33 kg/m2 Efren Tidwell MD Work Phone: [facility] 10-04-2023 15:56-0500 Body temperature 98.01 [degF] Efren Tidwell MD Work Phone: [facility] 10-04-2023 15:56-0500 Body weight 72.58 kg Efren Tidwell MD Work Phone: [facility] 10-04-2023 15:56-0500 Heart rate 95 /min Efren Tidwell MD Work Phone: [facility] 10-04-2023 15:56-0500 SaO2% (BldA) [Mass fraction] 95 % Efren Tidwell MD Work Phone: [facility] 11-11-2022 13:49-0500 Body height 172.7 cm Hiawatha Heindel DO Work Phone: [facility] 11-11-2022 13:49-0500 Body mass index (BMI) [Ratio] 25.39 kg/m2 Hiawatha Heindel DO Work Phone: [facility] 11-11-2022 13:49-0500 Body weight 75.75 kg Hiawatha Heindel DO Work Phone: [facility] 11-11-2022 13:49-0500 Diastolic blood pressure 61 mm[Hg] Hiawatha Heindel DO Work Phone: [facility] 11-11-2022 13:49-0500 Heart rate 70 /min Hiawatha Heindel DO Work Phone: [facility] 11-11-2022 13:49-0500 Systolic blood pressure 99 mm[Hg] Hiawatha Heindel DO Work Phone: [facility] 11-09-2022 13:38-0500 Body height 172.7 cm Judy Whittington COMMERCIAL CLEANER - EXCEPTIONAL 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 Work Phone: [facility] 11-09-2022 13:38-0500 Body mass index (BMI) [Ratio] 25.5 kg/m2 Judy Whittington COMMERCIAL CLEANER - EXCEPTIONAL 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 Work Phone: [facility] 11-09-2022 13:38-0500 Body weight 76.07 kg Judy Whittington COMMERCIAL CLEANER - EXCEPTIONAL 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 Work Phone: [facility] 11-09-2022 13:38-0500 Diastolic blood pressure 61 mm[Hg] Judy Whittington COMMERCIAL CLEANER - EXCEPTIONAL 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 Work Phone: [facility] 11-09-2022 13:38-0500 Heart rate 77 /min Judy Whittington APRN - EXCEPTIONAL 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 Work Phone: [facility] 11-09-2022 13:38-0500 Systolic blood pressure 107 mm[Hg] Judy Whittington COMMERCIAL CLEANER - EXCEPTIONAL 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 Work Phone: [facility] 11-09-2022 09:06-0500 Body height 167.6 cm Efren Tidwell MD Work Phone: [facility] 11-09-2022 09:06-0500 Body mass index (BMI) [Ratio] 26.94 kg/m2 Efren Tidwell MD Work Phone: [facility] 11-09-2022 09:06-0500 Body weight 75.7 kg Efren Tidwell MD Work Phone: [facility] 11-09-2022 09:06-0500 Diastolic blood pressure 60 mm[Hg] Efren Tidwell MD Work Phone: [facility] 11-09-2022 09:06-0500 Heart rate 74 /min Efren Tidwell MD Work Phone: [facility] 11-09-2022 09:06-0500 SaO2% (BldA) [Mass fraction] 94 % Efren Tidwell MD Work Phone: [facility] 11-09-2022 09:06-0500 Systolic blood pressure 112 mm[Hg] Efren Tidwell MD Work Phone: [facility] 03-08-2022 11:32-0400 Body temperature 98.6 [degF] Day Garg MD Work Phone: [facility] 03-08-2022 11:32-0400 Diastolic blood pressure 60 mm[Hg] Day Garg MD Work Phone: [facility] 03-08-2022 11:32-0400 Heart rate 54 /min Day Garg MD Work Phone: [facility] 03-08-2022 11:32-0400 Respiratory rate 14 /min Day Garg MD Work Phone: [facility] 03-08-2022 11:32-0400 SaO2% (BldA) [Mass fraction] 98 % Day Garg MD Work Phone: [facility] 03-08-2022 11:32-0400 Systolic blood pressure 106 mm[Hg] Day Garg MD Work Phone: [facility] 03-08-2022 09:55-0400 Body height 169.5 cm Day Garg MD Work Phone: [facility] 03-08-2022 09:55-0400 Body mass index (BMI) [Ratio] 25.88 kg/m2 Day Garg MD Work Phone: [facility] 03-08-2022 09:55-0400 Body weight 74.39 kg Day Garg MD Work Phone: [facility] 03-01-2022 15:14-0400 Body height 169.5 cm Day Garg MD Work Phone: [facility] 03-01-2022 15:14-0400 Body mass index (BMI) [Ratio] 25.88 kg/m2 Day Garg MD Work Phone: [facility] 03-01-2022 15:14-0400 Body temperature 98.29 [degF] Day Garg MD Work Phone: [facility] 03-01-2022 15:14-0400 Body weight 74.39 kg Day Garg MD Work Phone: [facility] 03-01-2022 15:14-0400 Diastolic blood pressure 62 mm[Hg] Day Garg MD Work Phone: [facility] 03-01-2022 15:14-0400 Heart rate 67 /min Day Garg MD Work Phone: [facility] 03-01-2022 15:14-0400 Respiratory rate 16 /min Day Garg MD Work Phone: [facility] 03-01-2022 15:14-0400 SaO2% (BldA) [Mass fraction] 97 % Day Garg MD Work Phone: [facility] 03-01-2022 15:14-0400 Systolic blood pressure 120 mm[Hg] Day Garg MD Work Phone: [facility] 01-21-2022 15:14-0400 Diastolic blood pressure 65 mm[Hg] Jes Yuossef MD Work Phone: [facility] 01-21-2022 15:14-0400 Heart rate 62 /min Jes Youssef MD Work Phone: [facility] 01-21-2022 15:14-0400 Respiratory rate 14 /min Jes Youssef MD Work Phone: [facility] 01-21-2022 15:14-0400 SaO2% (BldA) [Mass fraction] 96 % Jes Youssef MD Work Phone: [facility] 01-21-2022 15:14-0400 Systolic blood pressure 120 mm[Hg] Jes Youssef MD Work Phone: [facility] 01-21-2022 13:44-0400 Body temperature 97.3 [degF] Jes Youssef MD Work Phone: [facility] 01-21-2022 13:35-0400 Body height 172.7 cm Jes Youssef MD Work Phone: [facility] 01-21-2022 13:35-0400 Body mass index (BMI) [Ratio] 25.09 kg/m2 Jes Youssef MD Work Phone: [facility] 01-21-2022 13:35-0400 Body weight 74.84 kg Jes Youssef MD Work Phone: [facility] 10-24-2020 23:19-0500 BP Diastolic 83 mm[Hg] [facility] [employer] [place] 10-24-2020 23:19-0500 BP Systolic 146 mm[Hg] [facility] [employer] [place] 10-24-2020 23:19-0500 Pulse (Heart Rate) 74 /min [facility] [place] 10-24-2020 23:19-0500 Pulse Oximetry 96 % [facility] [employer] [place] 10-24-2020 23:19-0500 Respiratory Rate 16 /min [facility] [employer] [place] 10-24-2020 21:54-0500 Body Temperature 97.7 [degF] [facility] [place] Encounters Encounter Date Encounter Type Care Provider Facility Start: 04-02-2025 End: 04-05-2025 Refill Judy Whittington COMMERCIAL CLEANER - EXCEPTIONAL 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 Work Phone: [facility] Endocrinology [facility] Comment on above: Type 2 diabetes sy itus with hyperglycemia, with long-term current use of insulin (HCC) Start: 03-27-2025 End: 04-04-2025 Telephone encounter Efren Tidwell MD Work Phone: [facility] Comment on above: Other (Home health r eport ) Start: 03-25-2025 End: 03-27-2025 ambulatory Megan Matos RN [facility] Clinical Communication Start: 03-25-2025 End: 03-27-2025 Patient encounter procedure Megan Matos RN [facility] Clinical Communication Start: 03-20-2025 End: 03-20-2025 Refill Efren Tidwell MD Work Phone: [facility] - [place] Start: 03-01-2025 End: 03-01-2025 Office outpatient new 45 minutes Curt Crowell MD Work Phone: [facility] Pain Management [facility] Comment on above: Spinal stenosis of l umbar region with neurogenic claudication; Lumbar radiculopathy; Lumbar pain Start: 03-01-2025 End: 03-01-2025 ambulatory CURT CROWELL [facility] Start: 02-20-2025 End: 02-20-2025 Office outpatient visit 25 minutes Eric Christian MD Work Phone: [facility] Orthopedics [facility] Comment on above: Lumbar pain; Lumbar radiculopathy; Degeneration of intervertebral disc of lumbar region with discogenic back pain and lower extremity pain Start: 02-20-2025 End: 02-20-2025 ambulatory ERIC CHRISTIAN [facility] Start: 02-11-2025 End: 02-11-2025 Subsequent hospital visit by physician Rachell Courtney CNP Work Phone: [facility] Comment on above: Lumbar pain; Lumbar radiculopathy; Degeneration of intervertebral disc of lumbar region with discogenic back pain and lower extremity pain; Lumbar spondylosis; Compression fracture of L1 vertebra, sequela; Spondylolisthesis of lumbar region Start: 02-11-2025 End: 02-11-2025 ambulatory RACHELL HERRERA [facility] Start: 02-08-2025 End: 02-08-2025 Telephone encounter Barbie Arreguin RN [facility] Line Comment on above: Message to Provider Start: 02-05-2025 End: 02-05-2025 Office outpatient new 30 minutes Rachell Herrera APRN - EXCEPTIONAL 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 Work Phone: [facility] Orthopedics [facility] [place] Comment on above: Lumbar pain (Primary Dx); Lumbar radiculopathy; Degeneration of intervertebral disc of lumbar region with discogenic back pain and lower extremity pain; Lumbar spondylosis; Compression fracture of L1 vertebra, sequela; Spondylolisthesis of lumbar region Start: 02-05-2025 End: 02-05-2025 ambulatory RACHELL HERRERA [facility] Start: 01-31-2025 End: 01-31-2025 Office outpatient visit 25 minutes Efren Tidwell MD Work Phone: [facility] Comment on above: 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 (Primary Dx); Mixed Alzheimer's and vascular dementia (HCC); Moderate episode of recurrent major depressive disorder (HCC); Type 2 diabetes mellitus with hyperglycemia, with long-term current use of insulin (HCC); Essential hypertension Start: 01-31-2025 End: 01-31-2025 ambulatory [facility] Start: 01-21-2025 End: 01-21-2025 Subsequent hospital visit by physician Lydia Monique MD Work Phone: [facility] Comment on above: Chronic kidney disea se, stage 3b (HCC) Start: 01-21-2025 End: 01-21-2025 ambulatory [facility] Start: 01-17-2025 End: 01-17-2025 Patient encounter procedure Kelley Weiss BUSINESS CONTROL MANAGER-C -[facility] Work Phone: Start: 01-17-2025 End: 01-17-2025 [facility] Facility:[facility] Start: 01-17-2025 End: 01-22-2025 Telephone encounter Efren iTdwell MD Work Phone: [facility] Comment on above: Other Start: 01-15-2025 End: 04-16-2025 Transcribe Orders Lydia Monique MD Work Phone: [facility] Scheduling Comment on above: Chronic kidney disea se, stage 3b (HCC) (Primary Dx) Start: 01-07-2025 End: 01-08-2025 Telephone encounter Efren Tidwell MD Work Phone: [facility] Comment on above: Orders; Other (OV No yvonne) Start: 12-31-2024 End: 01-02-2025 Telephone encounter Efren Tidwell MD Work Phone: [facility] Internal Medicine - [place] Start: 12-27-2024 End: 12-27-2024 Refill Efren Tidwell MD Work Phone: [facility] [place] Start: 12-21-2024 End: 12-21-2024 Refill Efren Tidwell MD Work Phone: [facility] [place] Start: 12-07-2024 End: 12-10-2024 Refill Efren Tidwell MD Work Phone: [facility] [place] Start: 11-26-2024 End: 12-08-2024 Telephone encounter Susan Matt COMMERCIAL CLEANER - EXCEPTIONAL 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 Work Phone: [facility] Comment on above: Medication Question Start: 11-22-2024 End: 11-23-2024 Refill Judy Whittington COMMERCIAL CLEANER - EXCEPTIONAL 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 Work Phone: [facility] Comment on above: Type 2 diabetes sy itus with hyperglycemia, with long-term current use of insulin (HCC) Start: 11-10-2024 End: 11-10-2024 Letter encounter Paola Wheeler MD Work Phone: [facility] Start: 11-09-2024 End: 11-09-2024 Orders Only Rochelle Landeros PA-C Work Phone: [facility] Comment on above: Generalized weakness (Primary Dx) Start: 11-08-2024 End: 11-12-2024 ambulatory EFREN TIDWELL MD Facility:[facility] Start: 10-31-2024 End: 10-31-2024 Orders Only Rochelle SAMSC Work Phone: [facility] Comment on above: Stage 3b chronic kid jair disease (HCC) (Primary Dx) Start: 10-30-2024 End: 10-30-2024 ambulatory ROCHELLE LANDEROS [facility] Start: 10-30-2024 End: 10-30-2024 Encounter for general adult medical examination without abnormal findings ROCHELLE LANDEROS [facility] Start: 10-30-2024 End: 10-30-2024 Assay of hemosiderin, quant Rochelle Latham Caridad CAMPA-Carlo Work Phone: [facility] Start: 10-30-2024 End: 10-30-2024 Patient encounter procedure Rochelle R Caridad SHAFFER Work Phone: [facility] [place] Comment on above: Routine general medi philip examination at health care facility (Primary Dx); Stage 3a chronic kidney disease (HCC); Anemia of chronic renal failure, stage 3b (HCC); 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, with long-term current use of insulin, unspecified laterality, unspecified retinopathy severity (HCC); Type 2 diabetes mellitus with hyperglycemia, with long-term current use of insulin (HCC); Generalized weakness Start: 10-26-2024 End: 10-26-2024 Office outpatient new 30 minutes Sharri Moore MD Work Phone: [facility] [place] Comment on above: Bronchitis (Primary Dx) Start: 10-26-2024 End: 10-26-2024 ambulatory SHARRI OSCAR [facility] Start: 10-25-2024 End: 10-26-2024 ambulatory Viola Pearce RN [facility] Clinical Communication Start: 10-25-2024 End: 10-26-2024 Patient encounter procedure Viola Pearce RN [facility] Clinical Communication Start: 09-25-2024 End: 09-25-2024 Refill Susan Matt APRN - EXCEPTIONAL 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 Work Phone: [facility] Endocrinology [facility] Tsang Comment on above: Type 2 diabetes sy itus with hyperglycemia, with long-term current use of insulin (HCC) (Primary Dx) Start: 09-14-2024 End: 09-14-2024 ambulatory DION GUTIERREZ [facility] Start: 09-14-2024 End: 09-14-2024 Office outpatient visit 25 minutes Dion Gutierrez MD Work Phone: [facility] Cardiology [facility] Comment on above: Coronary artery dise ase involving [place] coronary artery of [place] heart without angina pectoris (Primary Dx) Start: 09-03-2024 End: 09-06-2024 Telephone encounter Camilla Guadarrama MD Work Phone: [facility] Comment on above: Other (Status4 Standard Written Order) Start: 08-27-2024 ambulatory CAMILLA GUADARRAMA [facility] Start: 08-23-2024 End: 08-24-2024 Telephone encounter Judy Whittington COMMERCIAL CLEANER - EXCEPTIONAL 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 Work Phone: [facility] Comment on above: Cancelled Appointmen t (Same Day Cancel - 08/23/24 1:30 PM follow up/) Start: 07-23-2024 End: 07-23-2024 Refill Efren Tidwell MD Work Phone: [facility] Comment on above: Essential hypertensi on Start: 07-18-2024 End: 08-15-2024 Telephone encounter Judy Whittington COMMERCIAL CLEANER - EXCEPTIONAL 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 Work Phone: [facility] Comment on above: Orders; Prior Author ization (freestyle nita 2 sensor) Start: 07-03-2024 End: 07-03-2024 Office outpatient visit 25 minutes Efren Tidwell MD Work Phone: [facility] Comment on above: Frequent falls (Prim zain Dx); Abnormal brain CT; Diabetic polyneuropathy associated with type 2 diabetes mellitus (CMS/HCC) (HCC); Mixed Alzheimer's and vascular dementia (HCC); 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 Start: 07-02-2024 End: 07-03-2024 Telephone encounter Efren Tidwell MD Work Phone: [facility] [place] Comment on above: Appointment Request Start: 05-20-2024 End: 05-20-2024 Emergency department patient visit Efren Tidwell Facility:[facility] Start: 04-30-2024 End: 04-30-2024 [facility] Start: 04-30-2024 End: 04-30-2024 Subsequent hospital visit by physician Dion Gutierrez MD Work Phone: [facility] [address] Comment on above: Precordial pain Start: 04-20-2024 End: 05-30-2024 Telephone encounter Efren Tidwell MD Work Phone: [facility] Medicine Comment on above: OTHER Start: 04-17-2024 End: 04-17-2024 Office outpatient visit 25 minutes Susan Matt APRN - EXCEPTIONAL 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 Work Phone: [facility] Endocrinology Comment on above: Type 2 diabetes sy itus with hyperglycemia, with long-term current use of insulin (HCC) (Primary Dx); Hyperlipidemia associated with type 2 diabetes mellitus (HCC) (HCC); Type 2 diabetes mellitus with both eyes affected by severe nonproliferative retinopathy and macular edema, with long-term current use of insulin (HCC); Type 2 diabetes mellitus with stage 3b chronic kidney disease, with long-term current use of insulin (HCC); Type 2 diabetes mellitus with diabetic polyneuropathy, with long-term current use of insulin (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, with long-term current use of insulin, unspecified laterality, unspecified retinopathy severity (HCC) (Primary Dx); Bilateral impacted cerumen; Stage 3a chronic kidney disease (HCC); Mixed Alzheimer's and vascular dementia (HCC); Moderate episode of recurrent major depressive disorder (HCC); Hyperparathyroidism due to renal insufficiency (HCC); Essential hypertension Start: 01-27-2024 End: 01-27-2024 Office outpatient visit 25 minutes Dion Gutierrez MD Work Phone: [facility] Cardiology Comment on above: Precordial pain (Sandy selma Dx); Essential hypertension Start: 01-19-2024 [facility] Start: 01-19-2024 Patient encounter procedure Taisha Maier RN [facility] Clinical Communication Start: 01-16-2024 End: 01-16-2024 Office outpatient visit 25 minutes Judy Jaimee Whittington COMMERCIAL CLEANER - EXCEPTIONAL 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 Work Phone: [facility] Endocrinology Comment on above: Type 2 diabetes sy itus with hyperglycemia, with long-term current use of insulin (HCC) (Primary Dx); Hyperlipidemia associated with type 2 diabetes mellitus (HCC) (HCC); Primary hypertension; Type 2 diabetes mellitus with both eyes affected by severe nonproliferative retinopathy and macular edema, with long-term current use of insulin (HCC); Type 2 diabetes mellitus with stage 3b chronic kidney disease, with long-term current use of insulin (HCC); Type 2 diabetes mellitus with diabetic polyneuropathy, with long-term current use of insulin (CMS/HCC) (HCC) Start: 01-09-2024 Telephone encounter Molly curiel PA-C Work Phone: [facility] Cardiology Start: 01-07-2024 End: 01-08-2024 Emergency department patient visit Jeff See MD Work Phone: [facility] Cardiac Progressive Care Unit PCU 2E Comment on above: Stable angina (Prima ry Dx); Acute chest pain Start: 12-07-2023 Telephone encounter Taniya Coto MA [facility] Endocrinology Start: 10-26-2023 Refill Efren Tidwell MD Work Phone: [facility] Family Medicine Start: 10-26-2023 Refill Efren Tidwell MD Work Phone: [facility] Start: 10-04-2023 End: 10-04-2023 Assay of hemosiderin, quant Efren Tidwell MD Work Phone: [facility] Work Phone: Start: 10-04-2023 End: 10-04-2023 Patient encounter procedure Efren Tidwell MD Work Phone: [facility] Comment on above: Routine general medi philip examination at health care facility (Primary Dx); Type 2 diabetes mellitus with diabetic polyneuropathy, without long-term current use of insulin (CMS/[facility]) ([facility]); Essential hypertension; Mixed Alzheimer's and vascular dementia (HCC); Major depressive disorder, recurrent, moderate ([facility]); Ascending aorta dilatation ([facility]); Hyperparathyroidism due to renal insufficiency (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); Deformity of left foot; Anemia, unspecified type Start: 10-04-2023 Orders Only Efren Tidwell MD Work Phone: [facility] Start: 06-24-2023 Telephone encounter Efren singh MD Work Phone: [facility] Comment on above: Clinical note reques t Start: 06-14-2023 End: 06-14-2023 Office outpatient visit 25 minutes Judy Whittington COMMERCIAL CLEANER - EXCEPTIONAL 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 Work Phone: [facility] Endocrinology Comment on above: Type 2 diabetes sy itus with hyperglycemia, with long-term current use of insulin ([facility]) ([facility]) (Primary Dx); Hyperlipidemia associated with type 2 diabetes mellitus ([facility]); Type 2 diabetes mellitus with stage 3b chronic kidney disease, with long-term current use of insulin ([facility]); Type 2 diabetes mellitus with diabetic polyneuropathy, with long-term current use of insulin ([facility]) ([facility]) Start: 03-08-2023 Refill Efren Tidwell MD Work Phone: [facility] Family Medicine Start: 01-25-2023 Refill Judy eubanks COMMERCIAL CLEANER - EXCEPTIONAL 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 Work Phone: [facility] Endocrinology Comment on above: Type 2 diabetes sy itus with diabetic polyneuropathy, without long-term current use of insulin (CMS/HCC) (HCC) (Primary Dx) Start: 12-08-2022 Refill Efren Tidwell MD Work Phone: [facility] Start: 11-11-2022 End: 11-11-2022 Office outpatient visit 25 minutes Hiawathabrian Orozco Work Phone: [facility] Comment on above: Primary osteoarthrit is of right knee (Primary Dx); Diabetic polyneuropathy associated with type 2 diabetes mellitus (CMS/HCC) (HCC); Stage 3a chronic kidney disease (HCC) Start: 11-09-2022 Letter encounter Paola arellano MD Work Phone: [facility] Start: 11-09-2022 End: 11-09-2022 Office outpatient visit 25 minutes Judy Whittington [facility] Work Phone: [facility] Comment on above: Type 2 diabetes sy itus with hyperglycemia, with long-term current use of insulin (CMS/HCC) (HCC) (Primary Dx); Hyperlipidemia associated with type 2 diabetes mellitus (HCC); Primary hypertension; Type 2 diabetes mellitus with stage 3b chronic kidney disease, with long-term current use of insulin (HCC); Type 2 diabetes mellitus with diabetic polyneuropathy, with long-term current use of insulin (CMS/HCC) (HCC) Start: 11-09-2022 End: 11-09-2022 Subsequent hospital visit by physician Efren Tidwell MD Work Phone: [facility] X-ray Comment on above: Acute pain of right knee; History of fall Start: 11-09-2022 End: 11-09-2022 Office outpatient visit 15 minutes Efren Tidwell MD Work Phone: [facility] Comment on above: Acute pain of right knee (Primary Dx); History of fall Start: 11-08-2022 ambulatory Taisha Casey RN [facility] Clinical Communication Start: 11-08-2022 Patient encounter procedure Taisha Casey RN [facility] Clinical Communication Start: 05-11-2022 Letter encounter Paola arellano MD Work Phone: [facility] Start: 03-08-2022 End: 03-08-2022 Subsequent hospital visit by physician Day Womack MD Work Phone: [facility] General Surgery Comment on above: Arrived Start: 03-01-2022 End: 03-01-2022 Subsequent hospital visit by physician Day Womack MD Work Phone: [facility] Pre-Admit Testing Comment on above: Arrived Start: 02-12-2022 End: 02-12-2022 Subsequent hospital visit by physician [facility]idwell MD [facility] Start: 01-21-2022 End: 01-21-2022 Emergency department patient visit Jes Youssef MD Work Phone: [facility] Comment on above: Facial droop (Primar y Dx) Start: 07-22-2021 End: 07-22-2021 Subsequent hospital visit by physician Eric Christian MD Work Phone: [facility] X-Ray Start: 06-08-2021 End: 06-08-2021 Subsequent hospital visit by physician Efren Tidwell MD Work Phone: [facility] X-Ray Comment on above: Chronic bilateral lo w back pain without sciatica Start: 03-04-2021 End: 03-04-2021 Subsequent hospital visit by physician Efren Tidwell MD Work Phone: [facility] US Comment on above: Stage 3b chronic kid jair disease Start: 12-02-2020 End: 12-02-2020 Subsequent hospital visit by physician Michelle Rios [facility] Start: 10-28-2020 End: 10-28-2020 Subsequent hospital visit by physician Letitia Ghotra Work Phone: [facility] Comment on above: Bilateral lower extr emity edema Start: 10-24-2020 End: 10-24-2020 Emergency department patient visit Letitia Landaverde [place] Work Phone: [facility] ED Comment on above: Bilateral lower extr emity edema (Primary Dx) Start: 06-13-2020 End: 06-13-2020 Subsequent hospital visit by physician Sharri Moore Work Phone: [facility] Comment on above: Bilateral lower extr emity edema Start: 04-21-2020 End: 04-21-2020 Subsequent hospital visit by physician Marisol Chavez [facility] Start: 04-10-2020 End: 04-10-2020 Subsequent hospital visit by physician Michelle Rios Work Phone: [facility] MRI Comment on above: Disorientation Start: 03-24-2020 End: 03-24-2020 Subsequent hospital visit by physician Michelle Rios Work Phone: [facility] Dept Start: 09-18-2017 Ambulatory [facility] Procedures Date Procedure Procedure Detail Performing Clinician Start: 01-21-2025 Us retroperitoneal r eal time w/image complete Lydia Monique MD Work Phone: Start: 04-30-2024 Cta hrt cornry art/b ypass grfts contrst 3d post Dion Gutierrez MD Work Phone: Start: 04-17-2024 Hemoglobin glycosylated a1c Susan Matt COMMERCIAL CLEANER - EXCEPTIONAL 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 Work Phone: Start: 01-27-2024 Ecg routine ecg w/le ast 12 lds w/i&r Dion Gutierrez MD Work Phone: Start: 01-08-2024 Echo tthrc r-t 2d w/ wom-mode compl spec&colr d Kaylene Calderon MD Work Phone: Start: 01-08-2024 Glucose quantitative blood xcpt reagent strip Carlos King MD Work Phone: Start: 01-08-2024 Glucose quantitative blood xcpt reagent strip Carlos King MD Work Phone: Start: 01-08-2024 Assay of troponin quantitative Cornelia Baxter MD Work Phone: Start: 01-08-2024 End: 01-08-2024 Assay of troponin quantitative Cornelia Baxter MD Work Phone: Start: 01-07-2024 Ecg routine ecg w/le ast 12 lds trcg only w/o i&r Kaylene Calderon MD Work Phone: Start: 01-07-2024 Radiologic exam ches t single view Cornelia Baxter MD Work Phone: Start: 01-07-2024 Basic metabolic pane l calcium total Cornelia Baxter MD Work Phone: Start: 01-07-2024 Ecg routine ecg w/le ast 12 lds trcg only w/o i&r Cornelia Baxter MD Work Phone: Start: 10-04-2023 Urine albumin quantitative Judy L Pk COMMERCIAL CLEANER - EXCEPTIONAL 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 Work Phone: Start: 10-04-2023 Blood count complete automated Efren Tidwell MD Work Phone: Start: 03-08-2022 OPERATIVE REPORT Physic kaiden Generic Start: 03-08-2022 Gluc bld gluc mntr d ev cleared fda spec home use Day Womack MD Work Phone: Start: 03-08-2022 Gluc bld gluc mntr d ev cleared fda spec home use Day Womack MD Work Phone: Start: 03-01-2022 Potassium serum plas ma/whole blood Michell W Ameshie COMMERCIAL CLEANER - EXCEPTIONAL 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 Work Phone: Start: 01-21-2022 Ct head/brain w/o co ntrast material Jes Youssef MD Work Phone: Start: 01-21-2022 End: 01-21-2022 Assay of magnesium Jes Youssef MD Work Phone: Start: 01-21-2022 Ecg routine ecg w/le ast 12 lds w/i&r Jes Youssef MD Work Phone: Start: 06-08-2021 End: 06-08-2021 Radex spine lumbosacral minimum 4 views Efren Tidwell MD Work Phone: Start: 03-04-2021 Us retroperitoneal r eal time w/image limited Efren Tidwell MD Work Phone: Start: 02-25-2021 Lipid 1996 panel - S nicanor or Plasma Taisha Casey RN Start: 10-28-2020 Dup-scan xtr veins c omplete bilateral study eLtitia Landaverde [place] Work Phone: Start: 10-24-2020 Radex ankle complete minimum 3 views Letitia Akhil [place] Work Phone: Start: 10-24-2020 Radiologic exam ches t single view Letitia Akhil [place] Work Phone: Start: 10-24-2020 Assay of thyroid sti mulating hormone tsh Letitia Akhil [place] Work Phone: Start: 10-24-2020 Assay of troponin quantitative Letitia Akhil [place] Work Phone: Start: 10-24-2020 Blood count complete auto&auto difrntl wbc Letitia Landaverde [place] Work Phone: Start: 10-24-2020 Comprehensive metabo lic panel Letitia Landaverde [place] Work Phone: Start: 10-24-2020 Natriuretic peptide Sco rossy Akhil [place] Work Phone: Start: 10-24-2020 Ecg routine ecg w/le ast 12 lds w/i&r Letitia Akh[facility] [place] Work Phone: Start: 06-13-2020 Dup-scan xtr veins c omplete bilateral study Sharri Moore Work Phone: Plan of Treatment Date Care Activity Detail Author Start: 10-01-2027 DTaP/Tdap/Td vaccine (2 - Td or Tdap) DTaP/Tdap/Td vaccine (2 - Td or Tdap) [facility] Start: 10-01-2027 DTaP/Tdap/Td vaccine (2 - Td) DTaP/Tdap/Td vaccine (2 - Td) [facility] [place], [place] Start: 10-01-2027 DTaP/Tdap/Td Vaccines (2 - Td or Tdap) DTaP/Tdap/Td Vaccines (2 - Td or Tdap) [facility] Start: 10-01-2027 Tetanus vaccination Tetanus (Td or Tdap) [facility] Start: 10-30-2025 Diabetes: Estimated Glomerular Filtration Rate for Kidney Health Diabetes: Estimated Glomerular Filtration Rate for Kidney Health [facility] Start: 09-27-2025 End: 09-27-2025 Patient encounter procedure 09/27/2025 10:20 AM EST [facility] [facility] [address] [place] [phone] Dion Gutierrez MD [address] [place] [address] [facility] Cardiology [facility] Start: 08-05-2025 End: 08-05-2025 Patient encounter procedure 08/05/2025 2:00 PM EDT Office Visit [facility] Primary Care - [place] [address] [address] [place] [phone] Efren Tidwell MD [address] [place] [phone] [facility] [place] Start: 06-24-2025 Influenza vaccination Influenza Vaccine (Season Ended) [facility] Start: 05-03-2025 End: 05-03-2025 Patient encounter procedure 05/03/2025 12:15 PM EDT Office Visit [facility] Pain Management - [place] [address] [place] [address] Curt Crowell MD [address] [place], [place] [phone] [facility] Management - [place] Start: 04-29-2025 Depression Monitoring Depression Monitoring [facility] Start: 07-03-2025 Depression Monitoring Depression Monitoring [facility] Start: 04-24-2025 Diabetes: Estimated Glomerular Filtration Rate for Kidney Health Diabetes: Estimated Glomerular Filtration Rate for Kidney Health [facility] Start: 03-29-2025 End: 03-29-2025 Admission to same day surgery center 03/29/2025 1:00 PM EDT - 03/29/2025 1:30 PM EDT Surgery [facility] Surgery [place] [address] [place] [phone] Curt Crowell MD [address] [place], [place] [phone] lumbar l5/s1 epidural steroid injection [31660 (CPT )] [facility] [place] Comment on above: lumbar l5/s1 epidural steroid injection [67785 (CPT )] Start: 03-29-2025 End: 03-29-2025 Njx dx/ther sbst intrlmnr lmbr/sac w/img gdn INJECTION, SPINE, INTERLAMINAR, WITH FLUOROSCOPIC GUIDANCE Radiculopathy, lumbar region 03/29/2025 1:00 PM EDT [facility] Start: 03-29-2025 Subsequent hospital visit by physician 03/29/2025 1:00 PM EDT Hospital Encounter [facility] Surgery [place] [address] [place] [phone] Curt Crowell MD [address] [place], [place] [phone] [facility] [place] Start: 02-20-2025 End: 02-20-2025 Patient encounter procedure 02/20/2025 2:45 PM EDT Office Visit [facility] Orthopedics and Sports [facility] [address] [place] [address] Eric Christian MD [address] [facility] [address] [place], [place] [phone] [facility] Orthopedics and Sports [facility] Start: 02-11-2025 End: 02-11-2025 Patient encounter procedure 02/11/2025 3:[address] [facility] MRI [address] [place] [phone] Rachell Herrera APRN - EXCEPTIONAL 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 [address] [facility] [address] [place] [address] [facility] Yap [place] MRI Start: 02-11-2025 Subsequent hospital visit by physician 02/11/2025 3:15 PM EDT Hospital Encounter [facility] [address] [place] [address] Rachell Herrera APRN - EXCEPTIONAL 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 [address] [facility] [address] [place] [phone] [facility] Fracisco Rogersna MRI Start: 02-05-2025 End: 02-05-2025 Patient encounter procedure 02/05/2025 3:00 PM EDT Office Visit [facility] Orthopedics and Sports Medicine - [place] [address] [facility] [address] [place] [phone] Rachell Herrera APRN - EXCEPTIONAL 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 [address] [facility] [address] [place], [place] [phone] [facility] Orthopedics and Sports Medicine - [place] Start: 02-05-2025 End: 02-05-2026 MR Lumbar spine WO contrast MR lumbar spine wo contrast Imaging Routine Lumbar pain Lumbar radiculopathy Degeneration of intervertebral disc of lumbar region with discogenic back pain and lower extremity pain Lumbar spondylosis Compression fracture of L1 vertebra, sequela Spondylolisthesis of lumbar region Expected: 02/05/2025, Expires: 02/05/2026 [facility] Work Phone: Comment on above: Expected: 02/05/2025, Expires: Start: 01-29-2025 End: 01-29-2025 Patient encounter procedure 01/29/2025 9:00 AM EDT Office Visit [facility] [place] - [place] [address] [facility] [facility] [facility] [address] [place] [phone] Efren Tidwell MD [address] [place] [address] [facility] Primary Care - [place] Start: 01-21-2025 End: 01-21-2025 Patient encounter procedure 01/21/2025 2:30 PM EDT Appointment [facility] [address] [place] [phone] Lydia Monique MD [address] [place] [address] [facility] Start: 12-24-2024 End: 12-24-2024 Patient encounter procedure [facility] Endocrinology Start: 12-19-2024 End: 12-19-2024 Patient encounter procedure 12/19/2024 10:20 AM EST Office Visit [facility] [address] [facility] [address] [facility] [address] [place] [phone] Camilla Ayoub MD [address] [facility] [facility] [address] [facility] [address] [place] [address] [facility] Start: 11-03-2024 Medicare Advantage Annual Wellness Visit (AWV) Medicare Advantage Annual Wellness Visit (AWV) [facility] Start: 10-30-2024 End: 10-30-2025 CBC panel - Blood by Automated count CBC Lab Routine Routine general medical examination at [facility] Anemia of chronic renal failure, stage 3b (HCC) Expected: 10/30/2024 (Approximate), Expires: 10/30/2025 [facility] Comment on above: Expected: 10/30/2024 (Approximate), Expi res: 10/30/2025 Start: 10-30-2024 End: 10-30-2025 Comprehensive metabolic 1998 panel - Serum or Plasma Comprehensive metabolic panel Lab Routine Routine general medical examination at [facility] Stage 3a chronic kidney disease (HCC) Anemia of chronic renal failure, stage 3b (HCC) 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, with long-term current use of insulin, unspecified laterality, unspecified retinopathy severity (HCC) Expected: 10/30/2024 (Approximate), Expires: 10/30/2025 [facility] Comment on above: Expected: 10/30/2024 (Approximate), Expi res: 10/30/2025 Start: 10-30-2024 End: 10-30-2025 Hemoglobin A1c measurement Hemoglobin A1c Lab Routine Routine general medical examination at [facility] 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, with long-term current use of insulin, unspecified laterality, unspecified retinopathy severity (HCC) Expected: 10/30/2024 (Approximate), Expires: 10/30/2025 [facility] Work Phone: Comment on above: Expected: 10/30/2024 (Approximate), Expi res: 10/30/2025 Start: 10-30-2024 End: 10-30-2024 Patient encounter procedure 10/30/2024 8:00 AM EST Office Visit [facility] [address] [facility] [address] [place] [address] Rochelle Landeros, PARozC [address] [place] [address] [facility] Start: 10-26-2024 End: 10-26-2025 XR Chest 2 Views XR chest 2 views Imaging Routine Bronchitis Expected: 10/26/2024, Expires: 10/26/2025 [facility] Work Phone: Comment on above: Expected: 10/26/2024, Expires: Start: 10-24-2024 Medicare Advantage Annual Wellness Visit Medicare Advantage Annual Wellness Visit [facility] Start: 10-05-2024 End: 10-05-2024 Patient encounter procedure [facility] Medical [facility] Family Medicine Start: 10-05-2024 End: 10-05-2024 Patient encounter procedure 10/05/2024 9:20 AM EST Office Visit [facility] [address] [place] [address] Camilla Ayoub MD [address] [facility] [address] [place] [address] [facility] Start: 10-04-2024 Diabetes: Urine Albumin-Creatinine Ratio for Kidney Health Diabetes: Urine Albumin-Creatinine Ratio for Kidney Health [facility] Start: 09-14-2024 End: 09-14-2024 Patient encounter procedure 09/14/2024 9:40 AM EST Office Visit [facility] [address] [facility] [address] [facility] [address] [place] [address] Dion Gutierrez MD [address] [place], [place] [phone] [facility] Start: 08-27-2024 End: 08-27-2024 Telemedicine consultation with patient 08/27/2024 11:00 AM EST Telemedicine [facility] [address] [facility] [address] [facility] [address] [place] [address] Camilla Guadarrama MD [address] [place], [place] [phone] [facility] Start: 08-23-2024 End: 08-23-2024 Patient encounter procedure [facility] Endocrinology Start: 08-10-2024 End: 08-10-2024 Patient encounter procedure [facility] Cardiology Start: 08-03-2024 End: 08-03-2024 Patient encounter procedure 08/03/2024 2:00 PM EDT Office Visit [facility] [address] [facility] [address] [facility] [address] [place] [address] Dion Gutierrez MD [address] [place], [place] [phone] [facility] Start: 06-24-2024 COVID-19 Vaccine () COVID-19 Vaccine ( season) [facility] Start: 06-24-2024 Influenza vaccination Influenza Vaccine (#1) [facility] [employer] Start: 04-30-2024 End: 04-30-2024 Patient encounter procedure 04/30/2024 1:40 PM EDT Appointment [facility] [address] [place] [address] Dion Gutierrez MD [address] [place] [address] [facility] [address] Start: 04-17-2024 End: 04-17-2024 Patient encounter procedure 04/17/2024 8:00 AM EDT Office Visit [facility] Endocrinology [address] [place] [address] Susan Matt, COMMERCIAL CLEANER - EXCEPTIONAL 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 [address] [place] [address] [facility] Endocrinology Start: 02-21-2024 End: 02-20-2025 Ear Cerumen Removal Ear Cerumen Removal Procedures Routine Bilateral impacted cerumen Expected: 02/21/2024 (Approximate), Expires: 02/20/2025 [facility]: Comment on above: Expected: 02/21/2024 (Approximate), Expi res: 02/20/2025 Start: 01-27-2024 End: 01-26-2025 Creatinine [Mass/volume] in Serum or Plasma Creatinine, Serum Lab Routine Precordial pain Expected: 01/27/2024 (Approximate), Expires: 01/26/2025 [facility] Comment on above: Expected: 01/27/2024 (Approximate), Expi res: 01/26/2025 Start: 01-27-2024 End: 01-26-2025 CTA Heart and Coronary arteries WO and W contrast IV CTA HEART CORONARY ANGIOGRAM WITH PROV FFR-CT Imaging Routine Precordial pain Expected: 01/27/2024, Expires: 01/26/2025 [employer] Work Phone: Comment on above: Expected: 01/27/2024, Expires: Start: 01-27-2024 End: 01-27-2024 Patient encounter procedure 01/27/2024 12:00 PM EDT Office Visit [employer] [facility] Cardiology [address] [facility] [address] [facility] [address] [place] [address] Dion Gutierrez MD [address] [place] [address] [facility] [employer] [facility] Cardiology Start: 01-16-2024 End: 01-15-2025 Basic metabolic 1998 panel - Serum or Plasma Basic metabolic panel Lab Routine Type 2 diabetes mellitus with hyperglycemia, with long-term current use of insulin (HCC) Expected: 01/16/2024 (Approximate), Expires: 01/15/2025 [employer] Comment on above: Expected: 01/16/2024 (Approximate), Expi res: 01/15/2025 Start: 01-16-2024 End: 01-15-2025 C-Peptide C-Peptide Lab Routine Type 2 diabetes mellitus with hyperglycemia, with long-term current use of insulin (HCC) Expected: 01/16/2024 (Approximate), Expires: 01/15/2025 [employer] Work Phone: Comment on above: Expected: 01/16/2024 (Approximate), Expi res: 01/15/2025 Start: 01-16-2024 End: 01-16-2024 Patient encounter procedure 01/16/2024 1:00 PM EDT [facility] Endocrinology [address] [facility] [address] [place] [address] Judy Whittington, COMMERCIAL CLEANER - EXCEPTIONAL 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 [address] [place] [address] [facility] [employer] [facility] Endocrinology Start: 10-24-2023 Medicare Advantage Annual Wellness Visit Medicare Advantage Annual Wellness Visit [employer] Start: 10-04-2023 End: 10-04-2024 CBC panel - Blood by Automated count CBC Lab Routine Anemia, unspecified type Expected: 10/04/2023 (Approximate), Expires: 10/04/2024 [employer] Work Phone: Comment on above: Expected: 10/04/2023 (Approximate), Expi res: 10/04/2024 Start: 09-27-2023 Glaucoma screening Diabetes: Retinopathy Screening [facility] Start: 09-26-2023 End: 09-26-2023 Patient encounter procedure [facility] Medical [facility] Family Medicine Start: 09-23-2023 Diabetic foot examination Diabetes: Foot Exam [facility] Start: 09-05-2023 Zoster Vaccines (2 of 2) Zoster Vaccines (2 of 2) [facility] Start: 06-24-2023 Influenza vaccination Influenza Vaccine (#1) [facility] Start: 06-14-2023 End: 06-14-2024 Comprehensive metabolic 1998 panel - Serum or Plasma Comprehensive metabolic panel Lab Routine Type 2 diabetes mellitus with hyperglycemia, with long-term current use of insulin (CMS/HCC) (HCC) Expected: 06/14/2023 (Approximate), Expires: 06/14/2024 [facility] [employer] Work Phone: Comment on above: Expected: 06/14/2023 (Approximate), Expi res: 06/14/2024 Start: 06-14-2023 End: 06-14-2024 Hemoglobin A1c/Hemoglobin.total in Blood Hemoglobin A1c Lab Routine Type 2 diabetes mellitus with hyperglycemia, with long-term current use of insulin (CMS/HCC) (HCC) Expected: 06/14/2023 (Approximate), Expires: 06/14/2024 [facility] Comment on above: Expected: 06/14/2023 (Approximate), Expi res: 06/14/2024 Start: 06-14-2023 End: 06-14-2024 Lipid 1996 panel - Serum or Plasma Lipid panel Lab Routine Type 2 diabetes mellitus with hyperglycemia, with long-term current use of insulin (CMS/HCC) (HCC) Hyperlipidemia associated with type 2 diabetes mellitus (HCC) Expected: 06/14/2023 (Approximate), Expires: 06/14/2024 [facility] Comment on above: Expected: 06/14/2023 (Approximate), Expi res: 06/14/2024 Start: 06-14-2023 End: 06-14-2024 Microalbumin/Creatinine panel in random Urine Microalbumin / Creatinine Ratio, urine Lab Routine Type 2 diabetes mellitus with hyperglycemia, with long-term current use of insulin ([facility]) (HCC) Expected: 06/14/2023 (Approximate), Expires: 06/14/2024 [facility] Comment on above: Expected: 06/14/2023 (Approximate), Expi res: 06/14/2024 Start: 04-07-2023 End: 04-07-2023 Patient encounter procedure 04/07/2023 Office Visit Endocrinology Judy Whittington, COMMERCIAL CLEANER - EXCEPTIONAL 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 [address] [facility] [place] [address] [facility] Endocrinology Start: 03-24-2023 Depression Monitoring Depression Monitoring [facility] Start: 03-24-2023 Depresssion Monitoring Depresssion Monitoring [facility] Start: 03-01-2023 Potassium [Moles/volume] in Serum or Plasma Potassium [facility] Start: 02-15-2023 End: 02-15-2023 Patient encounter procedure 02/15/2023 Office Visit Endocrinology Judy Whittington, COMMERCIAL CLEANER - EXCEPTIONAL 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 [address] [place] [address] [facility] Endocrinology Start: 01-21-2023 Creatinine measurement [facility] Start: 01-21-2023 Potassium [Moles/volume] in Serum or Plasma Potassium [facility] Start: 01-21-2023 Potassium monitoring Potassium monitoring [facility] Start: 12-23-2022 End: 12-23-2022 Patient encounter procedure 12/23/2022 Office Visit Sports Medicine Izabella Orozco, [address] [place] [address] [facility] Start: 12-22-2022 Hemoglobin A1c measurement Diabetes: Hemoglobin A1C [facility] Start: 12-14-2022 End: 12-14-2022 Patient encounter procedure 12/14/2022 Office Visit Dermatology Misty Harper PA-C [address] [place] [address] [address] [place] [address] [facility] Start: 11-29-2022 End: 11-29-2022 Patient encounter procedure 11/29/2022 Office Visit Otolaryngology Grayson Zepeda MD [address] [place] [address] [facility] Start: 11-09-2022 End: 11-09-2023 XR Knee - right 4 Views [facility] Work Phone: Comment on above: Expected: 11/09/2022, Expires: 4 Once for 1 Occurrenc es starting 11/09/2022 until 11/09/2022 Start: 11-09-2022 End: 11-09-2022 Patient encounter procedure [facility] Start: 08-06-2022 End: 08-06-2022 Patient encounter procedure 08/06/2022 Office Visit Family Medicine Efren Tidwell MD [address] [phone] [facility] Start: 07-24-2022 Influenza vaccination Influenza Vaccine (#1) [facility] Start: 06-06-2022 Annual Wellness Visit (AWV) Annual Wellness Visit (AWV) [facility] Start: 06-05-2022 Depression Monitoring Depression Monitoring [facility] Start: 03-24-2022 End: 03-24-2022 Patient encounter procedure 03/24/2022 Office Visit Neurosurgery Dada Rodriguez MD [address] [place] [address] [facility] Neurology [facility] Start: 03-08-2022 End: 03-08-2022 Patient encounter procedure 03/08/2022 Appointment General Surgery Day Womack MD [address] [place] [address] [facility] General Surgery Start: 02-25-2022 End: 02-25-2022 Patient encounter procedure 02/25/2022 Office Visit General Surgery Day Womack MD [address], [address] [place] [address] [facility] Start: 02-25-2022 Creatinine measurement Creatinine monitoring [facility] Work Phone: Start: 02-25-2022 Hemoglobin A1c measurement A1C test (Diabetic or Prediabetic) [facility] Work Phone: Start: 02-25-2022 Lipid panel [facility] Start: 02-25-2022 Potassium monitoring Potassium monitoring [facility] Work Phone: Start: 02-25-2022 Screening for malignant neoplasm of colon Colon Cancer Screen FIT/FOBT [facility] Work Phone: Start: 02-19-2022 End: 02-19-2022 Patient encounter procedure 02/19/2022 Office Visit Orthopedic Surgery Valeriy Payne MD [address] [facility] [address] [place] [address] [facility] Orthopedics and Sports Medicine [place] Start: 02-04-2022 End: 02-04-2022 Patient encounter procedure 02/04/2022 Office Visit Family Medicine Efren Tidwell MD [address] [address] [facility] Family Medicine Start: 12-02-2021 Creatinine measurement Creatinine monitoring [employer] [place] Start: 12-02-2021 Potassium monitoring Potassium monitoring [facility] [place], [place] Start: 11-10-2021 Pneumococcal 65+ years Vaccine (2 - PCV) Pneumococcal 65+ years Vaccine (2 - PCV) [facility] Start: 11-10-2021 Pneumococcal vaccination [facility] Start: 11-10-2021 Pneumococcal Vaccine: 65+ Years (3 - PCV) Pneumococcal Vaccine: 65+ Years (3 - PCV) [facility] Start: 10-24-2021 Creatinine measurement Creatinine monitoring [facility], [place] Start: 10-24-2021 Potassium monitoring Potassium monitoring [facility] [place], [place] Start: 10-05-2021 End: 10-05-2021 Patient encounter procedure 10/05/2021 Office Visit Family Medicine Efren Tidwell MD [address] [phone] [facility] Family Medicine Start: 06-24-2021 Influenza vaccination Flu vaccine (#1) [facility] Work Phone: Start: 06-06-2021 Creatinine measurement Creatinine monitoring [facility], [place] Start: 06-06-2021 Potassium monitoring Potassium monitoring [facility] [employer] [place], [place] Start: 05-26-2021 COVID-19 Vaccine (3 - Booster for Moderna series) COVID-19 Vaccine (3 - Booster for Moderna series) [facility] Start: 04-23-2021 Annual wellness visit Annual Wellness Visit (G0438) [facility] Start: 04-15-2021 Diabetic foot examination Diabetic foot exam [facility] [place] Start: 04-15-2021 Diabetic microalbuminuria test Diabetic microalbuminuria test [place], [place] Start: 04-15-2021 HbA1c (Bld) [Mass fraction] A1C test (Diabetic or Prediabetic) [facility] [place] Start: 04-15-2021 Urine screening for protein Diabetes: Urine Protein Screening [facility] Start: 04-11-2021 Creatinine measurement Creatinine monitoring [facility], [place] Start: 04-11-2021 Potassium monitoring Potassium monitoring [facility] [place] Start: 04-07-2021 End: 04-07-2021 Patient encounter procedure 04/07/2021 Office Visit Urology Andres Benedict MD [address] [place] [address] [phone] [facility] Urology [place] Start: 04-02-2021 End: 04-02-2021 Patient encounter procedure 04/02/2021 Office Visit Family Medicine Efren Tidwell MD [address] [place] [phone] [facility] Family Medicine Start: 04-02-2021 Diabetic retinal exam Diabetic retinal exam [place], [place] Start: 02-18-2021 COVID-19 Vaccine (3 - Booster for Moderna series) COVID-19 Vaccine (3 - Booster for Moderna series) [facility] Start: 02-02-2021 End: 02-02-2021 Office Visit 02/02/2021 Office Visit Urology Andres Benedict MD [address] [place] [address] [phone] [facility] Urology [place] Start: 01-26-2021 End: 01-26-2021 Office Visit 01/26/2021 Office Visit Urology Andres Benedict MD [address] [place] [address] [phone] [facility] Urology [place] Start: 01-21-2021 COVID-19 Vaccine (2 - Moderna series) COVID-19 Vaccine (2 - Moderna series) [facility] Start: 12-24-2020 End: 12-24-2020 Immunization 12/24/2020 Immunization Lab [facility] Start: 12-24-2020 COVID-19 Vaccine (2 of 2 - Moderna series) COVID-19 Vaccine (2 of 2 - Moderna series) [place], [place] Start: 12-19-2020 End: 12-19-2020 Office Visit 12/19/2020 Office Visit Family Medicine Efren Tidwell MD [address] [phone] [facility] Family Medicine Start: 12-02-2020 End: 12-02-2020 Office Visit 12/02/2020 Office Visit Geriatric Medicine Michelle Rios MD [address] [place] [address] [phone] [facility] Start: 11-24-2020 Creatinine measurement Creatinine monitoring [place], [place] Start: 11-24-2020 Diabetic microalbuminuria test Diabetic microalbuminuria test [place] Start: 11-24-2020 HbA1c (Bld) [Mass fraction] A1C test (Diabetic or Prediabetic) [place] Start: 11-24-2020 Lipid panel Lipid [place] Start: 11-24-2020 Potassium monitoring Pot[place] Start: 11-10-2020 End: 11-10-2020 Office Visit 11/10/2020 Office Visit Family Medicine Efren Tidwell MD [address] [phone] [facility] Start: 10-25-2020 End: 11-07-2020 VL DUP LOWER EXTREMITY VENOUS BILATERAL VL DUP LOWER EXTREMITY VENOUS BILATERAL Imaging STAT Bilateral lower extremity edema Expected: 10/25/2020, Expires: 11/07/2020 [place] Comment on above: Expected: 10/25/2020, Expires: Start: 10-15-2020 Hemoglobin A1c measurement Hemoglobin A1C [facility] Start: 08-04-2020 End: 08-04-2020 Office Visit 08/04/2020 Office Visit Urology Andres Benedict MD [address] [place] [address] [phone] [facility] [place] Start: 07-15-2020 End: 07-15-2020 Office Visit [facility] Start: 06-24-2020 Influenza vaccination Flu vaccine (#1) [place] Start: 2020 RSV Immunization for Adults (1 - 1-dose 75+ series) RSV Immunization for Adults (1 - 1-dose 75+ series) [facility] Start: 2020 RSV vaccine (adult) (1 - 1-dose 75+ series) RSV vaccine (adult) (1 - 1-dose 75+ series) [facility] Start: 04-21-2020 End: 04-21-2020 Office Visit 04/21/2020 Office Visit Geriatric Medicine Michelle Rios MD [address] [place] [address] [phone] [facility] Start: 04-15-2020 End: 04-15-2020 Office Visit 04/15/2020 Office Visit Family Medicine Efren Tidwell MD [address] [phone] [facility] Medical [facility] Start: 10-31-2019 Annual Wellness Visit (AWV) Annual Wellness Visit (AWV) [place] Start: 2010 Pneumococcal 65+ years Vaccine (1 of 1 - PPSV23) Pneumococcal 65+ years Vaccine (1 of 1 - PPSV23) [place] Start: 2005 Hepatitis B (HBV) Vaccine (optional start 60+ years) Hepatitis B (HBV) Vaccine (optional start 60+ years) [facility] Start: 2005 RSV Immunization aged 60 or older (1 - 1-dose 60+ series) RSV Immunization aged 60 or older (1 - 1-dose 60+ series) [facility] Start: 1995 Screening for malignant neoplasm of colon Colon cancer screen colonoscopy [place] Start: 1995 Shingles (RZV) Vaccine (1 of 2) Shingles (RZV) Vaccine (1 of 2) [facility] Start: 1995 Shingles Vaccine (1 of 2) Shingles Vaccine (1 of 2) [facility] Start: 1995 Zoster Vaccines (1 of 2) Zoster Vaccines (1 of 2) [facility] Start: 1964 Hepatitis A (HAV) Vaccine (optional start 19+ years) Hepatitis A (HAV) Vaccine (optional start 19+ years) [facility] Start: 1964 Zoster Vaccines (1 of 2) Zoster Vaccines (1 of 2) [facility] Start: 1963 Hepatitis C screening Hepatitis C Antibody [facility] Start: 1955 Diabetic foot examination [facility] Start: 1955 Diabetic retinal exam Diabetic retinal exam [facility] Start: 1955 Preventive dental service Diabetes: Dental Exam [facility] Start: 1945 Diabetic retinal eye exam Eye Exam [facility] Start: 1945 Lipid panel Lipid Profile [facility] Start: 1945 Urine screening for protein Microalbumin [facility] Start: 1945 Diabetic foot examination Foot Exam [facility] Start: 1945 Hepatitis B Vaccines (1 of 3 - 3-dose series) Hepatitis B Vaccines (1 of 3 - 3-dose series) [facility] Start: 1945 Hepatitis C screening Hepatitis C screen [facility] Start: 1945 Medicare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 EVERY OTHER DAY (Patient taking differently: TAKE 1 TABLET BY MOUTH EVERY OTHER DAY) 50 tablet 3 glucagon 1 MG injection Inject 1 mL (1 mg) into the shoulder, thigh, or buttocks Once as needed for low blood sugar for up to 4 doses. 1 each 3 Ykdnnpmxaoe-Yidjaxvxe-Kso C-Mn (Glucosamine 1500 Complex) capsule 1 capsule 1 (one) time each day. glucose blood test strip 1 each by Other route 2 times daily. 60 each 11 insulin NPH-insulin regular (HumuLIN,NovoLIN) (70-30) 100 UNIT/ML injection Inject 18 units before breakfast and 28 units before dinner 40 mL 3 Lancets (OneTouch Delica Plus [id number]) misc losartan (Cozaar) 50 MG tablet TAKE 1 TABLET BY MOUTH DAILY 100 tablet 3 metoprolol tartrate (Lopressor) 100 MG tablet TAKE 1 TABLET BY MOUTH TWICE DAILY 200 tablet 3 mirtazapine (Remeron) 15 MG tablet Take 1 tablet (15 mg) by mouth Nightly. 100 tablet 3 svmmtbxlioep-vnhh-daxsiskv-folic acid (Theragran-M) tablet Every 24 hours. omeprazole (PriLOSEC) [address] capsule TAKE 1 CAPSULE BY MOUTH IN THE MORNING 100 capsule 3 Probiotic tablet delayed-release daily. solifenacin (VESIcare) 10 MG tablet TAKE 1 TABLET BY MOUTH DAILY 100 tablet 2 tamsulosin (Flomax) 0.4 MG 24 hr capsule TAKE 1 CAPSULE BY MOUTH DAILY 100 capsule 3 topiramate 50 MG tablet TAKE 1 TABLET BY MOUTH EVERY NIGHT 100 tablet 3 Trulicity 0.75 MG/0.5ML Vitamin E 450 MG (1000 UT) capsule Take 1 capsule by mouth daily. lidocaine (Lidoderm) 5 % patch Apply 1 patch topically daily. Remove & discard patch within 12 hours or as directed by MD. 30 patch 2 No current facility-administered medications for this visit. Review of Systems OBJECTIVE Vitals: 03/01/25 1416 03/01/25 1515 BP: (!) 152/83 (!) 142/84 BP Location: Left arm Left arm Patient Position: Sitting Sitting BP Cuff Size: Large adult Large adult Pulse: 73 72 Physical Exam Constitutional: General: He is not in acute distress. Appearance: He is well-developed. He is not diaphoretic. Eyes: Conjunctiva/sclera: Right eye: Right conjunctiva is not injected. Left eye: Left conjunctiva is not injected. Comments: Pupils not pinpoint Pulmonary: Effort: Pulmonary effort is normal. No respiratory distress. Abdominal: General: There is no distension. Skin: General: Skin is warm. Findings: No bruising, erythema or lesion. Neurological: Mental Status: He is alert. Psychiatric: Mood and Affect: Mood and affect normal. Speech: Speech normal. DETAILED MSK/NEURO: Lumbar Spine/Lower Extremity Inspection: No previous surgical scars noted within the thoracolumbar region. Palpation: Midline Paraspinal - Right Paraspinal - Left Lumbar w/o pain + pain + pain Lower Extremity Motor: HF KE KF PF DF EHL Right 5 5 5 5 5 5 Left 5 5 5 5 5 5 Lower extremity sensation to light touch: L2 L3 L4 L5 S1 Right Intact Intact Intact Intact Intact Left Intact Intact Intact Intact Intact Straight leg raise: Right Negative Left Negative Sacroiliac exam: SIJ TTP Right No Left No IMAGING / OTHER STUDIES: 02/11/25 MRI Lumbar Spine FINDINGS: Counting reference: For this report, L5-S1 is considered the last lumbar-type disc space, and L4-L5 is at the level of the iliac crests. Alignment: Anatomic Conus: Normal position and signal intensity. Vertebral bodies/marrow: Remote fracture involving the L1 vertebral body with marked hypointense signal likely representing vertebroplasty cement is again noted, not significantly changed compared to previous exam. Degenerative marrow signal changes are noted. Canal and foramina: T11-T12: Disc bulging and posterior hypertrophic changes efface the thecal sac with mild flattening of the cord similar in appearance to previous exam. T12-L1: Canal and foramina are patent. L1-L2: Facet hypertrophy and disc bulging is noted. There is mild canal stenosis. Neural foramen appear patent L2-L3: Disc space narrowing with endplate osteophyte formation facet hypertrophy and ligamentum flavum hypertrophy is noted. There is mild to moderate canal stenosis. Neural foramen appear patent L3-L4: Disc space narrowing and endplate osteophyte formation and disc bulging with facet hypertrophy and ligamentum flavum hypertrophy is noted. There is moderate to severe canal stenosis. There is moderate right-sided neural foraminal narrowing and mild left-sided neural foraminal narrowing L4-L5: Disc space narrowing with endplate osteophyte formation and disc bulging as well as facet hypertrophy is noted. There is moderate to severe left-sided neural foraminal narrowing. There is moderate canal stenosis in particular the left lateral recess L5-S1: Anterolisthesis with associated disc bulging and facet hypertrophy is noted. Left-sided synovial cyst is noted projecting into the spinal canal measuring approximately 7 x 4 mm. There is severe bilateral neural foraminal narrowing with flattening the bilateral exiting L5 nerve roots. There is moderate canal stenosis. Visualized sacrum: Unremarkable. Soft tissue structures: Unremarkable. IMPRESSION: 1. Degenerative changes of the lumbar spine as well as degenerative changes of the lower thoracic spine with disc bulging and posterior hypertrophic changes completely effacing the thecal sac at the T11-T12 level with contact and mild flattening of the cord. 2. Flattening of the bilateral exiting L5 nerve roots. Other degenerative changes as described above. --- 06/08/21 XRAY Bilateral Hips Moderate joint space narrowing bilaterally. Marginal osteophytes of the acetabular rims and femoral heads bilaterally. Subchondral cyst formation. No acute fracture or dislocation. Mild arthritic changes of the sacroiliac joints noted. There is deformity of the proximal left femur related to a prior fracture. IMPRESSION: Moderate osteoarthritic degenerative changes. No acute bony abnormality. LABS: 10/30/24 Hgb A1c: 11.8 (but daughter notes significantly better controlled blood sugars over the past couple weeks) ASSESSMENT 1. Spinal stenosis of lumbar region with neurogenic claudication 2. Lumbar radiculopathy 3. Lumbar pain 1) Chronic low back pain (greater than 1 year duration) -- with some radiation primarily down back of left leg, in setting of severe left > right foraminal stenosis at L4-5 and L5-S1 on recent MRI, which does correlate with his symptoms. He very likely has other elements to his pain as well, though... not adequately controlled *Of note, patient does have dementia (though, despite being hard of hearing, he could carry conversation fine today), and is already having numerous falls PLAN Reviewed Dr Christian's note from 02/20/25, as well as MRI lumbar spine and XRAY hips above today. As well as Hgb A1c from 10/30/24 - Recommend continuing cymbalta 60 mg daily and topamax just 50 mg at bedtime for now, and do not recommend adding any other potentially sedating medications at this time - Will trial lidocaine 5% patches for his back, though - Will also set him up for LESI at L5-S1 under fluoro, after thoroughly discussing the procedure itself, as well as its associated risks (including but not limited to bleeding/epidural hematoma, infection/epidural abscess, spinal cord/nerve root injury/paralysis, inadvertent intrathecal injection/spinal headache, weakness, and increased pain), potential benefits, and alternatives. Given his high A1c a few months back, will plan to use lower dose of steroid (40 mg depomedrol), though I explained that this still will likely increase his blood sugars for a few days (reportedly, his sugars have been better managed over the past couple weeks). No follow-ups on file. documented in this encounter [facility] 02-20-2025 History of Presen t illness Narrative Images from the original note were not included. [facility] [place] [address] [place] [address] [place] [id number] Dept: [phone] Dept Camilla Mcdermott 1945 [id number] 02/20/2025 Problem List: Axial lower back pain Lumbar radiculopathy-left greater than right Lumbar degenerative disc disease Lumbar spondylosis L1 compression fracture with vertebroplasty Spondylolisthesis L5-S1 HgbA1C= 11.8 10/30/2024 Severe renal disease (M54.50) Lumbar pain (M54.16) Lumbar radiculopathy (M51.362) Degeneration of intervertebral disc of lumbar region with discogenic back pain and lower extremity pain Chief Complaint Patient presents with Follow-up HPI: Camilla is a 79 y.o. male who is here today for evaluation of his lumbar spine. Current symptoms: Pain is located in the left sided low back pain that is radiating into BLE R>L Numbness tingling: bilateral feet Weakness: BLE Changes since last visit: Has been doing home PT but had a lot of increased pain after the last session Associated neurologic complaints/Red flags: Gait/balance difficulty: admits to Use of ambulatory aid?: cane Able to walk a city block: No Bowel/bladder incontinence: admits to Urinary retention: No Saddle anesthesia: No Fine motor task difficulty/dropping things/handwriting changes: denies History of cancer: no Aggravating factors: Everything Alleviating Factors: nothing Do your symptoms improve with lying on your back or side: yes Previous Treatment: PT: Yes- Home PT Where: [facility] When: might start tomorrow Completed: yes NSAIDS: aleve Tylenol Spine/joint Injections: No Opioid medications: no Muscle relaxers: no Oral steroids: no Nerve medications (gabapentin/Lyrica): Gabapentin (Neurontin) Pain management: No Chiropractor: no Previous spine surgery: no History of DVT/PE or hypercoagulable state (including history of relative): no Blood thinning medications: no Work Status: Retired Is this a work related injury? No Review of Systems Tobacco Use: Low Risk (02/20/2025) Patient History Smoking Tobacco Use: Never Smokeless Tobacco Use: Never Passive Exposure: Not on file Lab Results Component Value Date HGBA1C 11.8 (H) 10/30/2024 No Known Allergies Current Outpatient Medications Medication Sig Dispense Refill alpha tocopherol (Vitamin E) 400 units capsule 1 capsule Every 24 hours. 180 mg atorvastatin (Lipitor) 80 MG tablet TAKE 1 TABLET BY MOUTH DAILY 90 tablet 3 benzonatate (Tessalon) 200 MG capsule Take 1 capsule (200 mg) by mouth 3 times daily as needed for cough. Do not crush or chew. 42 capsule 3 calcium carbonate-vitamin D 600-200 MG-UNIT tablet Take 1 tablet by mouth daily. Continuous Glucose Spout Tender ([employer] Nita 3 [place]) device Check blood sugar 4 times daily 1 each 0 Continuous Glucose Sensor (FreeStyle Nita 3 Plus Sensor) [facility] Check blood sugar 4 times daily 6 each 11 diabetic shoes Diabetic Shoes and inserts. 1 each 0 DULoxetine (Cymbalta) [address] capsule TAKE 2 CAPSULES BY MOUTH IN THE MORNING 200 capsule 3 fish oil-omega-3 fatty acids 1000 MG capsule Take 1,000 mg by mouth in the morning. furosemide (Lasix) 20 MG tablet TAKE 1 TABLET BY MOUTH EVERY OTHER DAY (Patient taking differently: TAKE 1 TABLET BY MOUTH EVERY OTHER DAY) 50 tablet 3 glucagon 1 MG injection Inject 1 mL (1 mg) into the shoulder, thigh, or buttocks Once as needed for low blood sugar for up to 4 doses. 1 each 3 Pvsyeykiprn-Qxfsuznef-Knj C-Mn (Glucosamine 1500 Complex) capsule 1 capsule 1 (one) time each day. glucose blood test strip 1 each by Other route 2 times daily. 60 each 11 insulin NPH-insulin regular (HumuLIN,NovoLIN) (70-30) 100 UNIT/ML injection Inject 18 units before breakfast and 28 units before dinner 40 mL 3 Lancets (OneTouch Delica Plus [id number]) [facility] losartan (Cozaar) 50 MG tablet TAKE 1 TABLET BY MOUTH DAILY 100 tablet 3 metoprolol tartrate (Lopressor) 100 MG tablet TAKE 1 TABLET BY MOUTH TWICE DAILY 200 tablet 3 mirtazapine (Remeron) 15 MG tablet Take 1 tablet (15 mg) by mouth Nightly. 100 tablet 3 woyxozkvsgud-dubg-yhwgyzcq-folic acid (Theragran-M) tablet Every 24 hours. omeprazole (PriLOSEC) [address] capsule TAKE 1 CAPSULE BY MOUTH IN THE MORNING 100 capsule 3 Probiotic tablet delayed-release daily. solifenacin (VESIcare) 10 MG tablet TAKE 1 TABLET BY MOUTH DAILY 100 tablet 2 tamsulosin (Flomax) 0.4 MG 24 hr capsule TAKE 1 CAPSULE BY MOUTH DAILY 100 capsule 3 topiramate 50 MG tablet TAKE 1 TABLET BY MOUTH EVERY NIGHT 100 tablet 3 Trulicity 0.75 MG/0.5ML No current facility-administered medications for this visit. 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) tia's Chronic kidney disease Dementia (HCC) Diabetes mellitus (HCC) GERD (gastroesophageal reflux disease) takes meds, has had for years Hyperlipidemia Hypertension Neuropathy Retinopathy TIA (transient ischemic attack) multiple Visual impairment retanopothy & cataracts removed both eyes Past Surgical History: Procedure Laterality Date COLONOSCOPY EYE SURGERY Bilateral cataract FRACTURE SURGERY back LIPOMA RESECTION 03/08/2022 Social History Socioeconomic History Marital status: Spouse name: Not on file Number of children: Not on file Years of education: Not on file Highest education level: Not on file Occupational History Not on file Tobacco Use Smoking status: Never Smokeless tobacco: Never Tobacco comments: 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 -02nd hand smoke Vaping Use Vaping status: Never Used Substance and Sexual Activity Alcohol use: Not Currently Drug use: Never Comment: caffeine: pop Sexual activity: Not Currently Partners: Female control/protection: Abstinence Other Topics Concern Not on file Social History Narrative Not on file Social Drivers of Health Financial Resource Strain: Low Risk (10/30/2024) Overall Financial Resource Strain (CARDIA) Difficulty of Paying Living Expenses: Not hard at all Food Insecurity: No Food Insecurity (10/30/2024) Hunger Vital Sign Worried About Running Out of Food in the Last Year: Never true Ran Out of Food in the Last Year: Never true Transportation Needs: Unmet Transportation Needs (10/30/2024) PRAPARE - Transportation Lack of Transportation (Medical): Yes Lack of Transportation (Non-Medical): Yes Physical Activity: Inactive (10/30/2024) Exercise Vital Sign Days of Exercise per Week: 0 days Minutes of Exercise per Session: 0 min Stress: No Stress Concern Present (10/30/2024) [employer] - Occupational Stress Questionnaire Feeling of Stress : Not at all Social Connections: Socially Isolated (10/30/2024) Social Connection and Isolation Panel [NHANES] Frequency of Communication with Friends and Family: Never Frequency of Social Gatherings with Friends and Family: Once a week Attends Hoahaoism Services: Never Active Member of Clubs or Organizations: No Attends Club or Organization Meetings: Never Marital Status: Intimate Partner Violence: Not At Risk (09/23/2022) Humiliation, Afraid, Rape, and Kick questionnaire Fear of Current or Ex-Partner: No Emotionally Abused: No Physically Abused: No Sexually Abused: No Housing Stability: Low Risk (10/30/2024) Housing Stability Vital Sign Unable to Pay for Housing in the Last Year: No Number of Times Moved in the Last Year: 1 Homeless in the Last Year: No Family History Problem Relation Name Age of Onset Cancer Mother Francie Mcdermott Other ([id number]) Father Camilla Mcdermott SN heart murmur Alcohol abuse Father Camilla Mcdermott SN Hearing loss Father Camilla Mcdermott SN Alcohol abuse Son Camilla Jones Stander III Arthritis Son Camilla Jones Stander III Depression Son Camilla Jones Stander III Arthritis Daughter Cami Duffy Autoimmune disease Daughter Camimeghana Duffy Depression Daughter Camimeghana Duffy Diabetes Daughter Cami Duffy Hyperlipidemia Daughter Cami Duffy Hypertension Daughter Cami Duffy Immunodeficiency Daughter Cami Duffy Depression Daughter Belle Cooper Diabetes Daughter Belle Cooper Hearing loss Sister Belle Connelly PHYSICAL EXAM Ht 5' 8 (1.727 m) Wt 162 lb (73.5 kg) BMI 24.63 kg/m SPINE/EXTREMITY: General: Patient is in no apparent distress. Gait is antalgic and he is using a cane. He is unable to toe walk or heel walk. He can go up on his toes in a standing position. He is unable to go back on his heels in a standing position. Mild tenderness palpation lumbar spine. Lower Extremity Motor: HF Q TA EHL Peroneals GSC Right 5 5 5 5 5 5 Left 4+ 4 4 4+ 4 4+ Lower extremity sensation to light touch: L2 L3 L4 L5 S1 Right Intact Intact Intact Intact Intact Left Intact Intact Intact Intact Intact Lower extremity reflexes: Patellar Achilles Right absent absent Left absent absent Straight leg raise: Right Negative Left Negative Misc: Clonus Right None Left None Hip exam: Bilateral hip range of motion is full and symmetric without pain. *Brief cervical exam was performed. Strength 5/5 bilaterally. Sensation 5/5 bilaterally. Negative Danna's. IMAGING Lumbar Spine: Date of Exam: 02/05/2025 Views: Lumbar 4V xrays (AP/LAT/FLEX/EXT) Findings: There is no aortic calcification noted. The bilateral hip joint spaces are observed with mild degenerative changes noted. The bilateral SI joints are also observed with no significant degenerative changes noted. Levoscoliosis noted. There is no loss of lumbar lordosis. There are five non rib-bearing lumbar vertebrae. There is a compression fracture at L1 with cement augmentation. Severe degenerative disc disease. There are moderate spondylitic changes and facet arthropathy noted. There is an anterolisthesis noted at L5-S1 on flexion/extension radiographs. Multiple levels of anterior bone spurring that is bridging. Lumbar MRI: Date of exam: 02/11/25 FINDINGS: Counting reference: For this report, L5-S1 is considered the last lumbar-type disc space, and L4-L5 is at the level of the iliac crests. Alignment: Anatomic Conus: Normal position and signal intensity. Vertebral bodies/marrow: Remote fracture involving the L1 vertebral body with marked hypointense signal likely representing vertebroplasty cement is again noted, not significantly changed compared to previous exam. Degenerative marrow signal changes are noted. Canal and foramina: T11-T12: Disc bulging and posterior hypertrophic changes efface the thecal sac with mild flattening of the cord similar in appearance to previous exam. T12-L1: Canal and foramina are patent. L1-L2: Facet hypertrophy and disc bulging is noted. There is mild canal stenosis. Neural foramen appear patent L2-L3: Disc space narrowing with endplate osteophyte formation facet hypertrophy and ligamentum flavum hypertrophy is noted. There is mild to moderate canal stenosis. Neural foramen appear patent L3-L4: Disc space narrowing and endplate osteophyte formation and disc bulging with facet hypertrophy and ligamentum flavum hypertrophy is noted. There is moderate to severe canal stenosis. There is moderate right-sided neural foraminal narrowing and mild left-sided neural foraminal narrowing L4-L5: Disc space narrowing with endplate osteophyte formation and disc bulging as well as facet hypertrophy is noted. There is moderate to severe left-sided neural foraminal narrowing. There is moderate canal stenosis in particular the left lateral recess L5-S1: Anterolisthesis with associated disc bulging and facet hypertrophy is noted. Left-sided synovial cyst is noted projecting into the spinal canal measuring approximately 7 x 4 mm. There is severe bilateral neural foraminal narrowing with flattening the bilateral exiting L5 nerve roots. There is moderate canal stenosis. Visualized sacrum: Unremarkable. Soft tissue structures: Unremarkable. IMPRESSION: 1. Degenerative changes of the lumbar spine as well as degenerative changes of the lower thoracic spine with disc bulging and posterior hypertrophic changes completely effacing the thecal sac at the T11-T12 level with contact and mild flattening of the cord. 2. Flattening of the bilateral exiting L5 nerve roots. Other degenerative changes as described above. All documented radiology studies listed above were individually reviewed, interpreted (agree with radiology report unless noted below) and discussed with the patient during today's office visit. Lumbar MRI reviewed which reveals severe foraminal stenosis from L4-S1 in addition to moderate lateral recess stenosis from L2-S1. NCT/EMG (Copied Impression) Date: none DEXA Date: ASSESSMENT See problem list above. Camilla is a 79 y.o. male presenting with lumbar spinal stenosis and neurogenic claudication in the setting of degenerative scoliosis. IMPRESSION The patient and I thoroughly reviewed the natural history of lumbar spinal stenosis. We discussed how the patient's neurogenic claudication symptoms are related to the significant amount of compression on their nerves in the lumbar spine. This is contributing to their decreased walking distance, pain/numbness/weakness in the legs in addition to back pain and difficulty standing. In the later stages of the disease, it can also affect bowel and bladder function. I reviewed with them the data of the spine patient outcome research trial (SPORT trial). We reviewed how conservative measures in the form of physical therapy, activity modification, oral medication and possible epidural injections are typically performed. If the patient's quality of life is not acceptable after undergoing at least 6 weeks of the above treatments, then surgical intervention is typically recommended. Unfortunately, this patient is not a surgical candidate given his significant renal disease and uncontrolled diabetes. Based on this, I am recommending referral to pain management for consideration of injections. I had a long discussion with Camilla to make sure he had a good understanding of what I think the main issues and diagnoses are that are affecting him today, and reviewed the plan going forward. PLAN: Refer to pain management for injections Electronically signed by Eric Christian MD 02/20/2025 at 3:13 PM Dictated using Opiatalk Version 2.4 Proof read however unrecognized voice recognition errors may have occurred documented in this encounter [facility] 02-08-2025 Telephone encounter Note ALFIE Emanuel from [facility] called to leave message with pt's PCP, Dr. Efren Tidwell. brush hand advised that Dr. Tidwell is with [facility] per entries in pt's chart; , 05/07/2020, 04/22/2020, 04/17/2020, OV 04/15/2020, and so forth. [facility] 02-08-2025 Miscellaneous Notes ALFIE Emanuel from [facility] called to leave message with pt's PCP, Dr. Efren Tidwell. brush hand advised that Dr. Tidwell is with [facility] per entries in pt's chart; , 05/07/2020, 04/22/2020, 04/17/2020, OV 04/15/2020, and so forth. documented in this encounter [facility] 02-07-2025 Telephone encounter Note Lvm for pt to call office Message can be released as written Secure line detailed message [facility] 02-07-2025 Miscellaneous Notes Lvm for pt to call office Message can be released as written Secure line detailed message Ok for social insurance administrator evaluation and recommended therapy. Efren Tidwell MD Name of caller: Ruth Contact phone number: [phone] Relationship to Patient: [facility] Healthcare Provider: Dr. Tidwell Practice: [facility] Chief Complaint/Reason for Call: Ruth called after her visit today and stated she will see the patient for PT 2 times a week for 4 weeks. Daughter was asking about advanced directives, can Ruth add social work to plan of care for POA and community resources. Please call for a verbal. Thank you Best time of day caller can be reached: any Patient advised that office/PCP has 24-48 business hours to return their call: No Re-Right faxed referral to: [facility] [employer] [facility] [place] [address] Ruth called back in, needs demographic and order refaxed, because she did not hear fro office in time pitched information, please advise OV note from today (01/31) faxed to office. Noted. EFREN TIDWELL Patient scheduled with Dr. Tidwell 01/29, please address in appt note. Name of caller: Ruth Contact phone number: [phone] Relationship to Patient: [place] [facility] Provider: Dr Tidwell Practice: [facility] Chief Complaint/Reason for Call: Ruth is requesting a new face 2 face that explains why the patient is having weakness and needs PT. If caused by dementia as stated on the order it needs to be added to the last OV notes mentioning in the face 2 face that he has dementia causing his weakness. Thank you Best time of day caller can be reached: any Patient advised that office/PCP has 24-48 business hours to return their call: Yes documented in this encounter [facility] 02-07-2025 Note Ok for social insurance administrator evaluation and recommended therapy. Efren Tidwell MD [facility] 02-07-2025 Telephone encounter Note Ok for social insurance administrator evaluation and recommended therapy. Efren Tidwell MD [facility] 02-06-2025 Telephone encounter Note Name of caller: Ruth Contact phone number: [phone] Relationship to Patient: [facility] Healthcare Provider: Dr. Tidwell Practice: [facility] Chief Complaint/Reason for Call: Ruth called after her visit today and stated she will see the patient for PT 2 times a week for 4 weeks. Daughter was asking about advanced directives, can Ruth add social work to plan of care for POA and community resources. Please call for a verbal. Thank you Best time of day caller can be reached: any Patient advised that office/PCP has 24-48 business hours to return their call: No [facility] 02-06-2025 Miscellaneous Notes Name of caller: Ruth Contact phone number: [phone] Relationship to Patient: [facility] Healthcare Provider: Dr. Tidwell Practice: [facility] Chief Complaint/Reason for Call: Ruth called after her visit today and stated she will see the patient for PT 2 times a week for 4 weeks. Daughter was asking about advanced directives, can Ruth add social work to plan of care for POA and community resources. Please call for a verbal. Thank you Best time of day caller can be reached: any Patient advised that office/PCP has 24-48 business hours to return their call: No Re-Right faxed referral to: [facility] [employer] [place] [address] Ruth called back in, needs demographic and order refaxed, because she did not hear fro office in time pitched information, please advise OV note from today (01/31) faxed to office. Noted. EFREN TIDWELL Patient scheduled with Dr. Tidwell 01/29, please address in appt note. Name of caller: Ruth Contact phone number: [phone] Relationship to Patient: [place] [facility] Provider: Dr Tidwell Practice: [facility] Chief Complaint/Reason for Call: Ruth is requesting a new face 2 face that explains why the patient is having weakness and needs PT. If caused by dementia as stated on the order it needs to be added to the last OV notes mentioning in the face 2 face that he has dementia causing his weakness. Thank you Best time of day caller can be reached: any Patient advised that office/PCP has 24-48 business hours to return their call: Yes documented in this encounter [facility] 02-05-2025 History of Presen t illness Narrative Images from the original note were not included. [facility] [place] [address] [place] [address] [place] [id number] Dept: [phone] Dept Camilla Mcdermott 1945 [id number] 02/05/2025 Problem List: Lumbar pain Lumbar radiculopathy-left Lumbar degenerative disc disease Lumbar spondylosis L1 compression fracture with vertebroplasty Spondylolisthesis L5-S1 HgbA1C= 11.8 10/30/2024 (M54.50) Lumbar pain (M54.16) Lumbar radiculopathy (M51.362) Degeneration of intervertebral disc of lumbar region with discogenic back pain and lower extremity pain (M47.816) Lumbar spondylosis (S32.010S) Compression fracture of L1 vertebra, sequela (M43.16) Spondylolisthesis of lumbar region Chief Complaint Patient presents with Back Pain New Patient HPI: Camilla is a 79 y.o. male who is here today for evaluation of his lumbar spine. Camilla is referred by Efren Tidwell MD Current symptoms: Pain is located in the left sided low back pain that is radiating into LLE. Numbness tingling: no Weakness: LLE CANDELARIA: no known injury Duration of symptoms/DOI: chronic Symptoms are severely affecting their quality of life. Associated neurologic complaints/Red flags: Gait/balance difficulty: admits to Use of ambulatory aid?: cane Able to walk a city block: No Bowel/bladder incontinence: admits to Urinary retention: No Saddle anesthesia: No Fine motor task difficulty/dropping things/handwriting changes: denies History of cancer: no Aggravating factors: Everything Alleviating Factors: nothing Do your symptoms improve with lying on your back or side: yes Previous Treatment: PT: Yes- Home PT Where: [facility] When: might start tomorrow Completed: yes NSAIDS: aleve Tylenol Spine/joint Injections: No Opioid medications: no Muscle relaxers: no Oral steroids: no Nerve medications (gabapentin/Lyrica): Gabapentin (Neurontin) Pain management: No Chiropractor: no Previous spine surgery: no History of DVT/PE or hypercoagulable state (including history of relative): no Blood thinning medications: no Work Status: Retired Is this a work related injury? No Review of Systems Tobacco Use: Low Risk (01/31/2025) Patient History Smoking Tobacco Use: Never Smokeless Tobacco Use: Never Passive Exposure: Not on file Lab Results Component Value Date HGBA1C 11.8 (H) 10/30/2024 No Known Allergies Current Outpatient Medications Medication Sig Dispense Refill alpha tocopherol (Vitamin E) 400 units capsule 1 capsule Every 24 hours. 180 mg atorvastatin (Lipitor) 80 MG tablet TAKE 1 TABLET BY MOUTH DAILY 90 tablet 3 benzonatate (Tessalon) 200 MG capsule Take 1 capsule (200 mg) by mouth 3 times daily as needed for cough. Do not crush or chew. 42 capsule 3 calcium carbonate-vitamin D 600-200 MG-UNIT tablet Take 1 tablet by mouth daily. Continuous Glucose Spout Tender (FreeStyle Nita 3 [place]) device Check blood sugar 4 times daily 1 each 0 Continuous Glucose Sensor (FreeStyle Nita 3 Plus Sensor) [facility] Check blood sugar 4 times daily 6 each 11 diabetic shoes Diabetic Shoes and inserts. 1 each 0 DULoxetine (Cymbalta) [address] capsule TAKE 2 CAPSULES BY MOUTH IN THE MORNING 200 capsule 3 fish oil-omega-3 fatty acids 1000 MG capsule Take 1,000 mg by mouth in the morning. furosemide (Lasix) 20 MG tablet TAKE 1 TABLET BY MOUTH EVERY OTHER DAY (Patient taking differently: TAKE 1 TABLET BY MOUTH EVERY OTHER DAY) 50 tablet 3 glucagon 1 MG injection Inject 1 mL (1 mg) into the shoulder, thigh, or buttocks Once as needed for low blood sugar for up to 4 doses. 1 each 3 Iqpcywpbxxi-Znvebvqfq-Men C-Mn (Glucosamine 1500 Complex) capsule 1 capsule 1 (one) time each day. glucose blood test strip 1 each by Other route 2 times daily. 60 each 11 insulin NPH-insulin regular (HumuLIN,NovoLIN) (70-30) 100 UNIT/ML injection Inject 18 units before breakfast and 28 units before dinner 40 mL 3 Lancets (OneTouch Delica Plus Ktcito89L) [facility] losartan (Cozaar) 50 MG tablet TAKE 1 TABLET BY MOUTH DAILY 100 tablet 3 metoprolol tartrate (Lopressor) 100 MG tablet TAKE 1 TABLET BY MOUTH TWICE DAILY 200 tablet 3 mirtazapine (Remeron) 15 MG tablet Take 1 tablet (15 mg) by mouth Nightly. 100 tablet 3 acuumqyjrjww-qoxe-rljkijoz-folic acid (Theragran-M) tablet Every 24 hours. omeprazole (PriLOSEC) [address] capsule TAKE 1 CAPSULE BY MOUTH IN THE MORNING 100 capsule 3 Probiotic tablet delayed-release daily. solifenacin (VESIcare) 10 MG tablet TAKE 1 TABLET BY MOUTH DAILY 100 tablet 2 tamsulosin (Flomax) 0.4 MG 24 hr capsule TAKE 1 CAPSULE BY MOUTH DAILY 100 capsule 3 topiramate 50 MG tablet TAKE 1 TABLET BY MOUTH EVERY NIGHT 100 tablet 3 Trulicity 0.75 MG/0.5ML No current facility-administered medications for this visit. 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) tia's Chronic kidney disease Dementia (HCC) Diabetes mellitus (HCC) GERD (gastroesophageal reflux disease) takes meds, has had for years Hyperlipidemia Hypertension Neuropathy Retinopathy TIA (transient ischemic attack) multiple Visual impairment retanopothy & cataracts removed both eyes Past Surgical History: Procedure Laterality Date COLONOSCOPY EYE SURGERY Bilateral cataract FRACTURE SURGERY back LIPOMA RESECTION 03/08/2022 Social History Socioeconomic History Marital status: Spouse name: Not on file Number of children: Not on file Years of education: Not on file Highest education level: Not on file Occupational History Not on file Tobacco Use Smoking status: Never Smokeless tobacco: Never Tobacco comments: 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 -02nd hand smoke Vaping Use Vaping status: Never Used Substance and Sexual Activity Alcohol use: Not Currently Drug use: Never Comment: caffeine: pop Sexual activity: Not Currently Partners: Female control/protection: Abstinence Other Topics Concern Not on file Social History Narrative Not on file Social Drivers of Health Financial Resource Strain: Low Risk (10/30/2024) Overall Financial Resource Strain (CARDIA) Difficulty of Paying Living Expenses: Not hard at all Food Insecurity: No Food Insecurity (10/30/2024) Hunger Vital Sign Worried About Running Out of Food in the Last Year: Never true Ran Out of Food in the Last Year: Never true Transportation Needs: Unmet Transportation Needs (10/30/2024) PRAPARE - Transportation Lack of Transportation (Medical): Yes Lack of Transportation (Non-Medical): Yes Physical Activity: Inactive (10/30/2024) Exercise Vital Sign Days of Exercise per Week: 0 days Minutes of Exercise per Session: 0 min Stress: No Stress Concern Present (10/30/2024) [employer] - Occupational Stress Questionnaire Feeling of Stress : Not at all Social Connections: Socially Isolated (10/30/2024) Social Connection and Isolation Panel [NHANES] Frequency of Communication with Friends and Family: Never Frequency of Social Gatherings with Friends and Family: Once a week Attends Hoahaoism Services: Never Active Member of Clubs or Organizations: No Attends Club or Organization Meetings: Never Marital Status: Intimate Partner Violence: Not At Risk (09/23/2022) Humiliation, Afraid, Rape, and Kick questionnaire Fear of Current or Ex-Partner: No Emotionally Abused: No Physically Abused: No Sexually Abused: No Housing Stability: Low Risk (10/30/2024) Housing Stability Vital Sign Unable to Pay for Housing in the Last Year: No Number of Times Moved in the Last Year: 1 Homeless in the Last Year: No Family History Problem Relation Name Age of Onset Cancer Mother Francie Mcdermott Other ([id number]) Father Camilla Brar Stander SN heart murmur Alcohol abuse Father Camilla Brar Stander SN Hearing loss Father Camilla Brar Stander SN Alcohol abuse Son Camilla Jones Stander III Arthritis Son Camilla Jones Stander III Depression Son Camilla Jones Stander III Arthritis Daughter Cami Hesser Autoimmune disease Daughter Cami Hesser Depression Daughter Cami Hesser Diabetes Daughter Cami Hesser Hyperlipidemia Daughter Cami Hesser Hypertension Daughter Cami Hesser Immunodeficiency Daughter Cami Hesser Depression Daughter Belle Cooper Diabetes Daughter Belle Cooper Hearing loss Sister Belle Connelly PHYSICAL EXAM BP (!) 144/90 Pulse 72 Ht 5' 8 (1.727 m) Wt 162 lb (73.5 kg) BMI 24.63 kg/m SPINE/EXTREMITY: General: Patient is in no apparent distress. Gait is antalgic and he is using a cane. He is unable to toe walk or heel walk. He can go up on his toes in a standing position. He is unable to go back on his heels in a standing position. Mild tenderness palpation lumbar spine. Lower Extremity Motor: HF Q TA EHL Peroneals GSC Right 5 5 5 5 5 5 Left 4+ 4 4 4+ 4 4+ Lower extremity sensation to light touch: L2 L3 L4 L5 S1 Right Intact Intact Intact Intact Intact Left Intact Intact Intact Intact Intact Lower extremity reflexes: Patellar Achilles Right absent absent Left absent absent Straight leg raise: Right Negative Left Negative Misc: Clonus Right None Left None Hip exam: Bilateral hip range of motion is full and symmetric without pain. *Brief cervical exam was performed. Strength 5/5 bilaterally. Sensation 5/5 bilaterally. Negative Danna's. IMAGING Lumbar Spine: Date of Exam: 02/05/2025 Views: Lumbar 4V xrays (AP/LAT/FLEX/EXT) Findings: There is no aortic calcification noted. The bilateral hip joint spaces are observed with mild degenerative changes noted. The bilateral SI joints are also observed with no significant degenerative changes noted. Levoscoliosis noted. There is no loss of lumbar lordosis. There are five non rib-bearing lumbar vertebrae. There is a compression fracture at L1 with cement augmentation. Severe degenerative disc disease. There are moderate spondylitic changes and facet arthropathy noted. There is an anterolisthesis noted at L5-S1 on flexion/extension radiographs. Multiple levels of anterior bone spurring that is bridging. Lumbar MRI: Date of exam: 06/26/2021 Findings: Approximately 17 degrees levoscoliosis centered at the L2 vertebral body level. 4 to 5 mm L5-S1 anterolisthesis. L1 Kyphoplasty changes. No evidence of an acute compression fracture deformity on the STIR sequence. Multilevel intervertebral disc space narrowing with reactive vertebral body endplate changes,, including at L2-L3 and L3-L4 as well as L5-S1. Otherwise the spine demonstrates grossly normal signal intensity. The conus terminates at a normal L1 level. No abnormal signal is appreciated within the distal cord. Shortening of the pedicles resulting in relative congenital central canal stenosis with superimposed degenerative change. T12-L1: No disc bulge or disc protrusion. No central spinal canal stenosis. No neural foraminal narrowing. L1-L2: Trace disc bulge and marginal osteophytosis. Bilateral facet arthropathy and ligamentum flavum hypertrophy, right greater than left contributes to mild left and moderate right neural foraminal narrowing. No central canal stenosis. L2-L3: 4-5 mm broad-based disc osteophyte complex extending laterally. Bilateral facet arthropathy and ligamentum flavum hypertrophy contribute to moderate central canal stenosis. Mild right neural foraminal narrowing. No left neural foraminal narrowing. Magnetic Resonance Imaging Report L3-L4: 5-6 mm broad-based disc osteophyte complex extending into the neural foramina. Bilateral facet arthropathy and ligament of flavum hypertrophy contribute to severe central canal stenosis. Moderate bilateral neural foraminal narrowing. L4-L5: Disc osteophyte complex, asymmetric to the left where it measures 5 mm in extends into the neural foramina and abuts the undersurface of the exiting nerve root. Facet arthropathy and ligamentum flavum hypertrophy contribute to moderate to severe central canal stenosis. Moderate-severe left neural foraminal narrowing. No significant right neural foraminal narrowing. L5-S1: 4-5 mm anterolisthesis, uncovering the posterior disc. Superimposed 3 mm disc osteophyte complex. Advanced bilateral facet arthropathy with tiny joint effusions. 6 x 8 mm pericanalicular cyst on the left.. Significant narrowing of the lateral recesses. Moderate to severe central canal stenosis. Severe bilateral neural foraminal narrowing. Impression: Advanced-severe multilevel degenerative change including levoscoliosis and 4-5 mm L5-S1 anterolisthesis. No acute compression deformity. NCT/EMG (Copied Impression) Date: none DEXA Date: ASSESSMENT See problem list above. Camilla is a 79 y.o. male presenting with lumbar pain, lumbar radiculopathy, left. The patient was last seen in our office on 07/22/2021 for evaluation of his low back pain and bilateral lower extremity radicular symptoms. At that time his plan included to try physical therapy and bilateral L5 TFESI's with pain management. Today, the patient reports having continued low back pain that radiates posteriorly down his left leg to his left foot and into his left heel. He does report having poor balance but brief cervical exam did not have any red flags. He reports that he did not have the injections done with pain management. He denies having any worsening loss of bowel or bladder function, saddle paresthesia, worsening hand dexterity or hand strength issues, or significant symptoms of neurogenic claudication. I had a discussion with Camilla Mcdermott about his symptoms. We independently reviewed his imaging from today which revealed levoscoliosis, L1 compression fracture with cement augmentation, severe degenerative disc disease, moderate lumbar spondylosis, spondylolisthesis L5-S1. His imaging and clinical exam reveals symptoms of lumbar radiculopathy. We reviewed the symptoms of lumbar radiculopathy. We went over the natural history and the treatment of lumbar radiculopathy. This problem is very common. It generally responds to conservative management. The conservative management includes medications, injections, exercise, care support representative, acupuncture, massage therapy, and physical therapy. We also discussed the surgical treatment of lumbar radiculopathy. If the symptoms do not respond to conservative treatment the patient is a candidate for surgical intervention. The decision to proceed with surgery is a quality of life issue. The patient can continue conservative treatment as long as he or she wants. We discussed that a lumbar decompression is better at relieving the leg symptoms as compared to the back pain. The surgery may not affect the back pain at all. The patient seems to understand their diagnosis as well as the treatment options. All questions were answered to the best of my ability. The patient is scheduled to start home physical therapy tomorrow. We are limited as to what we can give him versus pain. He has chronic kidney disease from hesitant to start him on NSAIDs. He has an elevated A1c so I do not want to try steroids. I also do not want to try muscle relaxers as he has a history of dementia. I encouraged him to continue taking Tylenol arthritis as prescribed. I do feel it is reasonable to order a lumbar spine MRI without contrast to evaluate for nerve compression. The patient will follow-up with Dr. Christian for MRI review and to discuss treatment options including injection therapy or possible surgery. IMPRESSION I had a long discussion with Camilla to make sure he had a good understanding of what I think the main issues and diagnoses are that are affecting him today, and reviewed the plan going forward. PLAN: Refer to Physical Therapy: Lumbar/core/hip abductor focus, postural stability/awareness/control Medication(s): None Patient also advised to try OTC tylenol and NSAIDs if not contraindicated Future Imaging: Lumbar MRI WO contrast Follow up once imaging/testing completed with Dr. Christian Electronically signed by JEFF Neely CNP 02/05/2025 at 3:37 PM Dictated using Opiatalk Version 2.4 Proof read however unrecognized voice recognition errors may have occurred documented in this encounter [facility] 02-05-2025 Instructions Ro Pearson MA - 02/05/2025 3:00 PM EDT We will notify you once we have approval from your insurance. You will then call central scheduling at [phone] to schedule. Please call our office at [phone] once MRI is scheduled to schedule a follow up visit with Dr. Christian for review. documented in this encounter [facility] 02-05-2025 Note Re-Right faxed refer ral to: [facility] [employer] [address] [place] [id number] [facility] 02-05-2025 Telephone encounter Note Re-Right faxed referral to: [facility] [employer] [address] [place] [id number] [facility] 02-05-2025 Miscellaneous Notes Re-Right faxed referral to: [facility] [employer] [address] [place] [id number] Ruth called back in, needs demographic and order refaxed, because she did not hear fro office in time pitched information, please advise OV note from today (01/31) faxed to office. Noted. EFREN TIDWELL Patient scheduled with Dr. Tidwell 01/29, please address in appt note. Name of caller: Ruth Contact phone number: [phone] Relationship to Patient: Stephane [facility] Provider: Dr Tidwell Practice: [facility] Chief Complaint/Reason for Call: Ruth is requesting a new face 2 face that explains why the patient is having weakness and needs PT. If caused by dementia as stated on the order it needs to be added to the last OV notes mentioning in the face 2 face that he has dementia causing his weakness. Thank you Best time of day caller can be reached: any Patient advised that office/PCP has 24-48 business hours to return their call: Yes documented in this encounter [facility] 02-01-2025 Telephone encounter Note Ruth called back in, needs demographic and order refaxed, because she did not hear fro office in time pitched information, please advise [facility] 02-01-2025 Miscellaneous Notes Ruth called back in, needs demographic and order refaxed, because she did not hear fro office in time pitched information, please advise OV note from today (01/31) faxed to office. Noted. EFREN TIDWELL Patient scheduled with Dr. Tidwell 01/29, please address in appt note. Name of caller: Ruth Contact phone number: [phone] Relationship to Patient: [facility] Provider: Dr Tidwell Practice: [facility] Chief Complaint/Reason for Call: Ruth is requesting a new face 2 face that explains why the patient is having weakness and needs PT. If caused by dementia as stated on the order it needs to be added to the last OV notes mentioning in the face 2 face that he has dementia causing his weakness. Thank you Best time of day caller can be reached: any Patient advised that office/PCP has 24-48 business hours to return their call: Yes documented in this encounter [facility] 01-31-2025 Telephone encounter Note OV note from today (01/31) faxed to office. [facility] 01-31-2025 Miscellaneous Notes OV note from today (01/31) faxed to office. Noted. EFREN TIDWELL Patient scheduled with Dr. Tidwell 01/29, please address in appt note. Name of caller: Ruth Contact phone number: [phone] Relationship to Patient: [facility] Provider: Dr Tidwell Practice: [facility] Chief Complaint/Reason for Call: Ruth is requesting a new face 2 face that explains why the patient is having weakness and needs PT. If caused by dementia as stated on the order it needs to be added to the last OV notes mentioning in the face 2 face that he has dementia causing his weakness. Thank you Best time of day caller can be reached: any Patient advised that office/PCP has 24-48 business hours to return their call: Yes documented in this encounter [facility] 01-31-2025 History of Presen t illness Narrative Subjective Patient ID: Camilla Mcdermott is a 79 y.o. male who presents for Leg Pain (left). HPI Hx chronic low back pain and lumbar DDD, patient notes pain radiating from low back down the left leg, chronic. There are no reported falls. Patient has difficulty with ambulation, lives in mobile home with 4 steps into the home and a railing. Patient has just been approved for a wheelchair for use. Hx dementia, no new sx. Lives with daughter. Patient has poor recall. Patient has hx depression, mood is stable, tolerating duloxetine. Hx DM with hyperglycemia, last A1C 11.8, patient follows with an fur joiner in [place], continues insulin and just began Dulaglutide. Continues to eat ad cami. CGM reordered. Hx HTN, BP controlled with metoprolol, losartan and every other day furosemide Patient is hard of hearing. Review of Systems Constitutional: Negative for fatigue. Respiratory: Negative for shortness of breath. Cardiovascular: Negative for chest pain. Gastrointestinal: Negative for abdominal pain. Musculoskeletal: Positive for arthralgias, back pain and gait problem. All other systems reviewed and are negative. Objective Physical Exam Vitals and nursing note reviewed. Constitutional: General: He is not in acute distress. Appearance: Normal appearance. He is normal weight. He is not ill-appearing, toxic-appearing or diaphoretic. Neck: Vascular: No carotid bruit. Cardiovascular: Rate and Rhythm: Normal rate and regular rhythm. Heart sounds: Normal heart sounds. No murmur heard. Pulmonary: Effort: Pulmonary effort is normal. Breath sounds: Normal breath sounds. No wheezing, rhonchi or rales. Musculoskeletal: Lumbar back: No bony tenderness. Decreased range of motion. Neurological: Mental Status: He is alert. Assessment/Plan Diagnoses and all orders for this visit: Chronic left-sided low back pain with left-sided sciatica - [facility] Non-Surgical; Future Mixed Alzheimer's and vascular dementia (HCC) Stable, no new sx Moderate episode of recurrent major depressive disorder (HCC) Stable, no new sx Type 2 diabetes mellitus with hyperglycemia, with long-term current use of insulin (HCC) - Continuous Glucose Sensor (FreeStyle Nita 3 Plus Sensor) misc; Check blood sugar 4 times daily - Continuous Glucose Spout Tender (FreeStyle Nita 3 [place]) device; Check blood sugar 4 times daily Followed by endocrinology Essential hypertension Controlled with current medication Schedule with non surgical orthopedics. Follow up with endocrinology. Call if new, persistent or worsening symptoms. Schedule follow up with me in 6 months. Efren Tidwell MD documented in this encounter [facility] 01-31-2025 Instructions Ruth Wallace MA - 01/31/2025 2:20 PM EDT Schedule with non surgical orthopedics. Follow up with endocrinology. Call if new, persistent or worsening symptoms. Schedule follow up with me in 6 months. Efren Tidwell MD documented in this encounter [facility] 01-22-2025 Telephone encounter Note Noted. EFREN TIDWELL [facility] 01-22-2025 Miscellaneous Notes Noted. EFREN TIDWELL Patient scheduled with Dr. Tidwell 01/29, please address in appt note. Name of caller: Ruth Contact phone number: [phone] Relationship to Patient: Stephane [facility] Provider: Dr Tidwell Practice: [facility] Chief Complaint/Reason for Call: Ruth is requesting a new face 2 face that explains why the patient is having weakness and needs PT. If caused by dementia as stated on the order it needs to be added to the last OV notes mentioning in the face 2 face that he has dementia causing his weakness. Thank you Best time of day caller can be reached: any Patient advised that office/PCP has 24-48 business hours to return their call: Yes documented in this encounter [facility] 01-22-2025 Telephone encounter Note Patient scheduled with Dr. Tidwell 01/29, please address in appt note. [facility] 01-17-2025 Evaluation note Diagnosis Onset Date Resolution CKD (chronic kidney disease) chronic January 17, 2025 2:02pm Diabetes chronic January 17 2:02pm Hyperlipidemia chronic December 2:02pm Hypertension chronic January 17, 2025 2:02pm Neuropathy chronic January 17 2:02pm [facility] Work Phone: [phone] [phone] Telephone encounter Note* Telephone Encounter - Estrella Anderson - 01/17/2025 2:59 PM EDT Name of caller: Ruth Contact phone number: [phone] Relationship to Patient: [facility] Provider: Dr Tidwell Practice: [facility] Chief Complaint/Reason for Call: Ruth is requesting a new face 2 face that explains why the patient is having weakness and needs PT. If caused by dementia as stated on the order it needs to be added to the last OV notes mentioning in the face 2 face that he has dementia causing his weakness. Thank you Best time of day caller can be reached: any Patient advised that office/PCP has 24-48 business hours to return their call: Yes [id number] Telephone encounter Note* Telephone Encounter - Lotus Martinez MA - 01/15/2025 1:58 PM EDT Right faxed 07/03/24 OV note to [facility] Attn Ruth [id number] Miscellaneous Notes* Telephone Encounter - Lotus Martinez MA - 01/15/2025 1:58 PM EDT Right faxed 07/03/24 OV note to [facility] Attn Ruth * Telephone Encounter - Asha Bauer - 01/15/2025 10:23 AM EDT Images from the original note were not included. Message released to patient as written. Lotus Martinez MA Oracle Manager Signed 01/09/2025 Copy Right faxed 10/30/24 OV note to [facility] Attn Ruth Patient's further questions if applicable: Ruth states has the orders but needs the face to face addendum with it stating pt has alzheimer's and dementia for physical therapy. Please advise. Were all questions from office addressed or relayed to the patient from encounter: N/A ' * Telephone Encounter - Lotus Martinez MA - 01/09/2025 6:53 AM EDT Right faxed 10/30/24 OV note to [facility] Attn Rtuh * Telephone Encounter - Estrella Anderson - 01/08/2025 3:17 PM EDT Name of caller: Ruth Contact phone number: [phone] Relationship to Patient: [facility] Provider: Dr Tidwell Practice: [facility] Chief Complaint/Reason for Call: Ruth is requesting face to face notes that mention the patients alhzeimer and dementia faxed to her at fax# [phone]. Thank you Best time of day caller can be reached: any Patient advised that office/PCP has 24-48 business hours to return their call: Yes * Telephone Encounter - Rochelle Landeros PA-C - 01/08/2025 11:46 AM EDT I placed another order-- dx given is all we have . Dx: alzheimers, generalized weakness, chronic pain syndrome and impaired gait. * Telephone Encounter - Haily Deluna - 01/07/2025 12:44 PM EDT Name of caller: Ruth Contact phone number: [phone] Relationship to Patient: [facility] Provider: Diann Practice: [facility] Chief Complaint/Reason for Call: Ruth needs a written and signed order and diagnoses for this patient to receive physical therapy please fax to number [phone]. Please advise Ruth at [phone]. Best time of day caller can be reached: any Patient advised that office/PCP has 24-48 business hours to return their call: Yes documented in this [facility]03-25-2025 Telephone encounter Note* Telephone Encounter - Asha Bauer - 01/15/2025 10:23 AM EDT Images from the original note were not included. Message released to patient as written. Lotus Martinez MA Oracle Manager Signed 01/09/2025 Copy Right faxed 10/30/24 OV note to [facility] Attn Ruth Patient's further questions if applicable: Ruth states has the orders but needs the face to face addendum with it stating pt has alzheimer's and dementia for physical therapy. Please advise. Were all questions from office addressed or relayed to the patient from encounter: N/A ' [id number] Telephone encounter Note* Telephone Encounter - Lotus Martinez MA - 01/09/2025 6:53 AM EDT Right faxed 10/30/24 OV note to [facility] Attn Ruth [facility] [id number] Miscellaneous Notes* Telephone Encounter - Lotus Martinez MA - 01/09/2025 6:53 AM EDT Right faxed 10/30/24 OV note to [facility] Attn Ruth * Telephone Encounter - Estrella Anderson - 01/08/2025 3:17 PM EDT Name of caller: Ruth Contact phone number: [phone] Relationship to Patient: [facility] Provider: Dr Tidwell Practice: [facility] Chief Complaint/Reason for Call: Ruth is requesting face to face notes that mention the patients alhzeimer and dementia faxed to her at fax# [phone]. Thank you Best time of day caller can be reached: any Patient advised that office/PCP has 24-48 business hours to return their call: Yes * Telephone Encounter - Rochelle Landeros PA-C - 01/08/2025 11:46 AM EDT I placed another order-- dx given is all we have . Dx: alzheimers, generalized weakness, chronic pain syndrome and impaired gait. * Telephone Encounter - Haily Deluna - 01/07/2025 12:44 PM EDT Name of caller: Ruth Contact phone number: [phone] Relationship to Patient: [facility] Provider: Diann Practice: [facility] Chief Complaint/Reason for Call: Ruth needs a written and signed order and diagnoses for this patient to receive physical therapy please fax to number [phone]. Please advise Ruth at [phone]. Best time of day caller can be reached: any Patient advised that office/PCP has 24-48 business hours to return their call: Yes documented in this [facility]03-18-2025 Telephone encounter Note* Telephone Encounter - Estrella Anderson - 01/08/2025 3:17 PM EDT Name of caller: Ruth Contact phone number: [phone] Relationship to Patient: [facility] Provider: Dr Tidwell Practice: [facility] Chief Complaint/Reason for Call: Ruth is requesting face to face notes that mention the patients alhzeimer and dementia faxed to her at fax# [phone]. Thank you Best time of day caller can be reached: any Patient advised that office/PCP has 24-48 business hours to return their call: Yes [facility] [id number] Miscellaneous Notes* Telephone Encounter - Estrella Anderson - 01/08/2025 3:17 PM EDT Name of caller: Ruth Contact phone number: [phone] Relationship to Patient: [facility] Provider: Dr Tidwell Practice: [facility] Chief Complaint/Reason for Call: Ruth is requesting face to face notes that mention the patients alhzeimer and dementia faxed to her at fax# [phone]. Thank you Best time of day caller can be reached: any Patient advised that office/PCP has 24-48 business hours to return their call: Yes * Telephone Encounter - Rochelle Landeros PA-C - 01/08/2025 11:46 AM EDT I placed another order-- dx given is all we have . Dx: alzheimers, generalized weakness, chronic pain syndrome and impaired gait. * Telephone Encounter - Haily Deluna - 01/07/2025 12:44 PM EDT Name of caller: Ruth Contact phone number: [phone] Relationship to Patient: [facility] Provider: Diann Practice: [facility] Chief Complaint/Reason for Call: Ruth needs a written and signed order and diagnoses for this patient to receive physical therapy please fax to number [phone]. Please advise Ruth at [phone]. Best time of day caller can be reached: any Patient advised that office/PCP has 24-48 business hours to return their call: Yes documented in this encounterSKing[facility] [id number] Telephone encounter Note* Telephone Encounter - Rochelle Landeros PA-C - 01/08/2025 11:46 AM EDT I placed another order-- dx given is all we have . Dx: alzheimers, generalized weakness, chronic pain syndrome and impaired gait. [facility] [id number] Telephone encounter Note* Telephone Encounter - Haily Deluna - 01/07/2025 12:44 PM EDT Name of caller: Ruth Contact phone number: [phone] Relationship to Patient: [facility] Provider: Diann Practice: [facility] Chief Complaint/Reason for Call: Ruth needs a written and signed order and diagnoses for this patient to receive physical therapy please fax to number [phone]. Please advise Ruth at [phone]. Best time of day caller can be reached: any Patient advised that office/PCP has 24-48 business hours to return their call: Yes [facility] [id number] Telephone encounter Note* Telephone Encounter - Efren Tidwell MD - 12/10/2024 9:00 AM EST Rx ordered Efren Tidwell MD [facility] [id number] Miscellaneous Notes* Telephone Encounter - Efren Tidwell MD - 12/10/2024 9:00 AM EST Rx ordered Efren Tidwell MD documented in this encounterSKing[facility] [id number] Telephone encounter Note* Telephone Encounter - Celina Rossi MA - 11/26/2024 2:30 PM EST I called the patients daughter pat to clarify if he needs a refill and where to send it. She statedthat he is on a program with [facility] and would like the script sent there for her father. Pleaseadvise. [place] [id number] Miscellaneous Notes* Telephone Encounter - Celina Rossi MA - 11/26/2024 2:30 PM EST I called the patients daughter pat to clarify if he needs a refill and where to send it. She statedthat he is on a program with [facility] and would like the script sent there for her father. Pleaseadvise. * Telephone Encounter - Linda Fajardo - 11/26/2024 1:58 PM EST Name of caller: Pat Contact phone number: [phone] Relationship to Patient: family member patient and daughter Provider: [facility] Practice: End[facility] Chief Complaint/Reason for Call: patient is asking about the medication empagliflozin (Jardiance) 25 MG Patient will need it before Tuesday . Please call daughter back to advise Best time of day caller can be reached: PM Patient advised that office/PCP has 24-48 business hours to return their call: Yes documented in [facility]02-03-2025 Telephone encounter Note* Telephone Encounter - Linda Fajardo - 11/26/2024 1:58 PM EST Name of caller: Nicho Contact phone number: [phone] Relationship to Patient: family member patient and daughter Provider: [facility] Practice: End[facility] Chief Complaint/Reason for Call: patient is asking about the medication empagliflozin (Jardiance) 25 MG Patient will need it before Tuesday . Please call daughter back to advise Best time of day caller can be reached: PM Patient advised that office/PCP has 24-48 business hours to return their call: Yes [facility] [id number] Telephone encounter Note* Telephone Encounter - Corin Olivo - 11/22/2024 9:29 AM EST Name of caller: Cami Contact phone number: [phone] Relationship to Patient: Daughter Provider: [facility] Practice: Endo Chief Complaint/Reason for Call: Patient will be going out of town 12/01. He will be out of sensors. Patient daughter is requesting a refill be sent to the [facility] pharmacy. Please advise. Best time of day caller can be reached: Any Patient advised that office/PCP has 24-48 business hours to return their call: Yes [facility] [id number] Miscellaneous Notes* Telephone Encounter - Corin Olivo - 11/22/2024 9:29 AM EST Name of caller: Cami Contact phone number: [phone] Relationship to Patient: Daughter Provider: [facility] Practice: Endo Chief Complaint/Reason for Call: Patient will be going out of town 12/01. He will be out of sensors. Patient daughter is requesting a refill be sent to the [facility] pharmacy. Please advise. Best time of day caller can be reached: Any Patient advised that office/PCP has 24-48 business hours to return their call: Yes documented in this [facility]01-17-2025 NoteReferral to home therapy per patient's daughter request She is declining adjustment in meds as directed and declines all offers for appointment to discuss She is also concerned about his dementia. Will referr to geriatric medicine. LOKESH Rios-[facility]01-09-2025 NoteRight faxed referral to: [facility] [address] [place] [id number] [facility]01[facility]2025 NoteReferral Requested. Efren Tidwell MD 11/23/24 Daughter's response noted. Efren Tidwell, [facility]01-07-2025 History of Present illness Narrative* LOKESH Rios-Carlo - 10/30/2024 8:00 AM EST Images from the original note were not included. [facility] - [address] [facility] [address] Dept: [phone] Dept Chief Complaint: Camilla Mcdermott is an 79 y.o. male here for an annual wellness visit. 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 ~ given information sheet on well visit, preventative care and guidelines for healthy living ~ medications reviewed and refills given if requested or required ~ updated medication list and medical history with patient ~ follow up in 1 year, sooner if needed Note: patient seen for URI last week- given zpak. Never took steroid. Much improved. Relevant Orders Hemoglobin A1c Comprehensive metabolic panel CBC Type 2 diabetes mellitus with hyperglycemia, with long-term current use of insulin (HCC) Relevant Medications insulin NPH-insulin regular (HumuLIN,NovoLIN) (70-30) 100 UNIT/ML injection Generalized weakness - family member states patient is in the process of getting a scooter. Has an appointment for evaluation soon - referral to PT- patient not moving much. Generalized weakness. - in wheelchair for visit and distance walking. No wheelchair at home. Relevant Orders [facility] I have reviewed and reconciled the medication list with the patient today. Current Outpatient Medications Medication Sig Dispense Refill alpha tocopherol (Vitamin E) 400 units capsule 1 capsule Every 24 hours. 180 mg aspirin 81 MG EC tablet Take 1 tablet (81 mg) by mouth daily. atorvastatin (Lipitor) 80 MG tablet TAKE 1 TABLET BY MOUTH DAILY 90 tablet 3 azithromycin (Zithromax) 250 MG tablet Take 2 tabs (500 mg) by mouth today, than 1 tab (250 mg) daily for 4 days. 6 tablet 0 benzonatate (Tessalon) 200 MG capsule Take 1 capsule (200 mg) by mouth 3 times daily as needed for cough. Do not crush or chew. 42 capsule 3 calcium carbonate-vitamin D 600-200 MG-UNIT tablet Take 1 tablet by mouth daily. Continuous Glucose Sensor (FreeStyle Nita 2 Sensor) [facility] 1 Device every 14 (fourteen) days. 6 each5 diabetic shoes Diabetic Shoes and inserts. 1 each 0 DULoxetine (Cymbalta) [address] capsule TAKE 2 CAPSULES BY MOUTH IN THE MORNING 180 capsule 0 empagliflozin (Jardiance) 25 MG Take 1 tablet (25 mg) by mouth daily. 90 tablet 3 fish oil-omega-3 fatty acids 1000 MG capsule Take 1,000 mg by mouth in the morning. furosemide (Lasix) 20 MG tablet TAKE 1 TABLET BY MOUTH EVERY OTHER DAY (Patient taking differently:TAKE 1 TABLET BY MOUTH EVERY OTHER DAY) 50 tablet 3 glucagon 1 MG injection Inject 1 mL (1 mg) into the shoulder, thigh, or buttocks Once as needed forlow blood sugar for up to 4 doses. 1 each 3 Qaeuuuagdrk-Gkctpooin-Yox C-Mn (Glucosamine 1500 Complex) capsule 1 capsule 1 (one) time each day. glucose blood test strip 1 each by Other route 2 times daily. 60 each 11 Lancets (OneTouch Delica Plus [id number]) misc losartan (Cozaar) 50 MG tablet TAKE 1 TABLET BY MOUTH DAILY 100 tablet 3 metoprolol tartrate (Lopressor) 100 MG tablet TAKE 1 TABLET BY MOUTH TWICE DAILY 200 tablet 3 mirtazapine (Remeron) 15 MG tablet TAKE 1 TABLET BY MOUTH EVERY NIGHT 90 tablet 0 jcquynarzmex-upqb-whmeflgr-folic acid (Theragran-M) tablet Every 24 hours. omeprazole (PriLOSEC) [address] capsule TAKE 1 CAPSULE BY MOUTH IN THE MORNING 100 capsule 3 Probiotic tablet delayed-release daily. solifenacin (VESIcare) 10 MG tablet TAKE 1 TABLET BY MOUTH DAILY 100 tablet 0 tamsulosin (Flomax) 0.4 MG 24 hr capsule TAKE 1 CAPSULE BY MOUTH DAILY 100 capsule 3 topiramate 50 MG tablet TAKE 1 TABLET BY MOUTH EVERY NIGHT 100 tablet 3 insulin NPH-insulin regular (HumuLIN,NovoLIN) (70-30) 100 UNIT/ML injection Inject 18 units before breakfast and 28 units before dinner 40 mL 3 No current facility-administered medications for this visit. Also reviewed during this visit: ~ patient is here for his AWV. Follows with PCP Dr Tidwell with last visit 4 months ago. ~ also following with cardiology and endocrine who monitor his labs. Last documented A1c was 11.1 in March with endocrine. The following health maintenance schedule was reviewed with the patient and provided in printed form in the after visit summary: Health Maintenance Topic Date Due RSV Immunization for Adults (1 - 1-dose 75+ series) Never done Zoster Vaccines (2 of 2) 09/05/2023 Influenza Vaccine (1) 06/24/2024 Diabetes: Urine Albumin-Creatinine Ratio for Kidney Health 10/04/2024 Diabetes: Estimated Glomerular Filtration Rate for Kidney Health 04/24/2025 Depression Monitoring 04/25/2025 DTaP/Tdap/Td Vaccines (2 - Td or Tdap) 10/01/2027 Medicare Advantage Annual Wellness Visit Completed Pneumococcal Vaccine: 50+ Years Completed Hepatitis C Screening Completed RSV Immunization under 20 Months Aged Out HIB Vaccines Aged Out Hepatitis B Vaccines Aged Out IPV Vaccines Aged Out Hepatitis A Vaccines Aged Out Meningococcal Vaccine Aged Out Rotavirus Vaccines Aged Out HPV Vaccines Aged Out COVID-19 Vaccine Discontinued List of current healthcare providers: Patient Care Team: Efren Tidwell MD as PCP - General Orders Placed This Encounter Procedures Hemoglobin A1c Standing Status: Future Number of Occurrences: 1 Standing Expiration Date: 10/30/2025 Comprehensive metabolic panel Standing Status: Future Number of Occurrences: 1 Standing Expiration Date: 10/30/2025 CBC Standing Status: Future Number of Occurrences: 1 Standing Expiration Date: 10/30/2025 [facility] Standing Status: Future Standing Expiration Date: 10/30/2025 Referral Priority: Routine Referral Type: Therapy Referral Reason: Eval and Treat Requested Specialty: Physical Therapy Number of Visits Requested: 1 Review of Systems Physical Exam Vitals and nursing note reviewed. Constitutional: General: He is not in acute distress. Appearance: Normal appearance. He is not ill-appearing, toxic-appearing or diaphoretic. HENT: Nose: Nose normal. Eyes: Conjunctiva/sclera: Conjunctivae normal. Pupils: Pupils are equal, round, and reactive to light. Cardiovascular: Rate and Rhythm: Normal rate and regular rhythm. Pulses: Normal pulses. Heart sounds: Normal heart sounds. No murmur heard. Pulmonary: Effort: Pulmonary effort is normal. No respiratory distress. Breath sounds: Normal breath sounds. No wheezing or rhonchi. Musculoskeletal: General: Normal range of motion. Right lower leg: No edema. Left lower leg: No edema. Skin: General: Skin is warm and dry. Neurological: General: No focal deficit present. Mental Status: He is alert and oriented to person, place, and time. Psychiatric: Mood and Affect: Mood normal. Behavior: Behavior normal. Objective : BP 130/78 (BP Location: Left arm, Patient Position: Sitting, BP Cuff Size: Adult) Pulse 91 Temp36.6 C (97.8 F) (Temporal) Ht 5' 8 (1.727 m) Wt 157 lb 12.8 oz (71.6 kg) SpO2 98% BMI 23.99 kg/m No results found. Subjective : Health Risk Assessment: General: General In general, how would you say your health is?: Very good In the past 7 days, have you experienced any of the following: New or Increased Pain, New or Increased Fatigue, Loneliness, Social Isolation, Stress or Anger?: (!) Yes Select all that apply: (!) New or Increased Pain Do you get the social and emotional suppport you need?: Yes Interventions: Denies any of the above other than chronic neuropathy Health Habits/Nutrition: Health Habits / Nutrition On average, how many days per week do you engage in moderate to strenous exercise (like a brisk walk)?: (!) 0 days On average, how man minutes do you engage in exercise at this level?: (!) 0 min Have you lost any weight without trying in the past 3 months? : Yes Have you seen the dentist within the past year?: (!) No Interventions: Inadequate physical activity: limited due to neuropathy, uncontrolled diabetes- not watching diet. Monitoring glucose BID- running above 300 , and Dental exam overdue: patient has no teeth Hearing/ Vision: Hearing / Vision Do you or your family notice any trouble with your hearing that hasn't been managed with hearing aids?: (!) Yes Do you have difficulty driving, watching TV, or doing any of your daily activities because of your eyesight?: (!) Yes Have you had an eye exam within the past year?: Yes No results found. Interventions: Hearing concerns: has bilateral hearing aids and Vision concerns: follows with shipping support clerk- cataracts and retinopathy Safety: Safety Do you have a working smoke detector?: Yes Do you have any tripping hazards - loose or unsecured carpets or rugs?: (!) Yes Do you have any tripping hazards - clutter in doorways, halls, or stairs?: (!) Yes Do you have either shower bars, grab bars, non-slip mats or non-slip surfaces in your shower or bathtub? : Yes Do all your stairways have a railing or banister? : Yes Do you fasten your seatbelt when you are in a car?: Yes Interventions: Would like rail in bathroom and scooter- he was in the process for it but needs formal evaluation. ADL: ADL In the past 7 days, did you need help from others to perform any of the following everyday activities: Eating, dressing, grooming,bathing, toileting, or walking / balance? : No In the past 7 days, did you need help from others to take care of any of the following: laundry, housekeeping, banking / finances,shopping, telephone use, food preparation, transportation, or taking medications? : Yes Select all that apply: Transportation, Laundry, Housekeeping, Taking Medications, Telephone Use, Food Preparation Interventions: Patient declines any further evaluation / treatment for this issue Living Will: Living Will Do you have a living will?: Yes Cognitive: Cognitive Screening: Mini-Cog Clock Drawing Test (CDT): (!) 0 Words Recalled: 0 (sunshine) Total Score: 0 Total Score Interpretation: Abnormal Mini-Cog Fall Risk: Fall Risk One or more falls in the last year:: Yes Advised to use a cane or walker to get around safely:: Yes Feels unsteady when walking:: Yes Steadies self on furniture while walking at home:: Yes Worried about falling:: Yes Interventions: Patient declines any further evaluation / treatment for this issue Depression Screening: Over the past 2 weeks, how often have you been bothered by any of the following problems? Little interest or pleasure in doing things: Several days Feeling down, depressed, or hopeless: Several days Patient Health Questionnaire-2 Score: 2 Interventions: Patient declines any further evaluation / treatment for this issue Tobacco Use: Social History Tobacco Use Smoking Status Never Smokeless Tobacco Never Tobacco Comments 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 -02nd hand smoke Alcohol Use: Audit Alcohol Screening Q1: How often do you have a drink containing alcohol?: Never Q2: How many drinks containing alcohol do you have on a typical day when you are drinking?: Patientdoes not drink Q3: How often do you have six or more drinks on one occasion?: Never Audit-C Score: 0 Skip to questions 9-10?: 1 Social Drivers of Health: SDOH risk assessment performed and documented today by members of the health care team. A total time of 15+ minutes was spent obtaining information from the patient and discussing options to address the patient's social risk factors and unmet needs. Social Drivers of Health with Concerns Concerns Present Transportation Needs: Unmet Transportation Needs (10/30/2024) Physical Activity: Inactive (10/30/2024) Social Connections: Socially Isolated (10/30/2024) Rochelle Landeros PA-C documented in this [facility]01-07-2025 Instructions* Patient Instructions* Sanaz Alcala MA - 10/30/2024 8:00 AM EST Patient wants to establish with [facility]-[phone], [address] [place] [address], [address] [place] [address], [place] [address] please provide information Personalized Preventative Plan for Camilla Mcdermott - 10/30/2024 Medicare offers a range of preventative health benefits. Some of the tests and screenings are paid in full while others may be subject to a deductible, co- insurance, and / or copay. Some of these benefits include a comprehensive review of your medical history including lifestyle, illnesses that mayrun in your family, and various assessments and screenings as appropriate. After reviewing your medical record and screening and assessments performed today, your provider may have ordered immunizations, labs, imaging, and / or referrals for you. A list of these orders (if applicable) as well as your Preventative Care list are included within your After Visit Summary for your review. Other Preventative Recommendations: A preventive eye exam by an eyelet punch operator is recommended every 1-2 years to screen for glaucoma, cataracts, macular degeneration, and other eye disorders. A preventive dental visit is recommended every 6 months. Try to get at least 150 minutes of exercise per week or 10,000 steps per day on a pedometer. You need 1200-1500mg of calcium and 2407-5109 international units of vitamin D per day. It is possible to meet your calcium requirement with diet alone, but a vitamin D supplement is usually necessary to meet this goal. When exposed to the sun, use a sunscreen that protects against both UVA and UVB radiation with an SPF of 30 or greater. Reapply every 2-3 hours or after sweating, drying off with a towel, or swimming. Always wear a seat belt when traveling in a car. Always wear a helmet when riding a bicycle or a motorcycle documented in this [facility]01-03-2025 History of Present illness Narrative* Sharri Moore MD - 10/26/2024 1:30 PM EST Camilla Mcdermott is a 79 y.o. male who presents today for the following: Chief Complaint Patient presents with Cough Patient was identified and seen today via Telehealth by agreement and consent. I used the followingTelehealth technology: Audio and video capabilities. Patient location: Patient Location: Home. This patient encounter is appropriate and reasonable under the circumstances: transportation issues .The patient has been advised of the potential risks and limitations of this mode of treatment (inclu ding but not limited to the absence of in-person examination) and has agreed to be treated in a remote fashion in spite of them. Any and all of the patient's/patient's family's questions on this issue have been answered and I have made no promises or guarantees to the patient. The patient has also been advised to contact this office for worsening conditions or problems, and seek emergency medicaltreatment and/or call 911 if the patient deems either necessary. The patient stated that they are currently in the [facility]. If the patient is a minor, permission has been obtained by the parentor guardian for the patient to receive medical care at this visit. Assessment and Plan: Diagnosis Plan 1. Bronchitis azithromycin (Zithromax) 250 MG tablet predniSONE (Deltasone) 20 MG tablet XR chest 2 views benzonatate (Tessalon) 200 MG capsule New Medications Ordered This Visit Medications azithromycin (Zithromax) 250 MG tablet Sig: Take 2 tabs (500 mg) by mouth today, than 1 tab (250 mg) daily for 4 days. Dispense: 6 tablet Refill: 0 predniSONE (Deltasone) 20 MG tablet Sig: Take 2 tablets (40 mg) by mouth daily for 5 days. With breakfast Dispense: 10 tablet Refill: 0 benzonatate (Tessalon) 200 MG capsule Sig: Take 1 capsule (200 mg) by mouth 3 times daily as needed for cough. Do not crush or chew. Dispense: 42 capsule Refill: 3 Symptoms are uncontrolled. Will treat him for bronchitis with meds per above. Side effect profile reviewed. Of note, his last hemoglobin A1c in March was 11%. Therefore, advised to only start steroidsif his cough is debilitating. Should his symptoms fail to improve/worsen, chest x-ray per above which will be faxed to [facility] locally, to rule out pneumonia. All patient questions answered.Pt voiced understanding. Patient agreed with treatment plan. Red flag signs were also reviewed in detail with patient, and they verbalized understanding of seeking immediate medical attention if needarises. HPI: This is a 79-year-old male with a past medical history significant for dementia, CAD, type 2 diabetes, CKD, hypertension, hyperlipidemia, history of TIA, presents today for chief complaint mentioned above. He is very hard of hearing. History is mainly provided by his daughter who is relating the information. Symptoms started 5 days ago. No fevers or chills. He has a dry cough which is debilitating. No shortness of breath. No sinus pressure. He has a sore throat from coughing excessively. No earpain. No medication allergies. 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) tia's Chronic kidney disease Dementia ([facility]) Diabetes mellitus ([facility]) GERD (gastroesophageal reflux disease) takes meds, has had for years Hyperlipidemia Hypertension Neuropathy Retinopathy TIA (transient ischemic attack) multiple Visual impairment retanopothy & cataracts removed both eyes Patient Active Problem List Diagnosis Essential hypertension Mixed hyperlipidemia Shortness of breath Ascending aorta dilatation (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) Moderate episode of recurrent major depressive disorder ([facility]) Impaired gait Mixed Alzheimer's and vascular dementia ([facility]) Caregiver stress Vascular dementia without behavioral disturbance ([facility]) Financial difficulties Sarkar's palsy Bunion Chronic pain Diabetic polyneuropathy associated with type 2 diabetes mellitus (CMS/HCC) (HCC) Disturbance of skin sensation Hearing loss Lung nodule Neuropathy Oropharyngeal dysphagia Pain in both feet Sciatica associated with disorder of lumbar spine Sensory hearing loss, bilateral Urgency-frequency syndrome Anemia of chronic renal failure Hyperparathyroidism due to renal insufficiency (HCC) Stage 3a chronic kidney disease (HCC) Acute chest pain Stable angina (HCC) Chest pain, unspecified Past Surgical History: Procedure Laterality Date COLONOSCOPY EYE SURGERY Bilateral cataract FRACTURE SURGERY back LIPOMA RESECTION 03/08/2022 Family History Problem Relation Name Age of Onset Cancer Mother Francie Mcdermott Other ([id number]) Father Camilla Mcdermott SN heart murmur Alcohol abuse Father Camilla Mcdermott SN Hearing loss Father Camilla Mcdermott SN Alcohol abuse Son Camilla Jones Stander III Arthritis Son Camilla Jones Stander III Depression Son Camilla Jones Stander III Arthritis Daughter Cami Cainer Autoimmune disease Daughter Cami Hesser Depression Daughter Cami Hesser Diabetes Daughter Cami Hesser Hyperlipidemia Daughter Cami Hesser Hypertension Daughter Cami Hesser Immunodeficiency Daughter Cami Hesser Depression Daughter Belle Cooper Diabetes Daughter Belle Cooper Hearing loss Sister Belle Connelly Current Outpatient Medications Medication Sig Dispense Refill alpha tocopherol (Vitamin E) 400 units capsule 1 capsule Every 24 hours. 180 mg aspirin 81 MG EC tablet Take 1 tablet (81 mg) by mouth daily. atorvastatin (Lipitor) 80 MG tablet TAKE 1 TABLET BY MOUTH DAILY 90 tablet 3 azithromycin (Zithromax) 250 MG tablet Take 2 tabs (500 mg) by mouth today, than 1 tab (250 mg) daily for 4 days. 6 tablet 0 benzonatate (Tessalon) 200 MG capsule Take 1 capsule (200 mg) by mouth 3 times daily as needed for cough. Do not crush or chew. 42 capsule 3 calcium carbonate-vitamin D 600-200 MG-UNIT tablet Take 1 tablet by mouth daily. Continuous Glucose Sensor (FreeStyle Nita 2 Sensor) [facility] 1 Device every 14 (fourteen) days. 6 each5 diabetic shoes Diabetic Shoes and inserts. 1 each 0 DULoxetine (Cymbalta) [address] capsule TAKE 2 CAPSULES BY MOUTH IN THE MORNING 180 capsule 0 empagliflozin (Jardiance) 25 MG Take 1 tablet (25 mg) by mouth daily. 90 tablet 3 fish oil-omega-3 fatty acids 1000 MG capsule Take 1,000 mg by mouth in the morning. furosemide (Lasix) 20 MG tablet TAKE 1 TABLET BY MOUTH EVERY OTHER DAY (Patient taking differently:Take 20 mg by mouth Daily as needed. Take 1 tablet as needed for weight gain >= 4 pounds in 1-3 days) 50 tablet 3 glucagon 1 MG injection Inject 1 mL (1 mg) into the shoulder, thigh, or buttocks Once as needed forlow blood sugar for up to 4 doses. 1 each 3 Rsxbgjsohfn-Qwkudlemj-Zpe C-Mn (Glucosamine 1500 Complex) capsule 1 capsule 1 (one) time each day. glucose blood test strip 1 each by Other route 2 times daily. 60 each 11 insulin NPH-insulin regular (HumuLIN,NovoLIN) (70-30) 100 UNIT/ML injection Inject 18 units before breakfast and 28 units before dinner 40 mL 3 Lancets (OneTouchTouch Delica Plus [id number]) misc losartan (Cozaar) 50 MG tablet TAKE 1 TABLET BY MOUTH DAILY 100 tablet 3 metoprolol tartrate (Lopressor) 100 MG tablet TAKE 1 TABLET BY MOUTH TWICE DAILY 200 tablet 3 mirtazapine (Remeron) 15 MG tablet TAKE 1 TABLET BY MOUTH EVERY NIGHT 90 tablet 0 fuawpkdgmgxe-bbtd-atanbeom-folic acid (Theragran-M) tablet Every 24 hours. omeprazole (PriLOSEC) [address] capsule TAKE 1 CAPSULE BY MOUTH IN THE MORNING 100 capsule 3 predniSONE (Deltasone) 20 MG tablet Take 2 tablets (40 mg) by mouth daily for 5 days. With breakfast 10 tablet 0 Probiotic tablet delayed-release daily. solifenacin (VESIcare) 10 MG tablet TAKE 1 TABLET BY MOUTH DAILY 100 tablet 0 tamsulosin (Flomax) 0.4 MG 24 hr capsule TAKE 1 CAPSULE BY MOUTH DAILY 100 capsule 3 topiramate 50 MG tablet TAKE 1 TABLET BY MOUTH EVERY NIGHT 100 tablet 3 No current facility-administered medications for this visit. No Known Allergies ROS: All pertinent positives and negatives per HPI as stated above. PHYSICAL EXAM General : A/O x 3, NAD LUNGS: no respiratory distress, not coughing during visit. States he doesn't feel 'great.' Pertinent Labs: CBC: Lab Results Component Value Date WBC 8.8 01/07/2024 HGB 13.4 01/07/2024 HCT 40.3 01/07/2024 MCV 85.0 01/07/2024 PLT 173 01/07/2024 CMP: Lab Results Component Value Date NA 135 01/07/2024 K 3.8 01/07/2024 CL 102 01/07/2024 CO2 25 01/19/2024 BUN 10 01/19/2024 CREATININE 1.55 (H) 04/24/2024 GLUCOSE 267 (H) 01/19/2024 ALT 19 12/03/2023 AST 18 12/03/2023 ALKPHOS 116 12/03/2023 TSH: Lab Results Component Value Date TSH 3.067 10/24/2020 Lipid Profile: Lab Results Component Value Date TRIG 152 (A) 02/25/2021 HDL 29 (L) 02/25/2021 CHOL 121 02/25/2021 Hemoglobin A1C: No components found for: LABA1C Vitamin D: No components found for: [id number] URINALYSIS: Lab Results Component Value Date APPEARANCE Clear 05/07/2020 COLORU Light-Yellow 05/07/2020 LABSPEC 1.010 05/07/2020 LABPH 7.0 05/07/2020 GLUCOSEU 200 (A) 05/07/2020 UROBILINOGEN Normal 05/07/2020 BILIRUBINUR Negative 05/07/2020 BILIRUBINUR NEG 05/01/2020 OCBU Negative 05/07/2020 [id number] Telephone encounter Note* Telephone Encounter - Efren Tidwell MD - 10/26/2024 9:51 AM EST Noted. [id number] Miscellaneous Notes* Telephone Encounter - Efren Tidwell MD - 10/26/2024 9:51 AM EST Noted. EFREN TIDWELL * Telephone Encounter - Viola Pearce RN - 10/25/2024 2:48 PM EST S: Patients daughter spoke with [facility] nurse regarding cough B: Onset of symptoms/concern 4 days A: Productive cough of green phlegm, denies exposure to Covid and has not tested. Also has nasal congestion and post nasal drip. Taking Nyquil with no relief and also not sleeping well due to cough. Denies constant chest pain, shortness of breath, fever/chills, R: Patient understands care advice. No further needs at this time. Patient instructed to call back with new or worsening symptoms. Reason for Disposition Continuous (nonstop) coughing interferes with work or school and no improvement using cough treatment per Care Advice Protocols used: [id number] documented in this [facility]01-02-2025 Telephone encounter Note* Telephone Encounter - Viola Pearce RN - 10/25/2024 2:48 PM EST S: Patients daughter spoke with [facility] nurse regarding cough B: Onset of symptoms/concern 4 days A: Productive cough of green phlegm, denies exposure to Covid and has not tested. Also has nasal congestion and post nasal drip. Taking Nyquil with no relief and also not sleeping well due to cough. Denies constant chest pain, shortness of breath, fever/chills, R: Patient understands care advice. No further needs at this time. Patient instructed to call back with new or worsening symptoms. Reason for Disposition Continuous (nonstop) coughing interferes with work or school and no improvement using cough treatment per Care Advice Protocols used: [id number] [facility] [id number] Telephone encounter Note* Telephone Encounter - Celina Rossi MA - 09/25/2024 10:09 AM EST Sent rx request to mark duffy [facility] [id number] Miscellaneous Notes* Telephone Encounter - Celina Rossi MA - 09/25/2024 10:09 AM EST Sent rx request to mark duffy documented in this [facility]11-22-2024 History of Present illness Narrative* Dion Gutierrez MD - 09/14/2024 9:40 AM EST Images from the original note were not included. [facility] [place] [address] [facility] [address] Dept: [phone] Dept Visit type: Established : 1945 Reason for Visit: Coronary Artery Disease Assessment and Plan CAD: mild, nonobstructive, no angina -continue aspirin 81 mg daily -continue atorvastatin 80 mg daily -continue metoprolol 100 mg bid -stop IMDUR -risk factor control Dilated aorta: mild asymptomatic -BP and risk factor control HTN: elevated BP today/reports that he did not take BP meds today yet, but report intermittent orthostatic symptoms with low diastolic BP. No edema, TTE had hyperdynamic LVEF, avoid dehydration. -instructed to use lasix 20 gm PRN for weight gain >=4 pounds in 1-3 days -continue losartan 50 mg daily Follow up in about 1 year (around 09/14/2025). Subjective HPI Camilla Mcdermott is a 79 year old male presents for follow up. Mr. Mcdermott is known to have mild nonobstructive CAD by coronary CTA, mildly dilated aortic root 4.2 cm, HTN, DM and DL as well as dementia and CKD IIIa, TTE had hyperdynamic LVEF 12/2023 without significant valve disease. Mr. Mcdermott reports no chest pain, no orthopnea or leg edema. He has been losing his balance and intermittently falling, currently he is using wheel chair. Repeat BP 140/90 mmHg. Review of Systems Respiratory: Positive for shortness of breath. Negative for wheezing. Cardiovascular: Negative for chest pain, palpitations and leg swelling. Musculoskeletal: Positive for gait problem. Neurological: Positive for weakness. Negative for dizziness and syncope. No Known Allergies Outpatient Medications Prior to Visit Medication Sig Dispense Refill alpha tocopherol (Vitamin E) 400 units capsule 1 capsule Every 24 hours. 180 mg aspirin 81 MG EC tablet Take 1 tablet (81 mg) by mouth daily. atorvastatin (Lipitor) 80 MG tablet Take 1 tablet (80 mg) by mouth daily. 90 tablet 3 calcium carbonate-vitamin D 600-200 MG-UNIT tablet Take 1 tablet by mouth daily. Continuous Glucose Sensor (FreeStyle Nita 2 Sensor) [facility] 1 Device every 14 (fourteen) days. 9 each3 diabetic shoes Diabetic Shoes and inserts. 1 each 0 DULoxetine (Cymbalta) [address] capsule TAKE 2 CAPSULES BY MOUTH IN THE MORNING 180 capsule 3 empagliflozin (Jardiance) 25 MG Take 1 tablet (25 mg) by mouth daily. 90 tablet 3 fish oil-omega-3 fatty acids 1000 MG capsule Take 1,000 mg by mouth in the morning. furosemide (Lasix) 20 MG tablet TAKE 1 TABLET BY MOUTH EVERY OTHER DAY (Patient taking differently:Take 20 mg by mouth Daily as needed. Take 1 tablet as needed for weight gain >= 4 pounds in 1-3 days) 50 tablet 3 glucagon 1 MG injection Inject 1 mL (1 mg) into the shoulder, thigh, or buttocks Once as needed forlow blood sugar for up to 4 doses. 1 each 3 Uwstgjbwraa-Gjivocihs-Ahu C-Mn (Glucosamine 1500 Complex) capsule 1 capsule 1 (one) time each day. glucose blood test strip 1 each by Other route 2 times daily. 60 each 11 insulin NPH-insulin regular (HumuLIN,NovoLIN) (70-30) 100 UNIT/ML injection Inject 18 units before breakfast and 28 units before dinner 40 mL 3 Lancets (OneTouch Delica Plus Cgtecc85J) [facility] losartan (Cozaar) 50 MG tablet TAKE 1 TABLET BY MOUTH DAILY 100 tablet 3 metoprolol tartrate (Lopressor) 100 MG tablet TAKE 1 TABLET BY MOUTH TWICE DAILY 200 tablet 3 mirtazapine (Remeron) 15 MG tablet Take 1 tablet (15 mg) by mouth Nightly. 90 tablet 3 chsdgzveatqz-tmws-zdejpjez-folic acid (Theragran-M) tablet Every 24 hours. omeprazole (PriLOSEC) [address] capsule TAKE 1 CAPSULE BY MOUTH IN THE MORNING 100 capsule 3 Probiotic tablet delayed-release daily. solifenacin (VESIcare) 10 MG tablet TAKE 1 TABLET BY MOUTH DAILY 100 tablet 3 tamsulosin (Flomax) 0.4 MG 24 hr capsule TAKE 1 CAPSULE BY MOUTH DAILY 100 capsule 3 topiramate 50 MG tablet TAKE 1 TABLET BY MOUTH EVERY NIGHT 100 tablet 3 isosorbide mononitrate ER (Imdur) 30 MG 24 hr tablet Take 1 tablet (30 mg) by mouth daily. Do not crush or chew. 90 tablet 3 amLODIPine (Norvasc) 5 MG tablet TAKE 1 TABLET BY MOUTH DAILY 100 tablet 3 No facility-administered medications prior to visit. Past Medical History: Diagnosis Date 2019 novel coronavirus disease (COVID-19) 07/2023 Arthritis Cancer (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 Cerebral artery occlusion with cerebral infarction (HCC) tia's Chronic kidney disease Dementia (HCC) Diabetes mellitus (HCC) GERD (gastroesophageal reflux disease) takes meds, has had for years Hyperlipidemia Hypertension Neuropathy Retinopathy TIA (transient ischemic attack) multiple Visual impairment retanopothy & cataracts removed both eyes Social History Tobacco Use Smoking status: Never Smokeless tobacco: Never Tobacco comments: 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 -02nd hand smoke Substance Use Topics Alcohol use: Not Currently Past Surgical History: Procedure Laterality Date COLONOSCOPY EYE SURGERY Bilateral cataract FRACTURE SURGERY back LIPOMA RESECTION 03/08/2022 Family History Problem Relation Name Age of Onset Cancer Mother Francie Mcdermott Other ([id number]) Father Camilla Mcdermott SN heart murmur Alcohol abuse Father Camilla Brar Standedmond SN Hearing loss Father Camilla Mcdermott SN Alcohol abuse Son Camilla Jones Stander III Arthritis Son Camilla Jones Stander III Depression Son Camilla Jones Stander III Arthritis Daughter Cami Hesser Autoimmune disease Daughter Cami Hesser Depression Daughter Cami Hesser Diabetes Daughter Cami Hesser Hyperlipidemia Daughter Cami Hesser Hypertension Daughter Cami Hesser Immunodeficiency Daughter Cami Hesser Depression Daughter Belle Cooper Diabetes Daughter Belle Cooper Hearing loss Sister eBlle Connelly Objective Vitals: 09/14/24 0946 BP: (S) (!) 140/94 BP Location: Left arm Patient Position: Sitting BP Cuff Size: Adult Pulse: 80 SpO2: 95% Weight: 162 lb (73.5 kg) Height: 5' 8 (1.727 m) Physical Exam Constitutional: General: He is not in acute distress. Appearance: He is normal weight. Eyes: Pupils: Pupils are equal, round, and reactive to light. Neck: Vascular: No carotid bruit. Comments: No JVD Cardiovascular: Rate and Rhythm: Normal rate and regular rhythm. Pulses: Normal pulses. Heart sounds: Normal heart sounds. No murmur heard. No friction rub. No gallop. Pulmonary: Effort: Pulmonary effort is normal. No respiratory distress. Breath sounds: Normal breath sounds. No wheezing, rhonchi or rales. Musculoskeletal: General: Normal range of motion. Cervical back: Normal range of motion. Right lower leg: No edema. Left lower leg: No edema. Skin: General: Skin is warm. Neurological: Mental Status: He is alert. Data Reviewed and Summarized EF BP Date Value Ref Range Status 01/08/2024 66 55 - 100 % Final Dion Gutierrez MD documented in this encounterSKing's [facility] [id number] Telephone encounter Note* Telephone Encounter - Catie Mc MA - 09/10/2024 9:24 AM EST Called [facility] [facility] and was told this form was taken care of. Thank you! [facility] [id number] Miscellaneous Notes* Telephone Encounter - Catie Mc MA - 09/10/2024 9:24 AM EST Called [employer] and was told this form was taken care of. Thank you! * Telephone Encounter - Jovany Rangel - 09/03/2024 3:50 PM EST Name of caller: Pau Contact phone number: [phone] Relationship to Patient: [facility] De León Provider: Dr Guadarrama Practice: Endocrinology Chief Complaint/Reason for Call: Pau with [facility] called in advising that standard writtenorder they received 08/21/24 they can not accept because Dr Nolan's name was crossed out and Taryn's name was put in it's place. States sending another SWO form via fax with Dr Guadarrama's name typed on it to be completed again. Please advise. Best time of day caller can be reached: any Patient advised that office/PCP has 24-48 business hours to return their call: N/A documented in this [facility]11-11-2024 Telephone encounter Note* Telephone Encounter - Jovany Verdugo Juan Carlos - 09/03/2024 3:50 PM EST Name of caller: Pau Contact phone number: [phone] Relationship to Patient: Maximus Villegass Provider: Dr Guadarrama Practice: Endocrinology Chief Complaint/Reason for Call: Pau with [facility] called in advising that standard writtenorder they received 08/21/24 they can not accept because Dr Nolan's name was crossed out and Taryn's name was put in it's place. States sending another SWO form via fax with Dr Guadarrama's name typed on it to be completed again. Please advise. Best time of day caller can be reached: any Patient advised that office/PCP has 24-48 business hours to return their call: N/A [facility] [id number] Miscellaneous Notes* Telephone Encounter - Jovany Kartik Rangel - 09/03/2024 3:50 PM EST Name of caller: Pau Contact phone number: [phone] Relationship to Patient: Maximus De León Provider: Dr Guadarrama Practice: Endocrinology Chief Complaint/Reason for Call: Pau tiffanie De León called in advising that standard writtenorder they received 08/21/24 they can not accept because Dr Nolan's name was crossed out and Taryn's name was put in it's place. States sending another SWO form via fax with Dr Guadarrama's name typed on it to be completed again. Please advise. Best time of day caller can be reached: any Patient advised that office/PCP has 24-48 business hours to return their call: N/A documented in this [facility]11-01-2024 Telephone encounter Note* Telephone Encounter - Estrella Helen - 08/24/2024 1:55 PM EDT Spoke with daughter. Patient is not feeling well. Scheduled for VV on 08/[address] Guadarrama [facility] [id number] Miscellaneous Notes* Telephone Encounter - Estrella Cervantes - 08/24/2024 1:55 PM EDT Spoke with daughter. Patient is not feeling well. Scheduled for VV on 08/[address] Guadarrama * Telephone Encounter - Arlette Varela - 08/23/2024 11:46 AM EDT Name of caller: Cami Contact phone number: [phone] Relationship to Patient: Daughter Provider: JEFF Minor CNP Practice: [facility] Chief Complaint/Reason for Call: Cami states Camilla is not feeling well and will be unable to make it to his 08/23/24 1:30 PM follow up and would like a call back to reschedule for an appointment prior to his next visit with Dr. Guadarrama on 12/24/24 if available. Please advise. Best time of day caller can be reached: Any Patient advised that office/PCP has 24-48 business hours to return their call: Yes documented in this encounterSKing's [facility] [id number] Telephone encounter Note* Telephone Encounter - Arlette Varela - 08/23/2024 11:46 AM EDT Name of caller: Cami Contact phone number: [phone] Relationship to Patient: Daughter Provider: JEFF Minor CNP Practice: [facility] Chief Complaint/Reason for Call: Cami states Camilla is not feeling well and will be unable to make it to his 08/23/24 1:30 PM follow up and would like a call back to reschedule for an appointment prior to his next visit with Dr. Guadarrama on 12/24/24 if available. Please advise. Best time of day caller can be reached: Any Patient advised that office/PCP has 24-48 business hours to return their call: Yes [id number] Telephone encounter Note* Telephone Encounter - Celina Rossi MA - 08/09/2024 10:30 AM EDT Returned carrys call and let her know that he did use reader before, even though it is not on his med list currently ( she just needed to know for medicare guidelines. She understood and got the infothat she needed to complete the PA for the pt. [id number] Miscellaneous Notes* Telephone Encounter - Celina Rossi MA - 08/09/2024 10:30 AM EDT Returned carrys call and let her know that he did use reader before, even though it is not on his med list currently ( she just needed to know for medicare guidelines. She understood and got the infothat she needed to complete the PA for the pt. * Telephone Encounter - Rupert Connelly - 08/08/2024 3:15 PM EDT [place] states she has a 24 hour deadline. Name of caller: Alfie Rene Contact phone number: [phone] Relationship to Patient: [facility] Prior Authorization dept. Provider: Michelle Whittington APRN - EXCEPTIONAL 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 Practice: [facility] Chief Complaint/Reason for Call: Alfie Rene is requesting a return call to see if pt has a neuropsychiatrist Re: freestyle nita 2 sensor, per Medicare guidelines. Anju states if pt does not, she add the code to this PA request. [phone] Best time of day caller can be reached: any Patient advised that office/PCP has 24-48 business hours to return their call: Yes * Telephone Encounter - Teri Brett - 07/26/2024 3:43 PM EDT Name of caller: Cami Contact phone number: [phone] Relationship to Patient: family member patient and daughter Provider: Michelle Whittington Practice: Endocrinology Chief Complaint/Reason for Call: Cami states that the patient's insurance would like to receivea call so they can take verbal information to initiate a PA for the patient's CGM. Cami states that once this is taken care of she would like to receive a Yhat message to confirm. Please advise. Best time of day caller can be reached: any Patient advised that office/PCP has 24-48 business hours to return their call: Yes * Telephone Encounter - Jovany Rangel - 07/18/2024 5:18 PM EDT Name of caller: Cami Contact phone number: [phone] Relationship to Patient: family member patient and daughter Provider: Michelle Whittington Practice: Endocrinology Chief Complaint/Reason for Call: Cami called in regarding Camilla's CGM supplies ordered through [employer] [facility] that [facility] her that the CGM and supplies require a prior authorization.Please advise. Best time of day caller can be reached: any Patient advised that office/PCP has 24-48 business hours to return their call: Yes * Telephone Encounter - Ruth Garcia - 07/18/2024 2:32 PM EDT Name of caller: Cami Contact phone number: [phone] Relationship to Patient: family member daughter Provider: Michelle Whittington Practice: Endocrinology Chief Complaint/Reason for Call: Cami called requesting to speak to Taniya. Stated that patient has gone without medication due to cgm order being canceled. Please call Cami back to advise. Best time of day caller can be reached: Any Patient advised that office/PCP has 24-48 business hours to return their call: N/A documented in this encounterSKing's [facility]aughters [facility] [id number] Telephone encounter Note* Telephone Encounter - Rupert Connelly - 08/08/2024 3:15 PM EDT [place] states she has a 24 hour deadline. Name of caller: Alfie Rene Contact phone number: [phone] Relationship to Patient: [facility] Prior Authorization dept. Provider: Michelle Whittington COMMERCIAL CLEANER - EXCEPTIONAL 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 Practice: [facility] Chief Complaint/Reason for Call: Alfie Rene is requesting a return call to see if pt has a neuropsychiatrist Re: freestyle nita 2 sensor, per Medicare guidelines. Anju states if pt does not, she add the code to this PA request. [id number] Best time of day caller can be reached: any Patient advised that office/PCP has 24-48 business hours to return their call: Yes [facility] [id number] Telephone encounter Note* Telephone Encounter - Teri West - 07/26/2024 3:43 PM EDT Name of caller: Cami Contact phone number: [phone] Relationship to Patient: family member patient and daughter Provider: Michelle Whittington Practice: Endocrinology Chief Complaint/Reason for Call: Cami states that the patient's insurance would like to receivea call so they can take verbal information to initiate a PA for the patient's CGM. Cami states that once this is taken care of she would like to receive a Yhat message to confirm. Please advise. Best time of day caller can be reached: any Patient advised that office/PCP has 24-48 business hours to return their call: Yes [facility] [id number] Telephone encounter Note* Telephone Encounter - Sanaz Alcala MA - 07/23/2024 7:59 AM EDT Recent Visits Date Type Provider Dept 02/21/24 Office Visit MD Prateek Jimenez 10/04/23 Office Visit MD Prateek Jimenez Showing recent visits within past 365 days and meeting all other requirements Future Appointments Date Type Provider Dept 10/05/24 Appointment MD Prateek Jimenez Showing future appointments within next 90 days and meeting all other requirements Requested Prescriptions Pending Prescriptions Disp Refills furosemide (Lasix) 20 MG tablet [Pharmacy Med Name: Furosemide 20 MG Oral Tablet] 50 tablet 2 Sig: TAKE 1 TABLET BY MOUTH EVERY OTHER DAY topiramate 50 MG tablet [Pharmacy Med Name: Topiramate 50 MG Oral Tablet] 100 tablet 2 Sig: TAKE 1 TABLET BY MOUTH EVERY NIGHT metoprolol tartrate (Lopressor) 100 MG tablet [Pharmacy Med Name: Metoprolol Tartrate 100 MG Oral Tablet] 200 tablet 2 Sig: TAKE 1 TABLET BY MOUTH TWICE DAILY losartan (Cozaar) 50 MG tablet [Pharmacy Med Name: Losartan Potassium 50 MG Oral Tablet] 100 tablet2 Sig: TAKE 1 TABLET BY MOUTH DAILY omeprazole (PriLOSEC) [address] capsule [Pharmacy Med Name: Omeprazole 40 MG Oral Capsule Delayed Release] 100 capsule 2 Sig: TAKE 1 CAPSULE BY MOUTH IN THE MORNING amLODIPine (Norvasc) 5 MG tablet [Pharmacy Med Name: amLODIPine Besylate 5 MG Oral Tablet] 100 tablet 2 Sig: TAKE 1 TABLET BY MOUTH DAILY Provider: Efren Tidwell MD Overdue for visit: No If yes - patient scheduled? Yes Most recent labs completed in chart? Yes Verified pharmacy: yes Verified day(s) supplied: yes Verified refill(s) needed (previous prescription showing no refills in chart): Yes T [facility] [id number] Miscellaneous Notes* Telephone Encounter - Sanaz Alcala MA - 07/23/2024 7:59 AM EDT Recent Visits Date Type Provider Dept 02/21/24 Office Visit MD Prateek Jimenez 10/04/23 Office Visit Efren Tidwell [place] [facility] Showing recent visits within past 365 days and meeting all other requirements Future Appointments Date Type Provider Dept 10/05/24 Appointment Efren Tidwell MD [facility] Showing future appointments within next 90 days and meeting all other requirements Requested Prescriptions Pending Prescriptions Disp Refills furosemide (Lasix) 20 MG tablet [Pharmacy Med Name: Furosemide 20 MG Oral Tablet] 50 tablet 2 Sig: TAKE 1 TABLET BY MOUTH EVERY OTHER DAY topiramate 50 MG tablet [Pharmacy Med Name: Topiramate 50 MG Oral Tablet] 100 tablet 2 Sig: TAKE 1 TABLET BY MOUTH EVERY NIGHT metoprolol tartrate (Lopressor) 100 MG tablet [Pharmacy Med Name: Metoprolol Tartrate 100 MG Oral Tablet] 200 tablet 2 Sig: TAKE 1 TABLET BY MOUTH TWICE DAILY losartan (Cozaar) 50 MG tablet [Pharmacy Med Name: Losartan Potassium 50 MG Oral Tablet] 100 tablet2 Sig: TAKE 1 TABLET BY MOUTH DAILY omeprazole (PriLOSEC) [address] capsule [Pharmacy Med Name: Omeprazole 40 MG Oral Capsule Delayed Release] 100 capsule 2 Sig: TAKE 1 CAPSULE BY MOUTH IN THE MORNING amLODIPine (Norvasc) 5 MG tablet [Pharmacy Med Name: amLODIPine Besylate 5 MG Oral Tablet] 100 tablet 2 Sig: TAKE 1 TABLET BY MOUTH DAILY Provider: Efren Tidwell MD Overdue for visit: No If yes - patient scheduled? Yes Most recent labs completed in chart? Yes Verified pharmacy: yes Verified day(s) supplied: yes Verified refill(s) needed (previous prescription showing no refills in chart): Yes documented in this [facility]09-25-2024 Telephone encounter Note* Telephone Encounter - Jovany Verdugo [facility] - 07/18/2024 5:18 PM EDT Name of caller: Cami Contact phone number: [phone] Relationship to Patient: family member patient and daughter Provider: Michelle Whittington Practice: Endocrinology Chief Complaint/Reason for Call: Cami called in regarding Camilla's CGM supplies ordered through [employer] States that Latanya has told her that the CGM and supplies require a prior authorization.Please advise. Best time of day caller can be reached: any Patient advised that office/PCP has 24-48 business hours to return their call: Yes [facility] [id number] Telephone encounter Note* Telephone Encounter - Ruth Garcia - 07/18/2024 2:32 PM EDT Name of caller: Cami Contact phone number: [phone] Relationship to Patient: family member daughter Provider: Michelle Whittington Practice: Endocrinology Chief Complaint/Reason for Call: Cami called requesting to speak to Taniya. Stated that patient has gone without medication due to cgm order being canceled. Please call Cami back to advise. Best time of day caller can be reached: Any Patient advised that office/PCP has 24-48 business hours to return their call: N/A [facility] [id number] History of Present illness Narrative* Efren Tidwell MD - 07/03/2024 4:20 PM EDT Subjective Patient ID: Camilla Mcdermott is a 79 y.o. male who presents for Fall (Frequent past 6 weeks). Fall Pertinent negatives include no fever. Hx DM with hyperglycemia and peripheral neuropathy. Patient recently moved to [place], living with his daughter in a mobile home. Patient had a change in mental status with unresponsive spell and urinary incontinence 05/20/24, seen in [facility] [place] ER. CT brain with left paramedial pontine density, no acute CVA noted. Patient has hx vascular mixed dementia, there are frequent falls past 6 weeks. No head injury noted. Patient has a walker, he has not been using it. Blood sugars have been in the 250-400 range chronically, began Jardiance 25 mg 10 days ago (prescribed 04/17/24 by endocrinology) and blood sugar 190 today. There is urinary incontinence and patient has difficulty ambulating from his bed to commode. Patient has a urinal, does not use it regularly. Review of Systems Constitutional: Negative for chills and fever. Genitourinary: Positive for frequency. Negative for difficulty urinating and dysuria. All other systems reviewed and are negative. Objective Physical Exam Patient was identified and seen today via Telehealth by agreement and consent. I used the followingTelehealth technology: Audio and video capabilities. Patient location: Patient Location: Home. This patient encounter is appropriate and reasonable under the circumstances: patient and family request . The patient has been advised of the potential risks and limitations of this mode of treatment ( including but not limited to the absence of in-person examination) and has agreed to be treated in a remote fashion in spite of them. Any and all of the patient's/patient's family's questions on thisissue have been answered and I have made no promises or guarantees to the patient. The patient has also been advised to contact this office for worsening conditions or problems, and seek emergency medical treatment and/or call 911 if the patient deems either necessary. The patient stated that they are currently in the [facility]. If the patient is a minor, permission has been obtained by the parent or guardian for the patient to receive medical care at this visit. Patient alert, conversant, mental status is at baseline. Labs, CT report, ER note from 05/20/24 reviewed, in Media. 30 minutes spent this day with chart review, history, exam and follow up plan. Assessment/Plan Diagnoses and all orders for this visit: Frequent [place] [facility]; Future Abnormal brain CT - [facility]; Future Diabetic polyneuropathy associated with type 2 diabetes mellitus (CMS/HCC) ([facility]) [place] [facility]; Future Mixed Alzheimer's and vascular dementia (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) - [facility]; Future Please provide patient's daughter the phone number for [facility] to schedule an evaluation. Patient will begin using his walker and bedside urinal regularly. Call if new, persistent or worsening symptoms. Efren Tidwell MD documented in this [facility]09-10-2024 Telephone encounter Note* Telephone Encounter - Efren Tidwell MD - 07/03/2024 10:53 AM EDT Noted. EFREN TIDWELL [facility] [id number] Miscellaneous Notes* Telephone Encounter - Efren iTdwell MD - 07/03/2024 10:53 AM EDT Noted. EFREN TIDWELL * Telephone Encounter - Luz Soriano - 07/02/2024 11:58 AM EDT Name of caller: Cami Contact phone number: [phone] Relationship to Patient: daughter Provider: Efren Tidwell MD Practice: [facility] Chief Complaint/Reason for Call: Daughter calling and her dad was seen at the [facility] 3 weeks ago. Said she thinks he had a stroke but after running tests they couldn't find anything. Says had had urinated himself, loss muscle control, slurred speech. Is battling dementia and was placed onJardiance a few weeks ago and is not sure if that is contributing. Would like to only have him see Dr Tidwell. And would like to get him in bong. No openings for Dr Tidwell available. Daughter would likept added to the schedule. Please call daughter and advise Best time of day caller can be reached: any Patient advised that office/PCP has 24-48 business hours to return their call: No documented in this encounterSKing's [facility]aughters [facility] [id number] Telephone encounter Note* Telephone Encounter - Luz Soriano - 07/02/2024 11:58 AM EDT Name of caller: Cami Contact phone number: [phone] Relationship to Patient: daughter Provider: Efren Tidwell MD Practice: [facility] Chief Complaint/Reason for Call: Daughter calling and her dad was seen at the [facility] 3 weeks ago. Said she thinks he had a stroke but after running tests they couldn't find anything. Says had had urinated himself, loss muscle control, slurred speech. Is battling dementia and was placed onJardiance a few weeks ago and is not sure if that is contributing. Would like to only have him see Dr Tidwell. And would like to get him in bong. No openings for Dr Tidwell available. Daughter would likept added to the schedule. Please call daughter and advise Best time of day caller can be reached: any Patient advised that office/PCP has 24-48 business hours to return their call: No [facility] [id number] Nurse Note* Vivek Llamas RN - 04/30/2024 2:40 PM EDT Patient arrived to CT for CTA of coronary arteries. CT imaging and nitroglycerin administration explained. Patient conveys understanding and agrees to proceed. Baseline HR , BP . 15mg Metoprolol given prior to procedure, per Dr. Gutierrez's orders via secure chat. Nitroglycerin administered per protocol. CT imaging completed. Repeat BP , HR . Denies dizziness or lightheadedness. Patient assisted tositting position, denies dizziness or lightheadedness. Discharge instructions provided. Patient conveys understanding. 1 bottle of water given. Ambulated from CT with steady gait. Discharged home. [facility] [id number] Nurse Note* Vivek Llamas RN - 04/30/2024 2:40 PM EDT Patient arrived to CT for CTA of coronary arteries. CT imaging and nitroglycerin administration explained. Patient conveys understanding and agrees to proceed. Baseline HR , BP . 15mg Metoprolol given prior to procedure, per Dr. Gutierrez's orders via secure chat. Nitroglycerin administered per protocol. CT imaging completed. Repeat BP , HR . Denies dizziness or lightheadedness. Patient assisted tositting position, denies dizziness or lightheadedness. Discharge instructions provided. Patient conveys understanding. 1 bottle of water given. Ambulated from CT with steady gait. Discharged home. documented in this [facility]07-03-2024 Telephone encounter Note* Telephone Encounter - Mary Jo Dorado - 04/25/2024 11:23 AM EDT Faxed 2 chart notes (from last 6 months) to [facility] for diabetic supplies for pt. [facility] [id number] Miscellaneous Notes* Telephone Encounter - Mary Jo Dorado - 04/25/2024 11:23 AM EDT Faxed 2 chart notes (from last 6 months) to [facility] for diabetic supplies for pt. * Telephone Encounter - Tabatha Jane - 04/20/2024 4:25 PM EDT Name of caller: nikole Contact phone number: [phone] Relationship to Patient: [employer] Provider: Dr. Tidwell Practice: [facility] Chief Complaint/Reason for Call: nikole called in to report they are requesting any and all office notes within last 6 for patient diabetic medical supplies, please advise and fax to [phone] Best time of day caller can be reached: AM Patient advised that office/PCP has 24-48 business hours to return their call: Yes documented in this [facility]06-28-2024 Telephone encounter Note* Telephone Encounter - Tabatha Jane - 04/20/2024 4:25 PM EDT Name of caller: nikole Contact phone number: [phone] Relationship to Patient: [employer] Provider: Dr. Tidwell Practice: [facility] Chief Complaint/Reason for Call: nikole called in to report they are requesting any and all office notes within last 6 for patient diabetic medical supplies, please advise and fax to [phone] Best time of day caller can be reached: AM Patient advised that office/PCP has 24-48 business hours to return their call: Yes [facility] [id number] Telephone encounter Note* Telephone Encounter - JEFF Heredia CNP - 04/17/2024 8:50 AM EDT Can we see if patient qualifies for [facility] for Jardiance. Please speak with Cami (daughter) [phone] [facility] [id number] Miscellaneous Notes* Telephone Encounter - JEFF Heredia CNP - 04/17/2024 8:50 AM EDT Can we see if patient qualifies for [facility] for Jardiance. Please speak with Cami (daughter) [phone] documented in this encounterSKing's Daughters [facility] [id number] History of Present illness Narrative* JEFF Heredia CNP - 04/17/2024 8:00 AM EDT Images from the original note were not included. [facility] [place] [address] [place] [address] Dept: [phone] Dept Loc: [phone] Visit type: Established patient Reason for Visit: Diabetes, Hyperglycemia, and Follow-up Assessment and Plan 1. Type 2 diabetes mellitus with hyperglycemia, with long-term current use of insulin (HCC) 2. Hyperlipidemia associated with type 2 diabetes mellitus (HCC) (HCC) 3. Type 2 diabetes mellitus with both eyes affected by severe nonproliferative retinopathy and macular edema, with long-term current use of insulin (HCC) 4. Type 2 diabetes mellitus with stage 3b chronic kidney disease, with long-term current use of insulin (HCC) 5. Type 2 diabetes mellitus with diabetic polyneuropathy, with long-term current use of insulin (HCC) A1C is Lab Results Component Value Date HGBA1C 11.1 (A) 04/17/2024 Patient will make the following changes to their antihyperglycemic regimen: Adjust Nph to 70/30-18/0/28/0 Jardiance 25 mg po daily at 6 pm since patient sleeps during day and awake at night. Type 2 diabetes mellitus with hyperglycemia, with long-term current use of insulin Diabetes is not stable Goal A1C = 7-5-8.0. Glucose goal range: 150-20 Insulin is necessary for ongoing mgmt. Recommend FSBS to occur 4 times daily, be recorded, and send to office in 3 weeks for review. 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 Type 2 diabetes mellitus with diabetic polyneuropathy, with long-term current use of insulin -stable continue daily foot checks, wear soled shoes Patient would benefit from DM shoes and inserts. Polyneuropathy is significant and may not feel if injury would occur on foot. Health maintenance Foot exam up to date as of 2023 Eye exam up to date as of 09/2024 Microalbumin up to date as of 01/19/24 Pt was counseled that diet and exercise are the foundation of DM treatment. If these 2 areas are not optimized then the pt will likely require more medications or higher doses to achieve control. Pt was asked to limit CHO consumption at each meal. Pt was advised to perform regular regimented brisk aerobic activity (ie walking, biking, swimming, etc) 30 min/d, 5d/wk (total of 150min weekly). Discussed A1C and BG goals Encouraged lifestyle modifications of diet and exercise Encouraged optimal foot care- follow with podiatry if needed Encouraged following with ophthalmology Patient counseled on the importance of taking medication as prescribed Patient counseled on the effects of uncontrolled DM on other organ systems Patient counseled on risk factors assoicated with diabetes Patient counseled on detection and treatment of hypoglycemia Patient instructed to call office if BG >250 or <70 consistently Pt counseled about these recommendations. Pt voiced understanding. These recommendations made based on interpretation of available data (which may include FSBS, A1C, venous sampling, or data from pt recall). Records from outside facility/PCP office to be requested: Scripts sent to pharmacy of pt choice: Yes laboratory Results I REVIEWED: CMP LIPID TESTING URINE MA/CREAT LEVEL EYE EXAM FOOT EXAM radiographic reports reviewed: No I reviewed the radiographic images personally at the time of today's visit: No Pt was advised of the results. No follow-ups on file. Subjective Diabetes Pertinent negatives for diabetes include no chest pain, no fatigue, no polydipsia, no polyphagia, no polyuria and no weakness. Hyperglycemia Pertinent negatives include no abdominal pain, chest pain, chills, fatigue, fever, nausea, rash, vomiting or weakness. PCP is Efren Tidwell MD Referring is pcp Last office visit: 01/16/2024 Daughter presnet to day DM Onset: about 40 years ago Type of DM: 2 Complications: Cardiovascular -- Yes several TIA's Statin Use -- Yes lipitor 40 Retinopathy -- Yes, injections every 8 weeks Last EARL/Retina Eval: Dr juarez- [facility] [facility], notes in media from 09/2024 Nephropathy -- Yes CDK 3b/ CHARLES/ARB Use -- Yes Cozaar Polyneuropathy -- Yes- Foot Exam: pcp Obesity -- No Other -- No Obesity -- No Other -- No Today's complaints include: Living at [facility] house and sleeping during day, awake at night. Since last office visit denies new health problems, admits to hospitalizations, and denies surgeries. Pt feels their blood sugars are unchanged since ALEX. Pt c/o sxs at today's visit: no Pt c/o sxs of hyperglycemia at today's visit: no Pt c/o SEs from Medications at today's visit: no Pt voices concerns about cost of medications at today's visit: no Pt feels their blood sugars are better since ALEX. Hyperglycemia present: Yes Hypoglycemia present: No Blood sugar monitoring device used: nita Frequency of BGL checks cont Meter present:No Log present: Yes Reviewed w/ pt: Yes Scanned into Media: Yes Current DM Medications: NPH 18 units bid Taking Medications w/o Missed Doses: No Eats breakfast and dinner Snacks at night Following Exercise Regimen: No Was doing pt regimen recently stopped because of construction Previously Used DM Meds: Yes metformin NPH Lantus- too expensive Review of Systems Constitutional: Negative for activity change, appetite change, chills, fatigue, fever and unexpected weight change. HENT: Negative for trouble swallowing and voice change. Eyes: Negative for visual disturbance. Respiratory: Negative for chest tightness and shortness of breath. Cardiovascular: Negative for chest pain, palpitations and leg swelling. Gastrointestinal: Negative for abdominal pain, constipation, diarrhea, nausea and vomiting. Endocrine: Negative for polydipsia, polyphagia and polyuria. Genitourinary: Negative for difficulty urinating. Skin: Negative for rash and wound. Neurological: Negative for weakness. Psychiatric/Behavioral: Negative for sleep disturbance. All other systems reviewed and are negative. An entire ROS was performed at the time of this encounter. Unless noted above in the HPI, the ROS is negative. No Known Allergies Outpatient Medications Prior to Visit Medication Sig Dispense Refill alpha tocopherol (Vitamin E) 400 units capsule 1 capsule Every 24 hours. amLODIPine (Norvasc) 5 MG tablet Take 1 tablet (5 mg) by mouth daily. 90 tablet 3 aspirin 81 MG EC tablet Take 1 tablet (81 mg) by mouth daily. atorvastatin (Lipitor) 80 MG tablet Take 1 tablet (80 mg) by mouth daily. 90 tablet 3 calcium carbonate-vitamin D 600-200 MG-UNIT tablet Take by mouth. Continuous Blood Gluc Sensor (FreeStyle Nita 2 Sensor) misc 1 Device every 14 (fourteen) days. 9 each 3 DULoxetine (Cymbalta) [address] capsule TAKE 2 CAPSULES BY MOUTH IN THE MORNING 180 capsule 3 fish oil-omega-3 fatty acids 1000 MG capsule Take 1,000 mg by mouth in the morning. furosemide (Lasix) 20 MG tablet 1 po every other day 45 tablet 3 glucagon 1 MG injection Inject 1 mg into the shoulder, thigh, or buttocks. Vgetkovddwn-Wsviekpav-Uzd C-Mn (Glucosamine 1500 Complex) capsule 1 capsule in the morning and 1 capsule in the evening. glucose blood test strip 1 each by Other route 2 times daily. 200 each 3 insulin NPH-insulin regular (HumuLIN,NovoLIN) (70-30) 100 UNIT/ML injection Inject 22 units before breakfast and 26 units before dinner 40 mL 3 isosorbide mononitrate ER (Imdur) 30 MG 24 hr tablet Take 1 tablet (30 mg) by mouth daily. Do not crush or chew. 90 tablet 3 Lancets (OneTouch Delica Plus [id number]) misc losartan (Cozaar) 50 MG tablet Take 1 tablet (50 mg) by mouth daily. 90 tablet 3 metoprolol tartrate (Lopressor) 100 MG tablet 1 po bid 180 tablet 3 mirtazapine (Remeron) 15 MG tablet Take 1 tablet (15 mg) by mouth Nightly. 90 tablet 3 jqyeiyrpkfil-znqw-atxshpbv-folic acid (Theragran-M) tablet Every 24 hours. omeprazole (PriLOSEC) [address] capsule Take 1 capsule (40 mg) by mouth in the morning. 90 capsule 3 Probiotic tablet delayed-release as directed solifenacin (VESIcare) 10 MG tablet TAKE 1 TABLET BY MOUTH DAILY 100 tablet 3 tamsulosin (Flomax) 0.4 MG 24 hr capsule TAKE 1 CAPSULE BY MOUTH DAILY 100 capsule 3 topiramate 50 MG tablet Take 1 tablet by mouth Nightly. 90 tablet 3 No facility-administered medications prior to visit. 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 -02nd hand smoke Substance Use Topics Alcohol use: Not Currently Past Surgical History: Procedure Laterality Date COLONOSCOPY EYE SURGERY Bilateral cataract FRACTURE SURGERY back LIPOMA RESECTION 03/08/2022 Family History Problem Relation Name Age of Onset Cancer Mother Francie Mcdermott Other ([address]) Father Camilla Mcdermott SN heart murmur Alcohol abuse Father Camilla Mcdermott SN Hearing loss Father Camilla Mcdermott SN Alcohol abuse Son Camilla Jones Stander III Arthritis Son Camilla Jones Stander III Depression Son Camilla Jones Stander III Arthritis Daughter Cami Hesser Autoimmune disease Daughter Cami Hesser Depression Daughter Cami Hesser Diabetes Daughter Cami Hesser Hyperlipidemia Daughter Cami Hesser Hypertension Daughter Cami Hesser Immunodeficiency Daughter Cami Hesser Depression Daughter Belle Cooper Diabetes Daughter Belle Cooper Hearing loss Sister Belle Connelly Objective There were no vitals taken for this visit. Physical Exam Vitals reviewed. Constitutional: General: He is not in acute distress. Appearance: Normal appearance. He is obese. He is not ill-appearing, toxic- appearing or diaphoretic. HENT: Head: Normocephalic and atraumatic. Right Ear: External ear normal. Left Ear: External ear normal. Nose: Nose normal. Mouth/Throat: Mouth: Mucous membranes are moist. Eyes: General: No scleral icterus. Right eye: No discharge. Left eye: No discharge. Conjunctiva/sclera: Conjunctivae normal. Cardiovascular: Rate and Rhythm: Normal rate and regular rhythm. Pulses: Normal pulses. Heart sounds: Normal heart sounds. Pulmonary: Effort: Pulmonary effort is normal. No respiratory distress. Breath sounds: Normal breath sounds. Musculoskeletal: General: Normal range of motion. Cervical back: Normal range of motion. Right lower leg: No edema. Left lower leg: No edema. Skin: General: Skin is warm and dry. Neurological: General: No focal deficit present. Mental Status: He is alert and oriented to person, place, and time. Psychiatric: Mood and Affect: Mood normal. Behavior: Behavior normal. Data Reviewed and Summarized Labs: No components found for: LABA1C No components found for: EAG Lab Results Component Value Date NA 135 01/07/2024 K 3.8 01/07/2024 CL 102 01/07/2024 CO2 25 01/19/2024 BUN 10 01/19/2024 CREATININE 1.45 (H) 01/19/2024 GLUCOSE 267 (H) 01/19/2024 CALCIUM 9.1 01/19/2024 Lab Results Component Value Date CHOL 121 02/25/2021 CHOL 141 11/24/2019 Lab Results Component Value Date TRIG 152 (A) 02/25/2021 TRIG 183 (A) 11/24/2019 Lab Results Component Value Date HDL 29 (L) 02/25/2021 HDL 32 (L) 11/24/2019 No results found for: LDLCALC No results found for: VLDL Lab Results Component Value Date CHOLHDLRATIO 4 02/25/2021 CHOLHDLRATIO 4 11/24/2019 No results found for: [id number] Imaging/Testing: JEFF Hallman CNP Portions of the information within this encounter were entered using an electronic dictation system. Best attempts were made to edit/proofread the information prior to note completion. Despite the review of information, some errors may remain. If there are questions related to the information contained within the note please contact the signing physician directly. documented in this [facility]04-30-2024 History of Present illness Narrative* Efren Tidwell MD - 02/21/2024 1:40 PM EDT Subjective Patient ID: Camilla Mcdermott is a 78 y.o. male who presents for Med Refill (Would like to increase lasix). HPI Hx HTN, followed by cardiology. No chest pain, no exertional sx, patient is mostly sedentary. No current pedal edema. Hx DM, blood sugar is poorly controlled, diet is ad cami, whatever patient wants per daughter. Hx CKD with hyperparathyroidism, followed by nephrology. Hx chronic hearing loss and cerumen impaction. Patient would like irrigation. Depressive sx absent today, no change in memory. BP 159/70 noted, patient did not take medication yet today. Review of Systems HENT: Positive for hearing loss. All other systems reviewed and are negative. Objective Physical Exam Vitals and nursing note reviewed. Constitutional: General: He is not in acute distress. Appearance: Normal appearance. He is normal weight. He is not ill-appearing, toxic-appearing or diaphoretic. HENT: Right Ear: There is impacted cerumen. Left Ear: There is impacted cerumen. Neck: Vascular: No carotid bruit. Cardiovascular: Rate and Rhythm: Normal rate and regular rhythm. Heart sounds: No murmur heard. Pulmonary: Effort: Pulmonary effort is normal. Breath sounds: Normal breath sounds. No wheezing, rhonchi or rales. Skin: General: Skin is warm and dry. Coloration: Skin is not pale. Neurological: Mental Status: He is alert. Psychiatric: Mood and Affect: Mood normal. Behavior: Behavior normal. Thought Content: Thought content normal. Judgment: Judgment normal. Consent for ear irrigation obtained, completed by nursing. After irrigation, TM wnl bilat. 01/27/24 cardiology note reviewed 01/16/24 endocrinology note reviewed 03/08/23 Nephrology note reviewed. Lab Results Component Value Date WBC 8.8 01/07/2024 HGB 13.4 01/07/2024 HCT 40.3 01/07/2024 MCV 85.0 01/07/2024 PLT 173 01/07/2024 Chemistry Lab Results Component Value Date/Time NA 135 01/07/2024 2240 K 3.8 01/07/2024 2240 CL 102 01/07/2024 2240 CO2 25 01/19/2024 1209 BUN 10 01/19/2024 1209 CREATININE 1.45 (H) 01/19/2024 1209 Lab Results Component Value Date/Time CALCIUM 9.1 01/19/2024 1209 ALKPHOS 116 12/03/2023 1116 AST 18 12/03/2023 1116 ALT 19 12/03/2023 1116 BILITOT 0.6 12/03/2023 1116 Lab Results Component Value Date HGBA1C 11.7 (H) 12/03/2023 Labs reviewed. 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 Followup with nephrology, cardiology and endocrinology. AWV with me in September as scheduled. EFREN TIDWELL MD * Ruth Wallace MA - 02/21/2024 1:40 PM EDT Ear Lavage ordered to be completed. Patient was agreeable to have procedure completed. Ear Lavage completed on Bilateral Ears Procedure completed by using Warm Water After completion of ear lavage provider checked Bilateral Ears Patient tolerated well. documented in this [facility]04-05-2024 History of Present illness Narrative* Dion Gutierrez MD - 01/27/2024 12:00 PM EDT Images from the original note were not included. [facility] [address] [place] [address] [facility] [address] Dept: [phone] Dept Visit type: Established : 1945 Reason for Visit: Coronary Artery Disease Assessment and Plan Chest pain: controlled on current therapy, there is underlying CAD by prior noncardiac CTA. We willobtain CTA coronaries for further risk stratification, will continue to treat medically. -start IMDUR 30 gm daily -continue aspirin 81 mg daily -increase atorvastatin to 80 mg daily -continue metoprolol 100 mg bid Dilated aorta: mild, degenerative, stable from 2019 per this admission echo. No active chest pain. -will assess aorta concomitantly by CTA. Follow up in about 6 months (around 07/28/2024). Subjective HPI Camilla Mcdermott is a 78 year old male who presents for follow up on chest pain and CAD. Mr. Mcdermott had recent worsening chest pain during increased physical activity, currently he reports no chest pain on medical therapy including BB and IMDUR. A prior non cardiac CT images demonstrateevidence of mild coronary calcifications, recent echo showed normal WMA, but aorta was mildly dilated with technically limited assessment. He has underling HTN, DM and DL as well as mild dementia. He lives sedentary life style and not much active at this time. Review of Systems Respiratory: Negative for shortness of breath and wheezing. Cardiovascular: Positive for chest pain. Negative for palpitations and leg swelling. Neurological: Negative for dizziness and syncope. No Known Allergies Outpatient Medications Prior to Visit Medication Sig Dispense Refill alpha tocopherol (Vitamin E) 400 units capsule 1 capsule Every 24 hours. amLODIPine (Norvasc) 5 MG tablet Take 1 tablet (5 mg) by mouth daily. 90 tablet 3 aspirin 81 MG EC tablet Take 1 tablet (81 mg) by mouth daily. atorvastatin (Lipitor) 80 MG tablet Take 1 tablet (80 mg) by mouth daily. 30 tablet 1 calcium carbonate-vitamin D 600-200 MG-UNIT tablet Take by mouth. Continuous Blood Gluc Sensor (FreeStyle Nita 2 Sensor) misc 1 Device every 14 (fourteen) days. 9 each 3 DULoxetine (Cymbalta) [address] capsule TAKE 2 CAPSULES BY MOUTH IN THE MORNING 180 capsule 3 fish oil-omega-3 fatty acids 1000 MG capsule Take 1,000 mg by mouth in the morning. furosemide (Lasix) 20 MG tablet 1 po every other day 45 tablet 3 glucagon 1 MG injection Inject 1 mg into the shoulder, thigh, or buttocks. Zfdltbbmuce-Gosyjuxmg-Qzw C-Mn (Glucosamine 1500 Complex) capsule 1 capsule in the morning and 1 capsule in the evening. glucose blood test strip 1 each by Other route 2 times daily. 200 each 3 insulin NPH-insulin regular (HumuLIN,NovoLIN) (70-30) 100 UNIT/ML injection Inject 22 units before breakfast and 26 units before dinner 40 mL 3 isosorbide mononitrate ER (Imdur) 30 MG 24 hr tablet Take 1 tablet (30 mg) by mouth daily. Do not crush or chew. 30 tablet 1 Lancets (OneTouch Delica Plus [id number]) misc losartan (Cozaar) 50 MG tablet Take 1 tablet (50 mg) by mouth daily. 90 tablet 3 metoprolol tartrate (Lopressor) 100 MG tablet 1 po bid 180 tablet 3 mirtazapine (Remeron) 15 MG tablet Take 1 tablet (15 mg) by mouth Nightly. 90 tablet 3 deiozlrxsscf-qlby-yzaatjnl-folic acid (Theragran-M) tablet Every 24 hours. omeprazole (PriLOSEC) [address] capsule Take 1 capsule (40 mg) by mouth in the morning. 90 capsule 3 Probiotic tablet delayed-release as directed solifenacin (VESIcare) 10 MG tablet TAKE 1 TABLET BY MOUTH DAILY 100 tablet 3 tamsulosin (Flomax) 0.4 MG 24 hr capsule 1 po qd 90 capsule 3 topiramate 50 MG tablet Take 1 tablet by mouth Nightly. 90 tablet 3 No facility-administered medications prior to visit. 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 -02nd hand smoke Substance Use Topics Alcohol use: Not Currently Past Surgical History: Procedure Laterality Date COLONOSCOPY EYE SURGERY Bilateral cataract FRACTURE SURGERY back LIPOMA RESECTION 03/08/2022 Family History Problem Relation Name Age of Onset Cancer Mother Francie Mcdermott Other ([id number]) Father Camilla Zuñigaer SN heart murmur Alcohol abuse Father Camilla Brar Stander SN Hearing loss Father Camilla Brar Stander SN Alcohol abuse Son Camilla Jones Stander III Arthritis Son Camilla Jones Stander III Depression Son Camilla Jones Stander III Arthritis Daughter Cami Hesser Autoimmune disease Daughter Cami Hesser Depression Daughter Cami Hesser Diabetes Daughter Cami Hesser Hyperlipidemia Daughter Cami Hesser Hypertension Daughter Cami Hesser Immunodeficiency Daughter Cami Hesser Depression Daughter Belle Cooper Diabetes Daughter Belle Cooper Hearing loss Sister Belle Connelly Objective Vitals: 01/27/24 1208 01/27/24 1218 01/27/24 1220 BP: (!) 152/82 (!) 150/80 (!) 150/80 BP Location: Left arm Left arm Left arm Patient Position: Lying Sitting Standing BP Cuff Size: Adult Adult Adult Pulse: 69 69 68 Resp: 16 SpO2: 95% 95% 96% Weight: 165 lb 6.4 oz (75 kg) Height: 5' 8 (1.727 m) Physical Exam Constitutional: General: He is not in acute distress. Appearance: He is normal weight. HENT: Head: Normocephalic. Eyes: Pupils: Pupils are equal, round, and reactive to light. Neck: Vascular: No carotid bruit. Comments: No JVD Cardiovascular: Rate and Rhythm: Normal rate and regular rhythm. Pulses: Normal pulses. Heart sounds: Normal heart sounds. No murmur heard. No friction rub. No gallop. Pulmonary: Effort: Pulmonary effort is normal. No respiratory distress. Breath sounds: Normal breath sounds. No wheezing, rhonchi or rales. Musculoskeletal: General: Normal range of motion. Cervical back: Normal range of motion. Right lower leg: No edema. Left lower leg: No edema. Skin: General: Skin is warm. Capillary Refill: Capillary refill takes less than 2 seconds. Neurological: Mental Status: He is alert and oriented to person, place, and time. Data Reviewed and Summarized EF BP Date Value Ref Range Status 01/08/2024 66 55 - 100 % Final ECG: sinus rhythm Dion Gutierrez MD documented in this [place] [id number] Telephone encounter Note* Telephone Encounter - Ajith Bejarano RN - 01/23/2024 4:02 PM EDT I called and was able to reach pt's dtr at her number [phone]. Pt's number one complaint today is that he's been very dizzy all day with the sensation of the roomspinning. I had dtr check his BP and HR and 125/75, 63. I advised that this sounds more like vertigo and I would forward to his PCP. RE the lower extremity edema, the dtr reports that it had gone down but now it's back with pitting edema up to his ankles. Pt denies SOB or orthopnea. She reports that the pt had this once before andhe was prescribed furosemide 20mg every day which resolved it and then it was lowered to every other day. Pt has some renal insufficiency: Component Ref Range & Units 4 d ago (01/19/24) 2 wk ago (01/07/24) 1 mo ago (12/03/23) 3 mo ago (10/04/23) 1 yr ago (09/23/22) 1 yr ago (03/01/22) 2 yr ago (01/21/22) GLUCOSE 65 - 99 mg/dL 267 High 314 High R 264 High CM 327 High R, CM 529 High Panic CM 133 High R Urea Nitrogen (BUN) 7 - 25 mg/dL 10 9 R 9 8 18 16 R Creatinine 0.70 - 1.28 mg/dL 1.45 High 1.54 High R 1.52 High 1.60 High 1.83 High 1.80 High R EGFR > OR = 60 mL/min/1.73m2 49 Low 45.9 Low R, CM 47 Low 44 Low 38 Low CM BUN/CREATININE RATIO 6 - 22 (calc) 7 6 5 Low 10 SODIUM 135 - 146 mmol/L 137 135 R 138 138 137 142 R POTASSIUM 3.5 - 5.3 mmol/L 3.6 3.8 R 3.7 3.5 4.0 4.3 R 3.2 Low R CHLORIDE 98 - 110 mmol/L 100 102 R 101 101 99 105 R Carbon Dioxide (CO2) 20 - 32 mmol/L 25 26 R 29 29 27 31 High R ELECTROLYTE BALANCE 7 - 17 mmol/L (calc) 12 11 CALCIUM 8.6 - 10.3 mg/dL 9.1 9.4 R 9.4 Pt and dtr were under the impression that pt was told he had a heart problem. I reviewed his echo from 01/08/24 with dtr, explaining that pt's EF is normal at 66% and pt has just grade 1 DD. Dtr says they mentioned something about the aorta. Per interpretation: Dilated sinuses of Valsalva. Sinuses of Valsalva diameter is 4.2 cm. Pt has appt w/ Dr Gutierrez on Tuesday01/27/24 in [place] and I advised in the meantime to keep legs elevated when pt is sitting, try compression socks and cut back on sodium in his diet. I also let her know that I would forward to Dr Gutierrez to see if he wants the pt to increase Lasix to daily dosing for a few days. Pt does not weigh himself daily - I also suggested doing this. [facility] [id number] Miscellaneous Notes* Telephone Encounter - Ajith Bejarano RN - 01/23/2024 4:02 PM EDT I called and was able to reach pt's dtr at her number [phone]. Pt's number one complaint today is that he's been very dizzy all day with the sensation of the roomspinning. I had dtr check his BP and HR and 125/75, 63. I advised that this sounds more like vertigo and I would forward to his PCP. RE the lower extremity edema, the dtr reports that it had gone down but now it's back with pitting edema up to his ankles. Pt denies SOB or orthopnea. She reports that the pt had this once before andhe was prescribed furosemide 20mg every day which resolved it and then it was lowered to every other day. Pt has some renal insufficiency: Component Ref Range & Units 4 d ago (01/19/24) 2 wk ago (01/07/24) 1 mo ago (12/03/23) 3 mo ago (10/04/23) 1 yr ago (09/23/22) 1 yr ago (03/01/22) 2 yr ago (01/21/22) GLUCOSE 65 - 99 mg/dL 267 High 314 High R 264 High CM 327 High R, CM 529 High Panic CM 133 High R Urea Nitrogen (BUN) 7 - 25 mg/dL 10 9 R 9 8 18 16 R Creatinine 0.70 - 1.28 mg/dL 1.45 High 1.54 High R 1.52 High 1.60 High 1.83 High 1.80 High R EGFR > OR = 60 mL/min/1.73m2 49 Low 45.9 Low R, CM 47 Low 44 Low 38 Low CM BUN/CREATININE RATIO 6 - 22 (calc) 7 6 5 Low 10 SODIUM 135 - 146 mmol/L 137 135 R 138 138 137 142 R POTASSIUM 3.5 - 5.3 mmol/L 3.6 3.8 R 3.7 3.5 4.0 4.3 R 3.2 Low R CHLORIDE 98 - 110 mmol/L 100 102 R 101 101 99 105 R Carbon Dioxide (CO2) 20 - 32 mmol/L 25 26 R 29 29 27 31 High R ELECTROLYTE BALANCE 7 - 17 mmol/L (calc) 12 11 CALCIUM 8.6 - 10.3 mg/dL 9.1 9.4 R 9.4 Pt and dtr were under the impression that pt was told he had a heart problem. I reviewed his echo from 01/08/24 with dtr, explaining that pt's EF is normal at 66% and pt has just grade 1 DD. Dtr says they mentioned something about the aorta. Per interpretation: Dilated sinuses of Valsalva. Sinuses of Valsalva diameter is 4.2 cm. Pt has appt w/ Dr Gutierrez on Tuesday01/27/24 in [place] and I advised in the meantime to keep legs elevated when pt is sitting, try compression socks and cut back on sodium in his diet. I also let her know that I would forward to Dr Gutierrez to see if he wants the pt to increase Lasix to daily dosing for a few days. Pt does not weigh himself daily - I also suggested doing this. * Telephone Encounter - Bria Johansen RN - 01/19/2024 4:14 PM EDT LMOM to call back to discuss * Telephone Encounter - Efren Tidwell MD - 01/19/2024 4:07 PM EDT I recommend review by cardiology, I have forwarded daughter's note to Dr. Gutierrez. EFREN TIDWELL MD * Telephone Encounter - Melani Toro - 01/19/2024 3:45 PM EDT Daughter Cami lm at our office about Camilla having edema in his feet/ankles, he has water pill at home that he has been taking every other day. Please advise. [phone] * Telephone Encounter - Taisha Maier RN - 01/19/2024 3:26 PM EDT S: Patient daughter Cami called the clinical access center with complaint of ankle swelling. B: Ongoing was in the hospital 2 weeks ago for his heart. Taking lasix every other day. A: Patient c/o Both feet and ankles swollen, goes just above his ankles. Denies difficulty breathing, shortness of breath, thigh pain, calf pain or chest pain. 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 R: . Home Care advice given. Patient instructed to call back with worsening symptoms, concerns or questions. Patient verbalized understanding. Message to the office for review by the provider and needs recommendation from Provider for treatment going forward. Reason for Disposition MILD swelling of both ankles (i.e., pedal edema) AND new-onset or worsening Protocols used: Leg Swelling and Obcdw-MKPCS-BC documented in this encounterSKing[facility] [id number] Telephone encounter Note* Telephone Encounter - Bria Johansen RN - 01/19/2024 4:14 PM EDT LMOM to call back to discuss [facility] [id number] Miscellaneous Notes* Telephone Encounter - Bria Johansen RN - 01/19/2024 4:14 PM EDT LMOM to call back to discuss * Telephone Encounter - Efren Tidwell MD - 01/19/2024 4:07 PM EDT I recommend review by cardiology, I have forwarded daughter's note to Dr. Gutierrez. EFREN TIDWELL MD * Telephone Encounter - Melani Toro - 01/19/2024 3:45 PM EDT Daughter Cami lm at our office about Camilla having edema in his feet/ankles, he has water pill at home that he has been taking every other day. Please advise. [phone] * Telephone Encounter - Taisha Maier RN - 01/19/2024 3:26 PM EDT S: Patient daughter Cami called the clinical access center with complaint of ankle swelling. B: Ongoing was in the hospital 2 weeks ago for his heart. Taking lasix every other day. A: Patient c/o Both feet and ankles swollen, goes just above his ankles. Denies difficulty breathing, shortness of breath, thigh pain, calf pain or chest pain. 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 R: . Home Care advice given. Patient instructed to call back with worsening symptoms, concerns or questions. Patient verbalized understanding. Message to the office for review by the provider and needs recommendation from Provider for treatment going forward. Reason for Disposition MILD swelling of both ankles (i.e., pedal edema) AND new-onset or worsening Protocols used: Leg Swelling and Stejp-KGEWO-TL documented in this encounterSKing's [facility] [id number] Telephone encounter Note* Telephone Encounter - Efren Tidwell MD - 01/19/2024 4:07 PM EDT I recommend review by cardiology, I have forwarded daughter's note to Dr. Gutierrez. EFREN TIDWELL MD [facility] [id number] Telephone encounter Note* Telephone Encounter - Melani Toro - 01/19/2024 3:45 PM EDT Daughter Cami lm at our office about Camilla having edema in his feet/ankles, he has water pill at home that he has been taking every other day. Please advise. [phone] [facility] [id number] Telephone encounter Note* Telephone Encounter - Taisha Maier RN - 01/19/2024 3:26 PM EDT S: Patient daughter Cami called the clinical access center with complaint of ankle swelling. B: Ongoing was in the hospital 2 weeks ago for his heart. Taking lasix every other day. A: Patient c/o Both feet and ankles swollen, goes just above his ankles. Denies difficulty breathing, shortness of breath, thigh pain, calf pain or chest pain. 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 R: . Home Care advice given. Patient instructed to call back with worsening symptoms, concerns or questions. Patient verbalized understanding. Message to the office for review by the provider and needs recommendation from Provider for treatment going forward. Reason for Disposition MILD swelling of both ankles (i.e., pedal edema) AND new-onset or worsening Protocols used: Leg Swelling and Cljpe-ACZJA-NR [facility] [id number] History of Present illness Narrative* Judy Whittington APRN - [facility] - 01/16/2024 1:00 PM EDT Images from the original note were not included. [facility] [place] [address] [place] [address] Dept: [phone] Dept Loc: [phone] Visit type: Established patient Reason for Visit: Diabetes, Hyperglycemia, and Follow-up Assessment and Plan 1. Type 2 diabetes mellitus with hyperglycemia, with long-term current use of insulin ([facility]) - C-Peptide - Basic metabolic panel - insulin NPH-insulin regular (HumuLIN,NovoLIN) (70-30) 100 UNIT/ML injection; Inject 22 units before breakfast and 26 units before dinner, Normal 2. Hyperlipidemia associated with type 2 diabetes mellitus (HCC) ([facility]) 3. Primary hypertension 4. Type 2 diabetes mellitus with both eyes affected by severe nonproliferative retinopathy and macular edema, with long-term current use of insulin ([facility]) 5. Type 2 diabetes mellitus with stage 3b chronic kidney disease, with long-term current use of insulin ([facility]) 6. Type 2 diabetes mellitus with diabetic polyneuropathy, with long-term current use of insulin ([facility]) ([facility]) A1C is Lab Results Component Value Date HGBA1C 11.7 (H) 12/03/2023 Patient will make the following changes to their antihyperglycemic regimen: Nph 70/30-22/0/26/0 Jardiance 25 mg po daily Will check C-peptide and fasting glucose levels to make sure that he is producing insulin before starting the Jardiance Type 2 diabetes mellitus with hyperglycemia, with long-term current use of insulin Diabetes is not stable Goal A1C = 7-5-8.0. Glucose goal range: 150-20 Insulin is necessary for ongoing mgmt. Recommend FSBS to occur 4 times daily, be recorded, and send to office in 3 weeks for review. Hyperlipidemia associated with type 2 diabetes mellitus - stable Reviewed most recent labs from 01/07/2024- total Cholesterol 170, triglycerides 290, HDL 32, LDL 97 Statin was just increased during most recent hospitalization 01/06- Will recheck labs in 6-8 weeks per pcp 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, with long-term current use of insulin,unspecified laterality, unspecified retinopathy severity -stabl;e Reviewed eye from 12/05/2023- Macular edema is present and worsening will stop avastain treatment and change to eylea at next visit continue to follow as recommended Type 2 diabetes mellitus with stage 3b chronic kidney disease, with long-term current use of insulin - Reviewed most recent labs from 01/07/2024- Bun 9, Creat 1.52, GFR 47 Reviewed most recent urine testing from 10/04/2023-MA/Creat ratio 10 continue cozaar, - Will initiate Jardiance once the c-peptide and BMP are completed and it is identified that he is making insulin 5. Type 2 diabetes mellitus with diabetic polyneuropathy, with long-term current use of insulin -stable continue daily foot checks, wear soled shoes Pt was counseled that diet and exercise are the foundation of DM treatment. If these 2 areas are not optimized then the pt will likely require more medications or higher doses to achieve control. Pt was asked to limit CHO consumption at each meal. Pt was advised to perform regular regimented brisk aerobic activity (ie walking, biking, swimming, etc) 30 min/d, 5d/wk (total of 150min weekly). Discussed A1C and BG goals Encouraged lifestyle modifications of diet and exercise Encouraged optimal foot care- follow with podiatry if needed Encouraged following with ophthalmology Patient counseled on the importance of taking medication as prescribed Patient counseled on the effects of uncontrolled DM on other organ systems Patient counseled on risk factors assoicated with diabetes Patient counseled on detection and treatment of hypoglycemia Patient instructed to call office if BG >250 or <70 consistently Pt counseled about these recommendations. Pt voiced understanding. These recommendations made based on interpretation of available data (which may include FSBS, A1C, venous sampling, or data from pt recall). Records from outside facility/PCP office to be requested: Scripts sent to pharmacy of pt choice: Yes laboratory Results I REVIEWED: CMP LIPID TESTING URINE MA/CREAT LEVEL EYE EXAM FOOT EXAM radiographic reports reviewed: No I reviewed the radiographic images personally at the time of today's visit: No Pt was advised of the results. No follow-ups on file. Subjective Diabetes Hyperglycemia PCP is EFREN TIDWELL MD Referring is pcp Last office visit: 06/14/2023 Daughter presnet to day DM Onset: about 40 years ago Type of DM: 2 Complications: Cardiovascular -- Yes several TIA's Statin Use -- Yes lipitor 40 Retinopathy -- Yes, injections every few Months Last EARL/Retina Eval: Dr juarez- [facility] [place] [facility], notes in media from 09/2024 Nephropathy -- Yes CDK 3b/ CHARLES/ARB Use -- Yes Cozaar Polyneuropathy -- Yes- Foot Exam: pcp Obesity -- No Other -- No Obesity -- No Other -- No Today's complaints include: He has been eating more candy in the evenings, an ice cream bar daily and drinking more regular Pepsi and Nina Jacquelyn He was recently hospitalized for Chest pain - suggested that he take SGLT-2i for cardiac and renal history - no orders were started Since last office visit denies new health problems, admits to hospitalizations, and denies surgeries. Pt feels their blood sugars are unchanged since ALEX. Pt c/o sxs at today's visit: no Pt c/o sxs of hyperglycemia at today's visit: no Pt c/o SEs from Medications at today's visit: no Pt voices concerns about cost of medications at today's visit: no Pt feels their blood sugars are better since ALEX. Hyperglycemia present: Yes Hypoglycemia present: No Blood sugar monitoring device used: nita Frequency of BGL checks cont Meter present:No Log present: No Reviewed w/ pt: No Scanned into Media: No Current DM Medications: NPH 18 units bid Taking Medications w/o Missed Doses: No Eats breakfast and dinner Snacks at night Following Exercise Regimen: No Was doing pt regimen recently stopped because of construction Previously Used DM Meds: Yes metformin NPH Lantus- too expensive Review of Systems An entire ROS was performed at the time of this encounter. Unless noted above in the HPI, the ROS is negative. No Known Allergies Outpatient Medications Prior to Visit Medication Sig Dispense Refill acetaminophen (Tylenol) 325 MG tablet Take 2 tablets (650 mg) by mouth every 6 hours as needed for mild pain (1-3) or fever (For temp greater than 100.4 F (38 C)) for up to 10 days. alpha tocopherol (Vitamin E) 400 units capsule 1 capsule Every 24 hours. amLODIPine (Norvasc) 5 MG tablet Take 1 tablet (5 mg) by mouth daily. 90 tablet 3 aspirin 81 MG EC tablet Take 1 tablet (81 mg) by mouth daily. atorvastatin (Lipitor) 80 MG tablet Take 1 tablet (80 mg) by mouth daily. 30 tablet 1 calcium carbonate-vitamin D 600-200 MG-UNIT tablet Take by mouth. Continuous Blood Gluc Sensor (FreeStyle Nita 2 Sensor) misc 1 Device every 14 (fourteen) days. 9 each 3 DULoxetine (Cymbalta) [address] capsule TAKE 2 CAPSULES BY MOUTH IN THE MORNING 180 capsule 3 fish oil-omega-3 fatty acids 1000 MG capsule Take 1,000 mg by mouth in the morning. furosemide (Lasix) 20 MG tablet 1 po every other day 45 tablet 3 glucagon 1 MG injection Inject 1 mg into the shoulder, thigh, or buttocks. Hmnvfmugjaz-Xstmctpwp-Abo C-Mn (Glucosamine 1500 Complex) capsule 1 capsule in the morning and 1 capsule in the evening. glucose blood test strip 1 each by Other route 2 times daily. 200 each 3 isosorbide mononitrate ER (Imdur) 30 MG 24 hr tablet Take 1 tablet (30 mg) by mouth daily. Do not crush or chew. 30 tablet 1 Lancets (OneTouch Delica Plus [id number]) misc losartan (Cozaar) 50 MG tablet Take 1 tablet (50 mg) by mouth daily. 90 tablet 3 metoprolol tartrate (Lopressor) 100 MG tablet 1 po bid 180 tablet 3 mirtazapine (Remeron) 15 MG tablet Take 1 tablet (15 mg) by mouth Nightly. 90 tablet 3 mjfahbqawyni-woop-idoutjmd-folic acid (Theragran-M) tablet Every 24 hours. omeprazole (PriLOSEC) [address] capsule Take 1 capsule (40 mg) by mouth in the morning. 90 capsule 3 Probiotic tablet delayed-release as directed solifenacin (VESIcare) 10 MG tablet TAKE 1 TABLET BY MOUTH DAILY 100 tablet 3 tamsulosin (Flomax) 0.4 MG 24 hr capsule 1 po qd 90 capsule 3 topiramate 50 MG tablet Take 1 tablet by mouth Nightly. 90 tablet 3 insulin NPH-insulin regular (HumuLIN,NovoLIN) (70-30) 100 UNIT/ML injection Inject 18 units before breakfast and 22 units before dinner 21 mL 3 No facility-administered medications prior to visit. 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 -02nd hand smoke Substance Use Topics Alcohol use: Not Currently Past Surgical History: Procedure Laterality Date COLONOSCOPY EYE SURGERY Bilateral cataract FRACTURE SURGERY back LIPOMA RESECTION 03/08/2022 Family History Problem Relation Name Age of Onset Cancer Mother Francie Mcdermott Other ([id number]) Father Camilla Mcdermott SN heart murmur Alcohol abuse Father Camilla Mcdermott SN Hearing loss Father Camilla Mcdermott SN Alcohol abuse Son Camilla Jones Stander III Arthritis Son Camilla Zuñigaer III Depression Son Camilla Zuñigaer III Arthritis Daughter Cami Cainedmond Autoimmune disease Daughter Cami Hesser Depression Daughter Cami Duffy Diabetes Daughter Cami Duffy Hyperlipidemia Daughter Cami Duffy Hypertension Daughter Camimeghana Duffy Immunodeficiency Daughter Camimeghana Duffy Depression Daughter Belle Cooper Diabetes Daughter Belle Cooper Hearing loss Sister Belle Connelly Objective BP 130/80 (BP Location: Left arm, Patient Position: Sitting, BP Cuff Size: Adult) Pulse 70 Ht 5' 8 (1.727 m) Wt 163 lb (73.9 kg) BMI 24.78 kg/m Physical Exam Constitutional: Appearance: Normal appearance. He is obese. HENT: Head: Normocephalic and atraumatic. Right Ear: External ear normal. Left Ear: External ear normal. Nose: Nose normal. Mouth/Throat: Mouth: Mucous membranes are moist. Pulmonary: Effort: Pulmonary effort is normal. No respiratory distress. Musculoskeletal: General: Normal range of motion. Skin: General: Skin is warm and dry. Neurological: Mental Status: He is alert and oriented to person, place, and time. Psychiatric: Mood and Affect: Mood normal. Data Reviewed and Summarized Labs: No components found for: LABA1C No components found for: EAG Lab Results Component Value Date NA 135 01/07/2024 K 3.8 01/07/2024 CL 102 01/07/2024 CO2 26 01/07/2024 CO2 29 12/03/2023 BUN 9 01/07/2024 BUN 9 12/03/2023 CREATININE 1.54 (H) 01/07/2024 CREATININE 1.52 (H) 12/03/2023 GLUCOSE 314 (H) 01/07/2024 GLUCOSE 264 (H) 12/03/2023 CALCIUM 9.4 01/07/2024 CALCIUM 9.4 12/03/2023 Lab Results Component Value Date CHOL 121 02/25/2021 CHOL 141 11/24/2019 Lab Results Component Value Date TRIG 152 (A) 02/25/2021 TRIG 183 (A) 11/24/2019 Lab Results Component Value Date HDL 29 (L) 02/25/2021 HDL 32 (L) 11/24/2019 No results found for: LDLCALC No results found for: VLDL Lab Results Component Value Date CHOLHDLRATIO 4 02/25/2021 CHOLHDLRATIO 4 11/24/2019 No results found for: [id number] Imaging/Testing: Judy L Whittington, COMMERCIAL CLEANER - EXCEPTIONAL 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 Portions of the information within this encounter were entered using an electronic dictation system. Best attempts were made to edit/proofread the information prior to note completion. Despite the review of information, some errors may remain. If there are questions related to the information contained within the note please contact the signing physician directly. documented in this [facility]03-18-2024 Telephone encounter Note* Telephone Encounter - Melani Toro - 01/09/2024 4:01 PM EDT I spoke with luis felipe Almanza and they will wait for an appt [id number] Miscellaneous Notes* Telephone Encounter - Melani Toro - 01/09/2024 4:01 PM EDT I spoke with luis felipe Almanza and they will wait for an appt with Dr[facility] * Telephone Encounter - Molly Shah PA-C - 01/09/2024 6:34 AM EDT Pt discharged from hospital 01/07. Needs 2-3 wk follow up. Linda documented in this [facility]03-18-2024 Telephone encounter Note* Telephone Encounter - Molly Shah PA-C - 01/09/2024 6:34 AM EDT Pt discharged from hospital 01/07. Needs 2-3 wk follow up. [facility] [place] Phone: 1(255) 853-123303-17-2024 Hospital course Narrative* Carlos King MD - 01/08/2024 12:58 PM EDT Images from the original note were not included. Discharge Summary Camilla Mcdermott : 1945 ADMIT DATE: 01/07/2024 DISCHARGE DATE: 01/08/2024 PRIMARY CARE PHYSICIAN: EFREN TIDWELL MD VISIT STATUS: inpatient CODE STATUS: Full Code DISCHARGE DIAGNOSES: Chest pain possibly anginal HTN Aortic dilatation DM2 with hyperglycemia CKD stage 3 Depression/anxiety Functional and cognitive decline GERD Hyperlipidemia Neuropathy HOSPITAL COURSE: 78 year old presented with chest pain and diaphoresis with ambulation. He was admitted and monitored on telemetry. Serial enzymes and EKG were negative. He was seen by Cardiology. He had an echocardiogram. He was placed on imdur, aspirin and statin was increased. Cardiology thought patient was stable for discharge with close outpatient follow up. SIGNIFICANT DIAGNOSTIC STUDIES: CXR, echocardiogram CONSULTANTS: Cardiology RECOMMENDED NEXT STEPS: Increase statin. Add imdur and aspirin. Follow up with PCP and Cardiology as an outpatient. Cardiology to arrange outpatient stress test/CMR. May benefit from evaluation at [facility]. Physical Exam: Vitals: BP 124/76 (BP Location: Right arm, Patient Position: Lying) Pulse 65 Temp 36.2 C (97.2 F) (Temporal) Resp 16 Ht 5' 8 (1.727 m) Wt 160 lb (72.6 kg) SpO2 93% BMI 24.33 kg/m Pulse Ox: SpO2 Av.8 % Min: 93 % Max: 96 % General appearance: alert, cooperative and no distress Mental Status: oriented to person, place and time and normal affect Lungs: clear to auscultation bilaterally, normal effort Heart: regular rate and rhythm, no murmur Abdomen: soft, nontender, nondistended, bowel sounds present, no masses Extremities: no edema, redness, tenderness in the calves Skin: no gross lesions, rashes LABS: CBC: Recent Labs 01/07/24 2240 WBC 8.8 RBC 4.74 HGB 13.4 HCT 40.3 MCV 85.0 RDW 13.2 PLT 173 BMP: Recent Labs 01/07/24 2240 NA 135 K 3.8 CL 102 CO2 26 BUN 9 CREATININE 1.54* GLUCOSE 314* CALCIUM 9.4 ANIONGAP 7 CARDIAC ENZYMES: Recent Labs 01/07/24 2240 01/08/24 0202 01/08/24 0736 TROPONINI 0.020 0.026 0.023 DISCHARGE MEDICATIONS: Medication List START taking these medications acetaminophen 325 MG tablet Commonly known as: Tylenol Take 2 tablets (650 mg) by mouth every 6 hours as needed for mild pain (1-3) or fever (For temp greater than 100.4 F (38 C)) for up to 10 days. aspirin 81 MG EC tablet Take 1 tablet (81 mg) by mouth daily. Start taking on: January 09, 2024 isosorbide mononitrate ER 30 MG 24 hr tablet Commonly known as: Imdur Take 1 tablet (30 mg) by mouth daily. Do not crush or chew. Start taking on: January 09, 2024 CHANGE how you take these medications atorvastatin 80 MG tablet Commonly known as: Lipitor Take 1 tablet (80 mg) by mouth daily. Start taking on: January 09, 2024 What changed: medication strength how much to take how to take this when to take this additional instructions CONTINUE taking these medications alpha tocopherol 400 units capsule Commonly known as: Vitamin E amLODIPine 5 MG tablet Commonly known as: Norvasc Take 1 tablet (5 mg) by mouth daily. calcium carbonate-vitamin D 600-200 MG-UNIT tablet DULoxetine [address] capsule Commonly known as: Cymbalta TAKE 2 CAPSULES BY MOUTH IN THE MORNING fish oil-omega-3 fatty acids 1000 MG capsule FreeStyle Nita 2 Sensor misc 1 Device every 14 (fourteen) days. furosemide 20 MG tablet Commonly known as: Lasix 1 po every other day glucagon 1 MG injection Glucosamine 1500 Complex capsule glucose blood test strip 1 each by Other route 2 times daily. insulin NPH-insulin regular (70-30) 100 UNIT/ML injection Commonly known as: HumuLIN,NovoLIN Inject 18 units before breakfast and 22 units before dinner losartan 50 MG tablet Commonly known as: Cozaar Take 1 tablet (50 mg) by mouth daily. metoprolol tartrate 100 MG tablet Commonly known as: Lopressor 1 po bid mirtazapine 15 MG tablet Commonly known as: Remeron Take 1 tablet (15 mg) by mouth Nightly. jypuqxwbqhan-axgh-edskzapv-folic acid tablet omeprazole [address] capsule Commonly known as: PriLOSEC Take 1 capsule (40 mg) by mouth in the morning. OneTouch Delica Plus [id number] misc Probiotic tablet delayed-release solifenacin 10 MG tablet Commonly known as: VESIcare TAKE 1 TABLET BY MOUTH DAILY tamsulosin 0.4 MG 24 hr capsule Commonly known as: Flomax 1 po qd topiramate 50 MG tablet Take 1 tablet by mouth Nightly. Where to Get Your Medications These medications were sent to [id number] - [place], [place] - [address] [address] atorvastatin 80 MG tablet isosorbide mononitrate ER 30 MG 24 hr tablet You can get these medications from any pharmacy You don't need a prescription for these medications acetaminophen 325 MG tablet aspirin 81 MG EC tablet DIET: Adult diet Regular; 4 carb choices (60 gm/meal) ACTIVITY: No heavy lifting. up with assist COMPLEXITY OF FOLLOW UP: [] Moderate Complexity: follow up within 7-14 calendar days (62350) [] Severe Complexity: follow up within 7 calendar days (84771) FOLLOW UP TESTING, PENDING RESULTS OR REFERRALS AT TRANSITIONAL CARE VISIT: [] Yes [] No PENDING STUDIES: No DISPOSITION: Home FACILITY/HOME CARE AGENCY NAME: Follow up with Efren Tidwell MD [address] [facility] [address] Schedule an appointment as soon as possible for a visit in 1 week(s) Dion Gutierrez MD [address] [facility] [address] Follow up office will call for follow up appointment and tests INSTRUCTIONS TO MA/SW: Please call patient on day after discharge (must document patient contacted within 2 business days of discharge). FOLLOW UP QUESTIONS FOR MA/SW: 1. Did you get medications filled and taking them as instructed from discharge? 2. Are you following your discharge instructions from your hospital stay? 3. Please confirm patient is scheduled for a follow up appointment within the above time frame. DISCHARGE TIME: > 35 minutes SIGNED: CARLOS KING MD 01/08/2024, 12:58 PM documented in this [facility]03-17-2024 Hospital Discharge instructions* Discharge Instr - Activity* Carlos King MD - 01/08/2024 12:58 PM EDT As tolerated * Discharge Instr - Diet* Selma Cantor RN - 01/08/2024 12:58 PM EDT Carb control, low salt/fat diet, avoid processed foods high in salt, and added sugars. Check blood sugars as needed * Attachments The following attachments cannot be sent through Care Everywhere. * Chest Pain (Welsh) documented in this [facility]03-17-2024 Consult note* Dion Gutierrez MD - 01/08/2024 12:26 PM EDT [facility] Consult Note Reason for Consult/Chief Complaint: Chest pain Consulting MD: Dr. King History of Present Illness: Camilla Mcdermott is a 78 y.o. male who was admitted for chest pain. We are consulted for evaluation. Mr. Farr,lives sedentary life style she does not move much according to his daughter who was at the bedside. He pushed the limits of his usually activity yesterday by carrying heavy objects, bird feeders and felt retrosternal chest pain lasted for some time, resolved completely. Currently he is back to his baseline and has no complaints. No chest pain or SOB. ECG showed sinus rhythm, no ischemicchanges, serial troponin ruled out VA. Echo demonstrated normal LVEF, no RWMA. Prior CTA from 2019 images show mild LAD calcifications dilated aorta, today's echo shows stable aorta size 3.9 cm ascending aorta, SOV 4.2 cm. Also, he has HTN, DM, DL, underlying mild dementia. 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 Cerebral artery occlusion with cerebral infarction (HCC) tia's Chronic kidney disease Dementia (HCC) Diabetes mellitus (HCC) GERD (gastroesophageal reflux disease) takes meds, has had for years Hyperlipidemia Hypertension Neuropathy Retinopathy TIA (transient ischemic attack) multiple Visual impairment retanopothy & cataracts removed both eyes Past Surgical History: Past Surgical History: Procedure Laterality Date COLONOSCOPY EYE SURGERY Bilateral cataract FRACTURE SURGERY back LIPOMA RESECTION 03/08/2022 Family History: Family History Problem Relation Name Age of Onset Cancer Mother Francie Mcdermott Other ([id number]) Father Camilla Mcdermott SN heart murmur Alcohol abuse Father Camilla Brar Stander SN Hearing loss Father Camilla Brar Stander SN Alcohol abuse Son Camilla Jones Stander III Arthritis Son Camilla Jones Stander III Depression Son Camilla Jones Stander III Arthritis Daughter Cami Hesser Autoimmune disease Daughter Cami Hesser Depression Daughter Cami Hesser Diabetes Daughter Cami Hesser Hyperlipidemia Daughter Cami Hesser Hypertension Daughter Cami Hesser Immunodeficiency Daughter Cami Hesser Depression Daughter Belle Cooper Diabetes Daughter Belle Cooper Hearing loss Sister Belle Connelly Social History: Social History Tobacco Use Smoking status: Never Smokeless tobacco: Never Tobacco comments: 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 -02nd hand smoke Vaping Use Vaping Use: Never used Substance Use Topics Alcohol use: Not Currently Drug use: Never Medications: amLODIPine, 5 mg, Oral, Daily aspirin, 81 mg, Oral, Daily atorvastatin, 80 mg, Oral, Daily DULoxetine, 60 mg, Oral, Daily enoxaparin, 40 mg, SubCUTAneous, Daily ezetimibe, 10 mg, Oral, Nightly insulin lispro, 0-12 Units, SubCUTAneous, TID WC And insulin lispro, 0-12 Units, SubCUTAneous, Nightly insulin NPH-insulin regular, 15 Units, SubCUTAneous, BID AC isosorbide mononitrate ER, 30 mg, Oral, Daily losartan, 50 mg, Oral, Daily metoprolol tartrate, 100 mg, Oral, BID mirtazapine, 15 mg, Oral, Nightly pantoprazole, 40 mg, Oral, qAM AC tamsulosin, 0.4 mg, Oral, Daily topiramate, 50 mg, Oral, Nightly trospium, 20 mg, Oral, Daily Allergies: Patient has no known allergies. Reviewed Review of Systems: All other systems were reviewed and are negative other than as noted in the HPI. Physical Examination: Vitals: Blood pressure 124/76, pulse 65, temperature 36.2 C (97.2 F), temperature source Temporal, resp. rate 16, height 5' 8 (1.727 m), weight 160 lb (72.6 kg), SpO2 93%. Intake/Output Summary (Last 24 hours) at 01/08/2024 1226 Last data filed at 01/08/2024 0652 Gross per 24 hour Intake -- Output 2 ml Net -2 ml Wt Readings from Last 3 Encounters: 01/08/24 160 lb (72.6 kg) 10/04/23 160 lb (72.6 kg) 11/11/22 167 lb (75.8 kg) Neck: no JVD. Respiratory: Lungs are no. No rales or wheezes. Respiratory effort is normal and symmetrical bilaterally; Good air movement bilaterally. Heart: RRR; Normal S1 and S2. no murmur; No rub; no gallop. Vasc: Peripheral pulses 2+. Abdomen: Normal BS, soft, non-tender, non-distended; no hepatomegaly. Extremities/Skin: no LE edema; Skin warm to touch and well perfused. Musculoskeletal: Head - normocephalic. Neck - supple Laboratory Tests: Results from last 7 days Lab Units 01/07/24 2240 WBC AUTO 10*3/uL 8.8 HEMOGLOBIN g/dL 13.4 HEMATOCRIT % 40.3 MCV fL 85.0 PLATELETS AUTO 10*3/uL 173 Lab Results Component Value Date GLUCOSE 314 (H) 01/07/2024 CALCIUM 9.4 01/07/2024 NA 135 01/07/2024 K 3.8 01/07/2024 CO2 26 01/07/2024 CL 102 01/07/2024 BUN 9 01/07/2024 CREATININE 1.54 (H) 01/07/2024 Lab Results Component Value Date HGBA1C 11.7 (H) 12/03/2023 Lab Results Component Value Date TSH 3.067 10/24/2020 Lab Results Component Value Date CHOL 121 02/25/2021 CHOL 141 11/24/2019 Lab Results Component Value Date HDL 29 (L) 02/25/2021 HDL 32 (L) 11/24/2019 Lab Results Component Value Date TRIG 152 (A) 02/25/2021 TRIG 183 (A) 11/24/2019 Lab Results Component Value Date TROPONINI 0.023 01/08/2024 Assessment/Plan Chest pain: history suggests possible angina triggered by increase activity from baseline. No ACS or VA is present this admission. -start IMDUR 30 gm daily -continue aspirin 81 mg daily -increase atorvastatin to 80 mg daily -continue metoprolol 100 mg bid -will consider stress testing, stress CMR is reasonable as this can assess aorta as well Dilated aorta: mild, degenerative, stable from 2019 per this admission echo. No active chest pain. -reassess as outpatient -he has underlying CKD III3, may consider MRA aorta as outpatient Ok for discharge from cardiology standpoint, we will arrange for out patient follow up in 2-3 weeks Dion Gutierrez MD, , [facility], [facility] DATE of SERVICE: 01/08/2024 [facility] Work Phone: 1(130) 998-468703-17-2024 Consult note* Dion Gutierrez MD - 01/08/2024 12:26 PM EDT [facility] Consult Note Reason for Consult/Chief Complaint: Chest pain Consulting MD: Dr. King History of Present Illness: Camilla Mcdermott is a 78 y.o. male who was admitted for chest pain. We are consulted for evaluation. Mr. Farr,lives sedentary life style she does not move much according to his daughter who was at the bedside. He pushed the limits of his usually activity yesterday by carrying heavy objects, bird feeders and felt retrosternal chest pain lasted for some time, resolved completely. Currently he is back to his baseline and has no complaints. No chest pain or SOB. ECG showed sinus rhythm, no ischemicchanges, serial troponin ruled out VA. Echo demonstrated normal LVEF, no RWMA. Prior CTA from 2019 images show mild LAD calcifications dilated aorta, today's echo shows stable aorta size 3.9 cm ascending aorta, SOV 4.2 cm. Also, he has HTN, DM, DL, underlying mild dementia. 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 Cerebral artery occlusion with cerebral infarction (HCC) tia's Chronic kidney disease Dementia (HCC) Diabetes mellitus (HCC) GERD (gastroesophageal reflux disease) takes meds, has had for years Hyperlipidemia Hypertension Neuropathy Retinopathy TIA (transient ischemic attack) multiple Visual impairment retanopothy & cataracts removed both eyes Past Surgical History: Past Surgical History: Procedure Laterality Date COLONOSCOPY EYE SURGERY Bilateral cataract FRACTURE SURGERY back LIPOMA RESECTION 03/08/2022 Family History: Family History Problem Relation Name Age of Onset Cancer Mother Francie Mcdermott Other ([id number]) Father Camilla JonesChristiano Stander SN heart murmur Alcohol abuse Father Camilla JonesChristiano Stander SN Hearing loss Father Camilla JonesChristiano Stander SN Alcohol abuse Son Camilla Jones Stander III Arthritis Son Camilla Jones Stander III Depression Son Camilla Jones Stander III Arthritis Daughter Cami Hesser Autoimmune disease Daughter Cami Hesser Depression Daughter Cami Hesser Diabetes Daughter Cami Hesser Hyperlipidemia Daughter Cami Hesser Hypertension Daughter Cami Hesser Immunodeficiency Daughter Cami Hesser Depression Daughter Belle Cooper Diabetes Daughter Belle Cooper Hearing loss Sister Belle Connelly Social History: Social History Tobacco Use Smoking status: Never Smokeless tobacco: Never Tobacco comments: 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 -02nd hand smoke Vaping Use Vaping Use: Never used Substance Use Topics Alcohol use: Not Currently Drug use: Never Medications: amLODIPine, 5 mg, Oral, Daily aspirin, 81 mg, Oral, Daily atorvastatin, 80 mg, Oral, Daily DULoxetine, 60 mg, Oral, Daily enoxaparin, 40 mg, SubCUTAneous, Daily ezetimibe, 10 mg, Oral, Nightly insulin lispro, 0-12 Units, SubCUTAneous, TID WC And insulin lispro, 0-12 Units, SubCUTAneous, Nightly insulin NPH-insulin regular, 15 Units, SubCUTAneous, BID AC isosorbide mononitrate ER, 30 mg, Oral, Daily losartan, 50 mg, Oral, Daily metoprolol tartrate, 100 mg, Oral, BID mirtazapine, 15 mg, Oral, Nightly pantoprazole, 40 mg, Oral, qAM AC tamsulosin, 0.4 mg, Oral, Daily topiramate, 50 mg, Oral, Nightly trospium, 20 mg, Oral, Daily Allergies: Patient has no known allergies. Reviewed Review of Systems: All other systems were reviewed and are negative other than as noted in the HPI. Physical Examination: Vitals: Blood pressure 124/76, pulse 65, temperature 36.2 C (97.2 F), temperature source Temporal, resp. rate 16, height 5' 8 (1.727 m), weight 160 lb (72.6 kg), SpO2 93%. Intake/Output Summary (Last 24 hours) at 01/08/2024 1226 Last data filed at 01/08/2024 0652 Gross per 24 hour Intake -- Output 2 ml Net -2 ml Wt Readings from Last 3 Encounters: 01/08/24 160 lb (72.6 kg) 10/04/23 160 lb (72.6 kg) 11/11/22 167 lb (75.8 kg) Neck: no JVD. Respiratory: Lungs are no. No rales or wheezes. Respiratory effort is normal and symmetrical bilaterally; Good air movement bilaterally. Heart: RRR; Normal S1 and S2. no murmur; No rub; no gallop. Vasc: Peripheral pulses 2+. Abdomen: Normal BS, soft, non-tender, non-distended; no hepatomegaly. Extremities/Skin: no LE edema; Skin warm to touch and well perfused. Musculoskeletal: Head - normocephalic. Neck - supple Laboratory Tests: Results from last 7 days Lab Units 01/07/24 2240 WBC AUTO 10*3/uL 8.8 HEMOGLOBIN g/dL 13.4 HEMATOCRIT % 40.3 MCV fL 85.0 PLATELETS AUTO 10*3/uL 173 Lab Results Component Value Date GLUCOSE 314 (H) 01/07/2024 CALCIUM 9.4 01/07/2024 NA 135 01/07/2024 K 3.8 01/07/2024 CO2 26 01/07/2024 CL 102 01/07/2024 BUN 9 01/07/2024 CREATININE 1.54 (H) 01/07/2024 Lab Results Component Value Date HGBA1C 11.7 (H) 12/03/2023 Lab Results Component Value Date TSH 3.067 10/24/2020 Lab Results Component Value Date CHOL 121 02/25/2021 CHOL 141 11/24/2019 Lab Results Component Value Date HDL 29 (L) 02/25/2021 HDL 32 (L) 11/24/2019 Lab Results Component Value Date TRIG 152 (A) 02/25/2021 TRIG 183 (A) 11/24/2019 Lab Results Component Value Date TROPONINI 0.023 01/08/2024 Assessment/Plan Chest pain: history suggests possible angina triggered by increase activity from baseline. No ACS or VA is present this admission. -start IMDUR 30 gm daily -continue aspirin 81 mg daily -increase atorvastatin to 80 mg daily -continue metoprolol 100 mg bid -will consider stress testing, stress CMR is reasonable as this can assess aorta as well Dilated aorta: mild, degenerative, stable from 2019 per this admission echo. No active chest pain. -reassess as outpatient -he has underlying CKD III3, may consider MRA aorta as outpatient Ok for discharge from cardiology standpoint, we will arrange for out patient follow up in 2-3 weeks Dion Gutierrez MD, , [facility], [facility] DATE of SERVICE: 01/08/2024 documented in this [facility]03-17-2024 Note* ACP (Advance Care Planning) - Kaylene Calderon MD - 01/08/2024 12:37 AM EDT Images from the original note were not included. ADVANCED CARE PLANNING Camilla Zuñiga : 1945 Primary Care Physician: EFREN TIDWELL MD The patient and/or family/surrogate voluntarily agreed to participate in ACP services. Patient s cognitive capacity: Limited Code Status: [X] [FULL CODE - Continue all advanced life support: CPR,intubation,invasive procedures] [_] [DNR-CCA - DO NOT do CPR, intubation] [_] [DNR-PLC ENGINEER - Comfort care only] [_] DNR form [was/was not] signed Summary of discussion: The patient HCPOA is the following: Cami, daughter. Agreeable to being aFull code. [Condition that instigated the ACP on this DOS, relevant PMH, functional status, goals of care, andwhom this was discussed with including names and relationship to the patient, and any relevant advance care documentation discussion] I answered all the patient/family questions that I could within the range and scope of the current medical situation. We discussed the medical conditions, risks, benefits, outcomes, and goals of careat this time for the patient's medical issues at hand in the face of the patient's chronic issues and current presentation. Total time spent: 15 minutes were spent discussing the patient's resuscitation status, advance careplanning, and end of life care, with patient and/or family/surrogate. Kaylene Calderon MD [facility] 01/08/2024, 12:38 AM [id number] Note* ACP (Advance Care Planning) - Kaylene Calderon MD - 01/08/2024 12:37 AM EDT Images from the original note were not included. ADVANCED CARE PLANNING Camilla Mcdermott : 1945 Primary Care Physician: EFREN TIDWELL MD The patient and/or family/surrogate voluntarily agreed to participate in ACP services. Patient s cognitive capacity: Limited Code Status: [X] [FULL CODE - Continue all advanced life support: CPR,intubation,invasive procedures] [_] [DNR-CCA - DO NOT do CPR, intubation] [_] [DNR-PLC ENGINEER - Comfort care only] [_] DNR form [was/was not] signed Summary of discussion: The patient HCPOA is the following: Cami, daughter. Agreeable to being aFull code. [Condition that instigated the ACP on this DOS, relevant PMH, functional status, goals of care, andwhom this was discussed with including names and relationship to the patient, and any relevant advance care documentation discussion] I answered all the patient/family questions that I could within the range and scope of the current medical situation. We discussed the medical conditions, risks, benefits, outcomes, and goals of careat this time for the patient's medical issues at hand in the face of the patient's chronic issues and current presentation. Total time spent: 15 minutes were spent discussing the patient's resuscitation status, advance careplanning, and end of life care, with patient and/or family/surrogate. Kaylene Calderon MD [facility] 01/08/2024, 12:38 AM [facility] [id number] History and physical note* Kaylene Calderon MD - 01/08/2024 12:37 AM EDT Images from the original note were not included. Attending History and Physical Admit Date: 01/07/2024 PCP: EFREN TIDWELL MD CHIEF COMPLAINT: Chest pain Reason for Admission: Stable angina History Obtained From: patient, daughter HISTORY OF PRESENT ILLNESS: Camilla is a 78 y.o. male with past medical history below who presents with chief complaint listed above. Denies sob, abdominal pain, nausea, vomiting, diarrhea, constipation, fevers, or chills. Will admit for further evaluation and management. The daughter provided most of the history. He currently lives with his daughter and her grandchildren. The daughter reports that he sleeps most of the day and has very limited physical activity during the afternoon hours. The patient reports that today around 4 or 5pm he was carrying the bird feeders and started to have oppressive chest pain in the center of the chest associated with diaphoresis.He sat down for around half an hour and it went away, he went back to carry them and started to have pain again and stopped after that. The daughter also reports he was complaining of dizziness during those episodes but denies any nausea or vomiting. At baseline the daughter reports he dresses himself and eats himself, only occasionally needs help in the bathroom. Otherwise everything else is done by her at home. He mainly gets confused with the days but remembers the month and year. 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 Cerebral artery occlusion with cerebral infarction (HCC) tia's Chronic kidney disease Dementia (HCC) Diabetes mellitus (HCC) GERD (gastroesophageal reflux disease) takes meds, has had for years Hyperlipidemia Hypertension Neuropathy Retinopathy TIA (transient ischemic attack) multiple Visual impairment retanopothy & cataracts removed both eyes Past Surgical History: Past Surgical History: Procedure Laterality Date COLONOSCOPY EYE SURGERY Bilateral cataract FRACTURE SURGERY back LIPOMA RESECTION 03/08/2022 Social History: Social History Socioeconomic History Marital status: Spouse name: Not on file Number of children: Not on file Years of education: Not on file Highest education level: Not on file Occupational History Not on file Tobacco Use Smoking status: Never Smokeless tobacco: Never Tobacco comments: 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 -02nd hand smoke Vaping Use Vaping Use: Never used Substance and Sexual Activity Alcohol use: Not Currently Drug use: Never Sexual activity: Not Currently Partners: Female control/protection: Abstinence Other Topics Concern Not on file Social History Narrative Not on file Social Determinants of Health Financial Resource Strain: Low Risk (09/23/2022) Overall Financial Resource Strain (CARDIA) Difficulty of Paying Living Expenses: Not hard at all Food Insecurity: No Food Insecurity (09/23/2022) Hunger Vital Sign Worried About Running Out of Food in the Last Year: Never true Ran Out of Food in the Last Year: Never true Transportation Needs: No Transportation Needs (09/23/2022) PRAPARE - Transportation Lack of Transportation (Medical): No Lack of Transportation (Non-Medical): No Physical Activity: Inactive (09/23/2022) Exercise Vital Sign Days of Exercise per Week: 0 days Minutes of Exercise per Session: 0 min Stress: No Stress Concern Present (09/23/2022) [employer] - Occupational Stress Questionnaire Feeling of Stress : Not at all Social Connections: Socially Isolated (09/23/2022) Social Connection and Isolation Panel [NHANES] Frequency of Communication with Friends and Family: Never Frequency of Social Gatherings with Friends and Family: Never Attends Hoahaoism Services: Never Active Member of Clubs or Organizations: No Attends Club or Organization Meetings: Never Marital Status: Intimate Partner Violence: Not At Risk (09/23/2022) Humiliation, Afraid, Rape, and Kick questionnaire Fear of Current or Ex-Partner: No Emotionally Abused: No Physically Abused: No Sexually Abused: No Housing Stability: Low Risk (09/23/2022) Housing Stability Vital Sign Unable to Pay for Housing in the Last Year: No Number of Places Lived in the Last Year: 1 Unstable Housing in the Last Year: No Family History: Family History Problem Relation Name Age of Onset Cancer Mother Francie Mcdermott Other ([id number]) Father Camilla Mcdermott SN heart murmur Alcohol abuse Father Camilla Mcdermott SN Hearing loss Father Camilla Mcdermott SN Alcohol abuse Son Camilla Jones Stander III Arthritis Son Camilla Jones Stander III Depression Son Camilla Jones Stander III Arthritis Daughter Cami Duffy Autoimmune disease Daughter Cami Hesser Depression Daughter Cami Hesser Diabetes Daughter Cami Hesser Hyperlipidemia Daughter Cami Hesser Hypertension Daughter Cami Hesser Immunodeficiency Daughter Camimeghana Duffy Depression Daughter Belle Cooper Diabetes Daughter Belle Stevensrison Hearing loss Sister Belle Connelly Medications Prior to Admission: No current facility-administered medications on file prior to encounter. Current Outpatient Medications on File Prior to Encounter Medication Sig Dispense Refill alpha tocopherol (Vitamin E) 400 units capsule 1 capsule Every 24 hours. amLODIPine (Norvasc) 5 MG tablet Take 1 tablet (5 mg) by mouth daily. 90 tablet 3 atorvastatin (Lipitor) 40 MG tablet 1 po at hs 90 tablet 3 calcium carbonate-vitamin D 600-200 MG-UNIT tablet Take by mouth. Continuous Blood Gluc Sensor (FreeStyle Nita 2 Sensor) misc 1 Device every 14 (fourteen) days. 9 each 3 DULoxetine (Cymbalta) [address] capsule TAKE 2 CAPSULES BY MOUTH IN THE MORNING 180 capsule 3 fish oil-omega-3 fatty acids 1000 MG capsule Take 1,000 mg by mouth in the morning. furosemide (Lasix) 20 MG tablet 1 po every other day 45 tablet 3 glucagon 1 MG injection Inject 1 mg into the shoulder, thigh, or buttocks. Etnmuahzsma-Bzjakbuaz-Ibr C-Mn (Glucosamine 1500 Complex) capsule 1 capsule in the morning and 1 capsule in the evening. glucose blood test strip 1 each by Other route 2 times daily. 200 each 3 insulin NPH-insulin regular (HumuLIN,NovoLIN) (70-30) 100 UNIT/ML injection Inject 18 units before breakfast and 22 units before dinner 21 mL 3 Lancets (OneTouch Delica Plus [id number]) misc losartan (Cozaar) 50 MG tablet Take 1 tablet (50 mg) by mouth daily. 90 tablet 3 metoprolol tartrate (Lopressor) 100 MG tablet 1 po bid 180 tablet 3 mirtazapine (Remeron) 15 MG tablet Take 1 tablet (15 mg) by mouth Nightly. 90 tablet 3 idywvdmywnwl-owly-osdxgzxr-folic acid (Theragran-M) tablet Every 24 hours. omeprazole (PriLOSEC) [address] capsule Take 1 capsule (40 mg) by mouth in the morning. 90 capsule 3 Probiotic tablet delayed-release as directed solifenacin (VESIcare) 10 MG tablet TAKE 1 TABLET BY MOUTH DAILY 100 tablet 3 tamsulosin (Flomax) 0.4 MG 24 hr capsule 1 po qd 90 capsule 3 topiramate 50 MG tablet Take 1 tablet by mouth Nightly. 90 tablet 3 Allergies: No Known Allergies REVIEW OF SYSTEMS: Review of Systems All other systems reviewed and are negative. See HPI Vitals: BP 148/90 Pulse 94 Temp (!) 35.7 C (96.3 F) (Temporal) Resp 18 Ht 5' 8 (1.727 m) Wt 160 lb (72.6 kg) SpO2 96% BMI 24.33 kg/m BMI Classification: Normal Weight (BMI 18.5-24.9) Pulse Ox: SpO2 Av % Min: 96 % Max: 96 % Supplemental O2: PHYSICAL EXAM: Vitals: 01/07/24 2217 01/07/24 2221 01/08/24 0041 BP: (!) 140/88 148/90 Pulse: (!) 117 94 Resp: 20 18 Temp: 36.7 C (98 F) (!) 35.7 C (96.3 F) TempSrc: Temporal Temporal SpO2: 96% 96% Weight: 160 lb (72.6 kg) Height: 5' 8 (1.727 m) No intake or output data in the 24 hours ending 01/08/24 0459 Wt Readings from Last 3 Encounters: 01/07/24 160 lb (72.6 kg) 10/04/23 160 lb (72.6 kg) 11/11/22 167 lb (75.8 kg) Physical Exam Constitutional: General: He is not in acute distress. HENT: Head: Normocephalic and atraumatic. Right Ear: External ear normal. Left Ear: External ear normal. Mouth/Throat: Mouth: Mucous membranes are moist. Eyes: General: No scleral icterus. Conjunctiva/sclera: Conjunctivae normal. Neck: Thyroid: No thyromegaly. Vascular: No JVD. Cardiovascular: Rate and Rhythm: Regular rhythm. Chest Wall: PMI is not displaced. Heart sounds: No murmur heard. No S3 or S4 sounds. Pulmonary: Effort: Pulmonary effort is normal. Breath sounds: Normal breath sounds. No wheezing or rales. Abdominal: General: Bowel sounds are normal. There is no distension. Palpations: Abdomen is soft. Tenderness: There is no abdominal tenderness. Musculoskeletal: General: No swelling. Cervical back: Neck supple. Right lower leg: No edema. Left lower leg: No edema. Skin: General: Skin is warm and dry. Findings: No rash. Nails: There is no clubbing. Neurological: General: No focal deficit present. Mental Status: He is alert and oriented to person, place, and time. Mental status is at baseline. Gait: Gait is intact. Comments: Hard of hearing with hearing aids. Psychiatric: Mood and Affect: Mood normal. Thought Content: Thought content normal. DATA: CBC: Recent Labs 01/07/24 2240 WBC 8.8 RBC 4.74 HGB 13.4 HCT 40.3 MCV 85.0 RDW 13.2 PLT 173 BMP: Recent Labs 01/07/24 2240 NA 135 K 3.8 CL 102 CO2 26 BUN 9 CREATININE 1.54* GLUCOSE 314* CALCIUM 9.4 ANIONGAP 7 LIVER PROFILE:No results for input(s): AST, ALT, BILITOT, ALKPHOS, PROT in the last 72 hours. No lab exists for component: LABALBU PT/INR: No results for input(s): PROTIME, INR in the last 72 hours. CARDIAC ENZYMES: Recent Labs 01/07/24 2240 01/08/24 0202 TROPONINI 0.020 0.026 Procalcitonin: No results found for: PROCAL Urine Culture: No results found for this or any previous visit. COVID-19 PCR: No results for input(s): COVID19 in the last 72 hours. I reviewed: [x] laboratory results [x] radiographic results At the time of today's encounter. Pt was advised of the results. IMPRESSION and Medical Decision Making: Stable angina: Troponin negative, ECG showing ST depressions in the lateral leads. Reports he used to be on ASA but it was stopped many years ago. Loaded with Asa and started on daily ASA, increased his statin to 80mg daily and added Zetia to his regimen. He is already on metoprolol and on amlodipine for hypertension for antianginal therapy. Ordered echocardiogram and consult cardiology for further assessment and possible need for LHC. Discussed this with the daughter and patient. HTN: Continue amlodipine, losartan, lopressor. Hold lasix every other day. CKD stage 3: Stable at baseline. DM2: Poorly controlled last HbA1c of 11. Continue Inuslin 70/30, 15 U BID. At home he takes 18 in the AM and 22 in the evening. SSI orders placed. Anxiety/Depression: Continue home remeron, Cymbalta and topomax. Daughter will bring the med list from home to adjust. Dementia?: Consult geriatrics. -PT/OT eval/increase activity -am labs, replace lytes prn -vitals per routine -home meds as ordered -DVT prophylaxis: [x] Lovenox [] Heparin [] SCDs [x] Encourage ambulation [] Already on Anticoagulation Anticipated Discharge - Date - TBD - Location - TBD - Pending the following - Workup for CP, echo, cardiology consult and PT/OT Total time spent (which include face to face and non face to face encounters) : 60 minutes Extended Emergency Contact Information Primary Emergency Contact: Cami Duffy [address]: [address] [place] [address] Mobile Relation: Daughter Secondary Emergency Contact: Chao Rubio Mobile Relation: Grandchild Code status: Full Code -see below for additional orders, further recommendations to follow Orders Placed This Encounter Procedures XR chest 1 view Basic metabolic panel CBC auto differential Troponin, with Serial Reflex D-dimer, quantitative Troponin I Troponin I NT PRO BNP CBC auto differential Basic Metabolic Panel w/ Mg Reflex Adult diet Regular; 4 carb choices (60 gm/meal) Vital Signs Vital Signs Notify patient's primary care provider of admission Telemetry monitoring for Cardiac Ischemia (Known or Suspected) Activity Up With Assistance Notify physician per STANDARD parameters HYPOGLYCEMIA TREATMENT: blood glucose less than 50 mg/dL and patient ALERT and TOLERATING PO HYPOGLYCEMIA TREATMENT: blood glucose less than 70 mg/dL and patient NOT ALERT or NPO Notify Provider Full code [facility]patient consult to [facility] Inpatient consult to Geriatric Medicine--[facility] OT eval and treat PT eval and treat Initiate Oxygen Therapy Protocol POCT glucose meter ECG 12 lead ECG 12 lead Transthoracic echocardiogram (TTE) complete with contrast, bubble, strain, and 3D PRN Insert peripheral IV Initiate observation status Admit to inpatient Please forward a copy of this H&P to the patient's PCP. Thank you. [id number] History and physical note* Kaylene Calderon MD - 01/08/2024 12:37 AM EDT Images from the original note were not included. Attending History and Physical Admit Date: 01/07/2024 PCP: EFREN TIDWELL MD CHIEF COMPLAINT: Chest pain Reason for Admission: Stable angina History Obtained From: patient, daughter HISTORY OF PRESENT ILLNESS: Camilla is a 78 y.o. male with past medical history below who presents with chief complaint listed above. Denies sob, abdominal pain, nausea, vomiting, diarrhea, constipation, fevers, or chills. Will admit for further evaluation and management. The daughter provided most of the history. He currently lives with his daughter and her grandchildren. The daughter reports that he sleeps most of the day and has very limited physical activity during the afternoon hours. The patient reports that today around 4 or 5pm he was carrying the bird feeders and started to have oppressive chest pain in the center of the chest associated with diaphoresis.He sat down for around half an hour and it went away, he went back to carry them and started to have pain again and stopped after that. The daughter also reports he was complaining of dizziness during those episodes but denies any nausea or vomiting. At baseline the daughter reports he dresses himself and eats himself, only occasionally needs help in the bathroom. Otherwise everything else is done by her at home. He mainly gets confused with the days but remembers the month and year. 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 Cerebral artery occlusion with cerebral infarction (HCC) tia's Chronic kidney disease Dementia (HCC) Diabetes mellitus (HCC) GERD (gastroesophageal reflux disease) takes meds, has had for years Hyperlipidemia Hypertension Neuropathy Retinopathy TIA (transient ischemic attack) multiple Visual impairment retanopothy & cataracts removed both eyes Past Surgical History: Past Surgical History: Procedure Laterality Date COLONOSCOPY EYE SURGERY Bilateral cataract FRACTURE SURGERY back LIPOMA RESECTION 03/08/2022 Social History: Social History Socioeconomic History Marital status: Spouse name: Not on file Number of children: Not on file Years of education: Not on file Highest education level: Not on file Occupational History Not on file Tobacco Use Smoking status: Never Smokeless tobacco: Never Tobacco comments: 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 -02nd hand smoke Vaping Use Vaping Use: Never used Substance and Sexual Activity Alcohol use: Not Currently Drug use: Never Sexual activity: Not Currently Partners: Female control/protection: Abstinence Other Topics Concern Not on file Social History Narrative Not on file Social Determinants of Health Financial Resource Strain: Low Risk (09/23/2022) Overall Financial Resource Strain (CARDIA) Difficulty of Paying Living Expenses: Not hard at all Food Insecurity: No Food Insecurity (09/23/2022) Hunger Vital Sign Worried About Running Out of Food in the Last Year: Never true Ran Out of Food in the Last Year: Never true Transportation Needs: No Transportation Needs (09/23/2022) PRAPARE - Transportation Lack of Transportation (Medical): No Lack of Transportation (Non-Medical): No Physical Activity: Inactive (09/23/2022) Exercise Vital Sign Days of Exercise per Week: 0 days Minutes of Exercise per Session: 0 min Stress: No Stress Concern Present (09/23/2022) [employer] - Occupational Stress Questionnaire Feeling of Stress : Not at all Social Connections: Socially Isolated (09/23/2022) Social Connection and Isolation Panel [NHANES] Frequency of Communication with Friends and Family: Never Frequency of Social Gatherings with Friends and Family: Never Attends Hoahaoism Services: Never Active Member of Clubs or Organizations: No Attends Club or Organization Meetings: Never Marital Status: Intimate Partner Violence: Not At Risk (09/23/2022) Humiliation, Afraid, Rape, and Kick questionnaire Fear of Current or Ex-Partner: No Emotionally Abused: No Physically Abused: No Sexually Abused: No Housing Stability: Low Risk (09/23/2022) Housing Stability Vital Sign Unable to Pay for Housing in the Last Year: No Number of Places Lived in the Last Year: 1 Unstable Housing in the Last Year: No Family History: Family History Problem Relation Name Age of Onset Cancer Mother Francie Mcdermott Other ([id number]) Father Camilla Mcdermott SN heart murmur Alcohol abuse Father Camilla Mcdermott SN Hearing loss Father Camilla Mcdermott SN Alcohol abuse Son Camilla Jones Stander III Arthritis Son Camilla Jones Stander III Depression Son Camilla Jones Stander III Arthritis Daughter Cami Cainer Autoimmune disease Daughter Cami Hesser Depression Daughter Cami Hesser Diabetes Daughter Cami Hesser Hyperlipidemia Daughter Cami Hesser Hypertension Daughter Cami Hesser Immunodeficiency Daughter Cami Hesser Depression Daughter Belle Cooper Diabetes Daughter Belle Cooper Hearing loss Sister Belle Connelly Medications Prior to Admission: No current facility-administered medications on file prior to encounter. Current Outpatient Medications on File Prior to Encounter Medication Sig Dispense Refill alpha tocopherol (Vitamin E) 400 units capsule 1 capsule Every 24 hours. amLODIPine (Norvasc) 5 MG tablet Take 1 tablet (5 mg) by mouth daily. 90 tablet 3 atorvastatin (Lipitor) 40 MG tablet 1 po at hs 90 tablet 3 calcium carbonate-vitamin D 600-200 MG-UNIT tablet Take by mouth. Continuous Blood Gluc Sensor (FreeStyle Nita 2 Sensor) misc 1 Device every 14 (fourteen) days. 9 each 3 DULoxetine (Cymbalta) [address] capsule TAKE 2 CAPSULES BY MOUTH IN THE MORNING 180 capsule 3 fish oil-omega-3 fatty acids 1000 MG capsule Take 1,000 mg by mouth in the morning. furosemide (Lasix) 20 MG tablet 1 po every other day 45 tablet 3 glucagon 1 MG injection Inject 1 mg into the shoulder, thigh, or buttocks. Srxsnrfbxak-Sskbvdpiu-Ykx C-Mn (Glucosamine 1500 Complex) capsule 1 capsule in the morning and 1 capsule in the evening. glucose blood test strip 1 each by Other route 2 times daily. 200 each 3 insulin NPH-insulin regular (HumuLIN,NovoLIN) (70-30) 100 UNIT/ML injection Inject 18 units before breakfast and 22 units before dinner 21 mL 3 Lancets (OneTouch Delica Plus [id number]) misc losartan (Cozaar) 50 MG tablet Take 1 tablet (50 mg) by mouth daily. 90 tablet 3 metoprolol tartrate (Lopressor) 100 MG tablet 1 po bid 180 tablet 3 mirtazapine (Remeron) 15 MG tablet Take 1 tablet (15 mg) by mouth Nightly. 90 tablet 3 viqbuhdikqel-fojg-vvtjfvsl-folic acid (Theragran-M) tablet Every 24 hours. omeprazole (PriLOSEC) [address] capsule Take 1 capsule (40 mg) by mouth in the morning. 90 capsule 3 Probiotic tablet delayed-release as directed solifenacin (VESIcare) 10 MG tablet TAKE 1 TABLET BY MOUTH DAILY 100 tablet 3 tamsulosin (Flomax) 0.4 MG 24 hr capsule 1 po qd 90 capsule 3 topiramate 50 MG tablet Take 1 tablet by mouth Nightly. 90 tablet 3 Allergies: No Known Allergies REVIEW OF SYSTEMS: Review of Systems All other systems reviewed and are negative. See HPI Vitals: BP 148/90 Pulse 94 Temp (!) 35.7 C (96.3 F) (Temporal) Resp 18 Ht 5' 8 (1.727 m) Wt 160 lb (72.6 kg) SpO2 96% BMI 24.33 kg/m BMI Classification: Normal Weight (BMI 18.5-24.9) Pulse Ox: SpO2 Av % Min: 96 % Max: 96 % Supplemental O2: PHYSICAL EXAM: Vitals: 01/07/24 2217 01/07/24 2221 01/08/24 0041 BP: (!) 140/88 148/90 Pulse: (!) 117 94 Resp: 20 18 Temp: 36.7 C (98 F) (!) 35.7 C (96.3 F) TempSrc: Temporal Temporal SpO2: 96% 96% Weight: 160 lb (72.6 kg) Height: 5' 8 (1.727 m) No intake or output data in the 24 hours ending 01/08/24 0459 Wt Readings from Last 3 Encounters: 01/07/24 160 lb (72.6 kg) 10/04/23 160 lb (72.6 kg) 11/11/22 167 lb (75.8 kg) Physical Exam Constitutional: General: He is not in acute distress. HENT: Head: Normocephalic and atraumatic. Right Ear: External ear normal. Left Ear: External ear normal. Mouth/Throat: Mouth: Mucous membranes are moist. Eyes: General: No scleral icterus. Conjunctiva/sclera: Conjunctivae normal. Neck: Thyroid: No thyromegaly. Vascular: No JVD. Cardiovascular: Rate and Rhythm: Regular rhythm. Chest Wall: PMI is not displaced. Heart sounds: No murmur heard. No S3 or S4 sounds. Pulmonary: Effort: Pulmonary effort is normal. Breath sounds: Normal breath sounds. No wheezing or rales. Abdominal: General: Bowel sounds are normal. There is no distension. Palpations: Abdomen is soft. Tenderness: There is no abdominal tenderness. Musculoskeletal: General: No swelling. Cervical back: Neck supple. Right lower leg: No edema. Left lower leg: No edema. Skin: General: Skin is warm and dry. Findings: No rash. Nails: There is no clubbing. Neurological: General: No focal deficit present. Mental Status: He is alert and oriented to person, place, and time. Mental status is at baseline. Gait: Gait is intact. Comments: Hard of hearing with hearing aids. Psychiatric: Mood and Affect: Mood normal. Thought Content: Thought content normal. DATA: CBC: Recent Labs 01/07/24 2240 WBC 8.8 RBC 4.74 HGB 13.4 HCT 40.3 MCV 85.0 RDW 13.2 PLT 173 BMP: Recent Labs 01/07/24 2240 NA 135 K 3.8 CL 102 CO2 26 BUN 9 CREATININE 1.54* GLUCOSE 314* CALCIUM 9.4 ANIONGAP 7 LIVER PROFILE:No results for input(s): AST, ALT, BILITOT, ALKPHOS, PROT in the last 72 hours. No lab exists for component: LABALBU PT/INR: No results for input(s): PROTIME, INR in the last 72 hours. CARDIAC ENZYMES: Recent Labs 01/07/24 2240 01/08/24 0202 TROPONINI 0.020 0.026 Procalcitonin: No results found for: PROCAL Urine Culture: No results found for this or any previous visit. COVID-19 PCR: No results for input(s): COVID19 in the last 72 hours. I reviewed: [x] laboratory results [x] radiographic results At the time of today's encounter. Pt was advised of the results. IMPRESSION and Medical Decision Making: Stable angina: Troponin negative, ECG showing ST depressions in the lateral leads. Reports he used to be on ASA but it was stopped many years ago. Loaded with Asa and started on daily ASA, increased his statin to 80mg daily and added Zetia to his regimen. He is already on metoprolol and on amlodipine for hypertension for antianginal therapy. Ordered echocardiogram and consult cardiology for further assessment and possible need for LHC. Discussed this with the daughter and patient. HTN: Continue amlodipine, losartan, lopressor. Hold lasix every other day. CKD stage 3: Stable at baseline. DM2: Poorly controlled last HbA1c of 11. Continue Inuslin 70/30, 15 U BID. At home he takes 18 in the AM and 22 in the evening. SSI orders placed. Anxiety/Depression: Continue home remeron, Cymbalta and topomax. Daughter will bring the med list from home to adjust. Dementia?: Consult geriatrics. -PT/OT eval/increase activity -am labs, replace lytes prn -vitals per routine -home meds as ordered -DVT prophylaxis: [x] Lovenox [] Heparin [] SCDs [x] Encourage ambulation [] Already on Anticoagulation Anticipated Discharge - Date - TBD - Location - TBD - Pending the following - Workup for CP, echo, cardiology consult and PT/OT Total time spent (which include face to face and non face to face encounters) : 60 minutes Extended Emergency Contact Information Primary Emergency Contact: Cami Duffy Address: [address] of [facility] Mobile Relation: Daughter Secondary Emergency Contact: Chao Rubio Mobile Relation: Grandchild Code status: Full Code -see below for additional orders, further recommendations to follow Orders Placed This Encounter Procedures XR chest 1 view Basic metabolic panel CBC auto differential Troponin, with Serial Reflex D-dimer, quantitative Troponin I Troponin I NT PRO BNP CBC auto differential Basic Metabolic Panel w/ Mg Reflex Adult diet Regular; 4 carb choices (60 gm/meal) Vital Signs Vital Signs Notify patient's primary care provider of admission Telemetry monitoring for Cardiac Ischemia (Known or Suspected) Activity Up With Assistance Notify physician per STANDARD parameters HYPOGLYCEMIA TREATMENT: blood glucose less than 50 mg/dL and patient ALERT and TOLERATING PO HYPOGLYCEMIA TREATMENT: blood glucose less than 70 mg/dL and patient NOT ALERT or NPO Notify Provider Full code Inpatient consult to [facility]iology[facility] Inpatient consult to Geriatric Medicine--[facility] OT eval and treat PT eval and treat Initiate Oxygen Therapy Protocol POCT glucose meter ECG 12 lead ECG 12 lead Transthoracic echocardiogram (TTE) complete with contrast, bubble, strain, and 3D PRN Insert peripheral IV Initiate observation status Admit to inpatient Please forward a copy of this H&P to the patient's PCP. Thank you. documented in this [facility]03-17-2024 Miscellaneous Notes* ACP (Advance Care Planning) - Kaylene Calderon MD - 01/08/2024 12:37 AM EDT Images from the original note were not included. ADVANCED CARE PLANNING Camilla Mcdermott : 1945 Primary Care Physician: EFREN TIDWELL MD The patient and/or family/surrogate voluntarily agreed to participate in ACP services. Patient s cognitive capacity: Limited Code Status: [X] [FULL CODE - Continue all advanced life support: CPR,intubation,invasive procedures] [_] [DNR-CCA - DO NOT do CPR, intubation] [_] [DNR-PLC ENGINEER - Comfort care only] [_] DNR form [was/was not] signed Summary of discussion: The patient HCPOA is the following: Cami, daughter. Agreeable to being aFull code. [Condition that instigated the ACP on this DOS, relevant PMH, functional status, goals of care, andwhom this was discussed with including names and relationship to the patient, and any relevant advance care documentation discussion] I answered all the patient/family questions that I could within the range and scope of the current medical situation. We discussed the medical conditions, risks, benefits, outcomes, and goals of careat this time for the patient's medical issues at hand in the face of the patient's chronic issues and current presentation. Total time spent: 15 minutes were spent discussing the patient's resuscitation status, advance careplanning, and end of life care, with patient and/or family/surrogate. Kaylene Calderon MD Acute care solutions 01/08/2024, 12:38 AM documented in this [facility]03-16-2024 Emergency department Note* Jeff See MD - 01/07/2024 10:15 PM EDT Emergency Department Encounter [facility] ED Patient: Camilla Mcdermott : 1945 Date of Evaluation: 01/07/2024 ED Supervising Physician: Jeff See MD I independently examined and evaluated Camilla Mcdermott. This will serve as my Supervisory note as the certified pharmacy technician of record and shared attestation. Idid perform a substantive portion of the visit including all aspects of the Medical Decision Making. I wore appropriate PPE for the entirety of this encounter. In brief, Camilla Mcdermott is a 78 y.o. male that presents to the emergency department with concern for chest pain that occurred starting around 5 or 6 PM. States he was working on [employer] when he developed chest pain. He did sit down and resolved although when he got up to walk again he started having chest pain again leading him to come to the emergency department. He is currently asymptomaticand denies any prior history of heart attack although does have multiple risk factors including hypertension hyperlipidemia and diabetes. Notes that his blood sugars have been slightly uncontrolled recently Focused exam: Patient does not appear in any acute distress has full and equal radial and DP pulsesbilaterally no significant swelling in bilateral lower extremities has clear breath sounds bilaterally regular rate and rhythm on cardiac auscultation Brief ED course/MDM: EMERGENCY DEPARTMENT COURSE and DIFFERENTIAL DIAGNOSIS/MDM: Vitals: Vitals: 01/07/24 2217 01/07/24 2221 BP: (!) 140/88 Pulse: (!) 117 Resp: 20 Temp: 36.7 C (98 F) TempSrc: Temporal SpO2: 96% Weight: 72.6 kg (160 lb) Height: 1.727 m (5' 8) The patient presented with a chief complaint of chest pain. The differential diagnosis associated with this patient's presentation includes ACS, pulmonary embolism, angina. Our workup consisted of ordering/reviewing EKG was obtained which shows sinus tachycardia no ST segment elevations concerning for ischemia. Patient story is fairly concerning for angina that seems temi ongoing with every single exertional component the patient endorses. He is currently chest pain-free although with his elevated heart rate did evaluate with D-dimer as he has no other risk factorsand was age-adjusted negative. Pending troponin will likely require admission due to high heart score. Troponin was negative although with his findings of likely stable angina that seem to worsen with any sort of movement we will plan to admit for further cardiology evaluation Diagnoses as of 01/08/2445 Stable angina Diagnostic tests considered but not performed: External records reviewed: Diagnostics interpreted by me: Discussions with other clinicians: Chronic conditions impacting care: Social determinants of health affecting care: ED Medications managed: Medications sodium chloride 0.9 % bolus 500 mL (has no administration in time range) Prescription drugs considered: Disposition and plan: Chest pain, stable angina, admit All diagnostic, treatment, and disposition decisions were made by myself in conjunction with the Resident/GORGE. I also supervised hollins portions of any procedures performed by the Resident/GORGE. For all further details of the patient's emergency department visit, please see their documentation. (Comment: Please note this report has been produced using speech recognition software and may contain errors related to that system including errors in grammar, punctuation, and spelling, as well as words and phrases that may be inappropriate. If there are any questions or concerns please feel freeto contact the dictating provider for clarification.) Jeff See MD Acute Care [facility] Jeff See MD 01/08/2445 * Zoe Lipscomb RN - 01/07/2024 10:15 PM EDT Pt presents to ED with c/o chest pain that started around 5pm and dizziness. Pt denies cardiac hx no N/V. Pt states pain is 5/10. documented in this [facility]03-16-2024 Emergency department Triage note* Zoe Lipscomb RN - 01/07/2024 10:15 PM EDT Pt presents to ED with c/o chest pain that started around 5pm and dizziness. Pt denies cardiac hx no N/V. Pt states pain is 5/10. [id number] Physician Emergency department Note* Jeff See MD - 01/07/2024 10:15 PM EDT Emergency Department Encounter [facility] ED Patient: Camilla Mcdermott : 1945 Date of Evaluation: 01/07/2024 ED Supervising Physician: Jeff See MD I independently examined and evaluated Camilla Mcdermott. This will serve as my Supervisory note as the certified pharmacy technician of record and shared attestation. Idid perform a substantive portion of the visit including all aspects of the Medical Decision Making. I wore appropriate PPE for the entirety of this encounter. In brief, Camilla Mcdermott is a 78 y.o. male that presents to the emergency department with concern for chest pain that occurred starting around 5 or 6 PM. States he was working on [employer] when he developed chest pain. He did sit down and resolved although when he got up to walk again he started having chest pain again leading him to come to the emergency department. He is currently asymptomaticand denies any prior history of heart attack although does have multiple risk factors including hypertension hyperlipidemia and diabetes. Notes that his blood sugars have been slightly uncontrolled recently Focused exam: Patient does not appear in any acute distress has full and equal radial and DP pulsesbilaterally no significant swelling in bilateral lower extremities has clear breath sounds bilaterally regular rate and rhythm on cardiac auscultation Brief ED course/MDM: EMERGENCY DEPARTMENT COURSE and DIFFERENTIAL DIAGNOSIS/MDM: Vitals: Vitals: 01/07/24 2217 01/07/24 2221 BP: (!) 140/88 Pulse: (!) 117 Resp: 20 Temp: 36.7 C (98 F) TempSrc: Temporal SpO2: 96% Weight: 72.6 kg (160 lb) Height: 1.727 m (5' 8) The patient presented with a chief complaint of chest pain. The differential diagnosis associated with this patient's presentation includes ACS, pulmonary embolism, angina. Our workup consisted of ordering/reviewing EKG was obtained which shows sinus tachycardia no ST segment elevations concerning for ischemia. Patient story is fairly concerning for angina that seems temi ongoing with every single exertional component the patient endorses. He is currently chest pain-free although with his elevated heart rate did evaluate with D-dimer as he has no other risk factorsand was age-adjusted negative. Pending troponin will likely require admission due to high heart score. Troponin was negative although with his findings of likely stable angina that seem to worsen with any sort of movement we will plan to admit for further cardiology evaluation Diagnoses as of 01/08/2445 Stable angina Diagnostic tests considered but not performed: External records reviewed: Diagnostics interpreted by me: Discussions with other clinicians: Chronic conditions impacting care: Social determinants of health affecting care: ED Medications managed: Medications sodium chloride 0.9 % bolus 500 mL (has no administration in time range) Prescription drugs considered: Disposition and plan: Chest pain, stable angina, admit All diagnostic, treatment, and disposition decisions were made by myself in conjunction with the Resident/GORGE. I also supervised hollins portions of any procedures performed by the Resident/GORGE. For all further details of the patient's emergency department visit, please see their documentation. (Comment: Please note this report has been produced using speech recognition software and may contain errors related to that system including errors in grammar, punctuation, and spelling, as well as words and phrases that may be inappropriate. If there are any questions or concerns please feel freeto contact the dictating provider for clarification.) Jeff See MD Acute Care [facility] Jeff See MD 01/08/2445 [facility] Phone: [phone] Telephone encounter Note* Telephone Encounter - Taniya Coto MA - 12/07/2023 5:13 PM EST Left message for a return call regarding lab results. I sent a [employer] message also. Gabby called back she stated that he uses a reader, I explained that she will need to bring in the reader. Made an appointment for 04/17/24. [facility] [id number] Miscellaneous Notes* Telephone Encounter - Taniya Coto MA - 12/07/2023 5:13 PM EST Left message for a return call regarding lab results. I sent a [employer] message also. Gabby called back she stated that he uses a reader, I explained that she will need to bring in the reader. Made an appointment for 04/17/24. * Telephone Encounter - Taniya Coto MA - 12/07/2023 5:11 PM EST ----- Message from JEFF Minor CNP sent at 12/04/2023 5:14 PM EST ----- Please schedule an appointment soon - Labs demonstrate a. Elevated glucose, and improved renal function from last check. Lipid profile demonstrates elevated triglycerides and low good cholesterol- improving glucose control will help to lower triglycerides, s well as taking the lipitor as scheduled. The A1c demonstrate uncontrolled glucose levels PLEASE SEND IN LOG IN THE NEXT 1-2 WEEKS documented in this encounterSK[facility] [id number] Telephone encounter Note* Telephone Encounter - Taniya Coto MA - 12/07/2023 5:11 PM EST ----- Message from JEFF Minor CNP sent at 12/04/2023 5:14 PM EST ----- Please schedule an appointment soon - Labs demonstrate a. Elevated glucose, and improved renal function from last check. Lipid profile demonstrates elevated triglycerides and low good cholesterol- improving glucose control will help to lower triglycerides, s well as taking the lipitor as scheduled. The A1c demonstrate uncontrolled glucose levels PLEASE SEND IN LOG IN THE NEXT 1-2 WEEKS [facility] [id number] Telephone encounter Note* Telephone Encounter - Libby Mehta LPN - 10/28/2023 10:18 AM EST Last appointment 10/04/2023 , Next appointment is not scheduled, due 10/04/24 Last filled Topiramate, omeprazole, remeron, metoprolol, losartan, furosemide, cymbalta, atorvastatin 03/08/23 90 days 3 refills Requested in previous encounter Solifenacin 03/08/23 90 days 3 refills [facility] [id number] Miscellaneous Notes* Telephone Encounter - Libby Mehta LPN - 10/28/2023 10:18 AM EST Last appointment 10/04/2023 , Next appointment is not scheduled, due 10/04/24 Last filled Topiramate, omeprazole, remeron, metoprolol, losartan, furosemide, cymbalta, atorvastatin 03/08/23 90 days 3 refills Requested in previous encounter Solifenacin 03/08/23 90 days 3 refills documented in this encounterSKing[facility] [id number] Telephone encounter Note* Telephone Encounter - Libby Mehta LPN - 10/28/2023 10:14 AM EST Last appointment 10/04/2023 , Next appointment is not scheduled, due 10/04/24 Last filled Topiramate, omeprazole, remeron, metoprolol, losartan, furosemide, cymbalta, atorvastatin 03/08/23 90 days 3 refills [facility] [id number] Miscellaneous Notes* Telephone Encounter - Libby Mehta LPN - 10/28/2023 10:14 AM EST Last appointment 10/04/2023 , Next appointment is not scheduled, due 10/04/24 Last filled Topiramate, omeprazole, remeron, metoprolol, losartan, furosemide, cymbalta, atorvastatin 03/08/23 90 days 3 refills documented in this [facility]12-12-2023 History of Present illness Narrative* Efren Tidwell MD - 10/04/2023 3:40 PM EST Images from the original note were not included. [facility] [address] [place] [address] [address] [facility] [address] Dept: [phone] Dept Chief Complaint: Camilla Mcdermott is an 78 y.o. male here for an annual wellness visit. Hard of hearing, patient refuses hearing aids Follows with ophthalmology for vision. Hx DM with hyperglycemia and peripheral diabetic neuropathy, patient requests new Rx for diabetic shoes, hx bunion foot deformity Hx dementia, no new sx. Hx HTN, BP has run low with occasional lightheadedness with current regimen. Hx renal insufficiency with hyperparathyroidism, no new sx. Repeat labs ordered. 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 Labs today ordered by endocrinology, ok for non fasting. Include cbc today Print DME order for diabetic shoes for the patient's daughter Annual wellness visit after one year. Schedule in office followup with endocrinology in 3 months. EFREN TIDWELL MD I have reviewed and reconciled the medication list with the patient today. Current Outpatient Medications Medication Sig Dispense Refill alpha tocopherol (Vitamin E) 400 units capsule 1 capsule Every 24 hours. atorvastatin (Lipitor) 40 MG tablet 1 po at hs 90 tablet 3 calcium carbonate-vitamin D 600-200 MG-UNIT tablet Take by mouth. Continuous Blood Gluc Sensor (FreeStyle Nita 2 Sensor) mis 1 Device every 14 (fourteen) days. 9 each 3 DULoxetine (Cymbalta) [address] capsule TAKE 2 CAPSULES BY MOUTH IN THE MORNING 180 capsule 3 fish oil-omega-3 fatty acids 1000 MG capsule Take 1,000 mg by mouth in the morning. furosemide (Lasix) 20 MG tablet 1 po every other day 45 tablet 3 glucagon 1 MG injection Inject 1 mg into the shoulder, thigh, or buttocks. Ywlwbohmcio-Lommytptv-Buy C-Mn (Glucosamine 1500 Complex) capsule 1 capsule in the morning and 1 capsule in the evening. glucose blood test strip 1 each by Other route 2 times daily. 200 each 3 insulin NPH-insulin regular (HumuLIN,NovoLIN) (70-30) 100 UNIT/ML injection Inject 15 Units under the skin in the morning and 15 Units in the evening. Inject before meals. 21 mL 3 Lancets ([employer] Delica Plus [id number]) misc losartan (Cozaar) 50 MG tablet Take 1 tablet (50 mg) by mouth daily. 90 tablet 3 metoprolol tartrate (Lopressor) 100 MG tablet 1 po bid 180 tablet 3 mirtazapine (Remeron) 15 MG tablet Take 1 tablet (15 mg) by mouth Nightly. 90 tablet 3 uqivklqkoewf-aars-kyndywdj-folic acid (Theragran-M) tablet Every 24 hours. omeprazole (PriLOSEC) [address] capsule Take 1 capsule (40 mg) by mouth in the morning. 90 capsule 3 Probiotic tablet delayed-release as directed solifenacin (VESIcare) 10 MG tablet 1 po qd 90 tablet 3 tamsulosin (Flomax) 0.4 MG 24 hr capsule 1 po qd 90 capsule 3 topiramate 50 MG tablet Take 1 tablet by mouth Nightly. 90 tablet 3 amLODIPine (Norvasc) 5 MG tablet Take 1 tablet (5 mg) by mouth daily. 90 tablet 3 No current facility-administered medications for this visit. Also reviewed during this visit: Meds The following health maintenance schedule was reviewed with the patient and provided in printed form in the after visit summary: Health Maintenance Topic Date Due Medicare Advantage Annual Wellness Visit (AWV) Never done RSV Immunization aged 60 or older (1 - 1-dose 60+ series) Never done Depresssion Monitoring 03/24/2023 Zoster Vaccines (2 of 2) 09/05/2023 DTaP/Tdap/Td Vaccines (2 - Td or Tdap) 10/01/2027 Influenza Vaccine Completed Pneumococcal Vaccine: 65+ Years Completed Hepatitis C Screening Completed RSV Immunization under 20 Months Aged Out HIB Vaccines Aged Out Hepatitis B Vaccines Aged Out IPV Vaccines Aged Out Hepatitis A Vaccines Aged Out Meningococcal Vaccine Aged Out Rotavirus Vaccines Aged Out HPV Vaccines Aged Out COVID-19 Vaccine Discontinued List of current healthcare providers: Patient Care Team: Efren Tidwell MD as PCP - General No orders of the defined types were placed in this encounter. Subjective : Review of Systems Physical Exam Vitals and nursing note reviewed. Constitutional: General: He is not in acute distress. Appearance: He is normal weight. He is not ill-appearing, toxic-appearing or diaphoretic. Neck: Vascular: No carotid bruit. Cardiovascular: Rate and Rhythm: Normal rate and regular rhythm. Pulses: Dorsalis pedis pulses are 0 on the right side and 0 on the left side. Posterior tibial pulses are 0 on the right side and 0 on the left side. Heart sounds: Normal heart sounds. No murmur heard. No friction rub. No gallop. Pulmonary: Effort: Pulmonary effort is normal. Breath sounds: Normal breath sounds. No wheezing, rhonchi or rales. Musculoskeletal: Right lower leg: No edema. Left lower leg: No edema. Right foot: Normal range of motion. No deformity, bunion, Charcot foot, foot drop or prominent metatarsal heads. Left foot: Deformity and bunion present. No Charcot foot, foot drop or prominent metatarsal heads. Feet: Right foot: Protective Sensation: 9 sites tested. 1 site sensed. Skin integrity: Skin integrity normal. Toenail Condition: Right toenails are abnormally thick. Left foot: Protective Sensation: 9 sites tested. 1 site sensed. Skin integrity: Skin integrity normal. Toenail Condition: Left toenails are abnormally thick. Neurological: Mental Status: He is alert. Health Risk Assessment: General: General In general, how would you say your health is?: (!) (P) Fair In the past 7 days, have you experienced any of the following: New or Increased Pain, New or Increased Fatigue, Loneliness, Social Isolation, Stress or Anger?: (!) (P) Yes Select all that apply: (!) (P) New or Increased Fatigue Do you get the social and emotional suppport you need?: (P) Yes Interventions: Anger: daughter lives with patient manages with redirection Health Habits/Nutrition: Health Habits / Nutrition On average, how many days per week do you engage in moderate to strenous exercise (like a brisk walk)?: (!) (P) 0 days On average, how man minutes do you engage in exercise at this level?: (!) (P) 0 min Have you lost any weight without trying in the past 3 months? : (P) No Have you seen the dentist within the past year?: (!) (P) No Interventions: Inadequate physical activity: Patient is not ready to increase his / her physical activity level atthis time Hearing/ Vision: Hearing / Vision Do you or your family notice any trouble with your hearing that hasn't been managed with hearing aids?: (P) No Do you have difficulty driving, watching TV, or doing any of your daily activities because of your eyesight?: (!) (P) Yes Have you had an eye exam within the past year?: (P) Yes Vision Screening Right eye Left eye Both eyes Without correction 20/50 20/25 20/25 With correction Interventions: Hearing concerns: Patient declines any further evaluation / treatment for hearing issues and Visionconcerns: Patient encouraged to make appointment with his / her eyelet punch operator Safety: Safety Do you have a working smoke detector?: (P) Yes Do you have any tripping hazards - loose or unsecured carpets or rugs?: (P) No Do you have any tripping hazards - clutter in doorways, halls, or stairs?: (!) (P) Yes Do you have either shower bars, grab bars, non-slip mats or non-slip surfaces in your shower or bathtub? : (P) Yes Do all your stairways have a railing or banister? : (P) Yes Do you fasten your seatbelt when you are in a car?: (P) Yes Interventions: ADL: ADL In the past 7 days, did you need help from others to take care of any of the following: laundry, housekeeping, banking / finances,shopping, telephone use, food preparation, transportation, or taking medications? : (P) Yes Select all that apply: (P) Laundry, Housekeeping, Shopping, Telephone Use, Food Preparation, Transportation, Taking Medications Interventions: Living Will: Living Will Do you have a living will?: (P) Yes Cognitive: Cognitive Screening: Mini-Cog Clock Drawing Test (CDT): 2 Words Recalled: 3 Total Score: 5 Total Score Interpretation: Normal Mini-Cog Fall Risk: Fall Risk One or more falls in the last year:: (P) Yes Advised to use a cane or walker to get around safely:: (P) Yes Feels unsteady when walking:: (P) Yes Steadies self on furniture while walking at home:: (P) Yes Worried about falling:: (P) Yes Interventions: Depression Screening: Interventions: Tobacco Use: Social History Tobacco Use Smoking Status Never Smokeless Tobacco Never Tobacco Comments 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 -02nd hand smoke Alcohol Use: Audit Alcohol Screening Q1: How often do you have a drink containing alcohol?: (P) Never Q2: How many drinks containing alcohol do you have on a typical day when you are drinking?: (P) Patient does not drink Q3: How often do you have six or more drinks on one occasion?: (P) Never Audit-C Score: (P) 0 Skip to questions 9-10?: (P) 1 Objective : BP 106/62 Pulse 95 Temp 36.7 C (98 F) Ht 5' 8 (1.727 m) Wt 160 lb (72.6 kg) SpO2 95% BMI 24.33 kg/m Vision Screening Right eye Left eye Both eyes Without correction 20/50 20/25 20/25 With correction documented in this [facility]12-12-2023 Instructions* Patient Instructions* Ruth Wallace MA - 10/04/2023 3:40 PM EST Labs today ordered by endocrinologyradha for non fasting. Include cbc today Print DME order for diabetic shoes for the patient's daughter Annual wellness visit after one year. Schedule in office followup with endocrinology in 3 months. EFREN TIDWELL MD Personalized Preventative Plan for Camilla Mcdermott - 10/04/2023 Medicare offers a range of preventative health benefits. Some of the tests and screenings are paid in full while others may be subject to a deductible, co- insurance, and / or copay. Some of these benefits include a comprehensive review of your medical history including lifestyle, illnesses that mayrun in your family, and various assessments and screenings as appropriate. After reviewing your medical record and screening and assessments performed today, your provider may have ordered immunizations, labs, imaging, and / or referrals for you. A list of these orders (if applicable) as well as your Preventative Care list are included within your After Visit Summary for your review. Other Preventative Recommendations: A preventive eye exam by an eyelet punch operator is recommended every 1-2 years to screen for glaucoma, cataracts, macular degeneration, and other eye disorders. A preventive dental visit is recommended every 6 months. Try to get at least 150 minutes of exercise per week or 10,000 steps per day on a pedometer. You need 1200-1500mg of calcium and 2847-6527 international units of vitamin D per day. It is possible to meet your calcium requirement with diet alone, but a vitamin D supplement is usually necessary to meet this goal. When exposed to the sun, use a sunscreen that protects against both UVA and UVB radiation with an SPF of 30 or greater. Reapply every 2-3 hours or after sweating, drying off with a towel, or swimming. Always wear a seat belt when traveling in a car. Always wear a helmet when riding a bicycle or a motorcycle documented in this encounterSKing[facility] [id number] Telephone encounter Note* Telephone Encounter - Sanaz Alcala MA - 07/02/2023 1:42 PM EDT Another message sent on this.. We do not handle his Diabetic Care, his Electrician Apprentice does. Thanks, Sanaz Alcala Cuff Runner [facility] [id number] Miscellaneous Notes* Telephone Encounter - Sanaz Alcala MA - 07/02/2023 1:42 PM EDT Another message sent on this.. We do not handle his Diabetic Care, his Electrician Apprentice does. Thanks, Sanaz Alcala Cuff Runner * Telephone Encounter - Tracey Call - 06/24/2023 12:13 PM EDT Name of caller: Ro Contact phone number: [phone] or [phone] Relationship to Patient: Jovani Alfonso Provider: Practice: [facility] Chief Complaint/Reason for Call: Ro called in stating that they faxed over a clinical note request for the pt on 06/20 and haven't heard anything back from the office yet. Ro states they aregoing to fax over paper work again today 06/24. She states they need on the clinical note request thelast office visit where Diabetic care was discussed. Please advise. Best time of day caller can be reached: Any Patient advised that office/PCP has 24-48 business hours to return their call: No documented in this [facility]09-01-2023 Telephone encounter Note* Telephone Encounter - Tracey Call - 06/24/2023 12:13 PM EDT Name of caller: Ro Contact phone number: [phone] or [phone] Relationship to Patient: Jovani Alfonso Provider: Practice: [facility] Chief Complaint/Reason for Call: Ro called in stating that they faxed over a clinical note request for the pt on 06/20 and haven't heard anything back from the office yet. Ro states they aregoing to fax over paper work again today 06/24. She states they need on the clinical note request thelast office visit where Diabetic care was discussed. Please advise. Best time of day caller can be reached: Any Patient advised that office/PCP has 24-48 business hours to return their call: No Summa [id number] History of Present illness Narrative* Judy Whittington, JEFF - EXCEPTIONAL 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 - 06/14/2023 8:00 AM EDT Images from the original note were not included. [facility] [place] [address] [place] [address] Dept: [phone] Dept Loc: [phone] Visit type: Established patient Reason for Visit: Follow-up and Diabetes Assessment and Plan 1. Type 2 diabetes mellitus with hyperglycemia, with long-term current use of insulin ([facility]) ([facility]) - Comprehensive metabolic panel - Lipid panel - Microalbumin / Creatinine Ratio, urine - Hemoglobin A1c 2. Hyperlipidemia associated with type 2 diabetes mellitus ([facility]) - Lipid panel 3. Type 2 diabetes mellitus with stage 3b chronic kidney disease, with long-term current use of insulin ([facility]) 4. Type 2 diabetes mellitus with diabetic polyneuropathy, with long-term current use of insulin ([facility]) ([facility]) Diabetes is not stable A1C is Lab Results Component Value Date HGBA1C 11.1 (H) 09/23/2022 Patient will make the following changes to their antihyperglycemic regimen: Continue Nph 70/30- 16 units with breakfast, 19 units with dinner- just started this medication 06/12/2023 No data available for changes to be made at this time Continue nita device, will need to call patient and find a way for them to load the nita and share information with our office - TE sent Orders to be sent to patient/ daughter for labs to be completed inculding CMP, Lipid profile, urineMA/Creat level and A1c Recommend FSBS to occur 4 times daily, be recorded, and send to office in 3 weeks for review. Type 2 diabetes mellitus with hyperglycemia, with long-term current use of insulin - Goal A1C = 7-5-8.0. Glucose goal range: 150-20 Insulin is necessary for ongoing mgmt. 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 Type 2 diabetes mellitus with diabetic polyneuropathy, with long-term current use of insulin - continue daily foot checks, Continue to wear soled shoes Pt was counseled that diet and exercise are the foundation of DM treatment. If these 2 areas are not optimized then the pt will likely require more medications or higher doses to achieve control. Pt was asked to limit CHO consumption at each meal. Pt was advised to perform regular regimented brisk aerobic activity (ie walking, biking, swimming, etc) 30 min/d, 5d/wk (total of 150min weekly). Discussed A1C and BG goals Encouraged lifestyle modifications of diet and exercise Encouraged optimal foot care- follow with podiatry if needed Encouraged following with ophthalmology Patient counseled on the importance of taking medication as prescribed Patient counseled on the effects of uncontrolled DM on other organ systems Patient counseled on risk factors assoicated with diabetes Patient counseled on detection and treatment of hypoglycemia Patient instructed to call office if BG >250 or <70 consistently Pt counseled about these recommendations. Pt voiced understanding. These recommendations made based on interpretation of available data (which may include FSBS, A1C, venous sampling, or data from pt recall). Records from outside facility/PCP office to be requested: Scripts sent to pharmacy of pt choice: Yes laboratory Results I REVIEWED: CMP LIPID TESTING URINE MA/CREAT LEVEL EYE EXAM FOOT EXAM radiographic reports reviewed: No I reviewed the radiographic images personally at the time of today's visit: No Pt was advised of the results. Follow up in about 6 months (around 12/15/2023). Subjective Diabetes PCP is EFREN TIDWELL MD Referring is pcp Last office visit: 07/20/2022 DM Onset: about 40 years ago Type of DM: 2 Complications: Cardiovascular -- Yes several TIA's Statin Use -- Yes lipitor 40 Retinopathy -- Yes, injections every few Months Last EARL/Retina Eval: Dr juarez- [facility] [facility], stable last time Nephropathy -- Yes CDK 3b CHARLES/ARB Use -- Yes Cozaar Polyneuropathy -- Yes- Foot Exam: pcp Obesity -- No Other -- No Obesity -- No Other -- No Today's complaints include: Has fallen oin shower recently- lost emergency preparedness manager Has been dizzy recently - following with Dr Tidwell soon- denies low sugar or low bp with this experiences Just started the 70/30 insulin doses on 06/12/2023- Has been wearing the nita 2 but cannot connect to a phone for sharing- Since last office visit denies new health problems, denies hospitalizations, and denies surgeries. Pt feels their blood sugars are unchanged since ALEX. Pt c/o sxs at today's visit: no Pt c/o sxs of hyperglycemia at today's visit: no Pt c/o SEs from Medications at today's visit: no Pt voices concerns about cost of medications at today's visit: no Pt feels their blood sugars are better since ALEX. Hyperglycemia present: Yes Hypoglycemia present: No Blood sugar monitoring device used: nita Frequency of BGL checks cont Meter present:No Log present: No Reviewed w/ pt: No Scanned into Media: No Current DM Medications: NPH 18 units bid Taking Medications w/o Missed Doses: No Eats breakfast and dinner Snacks at night Following Exercise Regimen: No Was doing pt regimen recently stopped because of construction Previously Used DM Meds: Yes metformin NPH Lantus- too expensive Review of Systems An entire ROS was performed at the time of this encounter. Unless noted above in the HPI, the ROS is negative. No Known Allergies Outpatient Medications Prior to Visit Medication Sig Dispense Refill alpha tocopherol (Vitamin E) 400 units capsule 1 capsule Every 24 hours. amLODIPine (Norvasc) 10 MG tablet TAKE 1 TABLET BY MOUTH DAILY 90 tablet 3 ascorbic acid (Vitamin C) 500 MG chewable tablet Every 24 hours. aspirin 81 MG EC tablet Take 81 mg by mouth Nightly. atorvastatin (Lipitor) 40 MG tablet 1 po at hs 90 tablet 3 calcium carbonate-vitamin D 600-200 MG-UNIT tablet Take by mouth. Continuous Blood Gluc Sensor (FreeStyle Nita 2 Sensor) misc 1 Device every 14 (fourteen) days. 9 each 3 Diclofenac Sodium (Voltaren) 1 % gel 4 gm to knee twice daily for 10 days, then bid prn pain 100 g 2 DULoxetine (Cymbalta) [address] capsule TAKE 2 CAPSULES BY MOUTH IN THE MORNING 180 capsule 3 fish oil-omega-3 fatty acids 1000 MG capsule Take 1,000 mg by mouth in the morning. furosemide (Lasix) 20 MG tablet 1 po every other day 45 tablet 3 glucagon 1 MG injection Inject 1 mg into the shoulder, thigh, or buttocks. Sucnvsdauks-Kzcdfhtec-Mkp C-Mn (Glucosamine 1500 Complex) capsule 1 capsule in the morning and 1 capsule in the evening. glucose blood test strip 1 each by Other route 2 times daily. 200 each 3 hydroCHLOROthiazide (Microzide) 12.5 MG capsule Every 24 hours. insulin NPH-insulin regular (HumuLIN,NovoLIN) (70-30) 100 UNIT/ML injection Inject 15 Units under the skin in the morning and 15 Units in the evening. Inject before meals. 21 mL 3 Lancets (OneTouch Delica Plus Pnfrpt33Q) misc losartan (Cozaar) 50 MG tablet Take 1 tablet (50 mg) by mouth daily. 90 tablet 3 metoprolol tartrate (Lopressor) 100 MG tablet 1 po bid 180 tablet 3 mirtazapine (Remeron) 15 MG tablet Take 1 tablet (15 mg) by mouth Nightly. 90 tablet 3 mdqwyiznimhj-uozs-snyiewde-folic acid (Theragran-M) tablet Every 24 hours. omeprazole (PriLOSEC) [address] capsule Take 1 capsule (40 mg) by mouth in the morning. 90 capsule 3 Probiotic tablet delayed-release as directed saccharomyces boulardii (Florastor) 250 MG capsule 1 capsule in the morning and 1 capsule in the evening. solifenacin (VESIcare) 10 MG tablet 1 po qd 90 tablet 3 tamsulosin (Flomax) 0.4 MG 24 hr capsule 1 po qd 90 capsule 3 topiramate 50 MG tablet Take 1 tablet by mouth Nightly. 90 tablet 3 No facility-administered medications prior to visit. 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 Cerebral artery occlusion with cerebral infarction (CMS/HCC) (HCC) tia's Chronic kidney disease Dementia (HCC) Diabetes mellitus (HCC) Hyperlipidemia Hypertension Neuropathy Retinopathy TIA (transient ischemic attack) multiple Social History Tobacco Use Smoking status: Never Smokeless tobacco: Never Substance Use Topics Alcohol use: Yes Past Surgical History: Procedure Laterality Date COLONOSCOPY EYE SURGERY Bilateral cataract LIPOMA RESECTION 03/08/2022 Family History Problem Relation Name Age of Onset Cancer Mother Other ([id number]) Father heart murmur Objective There were no vitals taken for this visit. Physical Exam Today's visit was a telehealth visit occurring by phone ; therefore physical examination could not be completed. A physical examination will be completed at the time of the patient's next in person office visit. Data Reviewed and Summarized Labs: No components found for: LABA1C No components found for: EAG Lab Results Component Value Date NA 142 01/21/2022 K 4.3 03/01/2022 CL 105 01/21/2022 CO2 27 09/23/2022 BUN 18 09/23/2022 CREATININE 1.83 (H) 09/23/2022 GLUCOSE 529 (HH) 09/23/2022 CALCIUM 9.2 09/23/2022 Lab Results Component Value Date CHOL 121 02/25/2021 CHOL 141 11/24/2019 Lab Results Component Value Date TRIG 152 (A) 02/25/2021 TRIG 183 (A) 11/24/2019 Lab Results Component Value Date HDL 29 (L) 02/25/2021 HDL 32 (L) 11/24/2019 No results found for: LDLCALC No results found for: VLDL Lab Results Component Value Date CHOLHDLRATIO 4 02/25/2021 CHOLHDLRATIO 4 11/24/2019 No results found for: [id number] Imaging/Testing: Patient was seen today via Telehealth by agreement and consent. I used the following Telehealth technology: Audio capability only. Total length of call 20 minutes. The patient was offered and advisedvideo for a more comprehensive evaluation, but the patient declined or was unable to use video. Patient location: Patient Location: Home. This patient encounter is appropriate and reasonable underthe circumstances: transportation issues and has Alzheimer and confusion with new/different surrounding per daughter . The patient has been advised of the potential risks and limitations of this modeof treatment (including but not limited to the absence of in-person examination) and has agreed to be treated in a remote fashion in spite of them. Any and all of the patient's/patient's family's questions on this issue have been answered and I have made no promises or guarantees to the patient. The patient has also been advised to contact this office for worsening conditions or problems, and seek emergency medical treatment and/or call 911 if the patient deems either necessary. The patient stated that they are currently in the state [facility]. If the patient is a minor, permission has been obtained by the parent or guardian for the patient to receive medical care at this visit. Of note the video connection was attempted but not completed as there was interference with system and sounds were causing problem with patients hearing aids EJFF Minor CNP Portions of the information within this encounter were entered using an electronic dictation system. Best attempts were made to edit/proofread the information prior to note completion. Despite the review of information, some errors may remain. If there are questions related to the information contained within the note please contact the signing physician directly. documented in this [facility]08-22-2023 Instructions* Patient Instructions* JEFF Minor CNP - 06/14/2023 8:00 AM EDT Check your sugar 4 times daily (before each meal and bedtime), record the numbers in a log and sendto Angelia in 2 week. If you have persistent glucose levels >250 or frequent lows <70 you may call before the time is up. BRING A BLOOD SUGAR LOG TO EVERY OFFICE APPOINTMENT. Hypoglycemia (Low Blood Glucose) Hypoglycemia is a condition characterized by abnormally low blood glucose (blood sugar) levels, usually less than 70 mg/dlX. However, it is important to talk to your health care provider about your individual blood glucose targets, and what level is too low for you. Hypoglycemia may also be referred to as an insulin reaction, or insulin shock. Hypoglycemic symptoms are important clues that you have low blood glucose. Each person's reaction to hypoglycemiaX is different, so it's important that you learn your own signs and symptoms when yourblood glucose is low. The only sure way to know whether you are experiencing hypoglycemia is to check your blood glucose,if possible. If you are experiencing symptoms and you are unable to check your blood glucose for any reason, treat the hypoglycemia. Severe hypoglycemia has the potential to cause accidents, injuries, coma, and . Signs and Symptoms of Hypoglycemia (happen quickly) Shakiness Nervousness or anxiety Sweating, chills and clamminess Irritability or impatience Confusion, including delirium Rapid/fast heartbeat Lightheadedness or dizziness Hunger and nausea Sleepiness Blurred/impaired vision Tingling or numbness in the lips or tongue Headaches Weakness or fatigue Anger, stubbornness, or sadness Lack of coordination Nightmares or crying out during sleep Seizures Unconsciousness Treatment Consume 15-20 grams of glucose or simple carbohydrates Recheck your blood glucose after 15 minutes If hypoglycemia continues, repeat. Once blood glucose returns to normal, eat a small snack if your next planned meal or snack is more than an hour or two away. 15 grams of simple carbohydrates commonly used: glucose tablets (follow package instructions) gel tube (follow package instructions) 2 tablespoons of raisins 4 ounces (1/2 cup) of juice or regular soda (not diet) 1 tablespoon sugar, honey, or corn syrup 8 ounces of nonfat or 1% milk hard candies, jellybeans, or gumdrops (see package to determine how many to consume) documented in this [facility]05-16-2023 Telephone encounter Note* Telephone Encounter - Efren Tidwell MD - 03/08/2023 2:18 PM EDT PDMP reviewed. Rx ordered. EFREN TIDWELL MD [facility] [id number] Miscellaneous Notes* Telephone Encounter - Efren Tidwell MD - 03/08/2023 2:18 PM EDT PDMP reviewed. Rx ordered. EFREN TIDWELL MD documented in this [facility]04-04-2023 Telephone encounter Note* Telephone Encounter - Surekha Shaikh - 01/25/2023 11:40 AM EDT Pts daughter states that the pt's monitor is pretty old and if a new one can be called in as well. Please advise Medication name: glucose blood test strip [[id number]] Order Details Dose, Route, Frequency: As Directed Dispense Quantity: -- Refills: -- Sig: Check blood sugar twice daily Formulary product Start Date: 07/20/22 End Date: -- Written Date: -- Rx Expiration Date: -- Ordering Date: 09/24/22 Source: Received from: [facility] Authorizing Provider: Catrachito Leo MD NPI: -- PEPPER #: -- Documenting User: Taniya Coto MA [facility] #[id number] [facility] [address] [place] [address] [address] Date of last office visit: 11/09/22 Date of next office visit: 02/15/23 Date of last refill: (see medication tab): 07/20/22 Updated/Validated preferred pharmacy: Yes Patient instructed to contact the pharmacy prior to picking up the medication: Yes [id number] Miscellaneous Notes* Telephone Encounter - Surekha Shaikh - 01/25/2023 11:40 AM EDT Pts daughter states that the pt's monitor is pretty old and if a new one can be called in as well. Please advise Medication name: glucose blood test strip [[id number]] Order Details Dose, Route, Frequency: As Directed Dispense Quantity: -- Refills: -- Sig: Check blood sugar twice daily Formulary product Start Date: 07/20/22 End Date: -- Written Date: -- Rx Expiration Date: -- Ordering Date: 09/24/22 Source: Received from: [facility] Prov[facility] Authorizing Provider: Catrachito Leo MD NPI: -- PEPPER #: -- Documenting User: Taniya Coto MA [facility] #[id number] [place], [place] - [address] Date of last office visit: 11/09/22 Date of next office visit: 02/15/23 Date of last refill: (see medication tab): 07/20/22 Updated/Validated preferred pharmacy: Yes Patient instructed to contact the pharmacy prior to picking up the medication: Yes documented in this [facility]02-16-2023 Telephone encounter Note* Telephone Encounter - Patricia Morris MA - 12/09/2022 7:13 AM EST Last ov- 11/09/22 Next ov- 09/26/23 [id number] Miscellaneous Notes* Telephone Encounter - Patricia Morris MA - 12/09/2022 7:13 AM EST Last ov- 11/09/22 Next ov- 09/26/23 documented in this [facility]01-19-2023 History of Present illness Narrative* Izabella Orozco DO - 11/11/2022 1:40 PM EST Images from the original note were not included. [facility] [address] Dept: [phone] Dept Chief Complaint Patient presents with New Patient Knee Pain Right Subjective History of Present Illness: Camilla Mcdermott is a 77 y.o. male who presents today for evaluation of right knee pain. Location: anterior Onset: one month Injury: yes - tripped over an extension cord and hit his knee. Work related? no Quality: aching Mechanical symptoms: no Radiation of symptoms: no Severity: 6/10 at rest and 6/10 at worst Exacerbating factor(s): prolonged sitting, climbing/descending stairs, getting in/out of a car, first steps out of bed, and explosive movements (running, cutting, jumping) Relieving factor(s): pain medication Timing: all day Imaging to date: X-ray October 2022 Treatment to date: PT/OT/HEP: no Ice: no Heat: no Medications: Tylenol: no NSAIDs: no Oral steroids: no Muscle relaxants: Voltaren Gel Nerve medications: no Targeted injections: none Assistive devices: straight cane Prior surgery: no Fall risk assessment: Completed today. Have you had 2 or more falls in the last year? Yes Have you had a fall with injury in the last year? No Do you feel unsteady or worried about falling? Yes Covid Vaccine information: Credit Relationship Manager: Moderna Patient has received their first dose of COVID-19 vaccine on 11/26/2020 Patient has received 2nd dose of vaccine on 12/24/2020. Objective Visit Vitals BP 99/61 Pulse 70 Physical Exam: General: Alert, well appearing, no acute distress. Respiratory: Breathing comfortably on room air. No respiratory distress. Skin: Warm, dry, intact. No visible rashes or erythema overlying area of focused exam. Right Knee Exam Tenderness Right knee tenderness location: patellar facets, medial retinaculum. Minimal tenderness over quad tendon. Range of Motion Extension: 5 Flexion: 140 Tests Neva: Medial - negative Lateral - negative Varus: negative Valgus: negative Comfort: Anterior - negative Patellar apprehension: negative Other Erythema: absent Sensation: normal Swelling: none Effusion: no effusion present Comments: Extensor mechanism intact, 5/5 flexion and extension erasto No ecchymoses or edema Left Knee Exam Other Erythema: absent Swelling: none Effusion: no effusion present External Notes I personally reviewed external notes from: primary care 11/09/22 Labs Lab Results Component Value Date HGBA1C 11.1 (H) 09/23/2022 Lab Results Component Value Date CREATININE 1.83 (H) 09/23/2022 Imaging Previously performed from outside source and independently interpreted today R knee x rays - agree with radiologist interpretation. Mild-moderate tricompartmental degenerative changes. Favor old discontinuity of large suprapatellar enthesophyte. EMG/NCT N/A Procedure No procedures completed today Assessment Diagnosis Plan 1. Primary osteoarthritis of right knee Ambulatory referral to Physical Therapy 2. Diabetic polyneuropathy associated with type 2 diabetes mellitus (CMS/HCC) ([facility]) 3. Stage 3a chronic kidney disease ([facility]) Plan Imaging reviewed in room with patient and daughter. Suspect the defect in the suprapatellar enthesophyte is chronic and not related to his recent injury, as he is minimally tender over the quad tendon, extensor mechanism is intact with great strength of knee extension. Suspect pain is related to exacerbation of underlying patellofemoral OA. Treatment options for this. Held on injections given uncontrolled DM2 and CKD; not a candidate for CSI or toradol. Rather encouraged use of tylenol and voltaren gel and he did opt to proceed with a course of formal PT as well. Follow up in about 6 weeks (around 12/23/2022). Izabella Orozco DO 11/11/2022 1:38 PM Please note that portions of this note may have been completed with voice recognition software. Documentation reviewed prior to signing but minor errors in construction equipment technician may have occurred. documented in this [facility]01-19-2023 Miscellaneous Notes* Addendum Note - Izabella Orozco DO - 11/11/2022 1:40 PM ESTAddended by: IZABELLA OROZCO on: 11/11/2022 04:12 PM Modules accepted: Level of Service documented in this [facility]01-19-2023 Note* Addendum Note - Izabella Orozco DO - 11/11/2022 1:40 PM ESTAddended by: IZABELLA OROZCO on: 11/11/2022 04:12 PM Modules accepted: [id number] Note* Addendum Note - Izabella Orozco DO - 11/11/2022 1:40 PM ESTAddended by: IZABELLA OROZCO on: 11/11/2022 04:12 PM Modules accepted: Level of Service [facility] [id number] History of Present illness Narrative* Judy Whittington, COMMERCIAL CLEANER - EXCEPTIONAL 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 - 11/09/2022 1:30 PM EST Images from the original note were not included. [facility] [place] [address] [place] [address] Dept: [phone] Dept Loc: [phone] Visit type: Established patient Reason for Visit: Diabetes, Hyperglycemia, and Follow-up Assessment and Plan 1. Type 2 diabetes mellitus with hyperglycemia, with long-term current use of insulin ([facility]) ([facility]) 2. Hyperlipidemia associated with type 2 diabetes mellitus ([facility]) 3. Primary hypertension 4. Type 2 diabetes mellitus with stage 3b chronic kidney disease, with long-term current use of insulin ([facility]) 5. Type 2 diabetes mellitus with diabetic polyneuropathy, with long-term current use of insulin ([facility]) ([facility]) Diabetes is not stable A1C is Lab Results Component Value Date HGBA1C 11.1 (H) 09/23/2022 Goal A1C = 7-5-8.0. Glucose goal range: 150-20 Insulin is necessary for ongoing mgmt. Patient will make the following changes to their antihyperglycemic regimen: Nph 70/30- 15 units bid once he is done with his medications that he has at home, he is to notify the office Continue NPH 11 unis bid, continue regular 4 units bid until gone Recommend FSBS to occur 4 times daily, be recorded, and send to office in 3 weeks for review. 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 Type 2 diabetes mellitus with diabetic polyneuropathy, with long-term current use of insulin - continue daily foot checks, wear soled shoes Pt was counseled that diet and exercise are the foundation of DM treatment. If these 2 areas are not optimized then the pt will likely require more medications or higher doses to achieve control. Pt was asked to limit CHO consumption at each meal. Pt was advised to perform regular regimented brisk aerobic activity (ie walking, biking, swimming, etc) 30 min/d, 5d/wk (total of 150min weekly). Discussed A1C and BG goals Encouraged lifestyle modifications of diet and exercise Encouraged optimal foot care- follow with podiatry if needed Encouraged following with ophthalmology Patient counseled on the importance of taking medication as prescribed Patient counseled on the effects of uncontrolled DM on other organ systems Patient counseled on risk factors assoicated with diabetes Patient counseled on detection and treatment of hypoglycemia Patient instructed to call office if BG >250 or <70 consistently Pt counseled about these recommendations. Pt voiced understanding. These recommendations made based on interpretation of available data (which may include FSBS, A1C, venous sampling, or data from pt recall). Records from outside facility/PCP office to be requested: Scripts sent to pharmacy of pt choice: Yes laboratory Results I REVIEWED: CMP LIPID TESTING URINE MA/CREAT LEVEL EYE EXAM FOOT EXAM radiographic reports reviewed: No I reviewed the radiographic images personally at the time of today's visit: No Pt was advised of the results. No follow-ups on file. Subjective HPI PCP is EFREN TIDWELL MD Referring is pcp Last office visit: 07/20/2022 DM Onset: about 40 years ago Type of DM: 2 Today's complaints include: Has been having random number that are high, Has been forgetting to take pills at times Pt c/o sxs at today's visit: No Pt c/o sxs of hyperglycemia at today's visit: No Pt c/o SEs from Medications at today's visit: No Pt voices concerns about cost of medications at today's visit: No Complications: Cardiovascular -- Yes several TIA's Statin Use -- Yes lipitor 40 Retinopathy -- Yes, injections every few Months Last EARL/Retina Eval: Dr juarez- [facility], stable last time Nephropathy -- Yes CDK 3b CHARLES/ARB Use -- Yes Cozaar Polyneuropathy -- Yes- Foot Exam: pcp Obesity -- No Other -- No Obesity -- No Other -- No Since last office visit denies new health problems, denies hospitalizations, and denies surgeries. Pt feels their blood sugars are better since ALEX. Hyperglycemia present: Yes Hypoglycemia present: No Blood sugar monitoring device used: nita Frequency of BGL checks cont Meter present:No Log present: No Reviewed w/ pt: No Scanned into Media: No Current DM Medications: NPH 18 units bid Taking Medications w/o Missed Doses: No Eats breakfast and dinner Snacks at night Following Exercise Regimen: No Was doing pt regimen recently stopped because of construction Previously Used DM Meds: Yes metformin NPH Lantus- too expensive Review of Systems An entire ROS was performed at the time of this encounter. Unless noted above in the HPI, the ROS is negative. No Known Allergies Outpatient Medications Prior to Visit Medication Sig Dispense Refill acetaminophen (Tylenol) 500 MG tablet TAKE 1 TABLET BY MOUTH 4 TIMES DAILY NEEDED FOR PAIN 360 tablet 1 amLODIPine (Norvasc) 10 MG tablet 1 po qd Strength: 10 mg 90 tablet 1 ascorbic acid (Vitamin C) 500 MG chewable tablet Every 24 hours. aspirin 81 MG EC tablet Take 81 mg by mouth Nightly. atorvastatin (Lipitor) 40 MG tablet 1 po at hs 90 tablet 1 calcium carbonate-vitamin D 600-200 MG-UNIT tablet Take by mouth. Diclofenac Sodium (Voltaren) 1 % gel 4 gm to knee twice daily for 10 days, then bid prn pain 100 g 2 DULoxetine (Cymbalta) [address] capsule 2 po in AM Strength: 30 mg 180 capsule 1 fish oil-omega-3 fatty acids 1000 MG capsule Take 1,000 mg by mouth in the morning. fluticasone (Flonase) 50 MCG/ACT nasal spray Administer 2 sprays into affected nostril(s) daily. furosemide (Lasix) 20 MG tablet Take 20 mg by mouth. glucagon 1 MG injection Inject 1 mg into the shoulder, thigh, or buttocks. glucose blood test strip Check blood sugar twice daily Formulary product Lancets ([employer] Delica Plus [id number]) misc losartan (Cozaar) 50 MG tablet Take 1 tablet by mouth daily. metoprolol tartrate (Lopressor) 100 MG tablet 1 po bid 180 tablet 1 mirtazapine (Remeron) 15 MG tablet Take 1 tablet (15 mg) by mouth Nightly. 90 tablet 1 kyegxtrjnilz-rwvt-nvgofoby-folic acid (Theragran-M) tablet Every 24 hours. naproxen (Naprosyn) 500 MG tablet Take 1 tablet by mouth in the morning and 1 tablet in the evening. Take with meals. omeprazole (PriLOSEC) [address] capsule Take 1 capsule (40 mg) by mouth in the morning. 90 capsule 1 solifenacin (VESIcare) 10 MG tablet Every 24 hours. tamsulosin (Flomax) 0.4 MG 24 hr capsule TK 1 C PO D topiramate 50 MG tablet Take 1 tablet by mouth Nightly. 90 tablet 1 vitamin E 180 MG (400 UNIT) capsule Take 1 tablet by mouth in the morning. insulin NPH, Isophane, (HumuLIN N,NovoLIN N) 100 UNIT/ML injection 12 units with breakfast and 15 units with dinner insulin NPH-insulin regular (NovoLIN) (70-30) 100 UNIT/ML injection Inject 19 Units under the skin in the morning and 19 Units in the evening. Inject before meals. 30 mL 0 insulin regular (HumuLIN R,NovoLIN R) 100 UNIT/ML injection Inject 4 Units under the skin. omeprazole (PriLOSEC) [address] capsule Take 1 capsule by mouth in the morning and 1 capsule before bedtime. topiramate 50 MG tablet Take 1 tablet by mouth Nightly. cefadroxil (Duricef) 500 MG capsule TAKE 1 CAPSULE BY MOUTH 2 TIMES DAILY FOR 10 DAYS 20 capsule 0 alpha tocopherol (Vitamin E) 400 units capsule Take 400 Units by mouth daily. amLODIPine (Norvasc) 10 MG tablet 1 po qd Strength: 10 mg 90 tablet 1 ascorbic acid (Vitamin C) 500 mg chewable tablet Chew 500 mg daily. DULoxetine (Cymbalta) [address] capsule 2 po in AM Strength: 30 mg 180 capsule 1 metFORMIN (Glucophage) 1000 MG tablet every 12 hours. mirtazapine (Remeron) 7.5 MG tablet Every 24 hours. topiramate 50 MG tablet Every 24 hours. No facility-administered medications prior to visit. 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 Cerebral artery occlusion with cerebral infarction (CMS/HCC) (HCC) tia's Chronic kidney disease Dementia (HCC) Diabetes mellitus (HCC) Hyperlipidemia Hypertension Neuropathy Retinopathy TIA (transient ischemic attack) multiple Social History Tobacco Use Smoking status: Never Smokeless tobacco: Never Substance Use Topics Alcohol use: Yes Past Surgical History: Procedure Laterality Date COLONOSCOPY EYE SURGERY Bilateral cataract LIPOMA RESECTION 03/08/2022 Family History Problem Relation Name Age of Onset Cancer Mother Other (19[birth year]) Father heart murmur Objective BP 107/61 (BP Location: Left arm, Patient Position: Sitting, BP Cuff Size: Adult long) Pulse 77 Ht 5' 8 (1.727 m) Wt 167 lb 11.2 oz (76.1 kg) BMI 25.50 kg/m Physical Exam Constitutional: Appearance: Normal appearance. He is obese. HENT: Head: Normocephalic and atraumatic. Right Ear: External ear normal. Left Ear: External ear normal. Nose: Nose normal. Mouth/Throat: Mouth: Mucous membranes are moist. Pulmonary: Effort: Pulmonary effort is normal. No respiratory distress. Musculoskeletal: General: Normal range of motion. Skin: General: Skin is warm and dry. Neurological: Mental Status: He is alert and oriented to person, place, and time. Psychiatric: Mood and Affect: Mood normal. Data Reviewed and Summarized Labs: No components found for: LABA1C No components found for: EAG Lab Results Component Value Date NA 142 01/21/2022 K 4.3 03/01/2022 CL 105 01/21/2022 CO2 31 (H) 01/21/2022 BUN 16 01/21/2022 CREATININE 1.83 (H) 09/23/2022 GLUCOSE 529 (HH) 09/23/2022 CALCIUM 9.2 09/23/2022 Lab Results Component Value Date CHOL 121 02/25/2021 CHOL 141 11/24/2019 Lab Results Component Value Date TRIG 152 (A) 02/25/2021 TRIG 183 (A) 11/24/2019 Lab Results Component Value Date HDL 29 (L) 02/25/2021 HDL 32 (L) 11/24/2019 No results found for: LDLCALC No results found for: VLDL Lab Results Component Value Date CHOLHDLRATIO 4 02/25/2021 CHOLHDLRATIO 4 11/24/2019 No results found for: [id number] Imaging/Testing: Judy Whittington APRN - EXCEPTIONAL 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 Portions of the information within this encounter were entered using an electronic dictation system. Best attempts were made to edit/proofread the information prior to note completion. Despite the review of information, some errors may remain. If there are questions related to the information contained within the note please contact the signing physician directly. documented in this [facility]01-17-2023 History of Present illness Narrative* Efren Tidwell MD - 11/09/2022 9:00 AM EST Subjective Patient ID: Camilla Mcdermott is a 77 y.o. male who presents for Knee Injury (Right knee, tripped over an extension cord. ). HPI Hx fall 3 weeks ago, struck floor directly on right patella. Daughter was present assisted patient.Minimal ecchymosis and mild edema. Patient notes persistent pain over right patella since. No clicking or locking, occasional sensation of giving way. Patient notes no other injury. He has cane and walker at home. Home safety discussed with patient and daughter. Review of Systems Musculoskeletal: Positive for arthralgias and back pain (chronic, no worsening). Neurological: Negative for dizziness and light-headedness. All other systems reviewed and are negative. Objective Physical Exam Vitals and nursing note reviewed. Constitutional: General: He is not in acute distress. Appearance: Normal appearance. He is normal weight. He is not ill-appearing, toxic-appearing or diaphoretic. Musculoskeletal: Lumbar back: Negative right straight leg raise test and negative left straight leg raise test. Right knee: No swelling, effusion, erythema or ecchymosis. Normal range of motion. Tenderness (overmid patella) present. No LCL laxity, MCL laxity or ACL laxity. Instability Tests: Anterior drawer test negative. Posterior drawer test negative. Left knee: Normal. Neurological: Mental Status: He is alert. Motor: No weakness. Assessment/Plan Diagnoses and all orders for this visit: Acute pain of right knee - XR knee 4+ views right; Future - Diclofenac Sodium (Voltaren) 1 % gel; 4 gm to knee twice daily for 10 days, then bid prn pain History of fall - XR knee 4+ views right; Future - Diclofenac Sodium (Voltaren) 1 % gel; 4 gm to knee twice daily for 10 days, then bid prn pain Xrays at [facility]. Call if new, persistent or worsening symptoms. EFREN TIDWELL MD documented in this [facility]01-17-2023 Instructions* Patient Instructions* Patricia Morris MA - 11/09/2022 9:00 AM EST Xrays at [facility]. Call if new, persistent or worsening symptoms. EFREN TIDWELL MD documented in this [facility]01-16-2023 Telephone encounter Note* Telephone Encounter - Efren Tidwell MD - 11/08/2022 1:21 PM EST Noted. EFREN TIDWELL [facility] [id number] Miscellaneous Notes* Telephone Encounter - Efren Tidwell MD - 11/08/2022 1:21 PM EST Noted. EFREN TIDWLEL * Telephone Encounter - Taisha Casey RN - 11/08/2022 12:50 PM EST S: D[facility] pt who injured right knee. B: Pt fell 2 weeks ago. A: Pt tripped over extension cord and fell on his butt. No head injury. Daughter was present. He stillhas moderate pain in knee. No deformity, swelling or bruising. No lacerations or abrasions. Pt ableto walk. R: PCP appointment scheduled. Advised daughter to please call back with new or worsening symptoms. Sheverbalized understanding. Reason for Disposition [1] High-risk adult (e.g., age > 60 years, osteoporosis, chronic steroid use) AND [2] limping Protocols used: Knee Deidvv-[id number]-KG documented in this [facility]01-16-2023 Telephone encounter Note* Telephone Encounter - Taisha Casey RN - 11/08/2022 12:50 PM EST S: Daughter called [facility] for pt who injured right knee. B: Pt fell 2 weeks ago. A: Pt tripped over extension cord and fell on his butt. No head injury. Daughter was present. He stillhas moderate pain in knee. No deformity, swelling or bruising. No lacerations or abrasions. Pt ableto walk. R: PCP appointment scheduled. Advised daughter to please call back with new or worsening symptoms. Sheverbalized understanding. Reason for Disposition [1] High-risk adult (e.g., age > 60 years, osteoporosis, chronic steroid use) AND [2] limping Protocols used: Knee [id number] [facility] [id number] History of Present illness Narrative* Petrona Mota RN - 03/08/2022 12:13 PM EDT Discharge instructions and medication education given to daughter. Verbalized understanding. No questions at this time. * Petrona Mota RN - 03/08/2022 11:53 AM EDT Family called to come back to PACU room 29. * Elizabeth Simon RN - 03/08/2022 11:32 AM EDT Pt arrived to PACU from OR. Pt ID verified. Monitors applied with alarms on. Vital signs stable. documented in this [facility] Work Phone: [phone] Hospital Discharge instructions* Instructions* Mile Barnett DO - 03/08/2022 Images from the original note were not included. Discharge Instructions Call your surgeon in 1 to 2 days to schedule a follow-up appointment in 1-2 weeks. OK to shower tomorrow. Let warm soap and water wash over the incision. Do not scrub. Pat dry. OK for activity as tolerated. No lifting over 10 pounds. Wound Care: keep wound clean and dry Leave surgical dressing in place until seen in office. No driving while taking narcotic pain medications. You may take an over the counter stool softener while on narcotics for constipation as needed (colace, miralax, etc). Call your Physician or return to the Emergency Room if you experience: -New or increased pain. -New or increased bleeding. -Nausea & vomitting. -Fever & chills. -Shortness of breath. -Chest pain. -Abdominal distention. documented [facility] this [facility] Work Phone: [phone]) 892-905305-09-2022 Hospital Discharge instructions* Instructions* Michell Rainey RN - 03/01/2022 Please bring your [facility] Information folder on the day of surgery. Please alicia the last dose taken (date and time ) on your Daily Medications List provided in your After Visit Summary. Please bring a photo ID and insurance information TAKE the following medications the morning of your surgery: AMLODIPINE, DULOXETINE, FLONASE IF NEEDED, METOPROLOL, OMEPRAZOLE Basal Insulin: If you are using long acting insulin at bedtime, take 10 units of NPH insulin the night before the surgery. If you are using long acting insulin in the morning, take 9 units of NPH insulin the morning of surgery. . You may take Tylenol (Acetaminophen) if needed for pain. No Motrin, Ibuprofen, or Advil 24 hours prior to surgery, or longer if instructed by your surgeon. No Aleve or Naprosyn 3 days prior to surgery, or longer if instructed by your surgeon. If you are on ASPIRIN: DO NOT take aspirin or aspirin containing products for 5 days before surgery, or longer if instructed by your surgeon. LAST DOSE 03/02 Additional instructions: Shower/Bathe with antibacterial soap day of surgery ie Dial Lund or Safeguard. No other lotions,soaps, powders, makeup, hairspray or deodorants on your skin . You will receive a reminder call the day before surgery (Tuesday) with your Same Day Surgery arrivaltime. If you have specific questions, please call your surgeon. CAROL ENTER BUILDING AT THE MAIN ENTRANCE. TAKE THE H ELEVATOR TO THE FIRST FLOOR, TURN LEFT OFF THE ELEVATOR AND GO TO THE SAME DAY SURGERY REGISTRATION DESK TO CHECK IN documented in this [facility] Work Phone: [phone]) 990-646302-22-2021 NotePatient Outreach ([facility]OV[facility]) CAMILLA MCDERMOTT II ([id number]) 1945 M Date Time Provider Department 12/15/20 WEATHERS, XAVIER MAYER During your visit today, we recorded the following information about you: Allergies As of Date: 12/15/2020 (No Known Allergies) Date Reviewed: 10/26/2019 Reviewed by: Christine Oseguera Ma - Fully Assessed Order(s):SARS-COVID VACCINE 1ST DOSE APPT [[id number]] Order #: [id number] FUTURE Prescriptions as of 12/15/2020 Sig: OMEPRAZOLE 40 MG CAPSULE,TUCKER* TAKE 1 CAPSULE BY MOUTH ONCE* AMLODIPINE 10 MG TABLET TAKE 1 TABLET BY MOUTH ONCE D* DULOXETINE 30 MG CAPSULE,TUCKER* TAKE 2 CAPSULES BY MOUTH IN T* NAPROXEN 500 MG TABLET TAKE 1 TABLET BY MOUTH TWICE* METFORMIN 1,000 MG TABLET TAKE 1 TABLET BY MOUTH TWICE* POLYETHYLENE GLYCOL 3350 17 G* 17 g dissolved in 8 oz water * LANCETS 33 GAUGE USE 3 TIMES DAILY DIRECTE* ONETOUCH ULTRA BLUE TEST STRIP TEST 3 TIMES DAILY DIRECT* LAMOTRIGINE 25 MG TABLET TAKE 2 TABLETS DAILY MIRABEGRON ER 50 MG TABLET,EX* Take 1 tablet by mouth once d* METOPROLOL TARTRATE 100 MG TA* TAKE 1 TABLET BY MOUTH TWICE* ATORVASTATIN 40 MG TABLET TAKE 1 TABLET BY MOUTH ONCE D* LOSARTAN 100 MG TABLET Take 1 tablet by mouth once d* INSULIN NPH ISOPHANE U-100 HU* Inject 28 Units before breakf* GLIPIZIDE 5 MG TABLET Take 2 tablets by mouth twice* IPRATROPIUM BROMIDE 42 MCG (0* Use 2 Sprays in the nose thre* DAILY PROBIOTIC ORAL Take 1 tablet by mouth once d* GLUCOSAMINE ORAL Take 1 tablet by mouth as nee* BLOOD-GLUCOSE METER KIT Use to test glucose as direct* ALPHA LIPOIC ACID 600 MG CAPS* Take by mouth once daily. PEN NEEDLE, DIABETIC 31 GAUGE* USE WITH INSULIN PENS/ BYETTA* NEEDLE (DISP) 31 GAUGE X 03/08 Use as directed with Lantus ASCORBIC ACID (VITAMIN C) 500* Take 500 mg by mouth once daniel* CALCIUM CARBONATE-VITAMIN D3 * Take 1 tablet by mouth twice * OMEGA-3 FATTY ACIDS 500 MG CA* Take 1,000 mg by mouth once d* THERAGRAN-M PREMIER 50 PLUS O* Take 1 tablet by mouth once d* E-400 ORAL Take 1 tablet by mouth once d* ASPIRIN 81 MG TABLET,DELAYED * Take 81 mg by mouth once viraj* Problem List As Of Date 12/15/2020 Noted Resolved Chest pain [786.5] 08/16/1998 07/27/2016 Class: Chronic Essential hypertension [I10] 04/28/2004 More... 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 Bunion [M21.619] 01/23/2017 Type 2 diabetes mellitus without complication, *05/09/2017 HTN (hypertension) [I10] 08/11/2017 08/12/2017 Diabetic polyneuropathy associated with type 2 *09/09/2017 Gait difficulty [R26.9] 09/09/2017 Disturbance of skin sensation [R20.9] 09/09/2017 Pain in both feet [M79.671, M79.672] 09/09/2017 Concern about neurological disease without diag*09/09/2017 Mixed hyperlipidemia [E78.2] 10/12/2017 More... Neuropathy ([facility]) [G62.9] 02/13/2018 Stroke syndrome ([facility]) [[id number]] 03/13/2018 More... 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] 03/26/2019 Encounter Status:Closed by LORRIE PRODUSER on 12/18/20[facility] Evaluation note* Diagnosis Stage 3b chronic kidney disease documented in this encounter [facility] Work Phone: evaluation note* Diagnosis Chronic bilateral low back pain without sciatica documented in this encounter [facility] Work Phone: evaluation note* Diagnosis Facial droop- Primary Facial weakness documented in this encounter [facility] Work Phone: evaluation note* Diagnosis Type 2 diabetes mellitus with diabetic polyneuropathy, without long-term current use of insulin ([facility]/HCC) ([facility])- [facility] Diagnosis Type 2 diabetes mellitus with hyperglycemia, with long-term current use of insulin (CMS/HCC) ([facility])- Primary Hyperlipidemia associated with type 2 diabetes mellitus (HCC) Type 2 diabetes mellitus with stage 3b chronic kidney disease, with long-term current use of insulin (HCC) Type 2 diabetes mellitus with diabetic polyneuropathy, with long-term current use of insulin (CMS/HCC) (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, with long-term current use of insulin, unspecified laterality, unspecified retinopathy severity (HCC) Essential hypertension Unspecified essential hypertension Mixed Alzheimer's and vascular dementia (HCC) Major depressive disorder, recurrent, moderate (HCC) Major depressive disorder, recurrent episode, moderate Ascending aorta dilatation (HCC) Thoracic aneurysm without mention of rupture Hyperparathyroidism due to renal insufficiency (HCC) Secondary hyperparathyroidism (of renal origin) Deformity of left foot Anemia, unspecified type [facility]* Diagnosis Acute chest pain- Primary Unspecified chest pain Acute chest pain Unspecified chest pain Stable angina Other and unspecified angina pectoris Stable angina Other and unspecified angina pectoris Chest pain, unspecified [facility]* Diagnosis Type 2 diabetes mellitus with hyperglycemia, with long-term current use of insulin (HCC)- Primary Hyperlipidemia associated with type 2 diabetes mellitus (HCC) (HCC) Primary hypertension Unspecified essential hypertension Type 2 diabetes mellitus with both eyes affected by severe nonproliferative retinopathy and macular edema, with long-term current use of insulin (HCC) Type 2 diabetes mellitus with stage 3b chronic kidney disease, with long-term current use of insulin (HCC) Type 2 diabetes mellitus with diabetic polyneuropathy, with long-term current use of insulin (HCC) [facility]* Diagnosis Precordial pain- Primary Essential hypertension Unspecified essential hypertension [facility]* Diagnosis 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, with long-term current use of insulin, unspecified laterality, unspecified retinopathy severity (HCC)- Primary Bilateral impacted cerumen Impacted cerumen Stage 3a chronic kidney disease (HCC) Mixed Alzheimer's and vascular dementia (HCC) Moderate episode of recurrent major depressive disorder (HCC) Hyperparathyroidism due to renal insufficiency (HCC) Secondary hyperparathyroidism (of renal origin) Essential hypertension Unspecified essential hypertension [facility]* Diagnosis Type 2 diabetes mellitus with hyperglycemia, with long-term current use of insulin (HCC)- Primary Hyperlipidemia associated with type 2 diabetes mellitus (HCC) (HCC) Type 2 diabetes mellitus with both eyes affected by severe nonproliferative retinopathy and macular edema, with long-term current use of insulin (HCC) Type 2 diabetes mellitus with stage 3b chronic kidney disease, with long-term current use of insulin (HCC) Type 2 diabetes mellitus with diabetic polyneuropathy, with long-term current use of insulin (HCC) Mixed hyperlipidemia [facility] Diagnosis Precordial pain [facility] Diagnosis Frequent falls- Primary Abnormal brain CT Nonspecific (abnormal) findings on radiological and other examination of skull and head Diabetic polyneuropathy associated with type 2 diabetes mellitus (CMS/HCC) (HCC) 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) [facility] Diagnosis Essential hypertension Unspecified essential hypertension [facility] Diagnosis Coronary artery disease involving [place] coronary artery of [place] heart without angina pectoris- Primary [facility]* Diagnosis Type 2 diabetes mellitus with hyperglycemia, with long-term current use of insulin (HCC)- [facility] Diagnosis Acute pain of right knee- Primary History of fall Personal history of fall [facility] Diagnosis Type 2 diabetes mellitus with hyperglycemia, with long-term current use of insulin (CMS/HCC) ([facility])- Primary Hyperlipidemia associated with type 2 diabetes mellitus ([facility]) Primary hypertension Unspecified essential hypertension Type 2 diabetes mellitus with stage 3b chronic kidney disease, with long-term current use of insulin (HCC) Type 2 diabetes mellitus with diabetic polyneuropathy, with long-term current use of insulin ([facility]/HCC) ([facility]) [facility] Diagnosis Acute pain of right knee History of fall Personal history of fall [facility] Diagnosis Primary osteoarthritis of right knee- Primary Diabetic polyneuropathy associated with type 2 diabetes mellitus (CMS/HCC) (HCC) Stage 3a chronic kidney disease (HCC) [facility] Diagnosis Bronchitis- Primary Bronchitis, not specified as acute or chronic [facility] Diagnosis Routine general medical examination at health care facility- Primary Routine general medical examination at a health care facility Stage 3a chronic kidney disease (HCC) Anemia of chronic renal failure, stage 3b (HCC) 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, with long-term current use of insulin, unspecified laterality, unspecified retinopathy severity (HCC) Type 2 diabetes mellitus with hyperglycemia, with long-term current use of insulin (HCC) Generalized weakness [facility] Diagnosis Stage 3b chronic kidney disease (HCC)- Primary [facility] Diagnosis Generalized weakness- Primary [facility] Diagnosis Type 2 diabetes mellitus with hyperglycemia, with long-term current use of insulin ([facility]) [facility]* Diagnosis Type 2 diabetes mellitus with hyperglycemia, with long-term current use of insulin (HCC)- Primary [facility]* Diagnosis Mixed Alzheimer's and vascular dementia (HCC)- Primary Generalized weakness Chronic pain syndrome Impaired gait [facility]* Diagnosis Mixed Alzheimer's and vascular dementia (HCC)- Primary Generalized weakness Chronic pain syndrome Impaired gait [facility]* Diagnosis Mixed Alzheimer's and vascular dementia (HCC)- Primary Generalized weakness Chronic pain syndrome Impaired gait [facility]* Diagnosis Chronic kidney disease, stage 3b ([facility]) [facility]* Diagnosis Chronic left-sided low back pain with left-sided sciatica- Primary Mixed Alzheimer's and vascular dementia ([facility]) Moderate episode of recurrent major depressive disorder ([facility]) Type 2 diabetes mellitus with hyperglycemia, with long-term current use of insulin ([facility]) Essential hypertension Unspecified essential hypertension [facility]* Diagnosis Lumbar pain- Primary Lumbago Lumbar radiculopathy Thoracic or lumbosacral neuritis or radiculitis, unspecified Degeneration of intervertebral disc of lumbar region with discogenic back pain and lower extremity pain Lumbar spondylosis Lumbosacral spondylosis without myelopathy Compression fracture of L1 vertebra, sequela Spondylolisthesis of lumbar region [facility]* Diagnosis Lumbar pain Lumbago Lumbar radiculopathy Thoracic or lumbosacral neuritis or radiculitis, unspecified Degeneration of intervertebral disc of lumbar region with discogenic back pain and lower extremity pain Lumbar spondylosis Lumbosacral spondylosis without myelopathy Compression fracture of L1 vertebra, sequela Spondylolisthesis of lumbar region [facility]* Diagnosis Lumbar pain Lumbago Lumbar radiculopathy Thoracic or lumbosacral neuritis or radiculitis, unspecified Degeneration of intervertebral disc of lumbar region with discogenic back pain and lower extremity pain [facility] Diagnosis Spinal stenosis of lumbar region with neurogenic claudication Lumbar radiculopathy Thoracic or lumbosacral neuritis or radiculitis, unspecified Lumbar pain Lumbago [facility] [place]* Diagnosis Type 2 diabetes mellitus with hyperglycemia, with long-term current use of insulin (HCC) documented [facility]* Diagnosis Chronic kidney disease, stage 3b (HCC)- Primary Chronic kidney disease, stage 3b (HCC) documented in this encounter [facility] Discharge instructions* Attachments The following attachments cannot be sent through Care Everywhere. 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) Procedures MA OFFICE/OUTPATIENT NEW HIGH MDM 60 MINUTES Efren Tidwell MD [address] [place] [address] [facility] [address] [place] [address] Referral ID Status Reason Start Date Expiration Date Visits Requested Visits Authorized [id number] Pending Review Specialty Services Required 07/03/2024 07/03/2025 1 1 [facility] for referral (narrative)* Consultation (Routine) - Pending Review Specialty Diagnoses / Procedures Referred By Contac t Referred To Contact Physical Therapy Diagnoses Primary osteoarthritis of right knee Procedures MA OFFICE/OUTPATIENT NEW HIGH MDM 60-74 MINUTES Izabella Orozco DO [address] [place] [address] [facility] [address] [place] [address] Referral ID Status Reason Start Date Expiration Date Visits Requested Visits Authorized [id number] Pending Review Specialty Services Required 11/11/2022 11/11/2023 99 [phone] [facility]No reason for referral information [facility]WThe [facility] Work Phone: Reason for visit Narrative* Imaging (Routine) - Closed Specialty Diagnoses / Procedures Referred By Contac t Referred To Contact Radiology Diagnoses Lumbar pain Lumbar radiculopathy Degeneration of intervertebral disc of lumbar region with discogenic back pain and lower extremity pain Lumbar spondylosis Compression fracture of L1 vertebra, sequela Spondylolisthesis of lumbar region Procedures MR lumbar spine wo contrast Rachell Herrera APRN - EXCEPTION[employer] 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 [address] [address] Phone: tel: fax: Referral ID Status Reason Start Date Expiration Date Visits Re quested Visits Authorized [id number] Closed 02/05/2025 02/05/2026 1 1 [facility] Summary Purpose Family History Relationship Condition Age at Onset Recorded Date/T mariana father Alcoholism Unknown mother Malignant neoplasm of breast Unknown brother Malignant neoplasm of stomach Unknown Malignant neoplasm of brain Unknown Advance Directives Documents on File Type Date Recorded Patient Public Health Doctor Expl anation Advance Directives and Living Will Power of Research Laboratory Technician Documents on File Type Date Recorded Patient Public Health Doctor Expl anation ACP-Advance Directive ACP-Power of Research Laboratory Technician Documents on File Type Date Recorded Patient Public Health Doctor Expl anation ACP-Advance Directive ACP-Power of Research Laboratory Technician Documents on File Type Date Recorded Patient Public Health Doctor Expl anation Advance Directives and Living Will Power of Research Laboratory Technician Latest Code Status on File Code Status Date Activated Date Inactivated Comments Full Code 03/08/2022 9:42 AM Latest Code Status on File Code Status Date Activated Date Inactivated Comments Full Code 01/08/2024 12:35 AM 01/08/2024 4:19 PM Latest Code Status on File Code Status Date Activated Date Inactivated Comments Full Code 01/08/2024 12:35 AM 01/08/2024 4:19 PM Date Activated Date Inactivated Comments 01/08/2024 12:35 AM 01/08/2024 4:19 PM Date Activated Date Inactivated Comments 01/08/2024 12:35 AM 01/08/2024 4:19 PM Assessments Diagnosis Bilateral lower extremity edema Edema Diagnosis Bilateral lower extremity edema- Primary Edema Diagnosis Bilateral lower extremity edema Edema Diagnosis Disorientation Other general symptoms Reason for Referral Status Reason Specialty Diagnoses / Procedures Referre d By Contact Referred To Contact Open Radiology Diagnoses Bilateral lower extremity edema Procedures VL DUP LOWER EXTREMITY VENOUS BILATERAL Letitia Ghotra MD [address] [place] [address] Status Reason Specialty Diagnoses / Procedures Referre d By Contact Referred To Contact Closed Radiology Diagnoses Disorientation Procedures MRI Brain WO Contrast Michelle Rios MD [address] [facility] [address] [address] Status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 60 mg 60 mg, Oral, Daily, First dose on 01/08/24 at 0900, Do not crush or chew. 0946 (Given - Provid er: Selma Cantor RN) enoxaparin (Lovenox) syringe 40 mg 40 mg, SubCUTAneous, Every 24 hours scheduled (Daily), First dose on 01/08/24 at 0900, Indication of Use: Prophylaxis-DVT/PE, Indications: Prophylaxis of Venous Thromboembolism 0947 (Given - Provid er: Selma Cantor RN) ezetimibe (Zetia) tablet 10 mg 10 mg, Oral, Nightly, First dose on 01/08/24 at 0045 0149 (Given - Provid er: Ruby Peraza RN) Insulin Lispro (Humalog) injection 0-12 Units(Linked Group 1) 0-12 Units, SubCUTAneous, 3 times daily with meals, First dose on 01/08/24 at 0800, Medium Dose Correction Algorithm Glucose: Dose: LESS than 139 No Insulin 140-199 2 Unit 200-249 4 Units 250-299 6 Units 300-349 8 Units 350-400 10 Units Above 400 12 Units 0800 (Not Given - Provider: Selma Cantor RN - Reason: Order parameters not met)1200 (Not Given - Provider: Selma Cantor RN - Reason: Other - Comment: no meal, pt will recheck at home) Insulin Lispro (Humalog) injection 0-12 Units(Linked Group 1) 0-12 Units, SubCUTAneous, Nightly, First dose on 01/08/24 at 0045, If continuous tube feedings/TPN/NPO, give correction dose based on result, no reduction in dose. If eating or bolus tube feeding: Medium Dose Correction Algorithm Glucose: Dose: LESS than 139 No Insulin 140-199 2 Unit 200-249 4 Units 250-299 6 Units 300-349 8 Units 350-400 10 Units Above 400 12 Units 0155 (Given - Provid er: Ruby Peraza RN) insulin NPH-insulin regular (HumuLIN,NovoLIN) (70-30) 100 UNIT/ML injection 15 Units 15 Units, SubCUTAneous, 2 times daily before meals, First dose on 01/08/24 at 0700 0953 (Given - Provid er: Selma Cantor RN)1600 (Canceled Entry - Provider: Automatic Discharge Provider - Comment: Automatically canceled at discontinue of medication order) isosorbide mononitrate ER (Imdur) 24 hr tablet 30 mg 30 mg, Oral, Daily, First dose on 01/08/24 at 0900, Do not chew or crush ER tablets; may be divided in half. Due to insoluble matrix embedding, ER tablets that are scored may be split. 0945 (Given - Provid er: Selma Cantor RN) losartan (Cozaar) tablet 50 mg 50 mg, Oral, Daily, First dose on 01/08/24 at 0900 0946 (Given - Provid er: Selma Cantor RN) metoprolol tartrate (Lopressor) tablet 100 mg 100 mg, Oral, 2 times daily, First dose on 01/08/24 at 0045 0149 (Given - Provid er: Ruby Peraza RN)09 (Given - Provider: Selma Cantor RN) mirtazapine (Remeron) tablet 15 mg 15 mg, Oral, Nightly, First dose on 01/08/24 at 0045 014 (Given - Provid er: Ruby Peraza RN) pantoprazole (ProtoNix) EC tablet 40 mg 40 mg, Oral, Daily before breakfast, First dose on 01/08/24 at 0700, Substituted for omeprazole (Prilosec). Do not crush, chew, or split. 07 (Given - Provid er: Ruby Peraza RN) sodium chloride 0.9 % bolus 500 mL (COMPLETED) 500 mL, IntraVENous, at 500 mL/hr, Administer over 1 Hours, Once, On 01/07/24 at 2310, For 1 dose 2318 (New Bag - Provider: Misty Queen) 0018 (Stopped - Provider: Ruby Peraza RN) tamsulosin (Flomax) 24 hr capsule 0.4 mg 0.4 mg, Oral, Daily, First dose on 01/08/24 at 0900, Do not crush, chew, or split. 09 (Given - Provid er: Selma Cantor RN) topiramate (Topamax) tablet 50 mg 50 mg, Oral, Nightly, First dose on 01/08/24 at 0045, Do not crush, chew, or split. 014 (Given - Provid er: Ruby Peraza RN) trospium (Sanctura) tablet 20 mg 20 mg, Oral, Daily, First dose on 01/08/24 at 0900, Substituted for oxybutynin (DITROPAN); fesoterodine (TOVIAZ); darifenacin (ENABLEX); solifenacin (VESICARE); tolterodine IR (DETROL); tolterodine ER (DETROL LA). Give one hour before meals. 0946 (Given - Provid er: Selma Cantor RN) PRN Medication Order 01/06/2024 01/07/2024 01/08/2024 acetaminophen (Tylenol) suppository 650 mg(Linked Group 2) 650 mg, Rectal, Every 6 hours PRN, mild pain (1-3), fever, For temp greater than 100.4 F (38 C), Starting on 01/08/24 at 0035, Administer if oral route cannot be used. Maximum dose of acetaminophen is 4000 mg from all sources in 24 hours. acetaminophen (Tylenol) tablet 650 mg(Linked Group 2) 650 mg, Oral, Every 6 hours PRN, mild pain (1-3), fever, For temp greater than 100.4 F (38 C), Starting on 01/08/24 at 0035, Maximum dose of acetaminophen is 4000 mg from all sources in 24 hours. dextrose 5 % infusion 100 mL/hr, IntraVENous, PRN, Blood sugar less than 70mg/dL, Starting on 01/08/24 at 0035, Start infusion following administration of dextrose 50% or glucagon. dextrose 50 % solution 12.5 g 12.5 g, IntraVENous, PRN, low blood sugar, Blood glucose less than 70 mg/dL and patient NOT ALERT or NPO., Starting on 01/08/24 at 0035, If patient does not respond within 5 minutes, repeat dose x1. Start D5W at 100 mL/hour until ordering provider can be reached. Repeat blood glucose in 15 minutes. If blood glucose is less than 70 mg/dL, repeat treatment and recheck blood glucose in 15 minutes x2. If using Glucostabilizer, dose as instructed per system. glucagon (human recombinant) injection 1 mg 1 mg, IntraMUSCular, PRN, low blood sugar, Blood glucose less than 70 mg/dL and patient NOT ALERT or NPO and does not have IV access., Starting on 01/08/24 at 0035, After administration, attempt intravenous access and start D5W at 100 mL/hr. Repeat blood glucose in 15 minutes x2 and notify provider. glucose oral gel 15 g 15 g, Oral, As needed, low blood sugar, Starting on 01/08/24 at 0035, If blood glucose less than 50 mg/dL and patient ALERT and NOT NPO, give 2 tubes glucose gel. If blood glucose less than 70 mg/dL and patient ALERT and NOT NPO, give 1 tube glucose gel. Repeat blood glucose in 15 minutes. If blood glucose is less than 70 mg/dL, repeat treatment and recheck blood glucose in 15 minutes x2 and notify provider. ondansetron (Zofran) injection 4 mg(Linked Group 3) 4 mg, IntraVENous, Every 6 hours PRN, nausea, vomiting, Starting on 01/08/24 at 0035, 1st Line. Give IV if patient is unable to take orally. If inadequate response within 60 minutes, proceed to next-line agent or contact provider if no further options ordered. ondansetron ODT (Zofran-ODT) disintegrating tablet 4 mg(Linked Group 3) 4 mg, Oral, Every 8 hours PRN, nausea, vomiting, Starting on 01/08/24 at 0035, 1st Line. If inadequate response within 60 minutes, proceed to next-line agent or contact provider if no further options ordered. Patient should allow tablet to dissolve on tongue. Do not remove from blister pack until just before administering. polyethylene glycol (PEG) 3350 (Miralax) packet 17 g 17 g, Oral, Daily PRN, constipation, Starting on 01/08/24 at 0035, 1st line for treatment of constipation - give scheduled if no bowel movement in past 24 hours. Linked Groups Order Group 1: Insulin Lispro (Humalog) injection 0-12 UnitsJump to med 0-12 Units, SubCUTAneous, 3 times daily with meals, First dose on 01/08/24 at 0800, Medium Dose Correction Algorithm Glucose: Dose: LESS than 139 No Insulin 140-199 2 Unit 200-249 4 Units 250-299 6 Units 300-349 8 Units 350-400 10 Units Above 400 12 Units And Insulin Lispro (Humalog) injection 0-12 UnitsJump to med 0-12 Units, SubCUTAneous, Nightly, First dose on 01/08/24 at 0045, If continuous tube feedings/TPN/NPO, give correction dose based on result, no reduction in dose. If eating or bolus tube feeding: Medium Dose Correction Algorithm Glucose: Dose: LESS than 139 No Insulin 140-199 2 Unit 200-249 4 Units 250-299 6 Units 300-349 8 Units 350-400 10 Units Above 400 12 Units Group 2: acetaminophen (Tylenol) tablet 650 mgJump to med 650 mg, Oral, Every 6 hours PRN, mild pain (1-3), fever, For temp greater than 100.4 F (38 C), Starting on 01/08/24 at 0035, Maximum dose of acetaminophen is 4000 mg from all sources in 24 hours. Or acetaminophen (Tylenol) suppository 650 mgJump to med 650 mg, Rectal, Every 6 hours PRN, mild pain (1-3), fever, For temp greater than 100.4 F (38 C), Starting on 01/08/24 at 0035, Administer if oral route cannot be used. Maximum dose of acetaminophen is 4000 mg from all sources in 24 hours. Group 3: ondansetron ODT (Zofran-ODT) disintegrating tablet 4 mgJump to med 4 mg, Oral, Every 8 hours PRN, nausea, vomiting, Starting on 01/08/24 at 0035, 1st Line. If inadequate response within 60 minutes, proceed to next-line agent or contact provider if no further options ordered. Patient should allow tablet to dissolve on tongue. Do not remove from blister pack until just before administering. Or ondansetron (Zofran) injection 4 mgJump to med 4 mg, IntraVENous, Every 6 hours PRN, nausea, vomiting, Starting on 01/08/24 at 0035, 1st Line. Give IV if patient is unable to take orally. If inadequate response within 60 minutes, proceed to next-line agent or contact provider if no further options ordered. Goals (unrecognized section and content) Goals may be documented in a n alternate section FOR RECORDS PERTAINING TO PATIENTS WHO ARE OR HAVE BEEN ENROLLED IN A CHEMICAL DEPENDENCY/SUBSTANCEABUSE PROGRAM, SOME INFORMATION MAY BE OMITTED. This clinical summary was aggregated from multiple sources. Caution should be exercised in using it in the provision of clinical care. This summary normalizes information from multiple sources, and as a consequence, information in this document may materially change the coding, format and clinical context of patient data. In addition, data may be omitted in some cases. CLINICAL DECISIONS SHOULD BE BASED ON THE PRIMARY CLINICAL RECORDS. [facility]. provides no warranty or guarantee of the accuracy or completeness of information in this document.
== END | disposition home or self-care (01) ==
LOC: LAB 12:54
PROVIDERS: PCP Family Medicine; Referring Provider Nurse Practitioner Family; Visit Provider Nurse Practitioner Family
DX: E11.9 Type 2 diabetes mellitus without complications (principal)
CPT/HCPCS: 36415; 80053; 80061; 82043; 82570; 84443